=== PATIENT | male | born 1940 | race Caucasian/White ===

== ENCOUNTER 2017-06-10 21:32 | Emergency (ER) | payer BC ==
[~2017-06-10] VITALS: Ht 172.7 cm; Wt 75.0 kg
[~2017-06-10 21:32] MED LIST: ASPCH81 PO; LISI-725 PO
[2017-06-10 21:46] VITALS: TEMP 37.2; Ht 172.7 cm; Wt 75.0 kg
--- NOTE | 2017-06-10 23:06 | DIAGNOSTIC IMAGING REPORT ---
L ANKLE MIN 3 VIEWS ROUTINE CLINICAL HISTORY: 76 years-old Male presenting with FALL ONTO LEFT HEEL/ANKLE. TECHNIQUE: Frontal, mortise, and lateral views of the left ankle were obtained. COMPARISON: None. FINDINGS: Ankle mortise intact. Nondisplaced fracture of the calcaneus extending from the posterior cortex anteriorly toward the inferior aspect of the calcaneus. The fracture plane appears largely parallel to the long axis of the calcaneus. No advanced degenerative change. Diffuse soft tissue swelling at the ankle. IMPRESSION: Nondisplaced calcaneal fracture. Please see separately dictated radiographs of the calcaneus. Electronically signed by: Shiva Arroyo M.D. 06/10/2017 11:05 PM Dictated Date/Time: 06/10/2017 11:03 PM [facility]
--- NOTE | 2017-06-10 23:07 | DIAGNOSTIC IMAGING REPORT ---
L HEEL MIN 2 VIEWS CLINICAL HISTORY: 76 years-old Male presenting with FALL ONTO LEFT HEEL. TECHNIQUE: Frontal and lateral views of the calcaneus were obtained. COMPARISON: None. FINDINGS: Nondisplaced fracture of the calcaneus extending from the posterior cortex along the long axis of the calcaneus approaching the inferior cortex. Overlying soft tissue swelling noted. No advanced degenerative change. Atherosclerosis. IMPRESSION: Nondisplaced fracture of the calcaneus. Electronically signed by: Shiva Arroyo M.D. 06/10/2017 11:06 PM Dictated Date/Time: 06/10/2017 11:05 PM
--- NOTE | 2017-06-10 23:59 | EMERGENCY ROOM VISIT NOTE ---
ED Visit Note First contact with patient: 23:03 The patient was seen and examined with [facility]. I agree with the history, physical and findings. Please see the note for disposition and details.
--- NOTE | 2017-06-11 00:05 | EMERGENCY ROOM VISIT NOTE ---
ED Visit Note First contact with patient: 23:03 CHIEF COMPLAINT: Left ankle and foot pain HISTORY OF PRESENT ILLNESS: This 76-year-old male patient presents to the emergency department, ambulatory, with his , complaining of swelling and pain in the left ankle and foot at rest and worse with weight bearing. The patient was working approximately 4-5 feet up a ladder, when a branch of a tree hit the ladder, and the patient lost balance. He fell down onto his left heel, then rolled over to his left side. This occurred at approximately 1:30 PM. The patient immediately felt pain with walking on the left heel, and states he is now having difficulty putting any weight on the foot. The patient has been alternating ice and heat, but has taken no medications for the pain. He describes the pain mostly in the left heel, but radiating towards the lateral ankle. The patient rates the pain as sharp and 9/10. The patient has not relief of the pain. The patient is not able to walk. No numbness or weakness. There are no lacerations of the foot. The patient is able to move all of their toes and their ankle without pain. No previous fracture to this foot. REVIEW OF SYSTEMS: GENERAL: A 6 system review of systems was completed with positives and pertinent negatives in the HPI. ALLERGIES: None MEDICATIONS: Lisinopril, aspirin PMH: Hypertension SOCIAL HISTORY: The patient lives locally with family. He denies drug use. He admits to occasionally smoking cigars and drinking alcohol. PHYSICAL EXAM: Vital Signs: Reviewed Nurse's notes, vital signs stable. GENERAL : This is a 76-year-old white male, in no acute distress, but appears in pain, well-developed, well-nourished. MUSCULOSKELATAL: There is no visual deformity of the left ankle or foot. There is no erythema, but there is ecchymosis over the heel/calcaneus. There is no warmth. There is tenderness and swelling over the entirety of the left foot. There is no tenderness over the lateral or medial malleolus, but there is tenderness just distal to the lateral malleolus. No tenderness of the tib/fib. The range of motion of the ankle and foot is mildly limited secondary to pain. There is no tenderness over the plantar fascia. The skin is intact and there are no lacerations or puncture wounds. Dorsalis pedis pulse 2+. Capillary refill less than 2 seconds. There is no tenderness over the thoracic or lumbar vertebrae. There is no paraspinous muscle tenderness. The patient denies any back pain. RADIOLOGY: L ANKLE MIN 3 VIEWS ROUTINE CLINICAL HISTORY: 76 years-old Male presenting with FALL ONTO LEFT HEEL/ANKLE. TECHNIQUE: Frontal, mortise, and lateral views of the left ankle were obtained. COMPARISON: None. FINDINGS: Ankle mortise intact. Nondisplaced fracture of the calcaneus extending from the posterior cortex anteriorly toward the inferior aspect of the calcaneus. The fracture plane appears largely parallel to the long axis of the calcaneus. No advanced degenerative change. Diffuse soft tissue swelling at the ankle. IMPRESSION: Nondisplaced cranial fracture. Please see separately dictated radiographs of the calcaneus. Electronically signed by: Shiva Arroyo M.D. 06/10/2017 11:05 PM Dictated Date/Time: 06/10/2017 11:03 PM L HEEL MIN 2 VIEWS CLINICAL HISTORY: 76 years-old Male presenting with FALL ONTO LEFT HEEL. TECHNIQUE: Frontal and lateral views of the calcaneus were obtained. COMPARISON: None. FINDINGS: Nondisplaced fracture of the calcaneus extending from the posterior cortex along the long axis of the calcaneus approaching the inferior cortex. Overlying soft tissue swelling noted. No advanced degenerative change. Atherosclerosis. IMPRESSION: Nondisplaced fracture of the calcaneus. Electronically signed by: Shiva Arroyo M.D. 06/10/2017 11:06 PM Dictated Date/Time: 06/10/2017 11:05 PM EMERGENCY DEPARTMENT COURSE: I examined the patient. An X-ray of the left ankle and heel was reviewed by myself and radiologist and reveals a nondisplaced calcaneal fracture. No, the dictation of the left ankle by radiologist indicates a nondisplaced cranial fracture, I do believe this is a mistake and is meant to say calcaneal fracture. The radiologist was notified. The patient was offered analgesics, and declined. I discussed the case with Dr. Sue, who did independently see and evaluate the patient. The patient was placed in a bulky Castellanos dressing with Ortho-Glass splint. He was instructed on no weightbearing, and offered crutches or a walker. The patient states he has a walker at home, and declines our offer here. Discharge instructions reviewed, and the patient was given strict instructions on follow-up with orthopedics within 1 week. The patient was discharged home in good condition. I attest that I have personally reviewed the patient's current medication list. Patient was found to have an elevated blood pressure and was referred to their primary doctor for recheck and further treatment. Etiologies such as soft tissue injury, fracture, dislocation, neurovascular compromise, compartment syndrome, as well as others were entertained. DIAGNOSIS: Left calcaneal fracture The chart was completed utilizing Open English Speech voice recognition software. Grammatical errors, random word insertions, pronoun errors, and incomplete sentences are an occasional consequence of this system due to software limitations, ambient noise, and hardware issues. Any formal questions or concerns about the content, text, or information contained within the body of this dictation should be directly addressed to the provider for clarification. Current/Historical Medications Scheduled Aspirin (Aspirin Tab-Chewable *), 81 MG PO DAILY Lisinopril (Zestril), 20 MG PO DAILY Allergies Coded Allergies: No Known Allergies (Unverified , 06/26/10) Vital Signs Date Time Temp Pulse Resp B/P (MAP) Pulse Ox O2 Delivery O2 Flow Rate FiO2 06/11/17 00:31 74 16 184/96 96 06/10/17 21:46 37.2 101 18 199/93 95 Room Air Departure Information Impression Primary Impression: Left calcaneal fracture Additional Impression: Fall from ladder Dispostion Home / Self-Care Condition GOOD Referrals Akash Swift M.D. (PCP) Shiva Wallace M.D. Patient Instructions ED Fx Foot, [facility] Additional Instructions He was seen in the emergency department today for left heel pain. You were diagnosed with a calcaneus fracture. As discussed, it is imperative that you follow-up with orthopedics for proper management and care, as these fractures often have many complications. Ibuprofen(Motrin, Advil) may be used for fever or pain. Use 600mg every six hours as needed. Take with food. Avoid using more than 2400mg in a 24 hour period. Do not use 2400mg per day for more than three consecutive days without physician direction. Prolonged inappropriate use can lead to stomach upset or ulcers. (AND/OR) Acetaminophen(Tylenol) may be used for fever or pain. Use 1000mg every six hours as needed. Avoid using more than 4000mg in a 24 hour period. Ice compresses for 20 minutes at a time four times daily for 2-3 days. Use the crutches or walker as instructed to avoid all weightbearing. Rest and elevate your injury. Do not get the splint wet. If your splint feels excessively tight, you have worsening pain, develop numbness or tingling, or your digits appear blue, loosen the rosa wrap. Then reapply the rosa wrap gently without removing the splint. If your symptoms are not quickly relieved return to the ER for re- evaluation. Return to the ER immediately for any numbness, tingling, severe pain, extreme swelling in the extremity or as needed. Call [facility], [phone], on Tuesday to arrange follow up for your injury. Problem Qualifiers Primary Impression: Left calcaneal fracture Encounter type: initial encounter Calcaneus location: unspecified portion of calcaneus Fracture type: closed Fracture alignment: nondisplaced Qualified Codes: S92.002A - Unspecified fracture of left calcaneus, initial encounter for closed fracture Additional Impression: Fall from ladder Encounter type: initial encounter Qualified Codes: W11.XXXA - Fall on and from ladder, initial encounter
[2017-06-11 00:31] VITALS: BP 184/96; PULSE 74; O2SAT 96
== END 2017-06-11 00:31 | disposition home or self-care (01) ==
LOC: C.EDB 21:33 → C.EDD 06-11 00:31
DX: S92.002A Unspecified fracture of left calcaneus, initial encounter for closed fracture (principal); W11.XXXA Fall on and from ladder, initial encounter; I10 Essential (primary) hypertension; F17.200 Nicotine dependence, unspecified, uncomplicated; Z79.82 Long term (current) use of aspirin

== ENCOUNTER 2017-06-17 01:14 | Emergency (ER) | payer BC ==
[~2017-06-17] VITALS: Ht 172.7 cm; Wt 78.1 kg
[2017-06-17 01:18] VITALS: TEMP 36.8; Ht 172.7 cm; Wt 78.1 kg
[2017-06-17] MEDS ORDERED: ASPI81TA28 PO (01:46)
[2017-06-17] MEDS ORDERED: LISI40TA PO (01:46)
[2017-06-17] MEDS ORDERED: MULT-188 PO (01:48)
[2017-06-17 02:52] VITALS: BP 178/86; PULSE 78; O2SAT 98
--- NOTE | 2017-06-17 02:53 | EMERGENCY ROOM VISIT NOTE ---
ED Visit Note First contact with patient: :22 Patient seen and evaluated at bedside after discussion with physician compliance assistant. Patient reports feeling markedly improved upon removal of his cast and is comfortable with the walking boot and crutches. Patient is a follow-up appointment scheduled for Tuesday with orthopedics. Patient's blood pressure was improved following removal of the cast as well. Patient with long- standing history of high blood pressure. Patient with no other symptoms to suggest hypertensive urgency or emergency. Patient well-appearing at bedside, all questions answered, comfortable with the plan as discussed with the physician compliance assistant.
--- NOTE | 2017-06-18 05:08 | EMERGENCY ROOM VISIT NOTE ---
History First contact with patient: 01:22 Chief Complaint: OTHER COMPLAINT Stated Complaint: WANT CAST CUT OFF LEFT LEG History of Present Illness The patient is a 76 year old male who presents to the Emergency Room with complaints of worsening pain into his left leg. The patient states that his pain has worsened over the past 6 hours. He has a recent history of calcaneal fracture to the left foot 7 days ago. He followed with orthopedics this week and a full cast was placed. The patient has had some mild difficulty with pain after placement of the cast, and he states this has significantly worsened tonight. He rates the discomfort a 9/10 without radiation. He is having a little bit of numbness into his toes. No fevers or chills. He has not taken anything [id number] for his symptoms. Review of Systems More than 10 systems were reviewed and otherwise negative with the exception of history of present illness. Past Medical/Surgical History Left heel fracture Family History No pertinent family history Social History Smoking Status: Never Smoker Housing Status: lives with family Current/Historical Medications Scheduled Aspirin (Aspirin Ec), 81 MG PO DAILY Lisinopril (Zestril), 40 MG PO DAILY Multiple Vitamins W/ Minerals (Ocuvite), 1 TAB PO DAILY Physical Exam Vital Signs Date Time Temp Pulse Resp B/P (MAP) Pulse Ox O2 Delivery O2 Flow Rate FiO2 06/17/17 02:52 78 16 178/86 98 06/17/17 02:14 184/82 06/17/17 01:18 36.8 84 16 211/92 97 Room Air Physical Exam VITALS: Vitals are noted on the nurse's note and reviewed by myself. Vital signs with noted hypertension GENERAL: White male who appears in moderate discomfort secondary to his stated complaint HEART: Regular rate and rhythm without murmurs gallops or rubs. LUNGS: Clear to auscultation bilaterally without wheezes, rales or rhonchi. No retractions or accessory muscle use. MUSCULOSKELETAL: Cast is appreciated to the left lower extremity. The patient is able to wiggle the toes of the left foot. Capillary refill is less than 2 seconds. Neurologically he appears intact to the distal toes. Medical Decision & Procedures ED Course Physical exam and history were performed. Nursing notes, EMR, and Medication List were personally reviewed. Patient appears to have suffered a left calcaneal fracture last week with subsequent casting. The patient is having significant pain underneath the cast. The cast was removed, and the patient was monitored. His blood pressure was initially quite elevated, however this was felt to be related to his pain. After the cast was removed his pain essentially completely resolved, and his blood pressure improved. I discussed the case with my attending physician, who also independently evaluated the patient. The patient will be placed in a walking boot with instructions to continue using his walker. He is established with orthopedics and is to continue appropriate follow-up with them. He was otherwise invited back to the ER with any new, worsening, or concerning symptoms. The chart was completed utilizing [employer] Speech Voice Recognition Software. Grammatical errors, random word insertions, pronoun errors, and incomplete sentences are an occasional consequence of this system due to software limitations, ambient noise, and hardware issues. Any formal questions or concerns about the content, text, or information contained within the body of this dictation should be directly addressed to the provider for clarification. . Medical Decision Differential diagnosis includes, but is not limited to: Sprain, strain, fracture , dislocation, subluxation, contusion, compartment syndrome, and others Blood Pressure Screening Patient's blood pressure: Elevated blood pressure Blood pressure disposition: Elevated BP felt to be situational, Referred to PCP Impression Primary Impression: Left calcaneal fracture Departure Information Dispostion Home / Self-Care Condition GOOD Referrals Akash Swift M.D. (PCP) Forms WORK / SCHOOL INSTRUCTIONS, HOME CARE DOCUMENTATION FORM, IMPORTANT VISIT INFORMATION Patient Instructions [facility] Additional Instructions You were seen and evaluated today on an emergency basis only. This is not a substitute for, or an effort to provide, complete comprehensive medical care. It is not possible to recognize and treat all injuries or illnesses in a single emergency department visit. For this reason it is recommended that you followup with Orthopedics as scheduled on Tuesday for ongoing care. You are welcome to return to the emergency department anytime with new, worsening, or concerning symptoms.
== END 2017-06-17 02:53 | disposition home or self-care (01) ==
LOC: C.EDB 01:15
DX: S92.002A Unspecified fracture of left calcaneus, initial encounter for closed fracture (principal); X58.XXXA Exposure to other specified factors, initial encounter; Z46.89 Encounter for fitting and adjustment of other specified devices; Z79.82 Long term (current) use of aspirin; Z79.899 Other long term (current) drug therapy

== ENCOUNTER 2021-01-14 17:37 | Inpatient (IN) ==
[2021-01-14] MEDS ORDERED: cefTRIAXone SODIUM 2,000 MG/70 ML BAG IV STA (22:20)
[2021-01-14 22:29] LABS: Appearance Urine Cloudy (Clear); Bacteria Urine Automated Negative (Negative); Bilirubin Urine Negative (Negative); Blood Urine 3+ (Negative); Color Urine Yellow; Epithelial Cell Urine Auto 0-5 /lpf (0-5); Glucose Urine UA Negative (Negative); Ketones Urine Negative (Negative); Leukocyte Esterase Urine 2+ (Negative); Nitrite Urine Negative (Negative); Protein Urine 3+ (Negative); Specific Gravity Urine 1.011 (1.000-1.030); Urobilinogen Urine Negative (Negative); WBC Urine Automated >30 /hpf (0-5); pH Urine 6.5 (4.5-7.5)
[2021-01-14 23:02] LABS: Hematocrit (blood only) 34.7 % (42-52); Hemoglobin 12.2 g/dL (14.0-18.0); Mean Corpuscular Hemoglobin 31.5 pg (25-34); Mean Corpuscular Hgb Conc 35.2 g/dL (32-36); Mean Corpuscular Volume 89.7 fL (80-100); Mean Platelet Volume 8.9 fL (7.4-10.4); Platelet Count 252 K/uL (130-400); RDW Coefficient of Variation 12.3 % (11.5-14.5); Red Blood Count 3.87 M/uL (4.7-6.1); White Blood Count 18.61 K/uL (4.8-10.8)
[2021-01-14 23:44] LABS: Albumin Globulin Ratio 0.5 (0.9-2); Albumin Level 2.3 gm/dl (3.4-5.0); Bilirubin,Total 0.5 mg/dl (0.2-1); Calcium 8.9 mg/dl (8.5-10.1); Creatinine Clr Calc Pharmacy 6.1 ml/min; Est GFR (African American) 6.1 ml/min; Est GFR (Non-African American) 5.3 ml/min; Globulin 4.9 gm/dl (2.5-4.0); Total Protein 7.2 gm/dl (6.4-8.2)
[2021-01-15] LABS: Basophils # (auto) 0.01 K/uL (0-0.2); Basophils % (auto) 0.1 %; Immature Granulocytes # (auto) 0.08 K/uL (0.00-0.02); Immature Granulocytes % (auto) 0.4 %; Lymphocytes # (auto) 0.73 K/uL (1.2-3.4); Lymphocytes % (auto) 3.9 %; Monocytes # (auto) 0.81 K/uL (0.11-0.59); Monocytes % (auto) 4.4 %; Neutrophils # (auto) 16.98 K/uL (1.4-6.5); Neutrophils % (auto) 91.2 %; RBC Morphology Unremarkable
--- NOTE | 2021-01-15 00:48 | Emergency Department Note ---
Impression & Plan Obstructive uropathy, Urinary tract infection, Acute retention of urine, Acute on chronic renal failure ED Provider Note NAME: BRODERICK BREWER AGE: 80 SEX: M ARRIVES VIA: Walk-In INFORMANT: Patient, ED PROVIDER(S): Ken Marti MD CHIEF COMPLAINT: Referred, UTI, Abnormal labs PLAN: Disposition: Admit MEDICAL DECISION MAKING: The patient is a pleasant 80-year-old gentleman who presents to the emergency department referred from his PCPs office for evaluation of possible urinary retention after he was seen and treated for a urinary tract infection with prescription for Macrobid however had blood work performed that resulted showing a creatinine of 8 and was referred to the emergency department. The patient reports urinary urgency that has been ongoing for weeks but denies abdominal pain or back/flank pain. He denies any fevers, chills, cough congestion, nausea, vomiting, diarrhea. He is not particularly convinced that he has ever had any prostate symptoms but admits they have not followed up about these types of symptoms in the recent past. On arrival patient is in no acute distress, afebrile stable vital signs. On exam the patient has notable suprapubic fullness and discomfort without discrete tenderness. Bladder scan by RN which was performed post void demonstrated at least 800 cc of urine and upon straight catheterization 1400 cc were removed. Patient felt significant improvement subsequently. WBC 18.6K which likely is reflecting a component of the patient's acute renal failure. Otherwise the patient's H/H was 12.2/34.7 without recent values for comparison. Platelets within normal limits. Chemistry with bicarb of 18 and anion gap of 16 likely reflecting the patient's obstructive nephropathy with a creatinine of 8.5 and BUN of 85. LFTs are unremarkable. Lipase is not elevated. UA is consistent with infection with leukoesterase, WBCs. Patient was treated with ceftriaxone. CT of the abdomen pelvis was performed and demonstrates evidence of cystitis with the possibility of pyelonephritis not excluded as limited due to noncontrast study. Covid-19 PCR was negative. Case was discussed with Dr. Callejas, [facility] hospitalist, who will evaluate the patient for admission. Triage Nursing notes reviewed and agree them. Prior medical records reviewed Vital Signs: reviewed and remarkable for no significant abnormalities Differential diagnosis: Renal colic, UTI, appendicitis, diverticulitis, mesenteric ischemia, aortic pathology, infections, inflammatory bowel disease, PUD, biliary pathology, as well as other pathologies. ER treatment provided: See below. Diagnostics interpreted by me: Cardiac Monitoring: An order for continuous cardiac monitoring was placed and demonstrated NSR, 75 bpm, no ectopy. Laboratory studies: See below Imaging studies: See below Preliminary Findings Only See Final Report For Complete Findings CT ABDOMEN & PELVIS Without Contrast: Dixon catheter, bladder collapsed with severe wall thickening and haziness, including fluid that extends into the bilateral retroperitoneum, associated with bilateral pelvocaliectasis and haziness around the ureters, probable UTI such as cystitis. Pyelonephritis not excluded on this noncontrast exam. Severe, nonspecific prostatomegaly. Normal appendix. No stones or obstructing mass, though bladder and/or prostate neoplasm not excluded. Diverticulosis without acute diverticulitis. Small amount of small bowel containing right inguinal hernia, without SBO or free air. Radiologist: Monserrat Anna M.D. Study ready at 23:45 and initial results transmitted at 00:24 Consultation(s): Case was discussed with Dr. Callejas, [facility] hospitalist, who will evaluate the patient for admission. HPI: The patient is a pleasant 80-year-old gentleman who presents to the emergency department referred from his PCPs office for evaluation of possible urinary retention after he was seen and treated for a urinary tract infection with prescription for Macrobid however had blood work performed that resulted showing a creatinine of 8 and was referred to the emergency department. The patient reports urinary urgency that has been ongoing for weeks but denies abdominal pain or back/flank pain. He denies any fevers, chills, cough congestion, nausea, vomiting, diarrhea. He is not sure he has ever had any prostate symptoms but admits they have not followed up about these types of symptoms in the recent past. ROS: See above HPI for pertinent positives & negatives. A total of 10 systems reviewed and were otherwise negative. PAST MEDICAL HISTORY:See Below PAST SURGICAL HISTORY:See Below FAMILY HISTORY:See Below SOCIAL HISTORY:See Below HOME MEDICATIONS:See Below ALLERGIES:See Below VITALS:See Below PHYSICAL EXAMINATION: GENERAL: Awake, alert, well-appearing, in no distress HENT: Normocephalic, atraumatic. Oropharynx with dry mucous membranes and otherwise unremarkable. EYES: Normal conjunctiva. Sclera non-icteric. NECK: Supple. No nuchal rigidity. FROM. No JVD. RESPIRATORY: Clear to auscultation. CARDIAC: Regular rate, normal rhythm. Extremities warm and well perfused. Pulses equal. ABDOMEN: Soft, non-distended. Suprapubic fullness and discomfort without discrete tenderness. No rebound or guarding. No masses. RECTAL: Deferred. MUSCULOSKELETAL: Chest examination reveals no tenderness. The back is symmetrical on inspection without obvious abnormality. There is no CVA tenderness to palpation. No joint edema. LOWER EXTREMITIES: Calves are equal size bilaterally and non-tender. No edema. No discoloration. NEURO: Normal sensorium. No sensory or motor deficits noted. SKIN: No rash or jaundice noted. 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 Beliefs That Will Affect Care: None Current Living Situation: Spouse Feels Safe at Home: Yes Safety Concerns: Feels Safe At This Time Assistive Devices: Glasses Allergies Allergies Allergy/AdvReac Type Severity Reaction Status Date / Time No Known Allergies Allergy Unverified 01/14/21 22:12 Home Meds Home Medications Medication Instructions Recorded Confirmed Ocuvite Adult 50 Plus 1 tab PO DAILY 01/14/21 01/14/21 lisinopril 40 mg tablet 40 mg PO DAILY 01/14/21 01/14/21 nitrofurantoin macrocrystal 100 mg 100 mg PO DAILY 01/14/21 01/14/21 capsule Results & Data (ED) Vital Signs Vital Signs - 24 hr 01/14/21 18:10 01/14/21 23:38 Temperature 37.4 C 36.8 C Temperature Source Temporal Artery Scan Oral Pulse Rate 96 H Pulse Rate [Finger] 83 Respiratory Rate 18 17 Respiratory Effort / Characteristics Non-Labored Respiratory Depth Normal Respiratory Pattern Regular Blood Pressure 186/91 H Blood Pressure [Right Arm] 129/73 Blood Pressure Mean 122 Blood Pressure Mean [Right Arm] 91 Pulse Oximetry 97 96 Oxygen Delivery Method Room Air Room Air Sepsis Recent Fever Within 48 Hours No Sepsis New/Unexplained Change in Mental Status No Sepsis Action Taken by Nursing No Action Required Laboratory Data Attestation: I reviewed the patient's lab results. Result diagrams: 01/15/21 04:59 01/14/21 22:35 Lab Results 01/14/21 01/14/21 01/14/21 Range/Units 21:40 21:40 22:35 WBC 18.61 H (4.8-10.8) K/uL RBC 3.87 L (4.7-6.1) M/uL Hgb 12.2 L (14.0-18.0) g/dL Hct 34.7 L (42-52) % MCV 89.7 (80-100) fL MCH 31.5 (25-34) pg MCHC 35.2 (32-36) g/dL RDW Std Deviation 40.0 (36.4-46.3) fL RDW Coeff of Jovi 12.3 (11.5-14.5) % Plt Count 252 (130-400) K/uL MPV 8.9 (7.4-10.4) fL Immature Gran % (Auto) 0.4 % Neut % (Auto) 91.2 % Lymph % (Auto) 3.9 % Lake % (Auto) 4.4 % Eos % (Auto) 0.0 % Baso % (Auto) 0.1 % Neut # (Auto) 16.98 H (1.4-6.5) K/uL Lymph # (Auto) 0.73 L (1.2-3.4) K/uL [place] # (Auto) 0.81 H (0.11-0.59) K/uL Eos # (Auto) 0.00 (0-0.5) K/uL Baso # (Auto) 0.01 (0-0.2) K/uL Immature Gran # (Auto) 0.08 H (0.00-0.02) K/uL RBC Morphology Unremarkable Sodium (136-145) mmol/L Potassium (3.5-5.1) mmol/L Chloride (98-107) mmol/L Carbon Dioxide (21-32) mmol/L Anion Gap (3-11) BUN (7-18) mg/dl Creatinine (0.6-1.4) mg/dl Est Cr Clr Drug Dosing ml/min Est GFR ( Amer) ml/min Est GFR (Non-Af Amer) ml/min BUN/Creatinine Ratio (10-20) Glucose (70-99) mg/dl Calcium (8.5-10.1) mg/dl Total Bilirubin (0.2-1) mg/dl AST (15-37) U/L ALT (12-78) U/L Alkaline Phosphatase (45-117) U/L Total Protein (6.4-8.2) gm/dl Albumin (3.4-5.0) gm/dl Globulin (2.5-4.0) gm/dl Albumin/Globulin Ratio (0.9-2) Lipase (73-393) U/L Urine Color Yellow Urine Appearance Cloudy A (Clear) Urine pH 6.5 (4.5-7.5) Ur Specific [place] 1.011 (1.000-1.030) Urine Protein 3+ H (Negative) Urine Glucose (UA) Negative (Negative) Urine Ketones Negative (Negative) Urine Blood 3+ H (Negative) Urine Nitrite Negative (Negative) Urine Bilirubin Negative (Negative) Urine Urobilinogen Negative (Negative) Ur Leukocyte Esterase 2+ H (Negative) Urine WBC (Auto) >30 H (0-5) /hpf Urine RBC (Auto) 10-30 H (0-4) /hpf U Hyaline Cast (Auto) 1-5 (0-5) /lpf U Epithel Cells (Auto) 0-5 (0-5) /lpf Urine Bacteria (Auto) Negative (Negative) Urine Yeast Not Reportable Ur Random Creatinine 94.2 mg/dl Ur Random Sodium 35 mmol/L COVID-19 Eval Order SARS-CoV-2 (PCR) (Negative) 01/14/21 01/14/21 01/14/21 Range/Units 22:35 22:55 22:55 WBC (4.8-10.8) K/uL RBC (4.7-6.1) M/uL Hgb (14.0-18.0) g/dL Hct (42-52) % MCV (80-100) fL MCH (25-34) pg MCHC (32-36) g/dL RDW Std Deviation (36.4-46.3) fL RDW Coeff of Jovi (11.5-14.5) % Plt Count (130-400) K/uL MPV (7.4-10.4) fL Immature Gran % (Auto) % Neut % (Auto) % Lymph % (Auto) % Lake % (Auto) % Eos % (Auto) % Baso % (Auto) % Neut # (Auto) (1.4-6.5) K/uL Lymph # (Auto) (1.2-3.4) K/uL [place] # (Auto) (0.11-0.59) K/uL Eos # (Auto) (0-0.5) K/uL Baso # (Auto) (0-0.2) K/uL Immature Gran # (Auto) (0.00-0.02) K/uL RBC Morphology Sodium 131 L (136-145) mmol/L Potassium 5.0 (3.5-5.1) mmol/L Chloride 97 L (98-107) mmol/L Carbon Dioxide 18 L (21-32) mmol/L Anion Gap 16.0 H (3-11) BUN 85 H (7-18) mg/dl Creatinine 8.53 H* (0.6-1.4) mg/dl Est Cr Clr Drug Dosing 6.1 ml/min Est GFR ( Amer) 6.1 ml/min Est GFR (Non-Af Amer) 5.3 ml/min BUN/Creatinine Ratio 10.0 (10-20) Glucose 140 H (70-99) mg/dl Calcium 8.9 (8.5-10.1) mg/dl Total Bilirubin 0.5 (0.2-1) mg/dl AST 31 (15-37) U/L ALT 33 (12-78) U/L Alkaline Phosphatase 79 (45-117) U/L Total Protein 7.2 (6.4-8.2) gm/dl Albumin 2.3 L (3.4-5.0) gm/dl Globulin 4.9 H (2.5-4.0) gm/dl Albumin/Globulin Ratio 0.5 L (0.9-2) Lipase 99 (73-393) U/L Urine Color Urine Appearance (Clear) Urine pH (4.5-7.5) Ur Specific [place] (1.000-1.030) Urine Protein (Negative) Urine Glucose (UA) (Negative) Urine Ketones (Negative) Urine Blood (Negative) Urine Nitrite (Negative) Urine Bilirubin (Negative) Urine Urobilinogen (Negative) Ur Leukocyte Esterase (Negative) Urine WBC (Auto) (0-5) /hpf Urine RBC (Auto) (0-4) /hpf U Hyaline Cast (Auto) (0-5) /lpf U Epithel Cells (Auto) (0-5) /lpf Urine Bacteria (Auto) (Negative) Urine Yeast Ur Random Creatinine mg/dl Ur Random Sodium mmol/L COVID-19 Eval Order Covid19 at [facility] SARS-CoV-2 (PCR) NEGATIVE (Negative) Administered Medications Sodium Chloride (Nss 1000ml) 1,000 mls @ 125 mls/hr IV .Q8H KATYA Stop: 01/15/21 18:14 Last Admin: 01/15/21 03:06 Dose: 125 mls/hr Documented by: [id number] Discontinued Medications Ceftriaxone Sodium (Rocephin) 2,000 mg in 70 mls @ 140 mls/hr IV NOW STA Stop: 01/14/21 22:49 Last Infusion: 01/14/21 23:34 Dose: 0 mls/hr Documented by: [id number] Admin: 01/14/21 22:49 Dose: 140 mls/hr Documented by: [id number] Discharge Plan Visit Data Chief Complaint: Urinary Symptoms Stated Complaint: CALLED INTO ER FOR EAR DRAINAGE ED Provider: Ken Marti Discharge Problem: Obstructive uropathy, Urinary tract infection, Acute retention of urine, Acute on chronic renal failure Discharge Problem: Urinary tract infection Qualifiers: Urinary tract infection type: site unspecified Hematuria presence: with hematuria Qualified Code(s): N39.0 - Urinary tract infection, site not specified Acute on chronic renal failure Qualifiers: Acute renal failure type: unspecified Chronic kidney disease stage: unspecified stage Qualified Code(s): N17.9 - Acute kidney failure, unspecified
--- NOTE | 2021-01-15 00:57 | History & Physical Report ---
Date of Service January 15, 2021 Assessment & Plan (1) Obstructive uropathy: Plan: 80 yo M with hx HTN, HLD admitted for acute obstuctive uropathy due to prostatomegaly. Obstructive Uropathy causing Acute Kidney Injury - lowery placed for acute decompression, monitor UOP - Cr 8.53 in [place] ER, down from 8.72 in [facility] system at 2pm same day - PSA in [facility] lab 30.02, no personal or fmhx BPH or prostate cancer - urology consulted - trend BMP daily - K 5.0 - holding lisinopril. no nsaids/nephrotoxic agents UTI vs. Pyelonephritis - WBC 18, UA 3+ LE, 3+ blood, CT evidence of UTI with possible pyelo - received one dose of nitrofurantoin outpatient. discontinued, switched to ceftriaxone. One dose in ER, scheduled daily. - urine and blood cultures pending - possibility of prostatitis -- would correlate based on patient's symptom course. If prostatitis and improving kidney function, should be switched to levofloxacin - gentle hydration with NS @125 maintenance - monitor leukocytosis/anemia with CBC Hyponatremia - IVF as above - urine sodium and creatinine ordered for FeNa calculation DVT ppx: low risk, ambulation ad bobby FEN/GI: NPO for possible intervention tomorrow, Bowel regimen: prn miralax Code Status: DNR/DNI Dispo: med/surg (2) HLD (hyperlipidemia): (3) HTN (hypertension): History of Present Illness Primary Care Provider: Akash Swift MD 80 yo M with PMH HLD, tobacco use, HTN who was seen by Dr. Alanis earlier today for urinary frequency and urgency, found to have a Cr of 8.72, BUN 81, K 5.5 and was advised to go to the ER for emergent treatment. ER course significant for drainage of 1400 cc's of urine after lowery placement, CT A/P showing marked prostamegaly with concern for pyelonephritis. He states he had been experiencing urinary urgency, decreased appetite and fatigue for the past 4-5 days. He denied any fevers, chills, abdominal pain, back pain, hematuria, dysuria, nausea, vomiting, diarrhea. Allergies Allergy/AdvReac Type Severity Reaction Status Date / Time No Known Allergies Allergy Unverified 01/14/21 22:12 Home Medications Medication Instructions Recorded Confirmed Type Ocuvite Adult 50 Plus 1 tab PO DAILY 01/14/21 01/14/21 History lisinopril 40 mg tablet 40 mg PO DAILY 01/14/21 01/14/21 History nitrofurantoin macrocrystal 100 mg 100 mg PO DAILY 01/14/21 01/14/21 History capsule Past Med/Surg History Medical History Epididymitis HLD (hyperlipidemia) HTN (hypertension) Testicular pain Family History Other Family history non-contributory Social History Smoking Status: Never smoker Tobacco Type: Smokeless Tobacco (Dip or Chew) Hx Alcohol Use: No Hx Substance Use: No Preferred Language: Citizen Of [place] Communication Ability: Effective 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 Eyes: EOMI, pupils equal and reactive bilaterally, no scleral icterus Cardiac: RRR, blowing systolic murmur heard at LUSB with radiation to carotids bilaterally,no gallops or rubs. Normal S1, S2 Pulm: CTA BL, no wheezes, rhonchi, crackles or rubs, moving air well throughout both lungs Abd: soft, nontender, nondistended, normal bowel sounds, no rebound or guarding Extremities: 2+ peripheral pulses, no edema Neuro: no focal deficits, moving all 4 limbs, A&Ox3 Results & Data Results & Data ([facility]) Vital Signs (Past 12 Hours) Vital Signs Temp Pulse Pulse Resp BP BP Pulse Ox 01/14/21 23:38 36.8 C 83 17 129/73 96 01/14/21 18:10 37.4 C 96 H 18 186/91 H 97 Laboratory Results Laboratory Results WBC 18.61 K/uL (4.8-10.8) H 01/14/21 22:35 RBC 3.87 M/uL (4.7-6.1) L 01/14/21 22:35 Hgb 12.2 g/dL (14.0-18.0) L 01/14/21 22:35 Hct 34.7 % (42-52) L 01/14/21 22:35 MCV 89.7 fL (80-100) 01/14/21 22:35 MCH 31.5 pg (25-34) 01/14/21 22:35 MCHC 35.2 g/dL (32-36) 01/14/21 22:35 RDW Std Deviation 40.0 fL (36.4-46.3) 01/14/21 22:35 RDW Coeff of Jovi 12.3 % (11.5-14.5) 01/14/21 22:35 Plt Count 252 K/uL (130-400) 01/14/21 22:35 MPV 8.9 fL (7.4-10.4) 01/14/21 22:35 Immature Gran % (Auto) 0.4 % 01/14/21 22:35 Neut % (Auto) 91.2 % 01/14/21 22:35 Lymph % (Auto) 3.9 % 01/14/21 22:35 [place] % (Auto) 4.4 % 01/14/21 22:35 Eos % (Auto) 0.0 % 01/14/21 22:35 Baso % (Auto) 0.1 % 01/14/21 22:35 Neut # (Auto) 16.98 K/uL (1.4-6.5) H 01/14/21 22:35 Lymph # (Auto) 0.73 K/uL (1.2-3.4) L 01/14/21 22:35 [place] # (Auto) 0.81 K/uL (0.11-0.59) H 01/14/21 22:35 Eos # (Auto) 0.00 K/uL (0-0.5) 01/14/21 22:35 Baso # (Auto) 0.01 K/uL (0-0.2) 01/14/21 22:35 Immature Gran # (Auto) 0.08 K/uL (0.00-0.02) H 01/14/21 22:35 RBC Morphology Unremarkable 01/14/21 22:35 Sodium 131 mmol/L (136-145) L 01/14/21 22:35 Potassium 5.0 mmol/L (3.5-5.1) 01/14/21 22:35 Chloride 97 mmol/L (98-107) L 01/14/21 22:35 Carbon Dioxide 18 mmol/L (21-32) L 01/14/21 22:35 Anion Gap 16.0 (3-11) H 01/14/21 22:35 BUN 85 mg/dl (7-18) H 01/14/21 22:35 Creatinine 8.53 mg/dl (0.6-1.4) H* 01/14/21 22:35 Est Cr Clr Drug Dosing 6.1 ml/min 01/14/21 22:35 Est GFR ( Amer) 6.1 ml/min 01/14/21 22:35 Est GFR (Non-Af Amer) 5.3 ml/min 01/14/21 22:35 BUN/Creatinine Ratio 10.0 (10-20) 01/14/21 22:35 Glucose 140 mg/dl (70-99) H 01/14/21 22:35 Calcium 8.9 mg/dl (8.5-10.1) 01/14/21 22:35 Total Bilirubin 0.5 mg/dl (0.2-1) 01/14/21 22:35 AST 31 U/L (15-37) 01/14/21 22:35 ALT 33 U/L (12-78) 01/14/21 22:35 Alkaline Phosphatase 79 U/L (45-117) 01/14/21 22:35 Total Protein 7.2 gm/dl (6.4-8.2) 01/14/21 22:35 Albumin 2.3 gm/dl (3.4-5.0) L 01/14/21 22:35 Globulin 4.9 gm/dl (2.5-4.0) H 01/14/21 22:35 Albumin/Globulin Ratio 0.5 (0.9-2) L 01/14/21 22:35 Lipase 99 U/L (73-393) 01/14/21 22:35 Urine Color Yellow 01/14/21 21:40 Urine Appearance Cloudy (Clear) A 01/14/21 21:40 Urine pH 6.5 (4.5-7.5) 01/14/21 21:40 Ur Specific [place] 1.011 (1.000-1.030) 01/14/21 21:40 Urine Protein 3+ (Negative) H 01/14/21 21:40 Urine Glucose (UA) Negative (Negative) 01/14/21 21:40 Urine Ketones Negative (Negative) 01/14/21 21:40 Urine Blood 3+ (Negative) H 01/14/21 21:40 Urine Nitrite Negative (Negative) 01/14/21 21:40 Urine Bilirubin Negative (Negative) 01/14/21 21:40 Urine Urobilinogen Negative (Negative) 01/14/21 21:40 Ur Leukocyte Esterase 2+ (Negative) H 01/14/21 21:40 Urine WBC (Auto) >30 /hpf (0-5) H 01/14/21 21:40 Urine RBC (Auto) 10-30 /hpf (0-4) H 01/14/21 21:40 U Hyaline Cast (Auto) 1-5 /lpf (0-5) 01/14/21 21:40 U Epithel Cells (Auto) 0-5 /lpf (0-5) 01/14/21 21:40 Urine Bacteria (Auto) Negative (Negative) 01/14/21 21:40 Urine Yeast Not Reportable 01/14/21 21:40 COVID-19 Eval Order Covid19 at [facility] 01/14/21 22:55 SARS-CoV-2 (PCR) NEGATIVE (Negative) 01/14/21 22:55 CT A/P: lowery catheter in place, bladder collapsed with severe wall thickening and haziness, including fluid that extends into the bilateral retroperitoneum, associated with bilateral pelvocaliectasis and haziness around the ureters, probable UTI such as cystitis. Pyelonephritis not excluded on this noncontrast exam. Severe, nonspecific prostatomegaly. Normal appendix. No stones or obstructing mass, though bladder and/or prostate neoplasm not excluded. Diverticulosis without acute diverticulitis. Small amount of small bowel containing right inguinal hernia, without SBO or free air. Supervising Physician Co-Signing Physician Notes Patient seen and examined, chart reviewed, case discussed with Dr. Finley and I agree wtih the assessment and plan as above Resident Activity Tracking Resident Involvement: Resident Care Provided Care Provided: [facility] Medicine
[2021-01-15] MEDS ORDERED: ONDANSETRON INJ 2 MG/ML 2 ML VIAL IV PRN (02:00)
[2021-01-15] MEDS ORDERED: ACETAMINOPHEN 325 MG TAB PO PRN (02:00)
[2021-01-15] MEDS: SODIUM CHLORIDE 0.9% 1000ML 1,000 ML IV SCH ×3 (03:06→22:11)
[2021-01-15 04:16] LABS: Creatinine Urine Random 94.2 mg/dl
[2021-01-15 05:13] LABS: Basophils # (auto) 0.01 K/uL (0-0.2); Basophils % (auto) 0.1 %; Eosinophils # (auto) 0.01 K/uL (0-0.5); Eosinophils % (auto) 0.1 %; Hematocrit (blood only) 33.9 % (42-52); Hemoglobin 11.8 g/dL (14.0-18.0); Immature Granulocytes # (auto) 0.04 K/uL (0.00-0.02); Immature Granulocytes % (auto) 0.3 %; Lymphocytes # (auto) 0.56 K/uL (1.2-3.4); Mean Corpuscular Hemoglobin 31.5 pg (25-34); Mean Corpuscular Hgb Conc 34.8 g/dL (32-36); Mean Corpuscular Volume 90.4 fL (80-100); Mean Platelet Volume 8.7 fL (7.4-10.4); Monocytes # (auto) 0.98 K/uL (0.11-0.59); Monocytes % (auto) 6.9 %; Neutrophils # (auto) 12.54 K/uL (1.4-6.5); Neutrophils % (auto) 88.6 %; Platelet Count 241 K/uL (130-400); RDW Coefficient of Variation 12.3 % (11.5-14.5); RDW Standard Deviation 40.9 fL (36.4-46.3); Red Blood Count 3.75 M/uL (4.7-6.1); White Blood Count 14.14 K/uL (4.8-10.8)
[2021-01-15 05:51] LABS: BUN Creatinine Ratio 11.9 (10-20); Calcium 9.4 mg/dl (8.5-10.1); Creatinine Clr Calc Pharmacy 7.1 ml/min; Est GFR (African American) 7.3 ml/min; Est GFR (Non-African American) 6.3 ml/min; Potassium 5.4 mmol/L (3.5-5.1)
--- NOTE | 2021-01-15 07:01 | Billing Data ---
Date of Service January 15, 2021 Coding Level of Care Code 63771 Initial Inpt Care Lvl 2
--- NOTE | 2021-01-15 08:01 | Urology Consultation ---
Date of Consultation January 15, 2021 Assessment & Plan (1) Acute retention of urine: (2) Urinary tract infection: (3) Obstructive uropathy: (4) Acute on chronic renal failure: 80yo M admitted with acute urinary retention, JOSE ALBERTO, and presumed UTI secondary to marked prostatomegaly with bladder outlet obstruction - Plan of care and imaging reviewed with Dr. Mishra - CTAP imaging reviewed - Prostatomegaly with severe bladder wall thickening suggestive of BARILLAS, Mild to moderate L >R hydroureteronephrosis with perinephric and periureteral stranding, and Urothelial thickening of the left ureter and renal collecting system is suspicious for a superimposed ascending infection. - He is afebrile, non-toxic appearing. - Labs reviewed - Wbc downtrending and creatinine 7.32 today (8.53 on admission) - Urine and blood cultures pending, continues on IV Ceftriaxone - No acute intervention warranted at this time - Maintain lowery catheter for continued bladder rest/decompression and max drainage while treating the infection - Will arrange outpatient follow-up with urology for voiding trial and continued care following discharge - Per hospitalist note - PSA in [facility] lab - Will need to obtain PSA records prior to outpatient visit for review - Recommend starting tamsulosin if no contraindications - Continue supportive care, antibiotic therapy, and close monitoring - Follow cultures - Thank you for allowing us to participate in the acute care of Mr. De La Cruz. - Please reconsult us with additional questions, concerns or changes in patient status. History of Present Illness Reason for Consultation: acute obstructive uropathy 2/2 prostatomegaly Attending Physician: Carmen Pagan MD History of Present Illness 80yo M with a past medical history including hypertension, hyperlipidemia, and tobacco use who presented to the ED referred from his PCPs office as he was found to have a creatinine of 8. On arrival, he reported urinary urgency and frequency for weeks and had recently been treated for a urinary tract infection with Macrobid. Patient is known to [facility]. Last seen by Dr. Viera in July 2020 for f/u of epididymitis and lower urinary tract symptoms. At that time, the patient denied bothersome symptoms. He was not on any urinary medications. On presentation, he was afebrile, Wbc 18.61, Hgb 12.2, Cr. 8.53. A lowery catheter was placed in the ED with 1400ml of urine drained. Urinalysis with 3+blood, 2+Leukocytes, >30WBC, 10-30RBC, negative bacteria, negative nitrite. Urine and blood cultures pending. He was given a dose of ceftriaxone. Covid test negative. CT abdomen pelvis: 1. Marked prostatomegaly with severe urinary bladder wall thickening suggestive of chronic bladder outlet obstruction. Additionally, there is perivesicular stranding suspicious for associated cystitis. Correlate with urinalysis. 2. Mild to moderate left greater than right hydroureteronephrosis with perinephric and periureteral stranding is also likely secondary to bladder outlet obstruction. 3. Urothelial thickening of the left ureter and renal collecting system is ignacio picious for a superimposed ascending infection. Correlate with urinalysis. 4. No renal or ureteral calculi. 5. No bowel obstruction or bowel wall thickening. 6. Right greater than left inguinal hernias. The right inguinal hernia contains nonobstructed loops of small bowel. 7. Colonic diverticulosis. Patient examined at bedside this AM. Awake, resting in bed on arrival. He denies any pain or discomfort at present. No fevers or chills. Denies nausea or vomiting. Lowery catheter intact/patent, draining clear, yellow urine. Denies hematuria and dysuria. At baseline, he reports urinary frequency and hesitancy. He reports a slow stream. Some dribbling. Nocturia 4-5. No urgency. No hematuria or dysuria. He does report occasional bladder pain. Per chart review: - PSA in [facility] lab 30.02, no personal or family history of BPH or prostate cancer Offers no additional complaints at time of exam Allergies Allergy/AdvReac Type Severity Reaction Status Date / Time No Known Allergies Allergy Unverified 01/14/21 22:12 Home Medications Medication Instructions Recorded Confirmed Type Ocuvite Adult 50 Plus 1 tab PO DAILY 01/14/21 01/14/21 History lisinopril 40 mg tablet 40 mg PO DAILY 01/14/21 01/14/21 History nitrofurantoin macrocrystal 100 mg 100 mg PO DAILY 01/14/21 01/14/21 History capsule Patient History Medical History Epididymitis HLD (hyperlipidemia) HTN (hypertension) Testicular pain Family History Other Family history non-contributory Social History Smoking Status: Never smoker Tobacco Type: Smokeless Tobacco (Dip or Chew) Hx Alcohol Use: No Hx Substance Use: No Preferred Language: French Communication Ability: Effective Investor Relations Director Required: No Beliefs That Will Affect Care: None Current Living Situation: Spouse Feels Safe at Home: Yes Safety Concerns: Feels Safe At This Time Assistive Devices: Glasses Review of Systems Review of Systems: All systems reviewed & are unremarkable except as noted in HPI & below Physical Exam Constitutional: well developed and well nourished; no acute distress and not ill appearing Neck: normal visual inspection Respiratory: normal respiratory effort and able to speak in complete sentences; no labored breathing and no audible wheezes Gastrointestinal (Abdomen): Inspection/Auscultation: abdomen normal to inspection; abdomen not distended Musculoskeletal: Head/Neck/Chest: normocephalic Skin: No visible rashes or lesions to exposed skin areas Neurologic: moves all extremities and awake Psychiatric: Orientation: alert, oriented x 3 and cooperative Genitourinary: Lowery catheter intact, draining clear yellow urine Results & Data ([facility]) Vital Signs (Past 12 Hours) Vital Signs Temp Pulse Resp BP Pulse Ox 01/15/21 02:55 36.7 C 75 18 156/81 H 98 01/14/21 23:38 36.8 C 83 17 129/73 96 PG Care Time/CCT Total # of Minutes Spent Total Time Spent with Patient: Total time spent is greater than 50% in coordination of care (as documented) at patient's floor/unit and/or counseling patient: Coding Level of Care Code 78520 Initial Inpt Care Lvl 2 Diagnoses Acute retention of urine R33.8 Urinary tract infection N39.0; R31.9 Hematuria presence: with hematuria Urinary tract infection type: site unspecified Obstructive uropathy N13.9 Acute on chronic renal failure N17.9; N18.9 Acute renal failure type: unspecified Chronic kidney disease stage: unspecified stage (1) Urinary tract infection Hematuria presence: with hematuria Urinary tract infection type: site unspecified Qualified Code(s): N39.0 - Urinary tract infection, site not specified; R31.9 - Hematuria, unspecified (2) Acute on chronic renal failure Acute renal failure type: unspecified Chronic kidney disease stage: unspecified stage Qualified Code(s): N17.9 - Acute kidney failure, unspecified; N18.9 - Chronic kidney disease, unspecified
--- NOTE | 2021-01-15 11:43 | CT Scan Report ---
ABDOMEN AND PELVIS CT WITHOUT CONTRAST CT DOSE: 736.61 mGy.cm HISTORY: Acute renal failure with urinary tract infection. ARF, uti TECHNIQUE: Multiaxial CT images of the abdomen and pelvis were performed without contrast. A dose lo wering technique was utilized adhering to the principles of ALARA. COMPARISON STUDY: CT abdomen and pelvis 06/26/2010 FINDINGS: Trace pericardial effusion. Coronary artery calcifications. The lung bases are generally cl ear. No pneumatosis or pneumoperitoneum. The unenhanced spleen is mildly enlarged at 13.6 cm. Mild ge neralized pancreatic atrophy. Mildly contracted gallbladder. Unremarkable adrenal glands. 9 mm hypode nse focus of the superior left hepatic lobe is indeterminate, possibly a small cyst. The liver is oth erwise unremarkable. Nonspecific bilateral perinephric stranding, left greater than right. Mild to moderate bilateral hydr oureteronephrosis with urothelial thickening of the left renal collecting system and ureter. No renal or ureteral calculi. Marked prostamegaly with Dixon catheter in place. There is marked urinary bladd er wall thickening with partial distention and perivesicular stranding. Air in the bladder lumen is l ikely secondary to instrumentation. Atherosclerosis of the aorta with mild ectasia measuring up to 2. 5 cm. No definite adenopathy. No bowel obstruction. Colonic diverticulosis without acute diverticulitis. Normal appendix. Small to moderate fat filled left inguinal hernia. Moderate right inguinal hernia containing mesenteric fat an d nonobstructed loops of ileum. No acute fracture. Degenerative changes of the spine, pelvis and hips . IMPRESSION: 1. Marked prostamegaly with severe urinary bladder wall thickening suggestive of chronic bladder outl et obstruction. Additionally, there is perivesicular stranding suspicious for associated cystitis. Co rrelate with urinalysis. 2. Mild to moderate left greater than right hydroureteronephrosis with perinephric and periureteral s tranding is also likely secondary to bladder outlet obstruction. 3. Urothelial thickening of the left ureter and renal collecting system is suspicious for a superimpo sed ascending infection. Correlate with urinalysis. 4. No renal or ureteral calculi. 5. No bowel obstruction or bowel wall thickening. 6. Right greater than left inguinal hernias. The right inguinal hernia contains nonobstructed loops o f small bowel. 7. Colonic diverticulosis. ACT 112: Negative or not required by law. The above report was generated using voice recognition software. It may contain grammatical, syntax o r spelling errors. Dictated: 01/15/2021 9:28 AM Transcribed: 01/15/2021 9:45 AM Laura [id number] [email or web address] Electronically signed by: Sylvain Shukla M.D. 01/15/2021 11:42 AM
--- NOTE | 2021-01-15 13:05 | Ultrasound Report ---
US renal/blad retro comp HISTORY: 80 years-old Male acute renal injury COMPARISON: CT abdomen and pelvis 01/14/2021 TECHNIQUE: Multiple real-time sonographic images of the kidneys and urinary bladder were obtained ass essing grayscale appearance and color flow FINDINGS: The right kidney measures 10.8 cm in length. The left kidney measures 10.6 cm in length. 1.1 x 1.0 cm cyst of the inferior pole left kidney redemonstrated. There is mild to moderate bilateral hydrourete ronephrosis again noted. No suspicious renal mass lesions or renal calculi. Heterogeneous material no kaylie within the left renal collecting system and proximal left ureter. Marked urinary bladder wall thickening with trabeculation. Dixon catheter is in place. Prostamegaly. IMPRESSION: 1. Prostamegaly with urinary bladder wall thickening and trabeculation suggestive of chronic bladder outlet obstruction. Correlate with urinalysis to exclude cystitis. 2. Mild to moderate bilateral hydroureteronephrosis redemonstrated without renal calculi. 3. Complex material within the left renal collecting system and proximal ureter may be secondary to b lood products versus pyogenic debris. Correlate with urinalysis. ACT 112: Negative or not required by law. The above report was generated using voice recognition software. It may contain grammatical, syntax o r spelling errors. Electronically signed by: Sylvain Shukla M.D. 01/15/2021 1:04 PM
[2021-01-15 15:05] LABS: BUN Creatinine Ratio 14.9 (10-20); Calcium 8.9 mg/dl (8.5-10.1); Creatinine Clr Calc Pharmacy 9.9 ml/min; Est GFR (African American) 10.9 ml/min; Est GFR (Non-African American) 9.4 ml/min; Potassium 4.8 mmol/L (3.5-5.1)
--- NOTE | 2021-01-15 15:43 | Hospitalist Progress Note ---
Date of Service January 15, 2021 Assessment & Plan (1) Obstructive uropathy: Plan: 80 y/o with with a past medical history of hypertension and hyperlipidemia who presented to the ED referred from his PCPs office as he was found to have a creatinine of 8. # Acute renal failure -Secondary to Bladder outlet obstruction -continue bladder drainage with lowery -continue IVF -Creatinine downtrending -monitor BMP - Holding lisinopril #. Obstructive uropathy -CT abd/pelvis showed prostatomegaly with severe urinary bladder wall thickening suggestive of bladder outlet obstruction -PSA in [facility] lab 30.02, no personal or fmhx BPH or prostate cancer -Lowery placed for continued bladder rest/decompression and max drainage -Continue to monitor UOP -Urology consulted -No acute intervention warranted at this time - Recommend outpatient follow-up with urology for voiding trial and continued care following discharge #. Urinary tract infection -CT abd/pelvis showing Urothelial thickening of the left ureter and renal collecting system, suspicious for a superimposed ascending infection -UA showed evidence of UTI w/ possible pyelonephritis - (+) Leukocyte esterase, (+) WBC, 3+ blood -Urine and blood cultures pending -Cont. IV Ceftriaxone -Monitor WBC # Hypertension -Holding Lisinopril Diet: Regular diet DVT Prophylaxis: Heparin SubQ Code Status: DNR/DNI (2) Urinary tract infection: Admission and Anticipated Discharge Date Admission Date: January 15, 2021 Supervising Physician Co-Signing Physician Notes Medical Student Supervision Note: I was personally present during medical student patient encounter and independently interviewed and examined the patient and verified the downey history and physical, reviewed labs and image studies, discussed the case with Loretta Ellis and agree with the findings and care plan. Subjective No acute changes overnight. Reports feeling generally well, no abdominal, suprapubic, or flank pain reported. Review of Systems Constitutional: no fever and no chills Respiratory: no chest congestion and no dyspnea Cardiovascular: no chest pain and no palpitations Gastrointestinal: no abdominal pain, no nausea and no vomiting Genitourinary: + urinary frequency, + decreased urination and + urinary urgency (Incomplete bladder emptying) Physical Exam Constitutional: Pleasant gentleman, awake and alert lying in bet, no acute distress Respiratory: normal respiratory effort, lungs clear to auscultation Cardiovascular: Rate/Rhythm: regular rate Heart Sounds: no murmur Skipped beats noted, best heard on left sternal border Gastrointestinal (Abdomen): normal bowel sounds, soft, nontender, no hepatosplenomegaly Results & Data Results & Data ([facility]) Vital Signs (Past 12 Hours) Vital Signs Temp Pulse Resp BP Pulse Ox 01/15/21 08:00 36.9 C 81 18 159/82 H 96 Laboratory Results 01/15/21 01/15/21 01/15/21 Range/Units 14:15 04:59 04:59 WBC 14.14 H (4.8-10.8) K/uL RBC 3.75 L (4.7-6.1) M/uL Hgb 11.8 L (14.0-18.0) g/dL Hct 33.9 L (42-52) % MCV 90.4 (80-100) fL MCH 31.5 (25-34) pg MCHC 34.8 (32-36) g/dL RDW Std Deviation 40.9 (36.4-46.3) fL RDW Coeff of Jovi 12.3 (11.5-14.5) % Plt Count 241 (130-400) K/uL MPV 8.7 (7.4-10.4) fL Immature Gran % (Auto) 0.3 % Neut % (Auto) 88.6 % Lymph % (Auto) 4.0 % [place] % (Auto) 6.9 % Eos % (Auto) 0.1 % Baso % (Auto) 0.1 % Neut # (Auto) 12.54 H (1.4-6.5) K/uL Lymph # (Auto) 0.56 L (1.2-3.4) K/uL [place] # (Auto) 0.98 H (0.11-0.59) K/uL Eos # (Auto) 0.01 (0-0.5) K/uL Baso # (Auto) 0.01 (0-0.2) K/uL Immature Gran # (Auto) 0.04 H (0.00-0.02) K/uL RBC Morphology Sodium 140 134 L (136-145) mmol/L Potassium 4.8 5.4 H (3.5-5.1) mmol/L Chloride 108 H 102 (98-107) mmol/L Carbon Dioxide 19 L 24 (21-32) mmol/L Anion Gap 13.0 H 8.0 (3-11) BUN 79 H 87 H (7-18) mg/dl Creatinine 5.26 H* D 7.32 H* D (0.6-1.4) mg/dl Est Cr Clr Drug Dosing 9.9 7.1 ml/min Est GFR ( Amer) 10.9 7.3 ml/min Est GFR (Non-Af Amer) 9.4 6.3 ml/min BUN/Creatinine Ratio 14.9 11.9 (10-20) Glucose 99 122 H (70-99) mg/dl Calcium 8.9 9.4 (8.5-10.1) mg/dl Total Bilirubin (0.2-1) mg/dl AST (15-37) U/L ALT (12-78) U/L Alkaline Phosphatase (45-117) U/L Total Protein (6.4-8.2) gm/dl Albumin (3.4-5.0) gm/dl Globulin (2.5-4.0) gm/dl Albumin/Globulin Ratio (0.9-2) Lipase (73-393) U/L Urine Color Urine Appearance (Clear) Urine pH (4.5-7.5) Ur Specific [place] (1.000-1.030) Urine Protein (Negative) Urine Glucose (UA) (Negative) Urine Ketones (Negative) Urine Blood (Negative) Urine Nitrite (Negative) Urine Bilirubin (Negative) Urine Urobilinogen (Negative) Ur Leukocyte Esterase (Negative) Urine WBC (Auto) (0-5) /hpf Urine RBC (Auto) (0-4) /hpf U Hyaline Cast (Auto) (0-5) /lpf U Epithel Cells (Auto) (0-5) /lpf Urine Bacteria (Auto) (Negative) Urine Yeast Ur Random Creatinine mg/dl Ur Random Sodium mmol/L COVID-19 Eval Order SARS-CoV-2 (PCR) (Negative) 01/14/21 01/14/21 01/14/21 Range/Units 22:55 22:55 22:35 WBC (4.8-10.8) K/uL RBC (4.7-6.1) M/uL Hgb (14.0-18.0) g/dL Hct (42-52) % MCV (80-100) fL MCH (25-34) pg MCHC (32-36) g/dL RDW Std Deviation (36.4-46.3) fL RDW Coeff of Jovi (11.5-14.5) % Plt Count (130-400) K/uL MPV (7.4-10.4) fL Immature Gran % (Auto) % Neut % (Auto) % Lymph % (Auto) % [place] % (Auto) % Eos % (Auto) % Baso % (Auto) % Neut # (Auto) (1.4-6.5) K/uL Lymph # (Auto) (1.2-3.4) K/uL [place] # (Auto) (0.11-0.59) K/uL Eos # (Auto) (0-0.5) K/uL Baso # (Auto) (0-0.2) K/uL Immature Gran # (Auto) (0.00-0.02) K/uL RBC Morphology Sodium 131 L (136-145) mmol/L Potassium 5.0 (3.5-5.1) mmol/L Chloride 97 L (98-107) mmol/L Carbon Dioxide 18 L (21-32) mmol/L Anion Gap 16.0 H (3-11) BUN 85 H (7-18) mg/dl Creatinine 8.53 H* (0.6-1.4) mg/dl Est Cr Clr Drug Dosing 6.1 ml/min Est GFR ( Amer) 6.1 ml/min Est GFR (Non-Af Amer) 5.3 ml/min BUN/Creatinine Ratio 10.0 (10-20) Glucose 140 H (70-99) mg/dl Calcium 8.9 (8.5-10.1) mg/dl Total Bilirubin 0.5 (0.2-1) mg/dl AST 31 (15-37) U/L ALT 33 (12-78) U/L Alkaline Phosphatase 79 (45-117) U/L Total Protein 7.2 (6.4-8.2) gm/dl Albumin 2.3 L (3.4-5.0) gm/dl Globulin 4.9 H (2.5-4.0) gm/dl Albumin/Globulin Ratio 0.5 L (0.9-2) Lipase 99 (73-393) U/L Urine Color Urine Appearance (Clear) Urine pH (4.5-7.5) Ur Specific [place] (1.000-1.030) Urine Protein (Negative) Urine Glucose (UA) (Negative) Urine Ketones (Negative) Urine Blood (Negative) Urine Nitrite (Negative) Urine Bilirubin (Negative) Urine Urobilinogen (Negative) Ur Leukocyte Esterase (Negative) Urine WBC (Auto) (0-5) /hpf Urine RBC (Auto) (0-4) /hpf U Hyaline Cast (Auto) (0-5) /lpf U Epithel Cells (Auto) (0-5) /lpf Urine Bacteria (Auto) (Negative) Urine Yeast Ur Random Creatinine mg/dl Ur Random Sodium mmol/L COVID-19 Eval Order Covid19 at [facility] SARS-CoV-2 (PCR) NEGATIVE (Negative) 01/14/21 01/14/21 01/14/21 Range/Units 22:35 21:40 21:40 WBC 18.61 H (4.8-10.8) K/uL RBC 3.87 L (4.7-6.1) M/uL Hgb 12.2 L (14.0-18.0) g/dL Hct 34.7 L (42-52) % MCV 89.7 (80-100) fL MCH 31.5 (25-34) pg MCHC 35.2 (32-36) g/dL RDW Std Deviation 40.0 (36.4-46.3) fL RDW Coeff of Jovi 12.3 (11.5-14.5) % Plt Count 252 (130-400) K/uL MPV 8.9 (7.4-10.4) fL Immature Gran % (Auto) 0.4 % Neut % (Auto) 91.2 % Lymph % (Auto) 3.9 % [place] % (Auto) 4.4 % Eos % (Auto) 0.0 % Baso % (Auto) 0.1 % Neut # (Auto) 16.98 H (1.4-6.5) K/uL Lymph # (Auto) 0.73 L (1.2-3.4) K/uL [place] # (Auto) 0.81 H (0.11-0.59) K/uL Eos # (Auto) 0.00 (0-0.5) K/uL Baso # (Auto) 0.01 (0-0.2) K/uL Immature Gran # (Auto) 0.08 H (0.00-0.02) K/uL RBC Morphology Unremarkable Sodium (136-145) mmol/L Potassium (3.5-5.1) mmol/L Chloride (98-107) mmol/L Carbon Dioxide (21-32) mmol/L Anion Gap (3-11) BUN (7-18) mg/dl Creatinine (0.6-1.4) mg/dl Est Cr Clr Drug Dosing ml/min Est GFR ( Amer) ml/min Est GFR (Non-Af Amer) ml/min BUN/Creatinine Ratio (10-20) Glucose (70-99) mg/dl Calcium (8.5-10.1) mg/dl Total Bilirubin (0.2-1) mg/dl AST (15-37) U/L ALT (12-78) U/L Alkaline Phosphatase (45-117) U/L Total Protein (6.4-8.2) gm/dl Albumin (3.4-5.0) gm/dl Globulin (2.5-4.0) gm/dl Albumin/Globulin Ratio (0.9-2) Lipase (73-393) U/L Urine Color Yellow Urine Appearance Cloudy A (Clear) Urine pH 6.5 (4.5-7.5) Ur Specific [place] 1.011 (1.000-1.030) Urine Protein 3+ H (Negative) Urine Glucose (UA) Negative (Negative) Urine Ketones Negative (Negative) Urine Blood 3+ H (Negative) Urine Nitrite Negative (Negative) Urine Bilirubin Negative (Negative) Urine Urobilinogen Negative (Negative) Ur Leukocyte Esterase 2+ H (Negative) Urine WBC (Auto) >30 H (0-5) /hpf Urine RBC (Auto) 10-30 H (0-4) /hpf U Hyaline Cast (Auto) 1-5 (0-5) /lpf U Epithel Cells (Auto) 0-5 (0-5) /lpf Urine Bacteria (Auto) Negative (Negative) Urine Yeast Not Reportable Ur Random Creatinine 94.2 mg/dl Ur Random Sodium 35 mmol/L COVID-19 Eval Order SARS-CoV-2 (PCR) (Negative) (1) Urinary tract infection Hematuria presence: with hematuria Urinary tract infection type: site unspecified Qualified Code(s): N39.0 - Urinary tract infection, site not specified; R31.9 - Hematuria, unspecified
[2021-01-15] MEDS: HEPARIN SOD 5,000 UNIT/0.5 ML VIAL SQ SCH (21:36)
[2021-01-15] MEDS: TAMSULOSIN HCL 0.4 MG CAP PO SCH (21:37)
[2021-01-15] MEDS: cefTRIAXone SODIUM 1,000 MG in DEXTROSE 5% 50 ML IV SCH (21:38)
[2021-01-16 06:44] LABS: Basophils # (auto) 0.01 K/uL (0-0.2); Basophils % (auto) 0.1 %; Eosinophils # (auto) 0.07 K/uL (0-0.5); Eosinophils % (auto) 0.9 %; Hematocrit (blood only) 37.3 % (42-52); Hemoglobin 12.9 g/dL (14.0-18.0); Immature Granulocytes # (auto) 0.03 K/uL (0.00-0.02); Immature Granulocytes % (auto) 0.4 %; Lymphocytes % (auto) 10.2 %; Mean Corpuscular Hemoglobin 31.7 pg (25-34); Mean Corpuscular Hgb Conc 34.6 g/dL (32-36); Mean Corpuscular Volume 91.6 fL (80-100); Mean Platelet Volume 8.9 fL (7.4-10.4); Monocytes # (auto) 0.59 K/uL (0.11-0.59); Monocytes % (auto) 7.5 %; Neutrophils # (auto) 6.35 K/uL (1.4-6.5); Neutrophils % (auto) 80.9 %; Platelet Count 254 K/uL (130-400); RDW Coefficient of Variation 12.6 % (11.5-14.5); RDW Standard Deviation 43.2 fL (36.4-46.3); Red Blood Count 4.07 M/uL (4.7-6.1); White Blood Count 7.85 K/uL (4.8-10.8)
[2021-01-16 07:21] LABS: BUN Creatinine Ratio 19.7 (10-20); Calcium 8.5 mg/dl (8.5-10.1); Creatinine Clr Calc Pharmacy 15.7 ml/min; Est GFR (African American) 19.1 ml/min; Est GFR (Non-African American) 16.5 ml/min; Potassium 4.6 mmol/L (3.5-5.1)
[2021-01-16] MEDS: HEPARIN SOD 5,000 UNIT/0.5 ML VIAL SQ SCH ×2 (09:01→20:03)
[2021-01-16] MEDS: SODIUM CHLORIDE 0.9% 1000ML 1,000 ML IV SCH (10:05)
--- NOTE | 2021-01-16 16:55 | Hospitalist Progress Note ---
Date of Service January 16, 2021 Assessment & Plan (1) Obstructive uropathy: Plan: 80 y/o with with a past medical history of hypertension and hyperlipidemia who presented to the ED referred from his PCPs office as he was found to have a creatinine of 8. # Acute renal failure -Secondary to Bladder outlet obstruction -continue bladder drainage with lowery -continue IVF -Creatinine downtrending -monitor BMP - Holding lisinopril #. Obstructive uropathy -Secondary to prostatomegaly confirmed on Ultrasound and CT abd/pelvic -Lowery placed for continued bladder rest/decompression and max drainage -Continue to monitor UOP -F/u w/ Urology outpatient #. Bacteremia -Secondary to urinary source -24hr blood culture shows Gram + Cocci. -Urine Cx - Staph. species. -pending species and senstivities -Cont. IV Ceftriaxone # Hypertension -Holding Lisinopril Diet: Regular diet DVT Prophylaxis: Heparin SubQ Code Status: DNR/DNI (2) Urinary tract infection: Admission and Anticipated Discharge Date Admission Date: January 15, 2021 Supervising Physician Co-Signing Physician Notes Medical Student Supervision Note: I was personally present during medical student patient encounter and independently interviewed and examined the patient and verified the downey history and physical, reviewed labs and image studies, discussed the case with Loretta Ellis and agree with the findings and care plan. Plan discharge on abx once final culture are back continue lowery outpatient urology follow up Subjective No acute changes overnight. Reports feeling generally well, no abdominal, suprapubic, or flank pain reported. Review of Systems Constitutional: no fever and no chills Respiratory: no chest congestion and no dyspnea Cardiovascular: no chest pain, no palpitations and no lightheadedness Gastrointestinal: no abdominal pain, no nausea and no vomiting Physical Exam Constitutional: no acute distress Awake and alert in bed. Respiratory: normal respiratory effort, lungs clear to auscultation Cardiovascular: Rate/Rhythm: regular rate Heart Sounds: no murmur Gastrointestinal (Abdomen): normal bowel sounds, soft, nontender, no hepatosplenomegaly Results & Data Results & Data ([facility]) Vital Signs (Past 12 Hours) Vital Signs Temp Pulse Resp BP Pulse Ox 01/16/21 15:27 36.3 C L 76 14 126/58 L 96 01/16/21 07:25 36.9 C 65 16 143/84 H 98 Laboratory Results 01/16/21 01/16/21 01/14/21 Range/Units 06:17 06:17 22:43 WBC 7.85 (4.8-10.8) K/uL RBC 4.07 L (4.7-6.1) M/uL Hgb 12.9 L (14.0-18.0) g/dL Hct 37.3 L (42-52) % MCV 91.6 (80-100) fL MCH 31.7 (25-34) pg MCHC 34.6 (32-36) g/dL RDW Std Deviation 43.2 (36.4-46.3) fL RDW Coeff of Jovi 12.6 (11.5-14.5) % Plt Count 254 (130-400) K/uL MPV 8.9 (7.4-10.4) fL Immature Gran % (Auto) 0.4 % Neut % (Auto) 80.9 % Lymph % (Auto) 10.2 % [place] % (Auto) 7.5 % Eos % (Auto) 0.9 % Baso % (Auto) 0.1 % Neut # (Auto) 6.35 (1.4-6.5) K/uL Lymph # (Auto) 0.80 L (1.2-3.4) K/uL [place] # (Auto) 0.59 (0.11-0.59) K/uL Eos # (Auto) 0.07 (0-0.5) K/uL Baso # (Auto) 0.01 (0-0.2) K/uL Immature Gran # (Auto) 0.03 H (0.00-0.02) K/uL Sodium 139 (136-145) mmol/L Potassium 4.6 (3.5-5.1) mmol/L Chloride 109 H (98-107) mmol/L Carbon Dioxide 22 (21-32) mmol/L Anion Gap 8.0 (3-11) BUN 65 H (7-18) mg/dl Creatinine 3.32 H D (0.6-1.4) mg/dl Est Cr Clr Drug Dosing 15.7 ml/min Est GFR ( Amer) 19.1 ml/min Est GFR (Non-Af Amer) 16.5 ml/min BUN/Creatinine Ratio 19.7 (10-20) Glucose 109 H (70-99) mg/dl Calcium 8.5 (8.5-10.1) mg/dl Bld Cult Staph aureus PCR Uninterpretable (Negative) Blood Culture MRSA PCR Uninterpretable (Negative) (1) Urinary tract infection Hematuria presence: with hematuria Urinary tract infection type: site unspecified Qualified Code(s): N39.0 - Urinary tract infection, site not specified; R31.9 - Hematuria, unspecified
[2021-01-16] MEDS: TAMSULOSIN HCL 0.4 MG CAP PO SCH (20:58)
[2021-01-16] MEDS: cefTRIAXone SODIUM 1,000 MG in DEXTROSE 5% 50 ML IV SCH (21:01)
[2021-01-17 06:36] LABS: Basophils # (auto) 0.01 K/uL (0-0.2); Basophils % (auto) 0.1 %; Eosinophils # (auto) 0.27 K/uL (0-0.5); Eosinophils % (auto) 3.9 %; Hematocrit (blood only) 34.4 % (42-52); Hemoglobin 11.5 g/dL (14.0-18.0); Immature Granulocytes # (auto) 0.05 K/uL (0.00-0.02); Immature Granulocytes % (auto) 0.7 %; Lymphocytes # (auto) 0.75 K/uL (1.2-3.4); Lymphocytes % (auto) 10.9 %; Mean Corpuscular Hemoglobin 31.2 pg (25-34); Mean Corpuscular Hgb Conc 33.4 g/dL (32-36); Mean Corpuscular Volume 93.2 fL (80-100); Mean Platelet Volume 8.6 fL (7.4-10.4); Monocytes # (auto) 0.57 K/uL (0.11-0.59); Monocytes % (auto) 8.3 %; Neutrophils # (auto) 5.22 K/uL (1.4-6.5); Neutrophils % (auto) 76.1 %; Platelet Count 244 K/uL (130-400); RDW Coefficient of Variation 12.7 % (11.5-14.5); RDW Standard Deviation 43.6 fL (36.4-46.3); Red Blood Count 3.69 M/uL (4.7-6.1); White Blood Count 6.87 K/uL (4.8-10.8)
[2021-01-17 07:29] LABS: BUN Creatinine Ratio 21.4 (10-20); Calcium 8.5 mg/dl (8.5-10.1); Creatinine Clr Calc Pharmacy 24.4 ml/min; Est GFR (African American) 32.5 ml/min; Potassium 4.6 mmol/L (3.5-5.1)
[2021-01-17] MEDS: HEPARIN SOD 5,000 UNIT/0.5 ML VIAL SQ SCH ×2 (08:49→20:11)
--- NOTE | 2021-01-17 10:31 | Hospitalist Progress Note ---
Date of Service January 17, 2021 Assessment & Plan (1) Obstructive uropathy: Plan: 80 yo M with hx HTN, HLD admitted for acute obstuctive uropathy due to prostatomegaly. Acute renal failure secondary to Bladder outlet obstruction - lowery placed for acute decompression, monitor UOP - Cr 8 on admission - Creatinine currently 2.14, down from 3.32 yesterday. - PSA in [facility] lab 30.02, no personal or fmhx BPH or prostate cancer - urology consulted; plan to follow-up outpatient. - continue lowery - trend BMP daily - K 4.6 - holding lisinopril. no nsaids/nephrotoxic agents Bacteremia secondary to UTI - Improving; WBC 6.87, down from 7.5 - Blood culture shows coagulase negative staphylococci; currently on IV ceftriaxone (see below, UTI) - Anticipate discharge tomorrow pending culture sensitivities result, subsequent initiation of oral antibiotics course. DVT ppx: low risk, ambulation ad bobby FEN/GI: NPO for possible intervention tomorrow, Bowel regimen: prn miralax Code Status: DNR/DNI Dispo: med/surg (2) HLD (hyperlipidemia): (3) HTN (hypertension): Admission and Anticipated Discharge Date Admission Date: January 15, 2021 Supervising Physician Co-Signing Physician Notes Resident Physician Supervision Note: I independently interviewed and examined the patient and verified the downey history and physical, reviewed labs and image studies and agree with resident Dr. Santos findings and care plan. Subjective No acute events overnight. Denies abdominal, suprapubic pain. Review of Systems Constitutional: as per Subjective / HPI Physical Exam Respiratory: normal respiratory effort, lungs clear to auscultation Cardiovascular: Heart Sounds: + murmur (Systolic; loudest at right upper sternal border) Genitourinary: Lowery catheter; yellow urine. No hematuria appreciated on visual examination of the bag. Results & Data Results & Data ([facility]) Vital Signs (Past 12 Hours) Vital Signs Temp Pulse Resp BP Pulse Ox 01/17/21 07:58 36.6 C 61 14 147/75 H 98 01/16/21 22:58 36.7 C 75 16 146/60 H 97 Resident Activity Tracking Resident Involvement: Resident Care Provided Care Provided: Adult [facility]
[2021-01-17] MEDS: TAMSULOSIN HCL 0.4 MG CAP PO SCH (20:10)
[2021-01-17] MEDS: cefTRIAXone SODIUM 1,000 MG in DEXTROSE 5% 50 ML IV SCH (21:11)
[2021-01-18] MEDS: HEPARIN SOD 5,000 UNIT/0.5 ML VIAL SQ SCH (07:48)
[2021-01-18 08:09] LABS: Basophils # (auto) 0.02 K/uL (0-0.2); Basophils % (auto) 0.4 %; Eosinophils % (auto) 5.3 %; Hematocrit (blood only) 36.6 % (42-52); Immature Granulocytes # (auto) 0.06 K/uL (0.00-0.02); Immature Granulocytes % (auto) 1.1 %; Lymphocytes % (auto) 14.1 %; Mean Corpuscular Hemoglobin 30.8 pg (25-34); Mean Corpuscular Hgb Conc 32.8 g/dL (32-36); Mean Corpuscular Volume 94.1 fL (80-100); Mean Platelet Volume 8.6 fL (7.4-10.4); Monocytes # (auto) 0.32 K/uL (0.11-0.59); Monocytes % (auto) 5.6 %; Neutrophils # (auto) 4.17 K/uL (1.4-6.5); Neutrophils % (auto) 73.5 %; Platelet Count 232 K/uL (130-400); RDW Coefficient of Variation 12.4 % (11.5-14.5); RDW Standard Deviation 42.3 fL (36.4-46.3); Red Blood Count 3.89 M/uL (4.7-6.1); White Blood Count 5.67 K/uL (4.8-10.8)
[2021-01-18 08:47] LABS: BUN Creatinine Ratio 19.5 (10-20); Calcium 8.8 mg/dl (8.5-10.1); Creatinine Clr Calc Pharmacy 35.6 ml/min; Est GFR (African American) 51.1 ml/min; Est GFR (Non-African American) 44.1 ml/min; Potassium 4.6 mmol/L (3.5-5.1)
--- NOTE | 2021-01-18 14:45 | Discharge Summary ---
Date of Service January 18, 2021 Admission HPI Per Admitting Provider 80 yo M with PMH HLD, tobacco use, HTN who was seen by Dr. Alanis earlier today for urinary frequency and urgency, found to have a Cr of 8.72, BUN 81, K 5.5 and was advised to go to the ER for emergent treatment. ER course significant for drainage of 1400 cc's of urine after lowery placement, CT A/P showing marked prostamegaly with concern for pyelonephritis. He states he had been experiencing urinary urgency, decreased appetite and fatigue for the past 4-5 days. He denied any fevers, chills, abdominal pain, back pain, hematuria, dysuria, nausea, vomiting, diarrhea. Admission Exam Per Admitting Provider Constitutional: obese, in no apparent distress, sitting comfortably in bed. Eyes: EOMI, pupils equal and reactive bilaterally, no scleral icterus Cardiac: RRR, blowing systolic murmur heard at LUSB with radiation to carotids bilaterally,no gallops or rubs. Normal S1, S2 Pulm: CTA BL, no wheezes, rhonchi, crackles or rubs, moving air well throughout both lungs Abd: soft, nontender, nondistended, normal bowel sounds, no rebound or guarding Extremities: 2+ peripheral pulses, no edema Neuro: no focal deficits, moving all 4 limbs, A&Ox3 Principal Diagnosis Pyelonephritis with bacteremia secondary to prostatic urethral obstruction Discharge Exam Constitutional WD/WN, vitals as above Respiratory normal respiratory effort, lungs clear to auscultation Cardiovascular Rate/Rhythm: regular rate and regular rhythm Heart Sounds: + murmur (Loudest at the right upper sternal border) Gastrointestinal (Abdomen) normal bowel sounds, soft, nontender, no hepatosplenomegaly Discharge Data Allergies Allergy/AdvReac Type Severity Reaction Status Date / Time No Known Allergies Allergy Unverified 01/14/21 22:12 Consultations 01/15/21 00:29 ED Decision to Admit Stat 01/15/21 00:57 Consult Urology Routine Ordered Studies 01/14/21 22:20 CT abd pelvis wo con Urgent 01/15/21 11:32 US renal/blad retro comp Routine Hospital Course (1) Obstructive uropathy: 80 yo M with hx HTN, HLD admitted for acute obstructive uropathy due to prostatomegaly. Bladder outlet obstruction/Obstructive Uropathy causing Acute Kidney Injury - Lowery catheter placed for acute decompression. Relieved approximately 1400 cc of urine instantly. - Cr 8.53 on admission. - Creatinine currently 1.47 on day of discharge. - PSA in [facility] lab 30.02, no personal or fmhx BPH or prostate cancer - Urology consulted; plan to follow-up outpatient. - Home Lisinopril held due to kidney injury; cleared to resume at home following discharge - continue lowery on discharge Bacteremia secondary to UTI/pyelonephritis - WBC on admission 18k. - Blood culture shows coagulase negative staphylococci; - started on IV Ceftriaxone - WBC 6k on discharge. - Antibiotic treatment switched to oral Cephalexin (Keflex) following culture sensitivities report; - Discharged on 6-day course of Keflex 500 mg 4 times daily. Hyponatremia - Sodium of 131 found on admission - Resolved following administration of IV fluids - Sodium at 142 at discharge (2) HLD (hyperlipidemia): (3) HTN (hypertension): Total Time Total Time Spent Total Time Spent (In Minutes): 20 Discharge Plan Discharge Items Patient Disposition: Home - Self-Care Reason For Visit: OBSTRUCTIVE UROPATHY, ARF Discharge Diagnosis: Acute obstructive uropathy/pyelonephritis/bacteremia secondary to prostatomegaly. Activity: Per Instructions section Non-emergency contact: Primary Care Provider and Urologist Call non-emergency contact if: you have any medication questions, your symptoms worsen and you have a fever Follow-up/Referrals: Kip Vizcarra MD [Physician] - Akash Swift MD [Primary Care Provider] - Diet: Regular Addtl Attending Provider Instructions: You were admitted to the hospital for urinary tract infection with infection of the blood. You were treated with antibiotics and a Lowery catheter placement. A discharge summary will be sent to your primary care physician to ensure continuity of care. Please bring this discharge summary with you to your next office appointment so that your provider can review it at that time. Follow-up appointments: Make a follow-up appointment with your PCP within the next week. It is very important that you follow up with them shortly after discharge from the hospital. Make a follow-up appointment with Dr. Vizcarra of [facility] within a week of your discharge. His office contact information has been included in your packet. Keep all your follow-up appointments as already scheduled. If you cannot make an appointment, notify your provider. Medications: Your medication list has been reviewed and reconciled upon discharge to ensure accuracy and continuity of care. An updated list of all your medications is included with your hospital discharge paperwork. Please review this list closely, and make note of any changes. * We sent a new medication called cephalexin, or Keflex, to your pharmacy. Take Keflex 500 mg 4 times daily for 6 days. Take your medications as instructed; do not skip a dose of your medicines. Make sure all of your doctors know every medicine you are taking (including [id number] medicines, vitamins, and supplements). Call your primary care provider before taking any new medicines (including gavx-tvg-pqeuvcy medicines, vitamins, and supplements), because some of these may interact with your current medications, or may make your symptoms worse. Tell your primary care provider if you cannot afford your medications. CONTACT YOUR PRIMARY CARE PROVIDER if you experience any of the following: Fever, shaking chills, pain or burning with urination Worsening lower abdominal pain, or flank pain. Difficulty following your treatment plan, or difficulty taking medications CALL 911 OR GO TO THE EMERGENCY DEPARTMENT if you experience any of the following: Sudden, severe abdominal pain or nausea/vomiting Severe chest pain, or chest pain that radiates (moves) to your jaw or arm Sudden, severe shortness of breath or difficulty breathing Thank you for allowing us to participate in your care. Pending Studies at Discharge: No Stand-Alone Forms: My [facility], Smoking Cessation Medications and DC Order Prescriptions: New cephalexin 500 mg capsule 500 mg PO QID 6 Days Qty: 24 RF: 0 Continued lisinopril 40 mg tablet 40 mg PO DAILY RF: 0 Ocuvite Adult 50 Plus 1 tab PO DAILY RF: 0 Discontinued nitrofurantoin macrocrystal 100 mg capsule 100 mg PO DAILY RF: 0 Discharge Orders: Discharge Order (Routine); Ordered 01/18/21 Ordered By: Lissa Tan/Other Patient Handouts: Emptying and Cleaning Your ..., Discharge Instructions Caring for ... Admission Data Admit Date/Time: 01/15/21 00:33 Attending Provider: Carmen Pagan Admit Provider: Leila Finley Primary Care Provider: Akash Swift Other Providers: Kip Vizcarra ; Mary Callejas Other Interventions: Discharge Summary Assessment (RN) Last Done: 01/18/21 15:14 Supervising Physician Co-Signing Physician Notes Resident Physician Supervision Note: I independently interviewed and examined the patient and verified the downey history and physical, reviewed labs and image studies and agree with resident Dr. Santos findings and care plan. Resident Activity Tracking Resident Involvement: Resident Care Provided Care Provided: Adult Hospital Medicine
== END 2021-01-18 16:20 | disposition home or self-care (01) | DRG 699 ==
LOC: ED 17:37 → EDINP 01-15 00:33 → SUATTDRO 01-15 00:33 → 3N 01-15 19:00

== ENCOUNTER 2021-01-28 11:54 | Inpatient (IN) ==
[2021-01-28] MEDS ORDERED: THIAMINE HCL 200 MG in SODIUM CHLORIDE 0.9% 50 ML IV STA (12:52)
[2021-01-28] MEDS ORDERED: MULTI-VITAMIN INFUSION 10 ML, THIAMINE HCL 100 MG, FOLIC ACID 1 MG in SODIUM CHLORIDE 0... IV ONE (12:52)
[2021-01-28 13:36] LABS: Hematocrit (blood only) 35.6 % (42-52); Hemoglobin 12.3 g/dL (14.0-18.0); Mean Corpuscular Hemoglobin 30.8 pg (25-34); Mean Corpuscular Hgb Conc 34.6 g/dL (32-36); Platelet Count 131 K/uL (130-400); RDW Coefficient of Variation 12.3 % (11.5-14.5); RDW Standard Deviation 39.7 fL (36.4-46.3)
[2021-01-28] MEDS ORDERED: PIPERACILLIN/TAZOBACTAM 4.5 GM/120 ML BAG IV ONE (13:39)
[2021-01-28] MEDS ORDERED: DAPTOmycin 425 MG in SYRINGE 0 ML IV ONE (13:39)
[2021-01-28] MEDS ORDERED: PIPERACILL/TAZOBAC CONSULT ACTIVE PRN ×2 (13:39→21:00)
[2021-01-28 13:42] LABS: INR 1.4 (0.9-1.1); Partial Thromboplastin Ratio 1.4; Partial Thromboplastin Time 36.2 Seconds (21.0-31.0); Prothrombin Time 13.6 Seconds (9.0-12.0)
[2021-01-28 13:49] LABS: Albumin Level 2.5 gm/dl (3.4-5.0); BUN Creatinine Ratio 12.2 (10-20); Calcium 8.4 mg/dl (8.5-10.1); Creatinine Clr Calc Pharmacy 13.7 ml/min; Est GFR (African American) 14.8 ml/min; Est GFR (Non-African American) 12.8 ml/min; Magnesium 1.6 mg/dl (1.8-2.4); Potassium 4.6 mmol/L (3.5-5.1)
[2021-01-28 13:54] LABS: Basophils # (auto) 0.01 K/uL (0-0.2); Eosinophils # (auto) 0.01 K/uL (0-0.5); Immature Granulocytes # (auto) 1.57 K/uL (0.00-0.02); Immature Granulocytes % (auto) 4.3 %; Lymphocytes # (auto) 0.41 K/uL (1.2-3.4); Lymphocytes % (auto) 1.1 %; Monocytes # (auto) 0.83 K/uL (0.11-0.59); Monocytes % (auto) 2.3 %; Neutrophils # (auto) 33.27 K/uL (1.4-6.5); Neutrophils % (auto) 92.3 %; RBC Morphology Unremarkable
[2021-01-28 13:58] LABS: Albumin Globulin Ratio 0.6 (0.9-2); Bilirubin,Total 0.6 mg/dl (0.2-1); Globulin 4.3 gm/dl (2.5-4.0); Phosphorus 4.1 mg/dl (2.5-4.9); Total Protein 6.8 gm/dl (6.4-8.2); Troponin I 0.081 ng/ml (0-0.045)
--- NOTE | 2021-01-28 14:51 | XRay Report ---
XR chest 1V portable CLINICAL HISTORY: SEPSIS. Evaluate cardiopulmonary status COMPARISON STUDY: No previous studies for comparison. TECHNIQUE: 1 view of the chest FINDINGS: Single frontal view of the chest demonstrates the cardiomediastinal silhouette to be within normal li mits. The lungs are clear of alveolar opacities. There is no evidence for pleural effusion. There is no evidence for vascular congestion. There is no acute osseous pathology. IMPRESSION: No acute cardiopulmonary disease. ACT 112: Negative or not required by law. Electronically signed by: Dony Ayala M.D. 01/28/2021 2:50 PM
--- NOTE | 2021-01-28 15:20 | CT Scan Report ---
CT head/brain wo con CLINICAL HISTORY: confusion, weakness COMPARISON STUDY: No previous studies for comparison. CT DOSE: 1105.10 mGy.cm TECHNIQUE: Standard CT of the Brain was performed without IV contrast. A dose lowering technique was utilized adhering to the principles of ALARA. FINDINGS: Extraaxial space: There is no evidence for subdural hematoma. There are no extra-axial fluid collecti ons. Ventricles and cisterns: The ventricles are mildly dilated bilaterally. There is no evidence for mid line shift or mass effect. Parenchyma: There is no subarachnoid or intraparenchymal hemorrhage. There is no evidence for an acu te infarct or cerebral edema. There is mild cerebral cortical atrophy and decreased attenuation in th e periventricular white matter representing remote small vessel disease. There are no gross mass lesi ons. Osseous structures: There is no evidence for an acute fracture. The visualized paranasal sinuses are clear. The mastoid air cells are clear bilaterally. Soft tissues: There is no evidence for focal soft tissue swelling. IMPRESSION: No acute intracerebral pathology. Mild cerebral cortical atrophy and remote small vessel disease. ACT 112: Negative or not required by law. Electronically signed by: Dony Ayala M.D. 01/28/2021 3:19 PM
[2021-01-28 15:25] LABS: Appearance Urine Cloudy (Clear); Bacteria Urine Automated Negative (Negative); Bilirubin Urine Negative (Negative); Blood Urine 3+ (Negative); Color Urine Orange; Glucose Urine UA Negative (Negative); Ketones Urine Negative (Negative); Leukocyte Esterase Urine 2+ (Negative); Nitrite Urine Negative (Negative); Protein Urine 3+ (Negative); Specific Gravity Urine 1.017 (1.000-1.030); Urobilinogen Urine Negative (Negative); WBC Urine Automated >30 /hpf (0-5); pH Urine 5.5 (4.5-7.5)
--- NOTE | 2021-01-28 15:27 | CT Scan Report ---
CT SCAN OF THE ABDOMEN AND PELVIS WITHOUT IV CONTRAST CLINICAL HISTORY: Change in mental status. Sepsis. COMPARISON STUDY: Abdominal CT dated 01/14/2021 TECHNIQUE: CT scan of the abdomen and pelvis is performed from the lung bases to the proximal femora. Images are reviewed in the axial, sagittal, and coronal planes. IV contrast was not administered for this examination. Note that the examination was performed in suboptimal fashion without oral and IV contrast. A dose lowering technique was utilized adhering to the principles of ALARA. CT DOSE: 364.67 mGy.cm FINDINGS: Lung bases: The heart is mildly enlarged and without pericardial effusion. There are coronary artery calcifications. The lung bases are clear noting bibasilar scarring/atelectasis. There is a small hiat al hernia. Liver: The unenhanced liver is normal in size, contour, and attenuation. There is no intrahepatic flaquito iary ductal dilatation. Gallbladder: Unremarkable. Spleen: Normal in size and attenuation. Pancreas: The unenhanced pancreas is moderately atrophic and grossly unremarkable. Adrenal glands: Unremarkable. Kidneys: The unenhanced kidneys demonstrate mild cortical atrophy. There is fullness of the renal col lecting systems without hydronephrosis. There are no renal calculi identified. There is no evidence o f contour deforming renal mass lesion. Urothelial thickening is seen within the renal pelvis bilatera lly or involving both ureters. There is bilateral perinephric stranding. Abdominal vasculature: There is advanced atherosclerotic calcification and mild ectasia of the abdomi nal aorta. Bowel: There is mild colonic diverticulosis without CT evidence of acute diverticulitis. A small taylor l loop is contained within a large right inguinal hernia. No obstruction is identified. The appendix is well-visualized and normal. Peritoneum: There is no intraperitoneal free air or abdominal ascites. Lymphadenopathy: None. Pelvic viscera: The prostate gland is markedly enlarged and heterogeneous noting median lobe hypertro phy. There is periprostatic infiltration. The bladder is partially decompressed around a Dixon cathet er. The bladder wall appears markedly thickened and there is pericystic inflammation. There are bilat eral inguinal hernias. Bowel is contained within the right inguinal hernia. There are small indetermi prashant nodules in the pelvis. The largest measures up to 11 mm as seen on image #[id number]. Skeletal structures: The skeletal structures are osteopenic. There is mild to moderate lumbosacral sp ondylosis. No lytic or blastic lesions are seen. IMPRESSION: 1. The bladder is decompressed around a Dixon catheter and appears markedly thick walled with pericys tic inflammation. Additionally, there is mild infiltration around the prostate gland. Correlate clini nicky and with urinalysis for evidence of cystitis/prostatitis. 2. The prostate gland is markedly enlarged with evidence of chronic bladder outlet obstruction. 3. There is mild fullness of the renal collecting systems bilaterally without hydronephrosis. Urothel ial thickening is seen involving the renal pelvis bilaterally and both ureters and there is significa nt perinephric inflammation. Correlate clinically and with urinalysis for evidence of ascending urina ry tract infections. 4. There are numerous nonspecific nodules in the pelvis which measure up to 11 mm, possibly represent ing prominent/reactive lymph nodes. Correlate with serum PSA levels. 5. There are bilateral inguinal hernias, with a nonobstructed segment of small bowel contained within the right hernia. 6. Additional findings as above. ACT 112: Negative or not required by law. Electronically signed by: Justice Damico M.D. 01/28/2021 3:26 PM
[2021-01-28 15:40] LABS: Cast Urine Automated 0 /lpf (0-5); RBC Urine Automated >30 /hpf (0-4)
[2021-01-28] MEDS ORDERED: MAGNESIUM SULFATE / D5W 1 GM/100 ML BAG IV STA (15:44)
--- NOTE | 2021-01-28 15:48 | Emergency Department Note ---
Impression & Plan Sepsis, Elevated troponin, Acute on chronic renal failure, Acute UTI ED Provider Note NAME: BRODERICK BREWER AGE: 80 SEX: M ARRIVES VIA: Ambulance INFORMANT: Patient, ED PROVIDER(S): Ken Marti MD CHIEF COMPLAINT: Weakness PLAN: Disposition: Admit MEDICAL DECISION MAKING: The patient is a pleasant 80-year-old gentleman with a past medical history of obstructive uropathy who presents to the emergency department accompanied by his for evaluation of generalized weakness. The patient presents in the setting of arecent admission from 01/15-01/18 for obstructive uropathy with acute renal failure with creatinine of 8 which subsequently normalized in setting of bladder outlet obstruction with Dixon catheter placed and treatment for UTI/bacteremia with IV antibiotics for coag negative staphylococci. The patient was seen in the urology clinic for follow-up on 01/26 where he had a voiding trial where per records the patient did not pass and was unable to void the instilled volume however he insisted he wanted to give himself a chance to avoid having the catheter again and so was given return instructions if he were not to avoid. Subsequently the patient could not void and return the next day and Dixon catheter was placed. However, today the patient's is concerned that he has developed severe generalized weakness where he is unable to walk secondary to this. She further adds that his mild confusion which was present after his discharge has worsened as well. She adds that he has been known to drink alcohol and in particular martinis daily where she reports he will start around 2 PM and drink the rest of the day and this is a habit that he had even before his hospitalization. She denies him experiencing any symptoms of tremulousness or sweating that could suggest withdrawal. She reports he had no problems when he was in the hospital either. On arrival the patient is fatigued appearing but no acute distress, afebrile with stable vital signs. He appears clinically dry. He is mildly confused from his prior admission where I had admitted him from the emergency department. He is however alert to self and place. He has no focal neurologic deficits and has generalized weakness with 4/5 strength in all extremities. EKG without overt acute ischemia. Chest x-ray negative for acute cardiopulmonary process. WBC 36K creased from prior. H/H 12.3/35.6 similar prior range of values. Platelets within normal limits. Chemistry with metabolic acidosis with bicarb of 19 and INR gap of 13. Prealbumin is 4.1 increased from 1 on discharge. Sodium is also low at 128. Magnesium 1.6 and electrolytes otherwise unremarkable. LFTs with AST 51 and otherwise unremarkable. Initial troponin 0.08, nonspecific and likely related to demand in the setting of the patient's illness. Procalcitonin is 132 however in the setting of acute renal insufficiency with creatinine of 4. UA is suspicious for infection albeit with epithelial cells present and from the patient's Dixon catheter. I was notified by RN that the patient was having watery diarrhea and so C. difficile testing was ordered and this was negative. COVID-19 RNA, AMANUEL test was negative. CT of the head was performed and was negative for acute process. CT abdomen pelvis demonstrates evidence of cystitis and possible prostatitis with evidence of chronic bladder outlet obstruction. Urothelial thickening and perinephric inflammation is seen which is suggestive of pyelonephritis. There is mild fullness of the renal collecting systems bilaterally but without overt hydronephrosis. The patient and his at the bedside were in agreement with the plan for admission for further management. He was treated empirically with Zosyn and daptomycin on arrival. Case was discussed with LUPILLO Dinero PAC with JOSE MARIA Dowd hospitalist, who will evaluate the patient for admission. Triage Nursing notes reviewed and agree them. prior medical records reviewed Vital Signs: reviewed and remarkable for no significant abnormalities Differential diagnosis: Infection, dehydration, metabolic abnormality, hypo/hyperglycemia, electrolyte disturbance, anemia, hypoxia, cardiac sources, intracerebral event, toxicologic, neurologic, as well as other pathologies. ER treatment provided: See below. Diagnostics interpreted by me: ECG: Normal sinus rhythm with frequent PVCs, 100 bpm, no overt ST elevation or depression, QTC 428, QRS 76. Cardiac Monitoring: An order for continuous cardiac monitoring was placed and demonstrated Normal sinus rhythm with frequent PVCs, 100 bpm. Laboratory studies: see below Imaging studies: See below Consultation(s): LUPILLO Dinero PAC with JOSE MARIA Dowd hospitalist, who will evaluate the patient for admission. HPI: The patient is a pleasant 80-year-old gentleman with a past medical history of obstructive uropathy who presents to the emergency department accompanied by his for evaluation of generalized weakness. The patient presents in the setting of arecent admission from 01/15-01/18 for obstructive uropathy with acute renal failure with creatinine of 8 which subsequently normalized in settin g of bladder outlet obstruction with Dixon catheter placed and treatment for UTI/bacteremia with IV antibiotics for coag negative staphylococci. The patient was seen in the urology clinic for follow-up on 01/26 where he had a voiding trial where per records the patient did not pass and was unable to void the instilled volume however he insisted he wanted to give himself a chance to avoid having the catheter again and so was given return instructions if he were not to avoid. Subsequently the patient could not void and return the next day and Dixon catheter was placed. However, today the patient's is concerned that he has developed severe generalized weakness where he is unable to walk secondary to this. She further adds that his mild confusion which was present after his discharge has worsened as well. She adds that he has been known to drink alcohol and in particular martinis daily where she reports he will start around 2 PM and drink the rest of the day and this is a habit that he had even before his hospitalization. She denies him experiencing any symptoms of tremulousness or sweating that could suggest withdrawal. She reports he had no problems when he was in the hospital either. ROS: See above HPI for pertinent positives & negatives. A total of 10 systems reviewed and were otherwise negative. PAST MEDICAL HISTORY: see Below PAST SURGICAL HISTORY: see Below FAMILY HISTORY:See Below SOCIAL HISTORY: see Below HOME MEDICATIONS: see Below ALLERGIES: see Below VITALS: see Below PHYSICAL EXAMINATION: GENERAL: Awake, alert, fatigued-appearing, in no distress HENT: Normocephalic, atraumatic. Oropharynx with dry mucous membranes and otherwise unremarkable. EYES: Normal conjunctiva. Sclera non-icteric. NECK: Supple. No nuchal rigidity. FROM. No JVD. RESPIRATORY: Clear to auscultation. CARDIAC: Regular rate, normal rhythm. Extremities warm and well perfused. Pulses equal. ABDOMEN: Soft, non-distended. No tenderness to palpation. No rebound or guarding. No masses. RECTAL: Deferred. MUSCULOSKELETAL: Chest examination reveals no tenderness. The back is symmetrical on inspection without obvious abnormality. There is no CVA tenderness to palpation. No joint edema. LOWER EXTREMITIES: Calves are equal size bilaterally and non-tender. No edema. No discoloration. NEURO: Mild confusion. Alert to self and place. No focal sensory or motor deficits noted. Generalized weakness with 4/5 strength and SILT x 4 e xtremities. SKIN: No rash or jaundice noted. Critical Care: I have personally spent greater than 35 minutes of critical care time in the direct management of this patient. This includes bedside care, interpretation of diagnostic studies, and testing, discussion with consultants, patient, and family members, and other required patient management activities. This 35 minutes is in excess of all separately billable procedures. Ken Marti MD Past Med/Surg History Medical History Acute on chronic renal failure Acute retention of urine Elevated PSA Epididymitis HTN (hypertension), benign Obstructive uropathy Testicular pain Surgical History No pertinent past surgical history Family History Other Family history non-contributory Social History Smoking Status: Never smoker Tobacco Type: Smokeless Tobacco (Dip or Chew) Hx Alcohol Use: No Hx Substance Use: No Preferred Language: Pashto Communication Ability: Effective Materials Planning Analyst Required: No Beliefs That Will Affect Care: None Current Living Situation: Spouse Feels Safe at Home: Yes Assistive Devices: None Allergies Allergies Allergy/AdvReac Type Severity Reaction Status Date / Time No Known Allergies Allergy Verified 01/28/21 13:35 Home Meds Home Medications Medication Instructions Recorded Confirmed lisinopril 40 mg tablet 40 mg PO DAILY 01/14/21 01/28/21 vit C,E,zinc,copper-zcral3t 250 1 cap PO DAILY 01/28/21 01/28/21 mg-lutein 5 mg-zeaxanthin 1 mg capsule (Ocuvite Adult 50 Plus) Previous Rx's Medication Instructions Recorded finasteride 5 mg tablet 5 mg PO DAILY #90 tab 01/26/21 tamsulosin 0.4 mg capsule 0.4 mg PO DAILY #90 cap 01/26/21 Results & Data (ED) Vital Signs Vital Signs - 24 hr 01/28/21 11:55 01/28/21 13:26 01/28/21 13:28 Temperature 37.1 C Temperature Source Oral Pulse Rate 96 H Pulse Rate [Apical] 99 H Respiratory Rate 18 20 Respiratory Effort / Characteristics Non-Labored Blood Pressure 98/42 L Blood Pressure [Right Arm] 98/48 L Blood Pressure Mean 60 Blood Pressure Mean [Right Arm] 64 Blood Pressure Position Lying Pulse Oximetry 96 96 Oxygen Delivery Method Room Air Room Air Room Air Sepsis Recent Fever Within 48 Hours No Sepsis New/Unexplained Change in Mental Status N/A Sepsis Action Taken by Nursing No Action Required 01/28/21 13:30 01/28/21 13:45 01/28/21 14:00 Temperature Temperature Source Pulse Rate Pulse Rate [Apical] 102 H 95 H Respiratory Rate 24 20 24 Respiratory Effort / Characteristics Blood Pressure Blood Pressure [Right Arm] 102/52 L 101/49 L Blood Pressure Mean Blood Pressure Mean [Right Arm] 68 66 Blood Pressure Position Pulse Oximetry 94 94 Oxygen Delivery Method Room Air Room Air Room Air Sepsis Recent Fever Within 48 Hours Sepsis New/Unexplained Change in Mental Status Sepsis Action Taken by Nursing 01/28/21 14:15 01/28/21 14:30 01/28/21 15:30 Temperature Temperature Source Pulse Rate Pulse Rate [Apical] 94 H 95 H 78 Respiratory Rate 24 22 18 Respiratory Effort / Characteristics Blood Pressure Blood Pressure [Right Arm] 86/41 L 93/53 L 126/72 Blood Pressure Mean Blood Pressure Mean [Right Arm] 56 66 90 Blood Pressure Position Pulse Oximetry 93 94 94 Oxygen Delivery Method Room Air Room Air Sepsis Recent Fever Within 48 Hours Sepsis New/Unexplained Change in Mental Status Sepsis Action Taken by Nursing 01/28/21 15:32 01/28/21 16:13 01/28/21 16:27 Temperature Temperature Source Pulse Rate Pulse Rate [Apical] 100 H 109 H Respiratory Rate 26 H 24 Respiratory Effort / Characteristics Blood Pressure Blood Pressure [Right Arm] Blood Pressure Mean Blood Pressure Mean [Right Arm] Blood Pressure Position Pulse Oximetry 96 96 95 Oxygen Delivery Method Room Air Room Air Room Air Sepsis Recent Fever Within 48 Hours Sepsis New/Unexplained Change in Mental Status Sepsis Action Taken by Nursing 01/28/21 16:44 01/28/21 17:16 01/28/21 18:05 Temperature Temperature Source Pulse Rate Pulse Rate [Apical] 80 76 89 Respiratory Rate 20 18 20 Respiratory Effort / Characteristics Blood Pressure Blood Pressure [Right Arm] 113/55 L 99/56 L 101/52 L Blood Pressure Mean Blood Pressure Mean [Right Arm] 74 70 68 Blood Pressure Position Pulse Oximetry 95 94 96 Oxygen Delivery Method Room Air Room Air Room Air Sepsis Recent Fever Within 48 Hours Sepsis New/Unexplained Change in Mental Status Sepsis Action Taken by Nursing 01/28/21 18:31 01/28/21 18:53 01/28/21 19:12 Temperature Temperature Source Pulse Rate Pulse Rate [Apical] 87 105 H 104 H Respiratory Rate 18 18 16 Respiratory Effort / Characteristics Blood Pressure Blood Pressure [Right Arm] 96/57 L 104/54 L 94/52 L Blood Pressure Mean Blood Pressure Mean [Right Arm] 70 70 66 Blood Pressure Position Pulse Oximetry 95 94 95 Oxygen Delivery Method Room Air Room Air Room Air Sepsis Recent Fever Within 48 Hours Sepsis New/Unexplained Change in Mental Status Sepsis Action Taken by Nursing Laboratory Data Attestation: I reviewed the patient's lab results. Result diagrams: 01/28/21 13:06 01/28/21 13:06 Lab Results 01/28/21 01/28/21 01/28/21 Range/Units 12:57 13:06 13:06 WBC (4.8-10.8) K/uL RBC (4.7-6.1) M/uL Hgb (14.0-18.0) g/dL Hct (42-52) % MCV (80-100) fL MCH (25-34) pg MCHC (32-36) g/dL RDW Std Deviation (36.4-46.3) fL RDW Coeff of Jovi (11.5-14.5) % Plt Count (130-400) K/uL MPV (7.4-10.4) fL Immature Gran % (Auto) % Neut % (Auto) % Lymph % (Auto) % [place] % (Auto) % Eos % (Auto) % Baso % (Auto) % Neut # (Auto) (1.4-6.5) K/uL Lymph # (Auto) (1.2-3.4) K/uL [place] # (Auto) (0.11-0.59) K/uL Eos # (Auto) (0-0.5) K/uL Baso # (Auto) (0-0.2) K/uL Immature Gran # (Auto) (0.00-0.02) K/uL RBC Morphology PT (9.0-12.0) Seconds INR (0.9-1.1) APTT (21.0-31.0) Seconds PTT Ratio Sodium 128 L (136-145) mmol/L Potassium 4.6 (3.5-5.1) mmol/L Chloride 96 L (98-107) mmol/L Carbon Dioxide 19 L (21-32) mmol/L Anion Gap 13.0 H (3-11) BUN 50 H (7-18) mg/dl Creatinine 4.10 H (0.6-1.4) mg/dl Est Cr Clr Drug Dosing 13.7 ml/min Est GFR ( Amer) 14.8 ml/min Est GFR (Non-Af Amer) 12.8 ml/min BUN/Creatinine Ratio 12.2 (10-20) Glucose 109 H (70-99) mg/dl Lactate (0.4-2.0) mmol/L Calcium 8.4 L (8.5-10.1) mg/dl Phosphorus 4.1 (2.5-4.9) mg/dl Magnesium 1.6 L (1.8-2.4) mg/dl Total Bilirubin 0.6 (0.2-1) mg/dl AST 51 H (15-37) U/L ALT 36 (12-78) U/L Alkaline Phosphatase 82 (45-117) U/L Total Creatine Kinase 280 (39-308) U/L Troponin I 0.081 H* (0-0.045) ng/ml Total Protein 6.8 (6.4-8.2) gm/dl Albumin 2.5 L (3.4-5.0) gm/dl Globulin 4.3 H (2.5-4.0) gm/dl Albumin/Globulin Ratio 0.6 L (0.9-2) Procalcitonin 132.25 H (0-0.5) ng/ml Urine Color Urine Appearance (Clear) Urine pH (4.5-7.5) Ur Specific [place] (1.000-1.030) Urine Protein (Negative) Urine Glucose (UA) (Negative) Urine Ketones (Negative) Urine Blood (Negative) Urine Nitrite (Negative) Urine Bilirubin (Negative) Urine Urobilinogen (Negative) Ur Leukocyte Esterase (Negative) Urine WBC (Auto) (0-5) /hpf Urine RBC (Auto) (0-4) /hpf U Hyaline Cast (Auto) (0-5) /lpf U Epithel Cells (Auto) (0-5) /lpf Urine Bacteria (Auto) (Negative) Urine Yeast Stl C. diff Tox B Gene (Neg) Ethyl Alcohol mg/dL < 3.0 (0-3) mg/dl SARS-CoV-2, RNA, NAAT (NEGATIVE) 01/28/21 01/28/21 01/28/21 Range/Units 13:06 13:06 13:06 WBC 36.10 H* (4.8-10.8) K/uL RBC 4.00 L (4.7-6.1) M/uL Hgb 12.3 L (14.0-18.0) g/dL Hct 35.6 L (42-52) % MCV 89.0 (80-100) fL MCH 30.8 (25-34) pg MCHC 34.6 (32-36) g/dL RDW Std Deviation 39.7 (36.4-46.3) fL RDW Coeff of Jovi 12.3 (11.5-14.5) % Plt Count 131 (130-400) K/uL MPV 9.0 (7.4-10.4) fL Immature Gran % (Auto) 4.3 % Neut % (Auto) 92.3 % Lymph % (Auto) 1.1 % [place] % (Auto) 2.3 % Eos % (Auto) 0.0 % Baso % (Auto) 0.0 % Neut # (Auto) 33.27 H (1.4-6.5) K/uL Lymph # (Auto) 0.41 L (1.2-3.4) K/uL [place] # (Auto) 0.83 H (0.11-0.59) K/uL Eos # (Auto) 0.01 (0-0.5) K/uL Baso # (Auto) 0.01 (0-0.2) K/uL Immature Gran # (Auto) 1.57 H (0.00-0.02) K/uL RBC Morphology Unremarkable PT 13.6 H (9.0-12.0) Seconds INR 1.4 H (0.9-1.1) APTT 36.2 H (21.0-31.0) Seconds PTT Ratio 1.4 Sodium (136-145) mmol/L Potassium (3.5-5.1) mmol/L Chloride (98-107) mmol/L Carbon Dioxide (21-32) mmol/L Anion Gap (3-11) BUN (7-18) mg/dl Creatinine (0.6-1.4) mg/dl Est Cr Clr Drug Dosing ml/min Est GFR ( Amer) ml/min Est GFR (Non-Af Amer) ml/min BUN/Creatinine Ratio (10-20) Glucose (70-99) mg/dl Lactate 4.8 H* (0.4-2.0) mmol/L Calcium (8.5-10.1) mg/dl Phosphorus (2.5-4.9) mg/dl Magnesium (1.8-2.4) mg/dl Total Bilirubin (0.2-1) mg/dl AST (15-37) U/L ALT (12-78) U/L Alkaline Phosphatase (45-117) U/L Total Creatine Kinase (39-308) U/L Troponin I (0-0.045) ng/ml Total Protein (6.4-8.2) gm/dl Albumin (3.4-5.0) gm/dl Globulin (2.5-4.0) gm/dl Albumin/Globulin Ratio (0.9-2) Procalcitonin (0-0.5) ng/ml Urine Color Urine Appearance (Clear) Urine pH (4.5-7.5) Ur Specific [place] (1.000-1.030) Urine Protein (Negative) Urine Glucose (UA) (Negative) Urine Ketones (Negative) Urine Blood (Negative) Urine Nitrite (Negative) Urine Bilirubin (Negative) Urine Urobilinogen (Negative) Ur Leukocyte Esterase (Negative) Urine WBC (Auto) (0-5) /hpf Urine RBC (Auto) (0-4) /hpf U Hyaline Cast (Auto) (0-5) /lpf U Epithel Cells (Auto) (0-5) /lpf Urine Bacteria (Auto) (Negative) Urine Yeast Stl C. diff Tox B Gene (Neg) Ethyl Alcohol mg/dL (0-3) mg/dl SARS-CoV-2, RNA, NAAT (NEGATIVE) 01/28/21 01/28/21 01/28/21 Range/Units 13:35 14:32 15:22 WBC (4.8-10.8) K/uL RBC (4.7-6.1) M/uL Hgb (14.0-18.0) g/dL Hct (42-52) % MCV (80-100) fL MCH (25-34) pg MCHC (32-36) g/dL RDW Std Deviation (36.4-46.3) fL RDW Coeff of Jovi (11.5-14.5) % Plt Count (130-400) K/uL MPV (7.4-10.4) fL Immature Gran % (Auto) % Neut % (Auto) % Lymph % (Auto) % [place] % (Auto) % Eos % (Auto) % Baso % (Auto) % Neut # (Auto) (1.4-6.5) K/uL Lymph # (Auto) (1.2-3.4) K/uL [place] # (Auto) (0.11-0.59) K/uL Eos # (Auto) (0-0.5) K/uL Baso # (Auto) (0-0.2) K/uL Immature Gran # (Auto) (0.00-0.02) K/uL RBC Morphology PT (9.0-12.0) Seconds INR (0.9-1.1) APTT (21.0-31.0) Seconds PTT Ratio Sodium (136-145) mmol/L Potassium (3.5-5.1) mmol/L Chloride (98-107) mmol/L Carbon Dioxide (21-32) mmol/L Anion Gap (3-11) BUN (7-18) mg/dl Creatinine (0.6-1.4) mg/dl Est Cr Clr Drug Dosing ml/min Est GFR ( Amer) ml/min Est GFR (Non-Af Amer) ml/min BUN/Creatinine Ratio (10-20) Glucose (70-99) mg/dl Lactate 4.8 H* (0.4-2.0) mmol/L Calcium (8.5-10.1) mg/dl Phosphorus (2.5-4.9) mg/dl Magnesium (1.8-2.4) mg/dl Total Bilirubin (0.2-1) mg/dl AST (15-37) U/L ALT (12-78) U/L Alkaline Phosphatase (45-117) U/L Total Creatine Kinase (39-308) U/L Troponin I (0-0.045) ng/ml Total Protein (6.4-8.2) gm/dl Albumin (3.4-5.0) gm/dl Globulin (2.5-4.0) gm/dl Albumin/Globulin Ratio (0.9-2) Procalcitonin (0-0.5) ng/ml Urine Color [place] Urine Appearance Cloudy A (Clear) Urine pH 5.5 (4.5-7.5) Ur Specific [place] 1.017 (1.000-1.030) Urine Protein 3+ H (Negative) Urine Glucose (UA) Negative (Negative) Urine Ketones Negative (Negative) Urine Blood 3+ H (Negative) Urine Nitrite Negative (Negative) Urine Bilirubin Negative (Negative) Urine Urobilinogen Negative (Negative) Ur Leukocyte Esterase 2+ H (Negative) Urine WBC (Auto) >30 H (0-5) /hpf Urine RBC (Auto) >30 H (0-4) /hpf U Hyaline Cast (Auto) 0 (0-5) /lpf U Epithel Cells (Auto) 10-20 H (0-5) /lpf Urine Bacteria (Auto) Negative (Negative) Urine Yeast Not Reportable Stl C. diff Tox B Gene (Neg) Ethyl Alcohol mg/dL (0-3) mg/dl SARS-CoV-2, RNA, NAAT NEGATIVE (NEGATIVE) 01/28/21 01/28/21 Range/Units 17:44 18:48 WBC (4.8-10.8) K/uL RBC (4.7-6.1) M/uL Hgb (14.0-18.0) g/dL Hct (42-52) % MCV (80-100) fL MCH (25-34) pg MCHC (32-36) g/dL RDW Std Deviation (36.4-46.3) fL RDW Coeff of Jovi (11.5-14.5) % Plt Count (130-400) K/uL MPV (7.4-10.4) fL Immature Gran % (Auto) % Neut % (Auto) % Lymph % (Auto) % [place] % (Auto) % Eos % (Auto) % Baso % (Auto) % Neut # (Auto) (1.4-6.5) K/uL Lymph # (Auto) (1.2-3.4) K/uL [place] # (Auto) (0.11-0.59) K/uL Eos # (Auto) (0-0.5) K/uL Baso # (Auto) (0-0.2) K/uL Immature Gran # (Auto) (0.00-0.02) K/uL RBC Morphology PT (9.0-12.0) Seconds INR (0.9-1.1) APTT (21.0-31.0) Seconds PTT Ratio Sodium (136-145) mmol/L Potassium (3.5-5.1) mmol/L Chloride (98-107) mmol/L Carbon Dioxide (21-32) mmol/L Anion Gap (3-11) BUN (7-18) mg/dl Creatinine (0.6-1.4) mg/dl Est Cr Clr Drug Dosing ml/min Est GFR ( Amer) ml/min Est GFR (Non-Af Amer) ml/min BUN/Creatinine Ratio (10-20) Glucose (70-99) mg/dl Lactate (0.4-2.0) mmol/L Calcium (8.5-10.1) mg/dl Phosphorus (2.5-4.9) mg/dl Magnesium (1.8-2.4) mg/dl Total Bilirubin (0.2-1) mg/dl AST (15-37) U/L ALT (12-78) U/L Alkaline Phosphatase (45-117) U/L Total Creatine Kinase (39-308) U/L Troponin I 0.110 H* (0-0.045) ng/ml Total Protein (6.4-8.2) gm/dl Albumin (3.4-5.0) gm/dl Globulin (2.5-4.0) gm/dl Albumin/Globulin Ratio (0.9-2) Procalcitonin (0-0.5) ng/ml Urine Color Urine Appearance (Clear) Urine pH (4.5-7.5) Ur Specific [place] (1.000-1.030) Urine Protein (Negative) Urine Glucose (UA) (Negative) Urine Ketones (Negative) Urine Blood (Negative) Urine Nitrite (Negative) Urine Bilirubin (Negative) Urine Urobilinogen (Negative) Ur Leukocyte Esterase (Negative) Urine WBC (Auto) (0-5) /hpf Urine RBC (Auto) (0-4) /hpf U Hyaline Cast (Auto) (0-5) /lpf U Epithel Cells (Auto) (0-5) /lpf Urine Bacteria (Auto) (Negative) Urine Yeast Stl C. diff Tox B Gene Negative Cdiff Gene (Neg) Ethyl Alcohol mg/dL (0-3) mg/dl SARS-CoV-2, RNA, NAAT (NEGATIVE) Administered Medications Sodium Chloride (Nss 1000ml) 1,000 mls @ 999 mls/hr IV .Q1H1M ONE Stop: 01/28/21 20:37 Last Admin: 01/28/21 19:41 Dose: 999 mls/hr Documented by: [id number] Discontinued Medications Multivitamins 10 ml/ Thiamine HCl 100 mg/ Folic Acid 1 mg/Sodium Chloride 1,011.2 mls @ 1,011.2 mls/hr IV .Q1H ONE Stop: 01/28/21 13:51 Last Infusion: 01/28/21 15:18 Dose: 0 mls/hr Documented by: [id number] Admin: 01/28/21 13:59 Dose: 1,011.2 mls/hr Documented by: [id number] Thiamine HCl 200 mg/ Sodium (Chloride) 52 mls @ 208 mls/hr IV NOW STA Stop: 01/28/21 12:53 Last Infusion: 01/28/21 17:18 Dose: 0 mls/hr Documented by: [id number] Admin: 01/28/21 16:10 Dose: 208 mls/hr Documented by: [id number] Piperacillin Sod/Tazobactam Sod (Zosyn) 4.5 gm in 120 mls @ 240 mls/hr IV NOW ONE Stop: 01/28/21 14:08 Last Infusion: 01/28/21 14:29 Dose: 0 mls/hr Documented by: [id number] Admin: 01/28/21 13:59 Dose: 240 mls/hr Documented by: [id number] Daptomycin 425 mg/ Syringe 8.5 mls @ 4.25 mls/min IV NOW ONE; Protocol Stop: 01/28/21 13:40 Last Admin: 01/28/21 16:08 Dose: 4.25 mls/min Documented by: [id number] Magnesium Sulfate/Dextrose (Magnesium Sulfate / D5w) 1 gm in 100 mls @ 100 mls/hr IV NOW STA Stop: 01/28/21 16:43 Last Infusion: 01/28/21 17:18 Dose: 0 mls/hr Documented by: [id number] Admin: 01/28/21 16:07 Dose: 100 mls/hr Documented by: [id number] Imaging Data Radiologist's Impression: Head CT 01/28/21 12:52 CT head/brain wo con CLINICAL HISTORY: confusion, weakness COMPARISON STUDY: No previous studies for comparison. CT DOSE: 1105.10 mGy.cm TECHNIQUE: Standard CT of the Brain was performed without IV contrast. A dose lowering technique was utilized adhering to the principles of ALARA. FINDINGS: Extraaxial space: There is no evidence for subdural hematoma. There are no extra-axial fluid collections. Ventricles and cisterns: The ventricles are mildly dilated bilaterally. There is no evidence for midline shift or mass effect. Parenchyma: There is no subarachnoid or intraparenchymal hemorrhage. There is no evidence for an acute infarct or cerebral edema. There is mild cerebral cortical atrophy and decreased attenuation in the periventricular white matter representing remote small vessel disease. There are no gross mass lesions. Osseous structures: There is no evidence for an acute fracture. The visualized paranasal sinuses are clear. The mastoid air cells are clear bilaterally. Soft tissues: There is no evidence for focal soft tissue swelling. IMPRESSION: No acute intracerebral pathology. Mild cerebral cortical atrophy and remote small vessel disease. ACT 112: Negative or not required by law. Electronically signed by: Dony Ayala M.D. 01/28/2021 3:19 PM Chest X-Ray 01/28/21 12:53 XR chest 1V portable CLINICAL HISTORY: SEPSIS. Evaluate cardiopulmonary status COMPARISON STUDY: No previous studies for comparison. TECHNIQUE: 1 view of the chest FINDINGS: Single frontal view of the chest demonstrates the cardiomediastinal silhouette to be within normal limits. The lungs are clear of alveolar opacities. There is no evidence for pleural effusion. There is no evidence for vascular congestion. There is no acute osseous pathology. IMPRESSION: No acute cardiopulmonary disease. ACT 112: Negative or not required by law. Electronically signed by: Dony Ayala M.D. 01/28/2021 2:50 PM Abdomen/Pelvis CT 01/28/21 13:39 CT SCAN OF THE ABDOMEN AND PELVIS WITHOUT IV CONTRAST CLINICAL HISTORY: Change in mental status. Sepsis. COMPARISON STUDY: Abdominal CT dated 01/14/2021 TECHNIQUE: CT scan of the abdomen and pelvis is performed from the lung bases to the proximal femora. Images are reviewed in the axial, sagittal, and coronal planes. IV contrast was not administered for this examination. Note that the examination was performed in suboptimal fashion without oral and IV contrast. A dose lowering technique was utilized adhering to the principles of ALARA. CT DOSE: 364.67 mGy.cm FINDINGS: Lung bases: The heart is mildly enlarged and without pericardial effusion. There are coronary artery calcifications. The lung bases are clear noting bibasilar scarring/atelectasis. There is a small hiatal hernia. Liver: The unenhanced liver is normal in size, contour, and attenuation. There is no intrahepatic biliary ductal dilatation. Gallbladder: Unremarkable. Spleen: Normal in size and attenuation. Pancreas: The unenhanced pancreas is moderately atrophic and grossly unremarkable. Adrenal glands: Unremarkable. Kidneys: The unenhanced kidneys demonstrate mild cortical atrophy. There is fullness of the renal collecting systems without hydronephrosis. There are no renal calculi identified. There is no evidence of contour deforming renal mass lesion. Urothelial thickening is seen within the renal pelvis bilaterally or involving both ureters. There is bilateral perinephric stranding. Abdominal vasculature: There is advanced atherosclerotic calcification and mild ectasia of the abdominal aorta. Bowel: There is mild colonic diverticulosis without CT evidence of acute diverticulitis. A small bowel loop is contained within a large right inguinal hernia. No obstruction is identified. The appendix is well-visualized and normal. Peritoneum: There is no intraperitoneal free air or abdominal ascites. Lymphadenopathy: None. Pelvic viscera: The prostate gland is markedly enlarged and heterogeneous noting median lobe hypertrophy. There is periprostatic infiltration. The bladder is partially decompressed around a Dixon catheter. The bladder wall appears markedly thickened and there is pericystic inflammation. There are bilateral inguinal hernias. Bowel is contained within the right inguinal hernia. There are small indeterminate nodules in the pelvis. The largest measures up to 11 mm as seen on image #[id number]. Skeletal structures: The skeletal structures are osteopenic. There is mild to moderate lumbosacral spondylosis. No lytic or blastic lesions are seen. IMPRESSION: 1. The bladder is decompressed around a Dixon catheter and appears markedly thick walled with pericystic inflammation. Additionally, there is mild infiltration around the prostate gland. Correlate clinically and with urinalysis for evidence of cystitis/prostatitis. 2. The prostate gland is markedly enlarged with evidence of chronic bladder outlet obstruction. 3. There is mild fullness of the renal collecting systems bilaterally without hydronephrosis. Urothelial thickening is seen involving the renal pelvis bilaterally and both ureters and there is significant perinephric inflammation. Correlate clinically and with urinalysis for evidence of ascending urinary tract infections. 4. There are numerous nonspecific nodules in the pelvis which measure up to 11 mm, possibly representing prominent/reactive lymph nodes. Correlate with serum PSA levels. 5. There are bilateral inguinal hernias, with a nonobstructed segment of small bowel contained within the right hernia. 6. Additional findings as above. ACT 112: Negative or not required by law. Electronically signed by: Justice Damico M.D. 01/28/2021 3:26 PM Discharge Plan Visit Data Chief Complaint: Weakness Stated Complaint: weakness ED Provider: Ken Marti Discharge Problem: Sepsis, Elevated troponin, Acute on chronic renal failure, Acute UTI Forms Stand Alone Forms: [facility] [employer] Prescriptions Prescriptions: No Action tamsulosin 0.4 mg capsule 0.4 mg PO DAILY Qty: 90 RF: 3 finasteride 5 mg tablet 5 mg PO DAILY Qty: 90 RF: 3 lisinopril 40 mg tablet 40 mg PO DAILY RF: 0 Ocuvite Adult 50 Plus 250-5-1 mg Capsule 1 cap PO DAILY RF: 0 Referrals Referrals: Akash Swift MD [Primary Care Provider] - Discharge Problem: Sepsis Qualifiers: Sepsis type: sepsis due to unspecified organism Sepsis acute organ dysfunction status: with acute organ dysfunction Severe sepsis acute organ dysfunction type: acute renal failure Acute renal failure type: unspecified Severe sepsis shock status: unspecified Qualified Code(s): A41.9 - Sepsis, unspecified organism Acute on chronic renal failure Qualifiers: Acute renal failure type: unspecified Chronic kidney disease stage: unspecified stage Qualified Code(s): N17.9 - Acute kidney failure, unspecified
--- NOTE | 2021-01-28 16:43 | History & Physical Report ---
Date of Service January 28, 2021 Assessment & Plan (1) Sepsis: Plan: The plan is for the patient to be admitted to the hospital proceeding as follows: We will place the patient on a monitored floor due to his elevated troponin we will follow serial cardiac enzymes We will continue broad-spectrum antibiotics and tailor his further antibiotic regimen based on pending cultures as well as his clinical response. Should be noted the blood and urine cultures have been sent. Stool for C. difficile has been ordered and will follow for the results of this acting accordingly based on the results We will hydrate the patient with intravenous fluids We will follow serial labs (CBC, PRP, lactate) We will place patient on subcutaneous heparin for DVT prevention I discussed with the patient his CODE STATUS. He notes in the event of cardiopulmonary rest he wishes to be a level 5 DO NOT RESUSCITATE. I did contact the patient's via phone and she is confirmed this. (2) Acute kidney injury: Plan: This problem may be secondary to sepsis and hypotension with concomitant use of ANT inhibitor as well as bladder outlet obstruction (had Dixon removed for 24 hrs after failed trial of void on 01/26, was then replaced on 01/27) We will follow serial labs We will avoid nephrotoxins We will hold his ANT inhibitor for the present time with plans to reinstitute this when clinically appropriate (3) HTN (hypertension), benign: Plan: Holding lisinopril as above (4) Urinary tract infection: Plan: Previously grew out coagulase-negative Staphylococcus with sensitivities reviewed With evidence of pyelonephritis on imaging, significant leukocytosis Continue daptomycin and Zosyn for broad coverage Follow cultures (5) Diarrhea: Plan: Several loose stools daily, nonbloody C. difficile pending If C. difficile negative, could give Imodium Start probiotics (6) Elevated troponin: Plan: Likely myocardial demand ischemia in the setting of sepsis Trend serial troponin No ischemic changes on ECG Check echocardiogram (7) Bacteremia: Plan: Previous admission with coagulase-negative Staphylococcus bacteremia No repeat blood cultures done to ensure clearance prior to discharge Was discharged home on p.o. Keflex x6-day course which she completed on 01/24 Suspect he is back with recurrent bacteremia at this time Procalcitonin severely elevated 132 With sepsis as above-leukocytosis of 32 with fevers, hypotension, tachycardia Follow repeat blood cultures Check echocardiogram given gram-positive bacteremia Source is likely although it is coagulase-negative Staphylococcus (8) Hypomagnesemia: Plan: Replace with IV magnesium sulfate 2 g Follow level in the morning (9) Hyponatremia: Plan: Sodium 128, likely secondary to renal failure, dehydration and hypovolemia Hydrate with IV fluids Follow BMP in the morning (10) Metabolic acidosis: Plan: Secondary to lactic acidosis from sepsis as well as some likely from renal failure Follow BMP (11) Transaminitis: Plan: Mildly elevated AST, likely secondary to hypotension and sepsis associated liver injury Follow LFTs in the morning History of Present Illness Chief Complaint: "I do not feel well" Primary Care Provider: Akash Swift MD This is an 80-year-old male who was recently mated to [facility] on 01/15/2021 through 01/18/2021. Patient was admitted with a bladder outlet obstruction presented with a creatinine of 8.5. Patient had Dixon cathet er placed secondary to this problem and his creatinine proved to 1.4. During this admission the patient was found to have bacteremia with coag negative staph. The patient was given antibiotics in form of Rocephin while in the hospital and ultimately discharged home on oral Keflex. Should be noted that the patient was discharged home with a Dixon catheter in place. The patient did have an outpatient voiding trial but he failed this and had to have the catheter reinserted on 01/27/2021. This was performed in the [facility] physician group urology office. According to the patient's he was only without the Dixon catheter for 1 day. The patient presented to the [facility] emergency department today as he is just not feeling like himself. The patient's also confirmed that he is not quite acting like himself. I asked patient to litany of questions and he denies any fevers, shakes, chills. He denies any undue pain from his catheter. Patient denies any abdominal pain or nausea or vomiting but he notes that his appetite has not been great. He denies any cough or shortness of breath. He says that he has not fallen or hit his head. He also denies any loss of consciousness. He denies inability to move his arms or legs. He denies any visual changes. Patient does report that he has been having loose stools for several days. He does not offer any other complaints at this time. In the emergency department patient had labs and imaging which I independently reviewed. A CT scan of the head showed no acute intracranial process. A chest x-ray showed no evidence of pneumonia or CHF. Patient did undergo a CT scan of the abdomen pelvis that showed that his bladder was decompressed around the Dixon catheter but there was pericystic inflammation noted which was concerning for cystitis or prostatitis. The patient's prostate gland was noted to be markedly enlarged. There is fullness noted the renal collecting system however no hydronephrosis was noted bilaterally. Labs including CBC were white blood cell count was 36.1. His hemoglobin and hematocrit were 12.3 and 35.6. Platelet count was within normal range. Chemistry profile showed a sodium was 128. Potassium was noted to be normal. BUN and creatinine were elevated at 50 and 4.1. He did have a lactic acid level elevated at 4.8. Magnesium was noted be 1.6. He did have a slight elevation of his troponin at 0.08. Procalcitonin was noted to be elevated at 132.2. Urinalysis was concerning for underlying urinary tract infection. A Covid test was performed and was noted to be negative. An EKG was performed that showed normal sinus rhythm without acute ischemic changes. Premature ventricular contractions were noted. Patient was initially noted to be hypotensive in the emergency department with blood pressure in the 80s systolic. Patient was given antibiotics in form of Zosyn as well as daptomycin as well as given intravenous fluids and his blood pressure rebounded to 126/72. He was noted to be afebrile. He did have a slight tachycardia with a heart rate of approximately 100-109. At the time of my interview the patient was resting in bed. He was in no dis tress. Allergies Allergy/AdvReac Type Severity Reaction Status Date / Time No Known Allergies Allergy Verified 01/28/21 13:35 Home Medications Medication Instructions Recorded Confirmed Type lisinopril 40 mg tablet 40 mg PO DAILY 01/14/21 01/28/21 History finasteride 5 mg tablet 5 mg PO DAILY #90 tab 01/26/21 01/28/21 Rx tamsulosin 0.4 mg capsule 0.4 mg PO DAILY #90 cap 01/26/21 01/28/21 Rx vit C,E,zinc,copper-xeaec4z 250 1 cap PO DAILY 01/28/21 01/28/21 History mg-lutein 5 mg-zeaxanthin 1 mg capsule (Ocuvite Adult 50 Plus) Past Med/Surg History Medical History (Updated 01/28/21 @ 19:49 by Kareen Smith MD) Acute on chronic renal failure Acute retention of urine Elevated PSA Epididymitis HTN (hypertension), benign Obstructive uropathy Testicular pain Surgical History (Updated 01/28/21 @ 19:44 by Kareen Smith MD) No pertinent past surgical history Family History Other Family history non-contributory Social History Smoking Status: Never smoker Tobacco Type: Smokeless Tobacco (Dip or Chew) Hx Alcohol Use: No Hx Substance Use: No Preferred Language: Lithuanian Communication Ability: Effective Equities Trader Required: No Beliefs That Will Affect Care: None Current Living Situation: Spouse Feels Safe at Home: Yes Assistive Devices: None Review of Systems Constitutional: + fatigue and + weakness; no fever and no chills Eyes: no blind spots and no diplopia Ear, Nose, Mouth, Throat: no ear pain and no sore throat Respiratory: no cough and no dyspnea Cardiovascular: no chest pain Gastrointestinal: + diarrhea/loose stools; no abdominal pain, no nausea and no vomiting Genitourinary: + as per Subjective / HPI Musculoskeletal: no back pain Integumentary: no rash Neurologic: no localized weakness Physical Exam Constitutional: + thin; no acute distress Eyes: PERRL, conjunctivae normal, anicteric sclerae ENMT: Ears: no hearing impairment Nose: no external nose abnormality Mouth: no oropharynx abnormality Neck: trachea midline Respiratory: normal respiratory effort, lungs clear to auscultation Cardiovascular: Rate/Rhythm: regular rate and regular rhythm Gastrointestinal (Abdomen): Abdomen is soft, nontender, nondistended. No pain with palpation. Bowel sounds are present. Musculoskeletal: No calf tenderness Skin: no rashes Neurologic: Patient is awake he is alert to time, place, person. He is able to move all 4 extremities and follows simple commands without noted focal deficits. Results & Data Results & Data ([facility]) Vital Signs (Past 12 Hours) Vital Signs Temp Pulse Pulse Resp BP BP Pulse Ox 01/28/21 16:27 109 H 24 95 01/28/21 16:13 100 H 26 H 96 01/28/21 15:32 96 01/28/21 15:30 78 18 126/72 94 01/28/21 14:30 95 H 22 93/53 L 94 01/28/21 14:15 94 H 24 86/41 L 93 01/28/21 14:00 95 H 24 101/49 L 94 01/28/21 13:45 102 H 20 102/52 L 94 01/28/21 13:30 24 01/28/21 13:26 99 H 20 98/48 L 96 01/28/21 11:55 37.1 C 96 H 18 98/42 L 96 Laboratory Results 01/28/21 01/28/21 01/28/21 Range/Units 18:48 17:44 15:22 WBC (4.8-10.8) K/uL RBC (4.7-6.1) M/uL Hgb (14.0-18.0) g/dL Hct (42-52) % MCV (80-100) fL MCH (25-34) pg MCHC (32-36) g/dL RDW Std Deviation (36.4-46.3) fL RDW Coeff of Jovi (11.5-14.5) % Plt Count (130-400) K/uL MPV (7.4-10.4) fL Immature Gran % (Auto) % Neut % (Auto) % Lymph % (Auto) % Mercer % (Auto) % Eos % (Auto) % Baso % (Auto) % Neut # (Auto) (1.4-6.5) K/uL Lymph # (Auto) (1.2-3.4) K/uL Mercer # (Auto) (0.11-0.59) K/uL Eos # (Auto) (0-0.5) K/uL Baso # (Auto) (0-0.2) K/uL Immature Gran # (Auto) (0.00-0.02) K/uL RBC Morphology PT (9.0-12.0) Seconds INR (0.9-1.1) APTT (21.0-31.0) Seconds PTT Ratio Sodium (136-145) mmol/L Potassium (3.5-5.1) mmol/L Chloride (98-107) mmol/L Carbon Dioxide (21-32) mmol/L Anion Gap (3-11) BUN (7-18) mg/dl Creatinine (0.6-1.4) mg/dl Est Cr Clr Drug Dosing ml/min Est GFR ( Amer) ml/min Est GFR (Non-Af Amer) ml/min BUN/Creatinine Ratio (10-20) Glucose (70-99) mg/dl Lactate 4.8 H* (0.4-2.0) mmol/L Calcium (8.5-10.1) mg/dl Phosphorus (2.5-4.9) mg/dl Magnesium (1.8-2.4) mg/dl Total Bilirubin (0.2-1) mg/dl AST (15-37) U/L ALT (12-78) U/L Alkaline Phosphatase (45-117) U/L Total Creatine Kinase (39-308) U/L Troponin I 0.110 H* (0-0.045) ng/ml Total Protein (6.4-8.2) gm/dl Albumin (3.4-5.0) gm/dl Globulin (2.5-4.0) gm/dl Albumin/Globulin Ratio (0.9-2) Procalcitonin (0-0.5) ng/ml Urine Color Urine Appearance (Clear) Urine pH (4.5-7.5) Ur Specific [place] (1.000-1.030) Urine Protein (Negative) Urine Glucose (UA) (Negative) Urine Ketones (Negative) Urine Blood (Negative) Urine Nitrite (Negative) Urine Bilirubin (Negative) Urine Urobilinogen (Negative) Ur Leukocyte Esterase (Negative) Urine WBC (Auto) (0-5) /hpf Urine RBC (Auto) (0-4) /hpf U Hyaline Cast (Auto) (0-5) /lpf U Epithel Cells (Auto) (0-5) /lpf Urine Bacteria (Auto) (Negative) Urine Yeast Stl C. diff Tox B Gene Negative Cdiff Gene (Neg) Ethyl Alcohol mg/dL (0-3) mg/dl SARS-CoV-2, RNA, NAAT (NEGATIVE) 01/28/21 01/28/21 01/28/21 Range/Units 14:32 13:35 13:06 WBC (4.8-10.8) K/uL RBC (4.7-6.1) M/uL Hgb (14.0-18.0) g/dL Hct (42-52) % MCV (80-100) fL MCH (25-34) pg MCHC (32-36) g/dL RDW Std Deviation (36.4-46.3) fL RDW Coeff of Jovi (11.5-14.5) % Plt Count (130-400) K/uL MPV (7.4-10.4) fL Immature Gran % (Auto) % Neut % (Auto) % Lymph % (Auto) % Mercer % (Auto) % Eos % (Auto) % Baso % (Auto) % Neut # (Auto) (1.4-6.5) K/uL Lymph # (Auto) (1.2-3.4) K/uL Mercer # (Auto) (0.11-0.59) K/uL Eos # (Auto) (0-0.5) K/uL Baso # (Auto) (0-0.2) K/uL Immature Gran # (Auto) (0.00-0.02) K/uL RBC Morphology PT (9.0-12.0) Seconds INR (0.9-1.1) APTT (21.0-31.0) Seconds PTT Ratio Sodium (136-145) mmol/L Potassium (3.5-5.1) mmol/L Chloride (98-107) mmol/L Carbon Dioxide (21-32) mmol/L Anion Gap (3-11) BUN (7-18) mg/dl Creatinine (0.6-1.4) mg/dl Est Cr Clr Drug Dosing ml/min Est GFR ( Amer) ml/min Est GFR (Non-Af Amer) ml/min BUN/Creatinine Ratio (10-20) Glucose (70-99) mg/dl Lactate 4.8 H* (0.4-2.0) mmol/L Calcium (8.5-10.1) mg/dl Phosphorus (2.5-4.9) mg/dl Magnesium (1.8-2.4) mg/dl Total Bilirubin (0.2-1) mg/dl AST (15-37) U/L ALT (12-78) U/L Alkaline Phosphatase (45-117) U/L Total Creatine Kinase (39-308) U/L Troponin I (0-0.045) ng/ml Total Protein (6.4-8.2) gm/dl Albumin (3.4-5.0) gm/dl Globulin (2.5-4.0) gm/dl Albumin/Globulin Ratio (0.9-2) Procalcitonin (0-0.5) ng/ml Urine Color Coosa Urine Appearance Cloudy A (Clear) Urine pH 5.5 (4.5-7.5) Ur Specific [place] 1.017 (1.000-1.030) Urine Protein 3+ H (Negative) Urine Glucose (UA) Negative (Negative) Urine Ketones Negative (Negative) Urine Blood 3+ H (Negative) Urine Nitrite Negative (Negative) Urine Bilirubin Negative (Negative) Urine Urobilinogen Negative (Negative) Ur Leukocyte Esterase 2+ H (Negative) Urine WBC (Auto) >30 H (0-5) /hpf Urine RBC (Auto) >30 H (0-4) /hpf U Hyaline Cast (Auto) 0 (0-5) /lpf U Epithel Cells (Auto) 10-20 H (0-5) /lpf Urine Bacteria (Auto) Negative (Negative) Urine Yeast Not Reportable Stl C. diff Tox B Gene (Neg) Ethyl Alcohol mg/dL (0-3) mg/dl SARS-CoV-2, RNA, NAAT NEGATIVE (NEGATIVE) 01/28/21 01/28/21 01/28/21 Range/Units 13:06 13:06 13:06 WBC 36.10 H* (4.8-10.8) K/uL RBC 4.00 L (4.7-6.1) M/uL Hgb 12.3 L (14.0-18.0) g/dL Hct 35.6 L (42-52) % MCV 89.0 (80-100) fL MCH 30.8 (25-34) pg MCHC 34.6 (32-36) g/dL RDW Std Deviation 39.7 (36.4-46.3) fL RDW Coeff of Jovi 12.3 (11.5-14.5) % Plt Count 131 (130-400) K/uL MPV 9.0 (7.4-10.4) fL Immature Gran % (Auto) 4.3 % Neut % (Auto) 92.3 % Lymph % (Auto) 1.1 % Mercer % (Auto) 2.3 % Eos % (Auto) 0.0 % Baso % (Auto) 0.0 % Neut # (Auto) 33.27 H (1.4-6.5) K/uL Lymph # (Auto) 0.41 L (1.2-3.4) K/uL Mercer # (Auto) 0.83 H (0.11-0.59) K/uL Eos # (Auto) 0.01 (0-0.5) K/uL Baso # (Auto) 0.01 (0-0.2) K/uL Immature Gran # (Auto) 1.57 H (0.00-0.02) K/uL RBC Morphology Unremarkable PT 13.6 H (9.0-12.0) Seconds INR 1.4 H (0.9-1.1) APTT 36.2 H (21.0-31.0) Seconds PTT Ratio 1.4 Sodium (136-145) mmol/L Potassium (3.5-5.1) mmol/L Chloride (98-107) mmol/L Carbon Dioxide (21-32) mmol/L Anion Gap (3-11) BUN (7-18) mg/dl Creatinine (0.6-1.4) mg/dl Est Cr Clr Drug Dosing ml/min Est GFR ( Amer) ml/min Est GFR (Non-Af Amer) ml/min BUN/Creatinine Ratio (10-20) Glucose (70-99) mg/dl Lactate (0.4-2.0) mmol/L Calcium (8.5-10.1) mg/dl Phosphorus (2.5-4.9) mg/dl Magnesium (1.8-2.4) mg/dl Total Bilirubin (0.2-1) mg/dl AST (15-37) U/L ALT (12-78) U/L Alkaline Phosphatase (45-117) U/L Total Creatine Kinase (39-308) U/L Troponin I (0-0.045) ng/ml Total Protein (6.4-8.2) gm/dl Albumin (3.4-5.0) gm/dl Globulin (2.5-4.0) gm/dl Albumin/Globulin Ratio (0.9-2) Procalcitonin 132.25 H (0-0.5) ng/ml Urine Color Urine Appearance (Clear) Urine pH (4.5-7.5) Ur Specific [place] (1.000-1.030) Urine Protein (Negative) Urine Glucose (UA) (Negative) Urine Ketones (Negative) Urine Blood (Negative) Urine Nitrite (Negative) Urine Bilirubin (Negative) Urine Urobilinogen (Negative) Ur Leukocyte Esterase (Negative) Urine WBC (Auto) (0-5) /hpf Urine RBC (Auto) (0-4) /hpf U Hyaline Cast (Auto) (0-5) /lpf U Epithel Cells (Auto) (0-5) /lpf Urine Bacteria (Auto) (Negative) Urine Yeast Stl C. diff Tox B Gene (Neg) Ethyl Alcohol mg/dL (0-3) mg/dl SARS-CoV-2, RNA, NAAT (NEGATIVE) 01/28/21 01/28/21 Range/Units 13:06 12:57 WBC (4.8-10.8) K/uL RBC (4.7-6.1) M/uL Hgb (14.0-18.0) g/dL Hct (42-52) % MCV (80-100) fL MCH (25-34) pg MCHC (32-36) g/dL RDW Std Deviation (36.4-46.3) fL RDW Coeff of Jovi (11.5-14.5) % Plt Count (130-400) K/uL MPV (7.4-10.4) fL Immature Gran % (Auto) % Neut % (Auto) % Lymph % (Auto) % Mercer % (Auto) % Eos % (Auto) % Baso % (Auto) % Neut # (Auto) (1.4-6.5) K/uL Lymph # (Auto) (1.2-3.4) K/uL Mercer # (Auto) (0.11-0.59) K/uL Eos # (Auto) (0-0.5) K/uL Baso # (Auto) (0-0.2) K/uL Immature Gran # (Auto) (0.00-0.02) K/uL RBC Morphology PT (9.0-12.0) Seconds INR (0.9-1.1) APTT (21.0-31.0) Seconds PTT Ratio Sodium 128 L (136-145) mmol/L Potassium 4.6 (3.5-5.1) mmol/L Chloride 96 L (98-107) mmol/L Carbon Dioxide 19 L (21-32) mmol/L Anion Gap 13.0 H (3-11) BUN 50 H (7-18) mg/dl Creatinine 4.10 H (0.6-1.4) mg/dl Est Cr Clr Drug Dosing 13.7 ml/min Est GFR ( Amer) 14.8 ml/min Est GFR (Non-Af Amer) 12.8 ml/min BUN/Creatinine Ratio 12.2 (10-20) Glucose 109 H (70-99) mg/dl Lactate (0.4-2.0) mmol/L Calcium 8.4 L (8.5-10.1) mg/dl Phosphorus 4.1 (2.5-4.9) mg/dl Magnesium 1.6 L (1.8-2.4) mg/dl Total Bilirubin 0.6 (0.2-1) mg/dl AST 51 H (15-37) U/L ALT 36 (12-78) U/L Alkaline Phosphatase 82 (45-117) U/L Total Creatine Kinase 280 (39-308) U/L Troponin I 0.081 H* (0-0.045) ng/ml Total Protein 6.8 (6.4-8.2) gm/dl Albumin 2.5 L (3.4-5.0) gm/dl Globulin 4.3 H (2.5-4.0) gm/dl Albumin/Globulin Ratio 0.6 L (0.9-2) Procalcitonin (0-0.5) ng/ml Urine Color Urine Appearance (Clear) Urine pH (4.5-7.5) Ur Specific [place] (1.000-1.030) Urine Protein (Negative) Urine Glucose (UA) (Negative) Urine Ketones (Negative) Urine Blood (Negative) Urine Nitrite (Negative) Urine Bilirubin (Negative) Urine Urobilinogen (Negative) Ur Leukocyte Esterase (Negative) Urine WBC (Auto) (0-5) /hpf Urine RBC (Auto) (0-4) /hpf U Hyaline Cast (Auto) (0-5) /lpf U Epithel Cells (Auto) (0-5) /lpf Urine Bacteria (Auto) (Negative) Urine Yeast Stl C. diff Tox B Gene (Neg) Ethyl Alcohol mg/dL < 3.0 (0-3) mg/dl SARS-CoV-2, RNA, NAAT (NEGATIVE) Diagnostic Findings Head CT 01/28/21 12:52 CT head/brain wo con CLINICAL HISTORY: confusion, weakness COMPARISON STUDY: No previous studies for comparison. CT DOSE: 1105.10 mGy.cm TECHNIQUE: Standard CT of the Brain was performed without IV contrast. A dose lowering technique was utilized adhering to the principles of ALARA. FINDINGS: Extraaxial space: There is no evidence for subdural hematoma. There are no extra-axial fluid collections. Ventricles and cisterns: The ventricles are mildly dilated bilaterally. There is no evidence for midline shift or mass effect. Parenchyma: There is no subarachnoid or intraparenchymal hemorrhage. There is no evidence for an acute infarct or cerebral edema. There is mild cerebral cortical atrophy and decreased attenuation in the periventricular white matter representing remote small vessel disease. There are no gross mass lesions. Osseous structures: There is no evidence for an acute fracture. The visualized paranasal sinuses are clear. The mastoid air cells are clear bilaterally. Soft tissues: There is no evidence for focal soft tissue swelling. IMPRESSION: No acute intracerebral pathology. Mild cerebral cortical atrophy and remote small vessel disease. ACT 112: Negative or not required by law. Electronically signed by: Dony Ayala M.D. 01/28/2021 3:19 PM Chest X-Ray 01/28/21 12:53 XR chest 1V portable CLINICAL HISTORY: SEPSIS. Evaluate cardiopulmonary status COMPARISON STUDY: No previous studies for comparison. TECHNIQUE: 1 view of the chest FINDINGS: Single frontal view of the chest demonstrates the cardiomediastinal silhouette to be within normal limits. The lungs are clear of alveolar opacities. There is no evidence for pleural effusion. There is no evidence for vascular congestion. There is no acute osseous pathology. IMPRESSION: No acute cardiopulmonary disease. ACT 112: Negative or not required by law. Electronically signed by: Dony Ayala M.D. 01/28/2021 2:50 PM Abdomen/Pelvis CT 01/28/21 13:39 CT SCAN OF THE ABDOMEN AND PELVIS WITHOUT IV CONTRAST CLINICAL HISTORY: Change in mental status. Sepsis. COMPARISON STUDY: Abdominal CT dated 01/14/2021 TECHNIQUE: CT scan of the abdomen and pelvis is performed from the lung bases to the proximal femora. Images are reviewed in the axial, sagittal, and coronal planes. IV contrast was not administered for this examination. Note that the examination was performed in suboptimal fashion without oral and IV contrast. A dose lowering technique was utilized adhering to the principles of ALARA. CT DOSE: 364.67 mGy.cm FINDINGS: Lung bases: The heart is mildly enlarged and without pericardial effusion. There are coronary artery calcifications. The lung bases are clear noting bibasilar scarring/atelectasis. There is a small hiatal hernia. Liver: The unenhanced liver is normal in size, contour, and attenuation. There is no intrahepatic biliary ductal dilatation. Gallbladder: Unremarkable. Spleen: Normal in size and attenuation. Pancreas: The unenhanced pancreas is moderately atrophic and grossly unremarkable. Adrenal glands: Unremarkable. Kidneys: The unenhanced kidneys demonstrate mild cortical atrophy. There is fullness of the renal collecting systems without hydronephrosis. There are no renal calculi identified. There is no evidence of contour deforming renal mass lesion. Urothelial thickening is seen within the renal pelvis bilaterally or involving both ureters. There is bilateral perinephric stranding. Abdominal vasculature: There is advanced atherosclerotic calcification and mild ectasia of the abdominal aorta. Bowel: There is mild colonic diverticulosis without CT evidence of acute diverticulitis. A small bowel loop is contained within a large right inguinal hernia. No obstruction is identified. The appendix is well-visualized and normal. Peritoneum: There is no intraperitoneal free air or abdominal ascites. Lymphadenopathy: None. Pelvic viscera: The prostate gland is markedly enlarged and heterogeneous noting median lobe hypertrophy. There is periprostatic infiltration. The bladder is partially decompressed around a Dixon catheter. The bladder wall appears markedly thickened and there is pericystic inflammation. There are bilateral inguinal hernias. Bowel is contained within the right inguinal hernia. There are small indeterminate nodules in the pelvis. The largest measures up to 11 mm as seen on image #[id number]. Skeletal structures: The skeletal structures are osteopenic. There is mild to moderate lumbosacral spondylosis. No lytic or blastic lesions are seen. IMPRESSION: 1. The bladder is decompressed around a Dixon catheter and appears markedly thick walled with pericystic inflammation. Additionally, there is mild infiltration around the prostate gland. Correlate clinically and with urinalysis for evidence of cystitis/prostatitis. 2. The prostate gland is markedly enlarged with evidence of chronic bladder outlet obstruction. 3. There is mild fullness of the renal collecting systems bilaterally without hydronephrosis. Urothelial thickening is seen involving the renal pelvis bilaterally and both ureters and there is significant perinephric inflammation. Correlate clinically and with urinalysis for evidence of ascending urinary tract infections. 4. There are numerous nonspecific nodules in the pelvis which measure up to 11 mm, possibly representing prominent/reactive lymph nodes. Correlate with serum PSA levels. 5. There are bilateral inguinal hernias, with a nonobstructed segment of small bowel contained within the right hernia. 6. Additional findings as above. ACT 112: Negative or not required by law. Electronically signed by: Justice Damico M.D. 01/28/2021 3:26 PM Code Status & VTE Plan VTE Prophylaxis Plan VTE Prophylaxis will be ordered: Yes Supervising Physician Co-Signing Physician Notes PA Supervision Note: I personally saw and examined the patient. I verified all downey points and agree with JEAN Griffiths with the following exceptions and/or additions: This patient is an 80-year-old male with recent hospitalization for urinary retention and acute kidney injury with coagulase-negative Staphylococcus bacteremia and UTI. His renal failure had improved with placement of Dixon catheter and treatment of infection. He was discharged to home on oral Keflex for 6 more days after discharge. He returns now with weakness, not feeling well, and found to have sepsis with septic shock and UTI as well as recurrent acute kidney injury. He had his Dixon catheter removed on 01/26 and he failed a trial of void, but refused to have Dixon catheter replaced at the urology office. He was seen again the next day urgently at urology office for acute urinary retention of almost 700 mL of urine. The Dixon catheter was replaced on 01/27. He presents to the ER today with the above complaints. With creatinine of 4, multiple electrolyte abnormalities, severe leukocytosis, tachycardia, hypotension, and lactic acidosis. History and ROS reviewed as above Vitals reviewed Gen: AAOx3, NAD, appears lethargic HEENT: Anicteric sclerae, EOMI CV: Tachycardic, regular rhythm, 2/6 systolic ejection murmur, normal S1 and S2 Pulm: [CTAB no wcr, but is tachypneic Abd: +BS soft NT ND no masses, Dixon catheter in place draining light brown clear urine Ext: No edema, 2+ DP pulses Skin: No rashes, warm/dry Neuro: Full strength throughout Laboratory values reviewed, radiology studies reviewed, ECG reviewed 80-year-old male here with UTI and acute pyelonephritis with septic shock as well as acute kidney injury, hyponatremia, and lactic acidosis -Adjustments and addendum was made to the PA H&P as above with regards to plan PG Care Time/CCT Total # of Minutes Spent Total Time Spent with Patient: Total time spent is greater than 50% in coordination of care (as documented) at patient's floor/unit and/or counseling patient: Coding Level of Care Code 44899 Initial Inpt Care Lvl 3 Diagnoses Sepsis A41.9 Acute kidney injury N17.9 HTN (hypertension), benign I10 Urinary tract infection N39.0; R31.9 Hematuria presence: with hematuria Urinary tract infection type: site unspecified Diarrhea R19.7 Elevated troponin R77.8 Bacteremia R78.81 Hypomagnesemia E83.42 Hyponatremia E87.1 Metabolic acidosis E87.2 Transaminitis R74.01 (1) Urinary tract infection Hematuria presence: with hematuria Urinary tract infection type: site unspecified Qualified Code(s): N39.0 - Urinary tract infection, site not specified; R31.9 - Hematuria, unspecified
[2021-01-28] MEDS ORDERED: SODIUM CHLORIDE 0.9% 1000ML 1,000 ML IV ONE (19:37)
[2021-01-28] MEDS ORDERED: ACETAMINOPHEN 325 MG TAB PO PRN (19:40)
[2021-01-28] MEDS: SODIUM CHLORIDE 0.9% 1000ML 1,000 ML IV SCH (20:50)
[2021-01-28] MEDS: MAGNESIUM SULFATE / D5W 1 GM/100 ML BAG IV SCH ×2 (20:50→22:54)
[2021-01-28] MEDS: SACCHAROMYCES BOULARDII 250 MG CAP PO SCH (23:24)
[2021-01-28] MEDS: HEPARIN SOD 5,000 UNIT/0.5 ML VIAL SQ SCH (23:25)
[2021-01-28] MEDS: PIPERACILLIN/TAZOBACTAM 3.375 GM in DEXTROSE 5% 100 ML IV SCH (23:25)
[2021-01-29] MEDS: SODIUM CHLORIDE 0.9% 1000ML 1,000 ML IV SCH ×3 (05:42→21:30)
--- NOTE | 2021-01-29 06:56 | Hospitalist Progress Note ---
Date of Service January 29, 2021 Assessment & Plan (1) Sepsis: Plan: 80-year-old male with history of severe BPH, recently admitted from 01/15- for bladder outlet obstruction requiring Dixon placement, postrenal JOSE ALBERTO, and coag- negative Staph (treated with CFTX/Keflex), who recently failed outpatient voiding trial requiring Dixon replacement by urology, who presented to [facility] on 01/28 for severe sepsis and gram negative bacteremia, presumed to be secondary to UTI from bladder outlet obstruction. -- continue fluids @ 125cc/hr, maintain MAP > 65, UOP > 30cc/kg/hr, keep on PCU -- recheck labs, including lactate and Na (hypoNa likely 2/2 dehydration and hypovolemia) -- continue zosyn/dapto until speciation -- consider URO consultation for ?Dixon replacement, ?need for TURP - source control -- hold ACEI, monitor BMP -- f/u TTE for elevated trop, likely demand -- f/u abdominal nodules w/ PSA when stable ---- The plan is for the patient to be admitted to the hospital proceeding as follows: We will place the patient on a monitored floor due to his elevated troponin we will follow serial cardiac enzymes We will continue broad-spectrum antibiotics and tailor his further antibiotic regimen based on pending cultures as well as his clinical response. Should be noted the blood and urine cultures have been sent. Stool for C. difficile has been ordered and will follow for the results of this acting accordingly based on the results We will hydrate the patient with intravenous fluids We will follow serial labs (CBC, PRP, lactate) We will place patient on subcutaneous heparin for DVT prevention I discussed with the patient his CODE STATUS. He notes in the event of cardiopulmonary rest he wishes to be a level 5 DO NOT RESUSCITATE. I did contact the patient's via phone and she is confirmed this. (2) Acute kidney injury: Plan: This problem may be secondary to sepsis and hypotension with concomitant use of ANT inhibitor as well as bladder outlet obstruction (had Dixon removed for 24 hrs after failed trial of void on 01/26, was then replaced on 01/27) We will follow serial labs We will avoid nephrotoxins We will hold his ANT inhibitor for the present time with plans to reinstitute this when clinically appropriate (3) HTN (hypertension), benign: Plan: Holding lisinopril as above (4) Urinary tract infection: Plan: Previously grew out coagulase-negative Staphylococcus with sensitivities reviewed With evidence of pyelonephritis on imaging, significant leukocytosis Continue daptomycin and Zosyn for broad coverage Follow cultures (5) Diarrhea: Plan: Several loose stools daily, nonbloody C. difficile pending If C. difficile negative, could give Imodium Start probiotics (6) Elevated troponin: Plan: Likely myocardial demand ischemia in the setting of sepsis Trend serial troponin No ischemic changes on ECG Check echocardiogram (7) Bacteremia: Plan: Previous admission with coagulase-negative Staphylococcus bacteremia No repeat blood cultures done to ensure clearance prior to discharge Was discharged home on p.o. Keflex x6-day course which she completed on 01/24 Suspect he is back with recurrent bacteremia at this time Procalcitonin severely elevated 132 With sepsis as above-leukocytosis of 32 with fevers, hypotension, tachycardia Follow repeat blood cultures Check echocardiogram given gram-positive bacteremia Source is likely although it is coagulase-negative Staphylococcus (8) Hypomagnesemia: Plan: Replace with IV magnesium sulfate 2 g Follow level in the morning (9) Hyponatremia: Plan: Sodium 128, likely secondary to renal failure, dehydration and hypovolemia Hydrate with IV fluids Follow BMP in the morning (10) Metabolic acidosis: Plan: Secondary to lactic acidosis from sepsis as well as some likely from renal failure Follow BMP (11) Transaminitis: Plan: Mildly elevated AST, likely secondary to hypotension and sepsis associated liver injury Follow LFTs in the morning Admission and Anticipated Discharge Date Admission Date: January 28, 2021 Results & Data Results & Data ([facility]) Vital Signs (Past 12 Hours) Vital Signs Pulse Resp BP Pulse Ox 01/29/21 06:07 94 H 15 93/59 L 96 01/29/21 03:01 92 H 15 102/49 L 94 01/28/21 22:32 103 H 17 91/63 L 95 01/28/21 21:00 102 H 17 100/60 94 01/28/21 20:00 105 H 18 101/44 L 98 01/28/21 19:12 104 H 16 94/52 L 95 01/28/21 18:53 105 H 18 104/54 L 94 (1) Urinary tract infection Hematuria presence: with hematuria Urinary tract infection type: site unspecified Qualified Code(s): N39.0 - Urinary tract infection, site not specified; R31.9 - Hematuria, unspecified
[2021-01-29 08:33] LABS: Albumin Level 1.9 gm/dl (3.4-5.0); BUN Creatinine Ratio 13.3 (10-20); Calcium 7.4 mg/dl (8.5-10.1); Creatinine Clr Calc Pharmacy 12.8 ml/min; Est GFR (African American) 13.7 ml/min; Est GFR (Non-African American) 11.8 ml/min; Magnesium 2.8 mg/dl (1.8-2.4); Potassium 4.1 mmol/L (3.5-5.1)
[2021-01-29 08:35] LABS: Hemoglobin 10.6 g/dL (14.0-18.0); Mean Corpuscular Hemoglobin 30.8 pg (25-34); Mean Corpuscular Hgb Conc 35.3 g/dL (32-36); Mean Corpuscular Volume 87.2 fL (80-100); RDW Coefficient of Variation 12.5 % (11.5-14.5); RDW Standard Deviation 40.3 fL (36.4-46.3); Red Blood Count 3.44 M/uL (4.7-6.1); White Blood Count 17.31 K/uL (4.8-10.8)
[2021-01-29 08:42] LABS: Mean Platelet Volume 9.1 fL (7.4-10.4); Platelet Count 78 K/uL (130-400)
[2021-01-29 08:43] LABS: Basophils # (auto) 0.01 K/uL (0-0.2); Basophils % (auto) 0.1 %; Immature Granulocytes # (auto) 0.49 K/uL (0.00-0.02); Immature Granulocytes % (auto) 2.8 %; Lymphocytes # (auto) 0.34 K/uL (1.2-3.4); Monocytes # (auto) 0.46 K/uL (0.11-0.59); Monocytes % (auto) 2.7 %; Neutrophils # (auto) 16.01 K/uL (1.4-6.5); Neutrophils % (auto) 92.4 %; Platelet Estimate Decreased (Normal)
[2021-01-29 08:49] LABS: Bilirubin Direct 0.2 mg/dl (0-0.2); Bilirubin,Total 0.4 mg/dl (0.2-1); Total Protein 5.8 gm/dl (6.4-8.2); Troponin I 0.127 ng/ml (0-0.045)
--- NOTE | 2021-01-29 08:50 | Electrocardiogram Report ---
Test Reason : Blood Pressure : / mmHG Vent. Rate : 100 BPM Atrial Rate : 100 BPM P-R Int : 194 ms QRS Dur : 076 ms QT Int : 332 ms P-R-T Axes : 064 017 065 degrees QTc Int : 428 ms Sinus rhythm with frequent Premature ventricular complexes Abnormal ECG When compared with ECG of 16-OCT-2009 10:33, Premature ventricular complexes are now Present Vent. rate has increased BY 47 BPM QT has lengthened Confirmed by Kilo Royal ([id number]) on 01/29/2021 8:50:25 AM Referred By: REFERRED SELF Confirmed By:Tanner Royal
[2021-01-29] MEDS: FINASTERIDE 5 MG TAB PO SCH (08:51)
[2021-01-29] MEDS: CEROVITE ADV FORMULA TAB PO SCH (08:51)
[2021-01-29] MEDS: HEPARIN SOD 5,000 UNIT/0.5 ML VIAL SQ SCH ×2 (08:52→21:19)
[2021-01-29] MEDS: TAMSULOSIN HCL 0.4 MG CAP PO SCH (08:53)
[2021-01-29] MEDS ORDERED: MELATONIN 3 MG TAB PO PRN (09:01)
--- NOTE | 2021-01-29 09:29 | XCELERA ---
[id number]___[id number]
[2021-01-29] MEDS: SACCHAROMYCES BOULARDII 250 MG CAP PO SCH (10:22)
[2021-01-29] MEDS: PIPERACILLIN/TAZOBACTAM 3.375 GM in DEXTROSE 5% 100 ML IV SCH ×2 (10:23→21:20)
--- NOTE | 2021-01-29 13:15 | Medical Student Progress Note ---
Date of Service January 29, 2021 Assessment & Plan (1) Sepsis: Plan: This 80-year-old man with a history of BPH and HTN and recent hospital admission (01/15/21-01/18/21) for obstructive uropathy presented 1 day ago for altered mental status due to severe sepsis with gram negative bacteremia suspected to be secondary to UTI, postrenal JOSE ALBERTO, elevated troponin, and normocytic anemia. Severe sepsis / Gram negative bacteremia / UTI - Likely secondary to Gram negative bacteremia from obstructive uropathy with UTI; accompanied by end-organ damage (change in mental status, JOSE ALBERTO, elevated liver enzymes, elevated troponin) - Workup as follows: * qSOFA score of 3, indicating a 3- to 14-fold increase in in-hospital mortality; SOFA score not calculated because ABG has not been drawn * WBC count of 36.1 on admission, decreased to 17.31 * Lactate of 4.8 on admission, decreased to 1.3 * Procalcitonin of 132 on admission, increased to 162 * Blood cultures growing Gram-negative bacilli, sensitivities pending * Urine cultures growing probable Pseudomonas species, sensitivities pending - Plan * Continue pip/tazo (Gram negative coverage) and daptomycin (MRSA coverage; continue until further speciation and sensitivities return) * Continue IV fluids * Follow up with outpatient urology to determine need for surgical intervention Acute kidney injury - Suspect mixed prerenal (sepsis), intrarenal (ascending UTI), and postrenal ( BPH, prostatitis) etiology - Workup as follows: * CT adb/pelv shows prostatitis and ascending UTI without hydronephrosis * Creatinine trending upward from 4.10 on admission to 4.59 most recently despit e IV fluids and Dixon * Pending urine electrolytes (for calculation of fractional excretion of sodium) - Plan: * Continue fluids and Dixon with urine output goal of 0.5 cc/kg/hr * Continue holding lisinopril * In the case of worsening JOSE ALBERTO, consider further imaging and nephrology consult Elevated troponin - Likely unit support representative of increased myocardial demand due to hypotension associated with sepsis - Troponin of 0.081 on admission, maximum of 0.127, most recently 0.119 - EKG showed sinus rhythm with frequent PVCs - TTE revealed no evidence of ischemic changes - Continue telemetry for cardiac monitoring Elevated liver enzymes - Likely secondary to hepatic congestion from sepsis - AST of 51 on admission, decreased to 49 - Trend CMP Normocytic anemia - Multifactorial, not concerned for acute hemorrhage, no signs of active bleeding - Hgb 12.3 on admission, decreased to 10.6; baseline 11-12 from previous labs - Hct 35.6 on admission, decreased to 30.0 - Once stabilized, continue to work up Disposition: PCU Diet: regular DVT prophylaxis: subcutaneous heparin Code status: DNR/DNI (confirmed by Reji Griffiths on 01/28/21) Acute renal failure type: unspecified Sepsis acute organ dysfunction status: with acute organ dysfunction Sepsis type: sepsis due to unspecified organism Severe sepsis acute organ dysfunction type: acute renal failure Severe sepsis shock status: unspecified Qualified Code(s): A41.9 - Sep sis, unspecified organism; R65.20 - Severe sepsis without septic shock; N17.9 - Acute kidney failure, unspecified Admission and Anticipated Discharge Date Admission Date: January 28, 2021 Supervising Attestation I also saw the patient along with the resident physician medical student. I independently performed a clinical history and exam. I agree with the impression and plan as noted in the documentation above. Upon our exam midafternoon, the patient is looking much better overall. He is in bed with his at bedside. He is conversational. He voices no complaints. Exam 118/64, 102, 18, 36.7, 96% on room air Alert and oriented. No acute distress. Mucous membranes pink and moist. Respirations nonlabored, lungs clear Heart with 2/6 systolic ejection murmur noted right sternal border Abdomen generally soft and nontender Data WBC 17.31, hemoglobin 10.6, platelet count 78,000 Sodium 132, potassium 4.1, BUN 63, creatinine 4.59 Initial lactate 3.1, repeat 1.3 Troponin I 0.127, 0.[address] scan of the abdomen and pelvis shows a markedly enlarged prostate gland with evidence of chronic bladder outlet obstruction. Mild fullness of the renal collecting systems bilaterally without hydronephrosis. Chest x-ray showed no acute disease CT scan of the head showed no acute findings. Micro Urine from 01/28/2021 showing probable Pseudomonas species Blood cultures from 01/28/2021 showing gram-negative bacilli in both bottles From prior hospitalization Blood cultures from 01/14/2021 showed coag negative staph in both bottles A/P Severe sepsis, urosepsis likely secondary to chronic bladder outlet obstruction Recent history of gram-positive bacteremia Piperacillin/tazobactam Daptomycin Monitor BMP and CBC JOSE ALBERTO Slight worsening today although electrolytes remain acceptable IV fluids BMP in a.m. Additional as noted above Subjective The patient is feeling somewhat better. No acute overnight events. He reports mild suprapubic pain, as well as slight discomfort with the Dixon catheter. No chest pain or SOB. No other abdominal pain. No leg swelling. Per Dr. Culp, patient reports that he has been emptying his urine collection bag without telling nursing. Review of Systems Review of Systems: as per Subjective / HPI Physical Exam Constitutional: average body habitus Eyes: PERRL, conjunctivae normal, anicteric sclerae Respiratory: normal respiratory effort, lungs clear to auscultation Cardiovascular: Rate/Rhythm: regular rate and regular rhythm Heart Sounds: + murmur (systolic grade 2, highest intensity at upper right sternal border) Vessels: radial pulses present Extremities: normal capillary refill no peripheral edema Gastrointestinal (Abdomen): Inspection/Auscultation: abdomen normal to inspection and normal bowel sounds Percussion/Palpation: + abdomen tender (mild, LLQ and RUQ with negative Brown's sign) and abdomen soft suprapubic tenderness Neurologic: PERRL, EOMI, accommodation nl, no face palsy, no dysarthria moves all extremities and awake Psychiatric: A+Ox3, euthymic affect Genitourinary: Dixon catheter in place, draining properly Results & Data ([facility]) Vital Signs (Past 12 Hours) Vital Signs Temp Pulse Resp BP Pulse Ox 01/29/21 12:27 36.7 C 78 18 102/67 97 01/29/21 09:29 37.1 C 89 20 123/68 95 01/29/21 08:56 107 H 18 118/78 94 01/29/21 06:07 94 H 15 93/59 L 96 01/29/21 03:01 92 H 15 102/49 L 94
[2021-01-29 14:27] LABS: BUN Creatinine Ratio 13.7 (10-20); Calcium 7.4 mg/dl (8.5-10.1); Creatinine Clr Calc Pharmacy 11.4 ml/min; Est GFR (African American) 12.9 ml/min; Est GFR (Non-African American) 11.1 ml/min; Potassium 4.1 mmol/L (3.5-5.1)
[2021-01-29 22:01] LABS: Creatinine Urine Random 29.6 mg/dl
[2021-01-30] MEDS: SODIUM CHLORIDE 0.9% 1000ML 1,000 ML IV SCH ×2 (04:44→14:22)
[2021-01-30] MEDS: SACCHAROMYCES BOULARDII 250 MG CAP PO SCH (08:34)
[2021-01-30] MEDS: TAMSULOSIN HCL 0.4 MG CAP PO SCH (08:34)
[2021-01-30] MEDS: FINASTERIDE 5 MG TAB PO SCH (08:34)
[2021-01-30] MEDS: CEROVITE ADV FORMULA TAB PO SCH (08:35)
[2021-01-30] MEDS: HEPARIN SOD 5,000 UNIT/0.5 ML VIAL SQ SCH ×2 (08:35→22:15)
[2021-01-30 09:38] LABS: Albumin Globulin Ratio 0.4 (0.9-2); Albumin Level 1.8 gm/dl (3.4-5.0); BUN Creatinine Ratio 15.2 (10-20); Bilirubin,Total 0.5 mg/dl (0.2-1); Creatinine Clr Calc Pharmacy 11.5 ml/min; Est GFR (African American) 13.1 ml/min; Est GFR (Non-African American) 11.3 ml/min; Globulin 4.4 gm/dl (2.5-4.0); Potassium 3.5 mmol/L (3.5-5.1); Total Protein 6.2 gm/dl (6.4-8.2)
[2021-01-30] MEDS: PIPERACILLIN/TAZOBACTAM 3.375 GM in DEXTROSE 5% 100 ML IV SCH ×2 (10:30→22:16)
[2021-01-30 11:13] LABS: Appearance Urine Clear (Clear); Bacteria Urine Automated Negative (Negative); Bilirubin Urine Negative (Negative); Blood Urine 3+ (Negative); Color Urine Orange; Glucose Urine UA Negative (Negative); Ketones Urine Negative (Negative); Leukocyte Esterase Urine 1+ (Negative); Nitrite Urine Negative (Negative); Protein Urine 2+ (Negative); RBC Urine Automated >30 /hpf (0-4); Specific Gravity Urine 1.009 (1.000-1.030); Urobilinogen Urine Negative (Negative)
[2021-01-30] MEDS ORDERED: DAPTOmycin 400 MG in SYRINGE 0 ML IV SCH (14:00)
[2021-01-30 16:12] LABS: Hemoglobin 10.6 g/dL (14.0-18.0); Mean Corpuscular Hemoglobin 30.6 pg (25-34); Mean Corpuscular Hgb Conc 35.3 g/dL (32-36); Mean Corpuscular Volume 86.7 fL (80-100); RDW Coefficient of Variation 12.7 % (11.5-14.5); RDW Standard Deviation 40.9 fL (36.4-46.3); Red Blood Count 3.46 M/uL (4.7-6.1); White Blood Count 14.53 K/uL (4.8-10.8)
[2021-01-30 16:18] LABS: Eosinophils # (auto) 0.04 K/uL (0-0.5); Eosinophils % (auto) 0.3 %; Immature Granulocytes # (auto) 0.06 K/uL (0.00-0.02); Immature Granulocytes % (auto) 0.4 %; Lymphocytes # (auto) 0.61 K/uL (1.2-3.4); Lymphocytes % (auto) 4.2 %; Mean Platelet Volume 9.4 fL (7.4-10.4); Monocytes # (auto) 0.38 K/uL (0.11-0.59); Monocytes % (auto) 2.6 %; Neutrophils # (auto) 13.44 K/uL (1.4-6.5); Neutrophils % (auto) 92.5 %; Platelet Count 89 K/uL (130-400)
[2021-01-30] MEDS ORDERED: CALCIUM CARBONATE 500 MG CHEWABLE TAB ONE (16:22)
--- NOTE | 2021-01-30 16:41 | Hospitalist Progress Note ---
Date of Service January 30, 2021 Assessment & Plan (1) Sepsis: Plan: This 80-year-old man with a history of BPH and HTN and recent hospital admission (01/15/21-01/18/21) for obstructive uropathy presented 01/29 for altered mental status due to severe sepsis with gram negative bacteremia suspected to be secondary to UTI; also with JOSE ALBERTO, elevated troponin sec to demand ischemia. Severe sepsis / Gram negative bacteremia / UTI - Likely secondary to Gram negative bacteremia from obstructive uropathy with UTI; accompanied by end-organ damage (change in mental status, JOSE ALBERTO, elevated liver enzymes, elevated troponin) - Workup as follows: * qSOFA score of 3 * WBC count of 36.1 on admission, now downtrending * Lactate of 4.8 --> 1.3 * Procal detected at >160 * Urine cultures growing probable Pseudomonas species, sensitivities pending * Blood cultures growing Gram-negative bacilli, sensitivities pending -- c/f Pseudomonas - Plan * Continue Zosyn until sensitivities result for gram neg bacteremia * Discontinue Dapto -- initially started d/t recent coag-neg Staph at last admission, but given 2x days of no growth, low suspicion for MRSA * Continue IV fluids * Follow up with outpatient urology to determine need for surgical intervention Acute kidney injury - Suspect mixed prerenal (sepsis) and intrarenal (ascending UTI) -- lowery draining appropriately, lower suspicion for post-renal etiology - Workup as follows: * CT adb/pelv shows prostatitis and ascending UTI without hydronephrosis * Creatinine trending upward from 4.10 --> 4.59 --> 4.51 (01/30) * FENa > 4%, indicating intrinsic - Plan: * Continue fluids @ 150cc/hr -- consider reducing p.r.n., monitor I&Os * Continue holding lisinopril * In the case of worsening JOSE ALBERTO, consider further imaging and nephrology consult * Monitor BMP Elevated troponin - Troponin of 0.081 on admission, maximum of 0.127, most recently 0.119 - EKG showed sinus rhythm with frequent PVCs - TTE revealed no evidence of ischemic changes/WMAs - Likely sales representative uniforms of increased myocardial demand due to hypotension associated with sepsis - Continue telemetry for cardiac monitoring Elevated liver enzymes - Likely secondary to hepatic congestion from sepsis - Improving. Stable. Monitor. Normocytic anemia - Multifactorial, low suspicion for acute hemorrhage, no signs of active bleeding - Hgb 12.3 on admission, decreased to mid-10s; baseline 11-12 from previous labs - Once stabilized, continue to work up Disposition: MS/Tele Diet: regular DVT prophylaxis: subcutaneous heparin Code status: DNR/DNI Admission and Anticipated Discharge Date Admission Date: January 28, 2021 Supervising Physician Co-Signing Physician Notes Patient seen and examined with PGY 2 Dr. Culp. Agree with history, exam findings, assessment and plan of care as outlined. In brief, Mr. Marie is an 80 year old male with history of HTN and BPH with recent hospitalization for obstructive uropathy admitted now for altered mental status due to severe sepsis with gram negative bacteremia. Feels well today. Does endorse some right sided flank pain. That has been present for several days now, but is not worsening. No abdominal pain. No fevers. VS and nursing notes reviewed. Heart with regular rate and rhythm. Lungs are clear to auscultation. Abdomen is soft and nontender. There is no CVA tenderness. Labs and imaging reviewed. 1. Sepsis. Gram neg bacteremia secondary to urinary source. Urine growing pseudomonas. Blood culture still growing gram-negative bacilli. White count downtrending from 3617. Continue pip-tazo. Discontinue daptomycin. 2. JOSE ALBERTO. Mixed initially but now seems to be mostly intrinsic kidney injury based on FeNa > 4. Cr 4.14.59. Fluids and lowery. Hold Lisinopril. 3. Elevated troponin. Secondary to demand with concomitant sepsis. Downtrending. 4. Elevated liver tests. Secondary to hypotension. Downtrending. 5. Normocytic anemia. Stable. Dispo: pending clinical improvement. Subjective NAEO. Feeling well this AM. Denies pain. Appetite still lousy. Says he does have some R sided back pain that's been there for several days. No SOB. No n/v/d. No CP/palp Review of Systems Review of Systems: as per HPI Physical Exam Physical Exam: General: Tired appearing 80yoM who is relaxed in his hospital bed, NAD. HEENT: MMM, no JVD Cardiac: NRRR, S1/S2 present with grade 1/6 YVONNE best heard at RUSB Pulmonary: CTAB w/o crackles or wheezes, good respiratory effort Abdominal: NABS. Abdomen soft, NT/ND : Lowery draining dark yellow urine. Extremities: LE well perfused. Capillary refill < 3 seconds. Results & Data Results & Data ([facility] [place]) Vital Signs (Past 12 Hours) Vital Signs Temp Pulse Resp BP Pulse Ox 01/30/21 12:00 36.8 C 88 18 98/62 L 95 01/30/21 08:00 36.8 C 74 16 115/61 96 Resident Activity Tracking Resident Involvement: Resident Care Provided Care Provided: Adult Hospital Medicine (1) Sepsis Acute renal failure type: unspecified Sepsis acute organ dysfunction status: with acute organ dysfunction Sepsis type: sepsis due to unspecified organism Severe sepsis acute organ dysfunction type: acute renal failure Severe sepsis shock status: unspecified Qualified Code(s): A41.9 - Sepsis, unspecified organism; R65.20 - Severe sepsis without septic shock; N17.9 - Acute kidney failure, unspecified
[2021-01-30 16:59] LABS: Calcium 7.4 mg/dl (8.5-10.1); Creatinine Clr Calc Pharmacy 11.9 ml/min; Est GFR (African American) 13.6 ml/min; Est GFR (Non-African American) 11.8 ml/min; Potassium 3.8 mmol/L (3.5-5.1)
[2021-01-30 20:42] LABS: BUN Creatinine Ratio 16.1 (10-20); Calcium 7.4 mg/dl (8.5-10.1); Creatinine Clr Calc Pharmacy 12.3 ml/min; Est GFR (African American) 14.2 ml/min; Est GFR (Non-African American) 12.3 ml/min; Potassium 3.4 mmol/L (3.5-5.1)
[2021-01-31] MEDS: SODIUM CHLORIDE 0.9% 1000ML 1,000 ML IV SCH ×4 (01:09→22:06)
[2021-01-31 06:37] LABS: Hematocrit (blood only) 27.6 % (42-52); Hemoglobin 9.8 g/dL (14.0-18.0); Mean Corpuscular Hemoglobin 30.8 pg (25-34); Mean Corpuscular Hgb Conc 35.5 g/dL (32-36); Mean Corpuscular Volume 86.8 fL (80-100); RDW Coefficient of Variation 12.6 % (11.5-14.5); RDW Standard Deviation 40.2 fL (36.4-46.3); Red Blood Count 3.18 M/uL (4.7-6.1); White Blood Count 9.91 K/uL (4.8-10.8)
[2021-01-31 06:47] LABS: Mean Platelet Volume 9.6 fL (7.4-10.4); Platelet Count 86 K/uL (130-400)
[2021-01-31 07:09] LABS: BUN Creatinine Ratio 15.9 (10-20); Calcium 7.3 mg/dl (8.5-10.1); Creatinine Clr Calc Pharmacy 13.3 ml/min; Est GFR (African American) 15.5 ml/min; Est GFR (Non-African American) 13.4 ml/min; Potassium 3.5 mmol/L (3.5-5.1)
[2021-01-31 07:11] LABS: Basophils # (auto) 0.01 K/uL (0-0.2); Basophils % (auto) 0.1 %; Eosinophils # (auto) 0.06 K/uL (0-0.5); Eosinophils % (auto) 0.6 %; Immature Granulocytes # (auto) 0.04 K/uL (0.00-0.02); Immature Granulocytes % (auto) 0.4 %; Lymphocytes # (auto) 0.39 K/uL (1.2-3.4); Lymphocytes % (auto) 3.9 %; Monocytes # (auto) 0.65 K/uL (0.11-0.59); Monocytes % (auto) 6.6 %; Neutrophils # (auto) 8.76 K/uL (1.4-6.5); Neutrophils % (auto) 88.4 %
[2021-01-31] MEDS: FINASTERIDE 5 MG TAB PO SCH (07:59)
[2021-01-31] MEDS: CEROVITE ADV FORMULA TAB PO SCH (07:59)
[2021-01-31] MEDS: TAMSULOSIN HCL 0.4 MG CAP PO SCH (08:00)
[2021-01-31] MEDS: HEPARIN SOD 5,000 UNIT/0.5 ML VIAL SQ SCH ×2 (08:00→21:15)
[2021-01-31] MEDS: SACCHAROMYCES BOULARDII 250 MG CAP PO SCH (08:00)
[2021-01-31] MEDS ORDERED: Nursing to Pharmacy Communication SCH (09:00)
[2021-01-31] MEDS: PIPERACILLIN/TAZOBACTAM 3.375 GM in DEXTROSE 5% 100 ML IV SCH (10:23)
--- NOTE | 2021-01-31 18:33 | Hospitalist Progress Note ---
Date of Service January 31, 2021 Assessment & Plan (1) Sepsis: Plan: This 80-year-old man with a history of BPH and HTN and recent hospital admission (01/15/21-01/18/21) for obstructive uropathy presented 01/29 for altered mental status due to severe sepsis with gram negative bacteremia suspected to be secondary to UTI; also with JOSE ALBERTO, elevated troponin sec to demand ischemia. Severe sepsis / Gram negative bacteremia / UTI - Likely secondary to Gram negative bacteremia from obstructive uropathy with UTI; accompanied by end-organ damage (change in mental status, JOSE ALBERTO, elevated liver enzymes, elevated troponin) - Workup as follows: * qSOFA score of 3 * WBC count of 36.1 on admission, now resolved and is 9.91 today * Lactate of 4.8 --> 1.3 * Procal detected at >160 * Urine cultures growing Pseudomonas aeruginosa, pansensitive * Blood cultures growing Pseudomonas aeruginosa, pansensitive - Plan * Discontinued Dapto on 01/30/21 * Zosyn switched to cefepime on 01/31/21 -- plan to continue with abx therapy for at least 10-14 days * Continue IV fluids * Follow up with outpatient urology to determine need for surgical intervention Acute kidney injury - Suspect mixed prerenal (sepsis) and intrarenal (ascending UTI) -- lowery draining appropriately, lower suspicion for post-renal etiology - Workup as follows: * CT adb/pelv shows prostatitis and ascending UTI without hydronephrosis * FENa > 4%, indicating intrinsic * Creatinine slightly improved from yesterday (4.53 --> 3.94); patient's with lab report from 01/23/21 showing Cr of 1.5 - Plan: * Continue fluids @ 150cc/hr -- consider reducing p.r.n., monitor I&Os * Continue holding lisinopril * In the case of worsening JOSE ALBERTO, can consider further imaging and nephrology consult * Monitor BMP qAM Elevated troponin - Troponin of 0.081 on admission, maximum of 0.127, most recently 0.119 - EKG showed sinus rhythm with frequent PVCs - TTE revealed no evidence of ischemic changes/WMAs - Likely freight representative of increased myocardial demand due to hypotension associated with sepsis - Continue telemetry for cardiac monitoring Elevated liver enzymes - Likely secondary to hepatic congestion from sepsis - Improving. Stable. Monitor. Normocytic anemia - Multifactorial, low suspicion for acute hemorrhage, no signs of active bleeding - Hgb 12.3 on admission, decreased to mid-10s; baseline 11-12 from previous labs Disposition: MS/Tele Diet: regular DVT prophylaxis: subcutaneous heparin Code status: DNR/DNI Admission and Anticipated Discharge Date Admission Date: January 28, 2021 Supervising Physician Co-Signing Physician Notes Patient seen and examined with PGY [address] Dr. Arredondo. Agree with history, exam findings, assessment and plan of care as outlined. In brief, Mr. Marie is an 80 year old male with history of HTN and BPH with recent hospitalization for obstructive uropathy admitted now for altered mental status due to severe sepsis with gram negative bacteremia. Feels well today. No complaints. VS and nursing notes reviewed. Heart with regular rate and rhythm. Lungs are clear to auscultation. Abdomen is soft and nontender. Labs and imaging reviewed. 1. Sepsis. Gram neg bacteremia secondary to urinary source. Urine growing pansensitive pseudomonas. Blood culture still growing cueto sensitive pseudomonas as well. White count has normalized to 9.9. Switched from zosyn to cefepime. Completed 3 days of antibiotic therapy. 2. JOSE ALBERTO. Mixed initially but now seems to be mostly intrinsic kidney injury based on FeNa of 4. Cr 4.243.94. Fluids and lowery. Hold Lisinopril. 3. Elevated troponin. Secondary to demand with concomitant sepsis. Downtrending. 4. Elevated liver tests. Secondary to hypotension. Downtrending. 5. Normocytic anemia. Stable. Dispo: pending clinical improvement. Subjective Patient seen and evaluated at bedside. No acute events overnight. States that he is overall feeling well today and no specific complaints or concerns. Eating well w/o abdominal pain, nausea, or vomiting. Normal BM today. Denies CP, SOB, cough, CARVAJAL, lightheadedness, or dizziness. Review of Systems Review of Systems: as per HPI Physical Exam Physical Exam: GENERAL: No acute distress. Well developed and well nourished. Vital signs reviewed as above. EYES: EOMI. Anicteric sclerae. HENT: Moist mucous membranes. RESPIRATORY: Clear to auscultation bilaterally. No wheezing, rales, or rhonchi. CARDIOVASCULAR: Regular rate and rhythm. No murmurs. ABDOMEN: Soft, non-tender and non-distended. Normal bowel sounds. EXTREMITIES: No edema. Non-tender. SKIN: Warm, dry. NEUROLOGIC: A/O x3. No focal neurological deficits. PSYCHIATRIC: Cooperative. Appropriate mood and affect. Results & Data Results & Data ([facility]) Vital Signs (Past 12 Hours) Vital Signs Temp Pulse Resp BP BP Pulse Ox 01/31/21 15:37 36.6 C 82 18 165/95 H 98 01/31/21 12:12 79 18 135/68 98 01/31/21 07:00 37.2 C 70 17 120/66 97 Laboratory Results 01/31/21 01/31/21 01/30/21 Range/Units 06:22 06:22 19:59 WBC 9.91 (4.8-10.8) K/uL RBC 3.18 L (4.7-6.1) M/uL Hgb 9.8 L (14.0-18.0) g/dL Hct 27.6 L (42-52) % MCV 86.8 (80-100) fL MCH 30.8 (25-34) pg MCHC 35.5 (32-36) g/dL RDW Std Deviation 40.2 (36.4-46.3) fL RDW Coeff of Jovi 12.6 (11.5-14.5) % Plt Count 86 L (130-400) K/uL MPV 9.6 (7.4-10.4) fL Immature Gran % (Auto) 0.4 % Neut % (Auto) 88.4 % Lymph % (Auto) 3.9 % [place] % (Auto) 6.6 % Eos % (Auto) 0.6 % Baso % (Auto) 0.1 % Neut # (Auto) 8.76 H (1.4-6.5) K/uL Lymph # (Auto) 0.39 L (1.2-3.4) K/uL [place] # (Auto) 0.65 H (0.11-0.59) K/uL Eos # (Auto) 0.06 (0-0.5) K/uL Baso # (Auto) 0.01 (0-0.2) K/uL Immature Gran # (Auto) 0.04 H (0.00-0.02) K/uL Sodium 137 134 L (136-145) mmol/L Potassium 3.5 3.4 L (3.5-5.1) mmol/L Chloride 110 H 104 (98-107) mmol/L Carbon Dioxide 15 L 16 L (21-32) mmol/L Anion Gap 12.0 H 14.0 H (3-11) BUN 63 H 68 H (7-18) mg/dl Creatinine 3.94 H D 4.24 H (0.6-1.4) mg/dl Est Cr Clr Drug Dosing 13.3 12.3 ml/min Est GFR ( Amer) 15.5 14.2 ml/min Est GFR (Non-Af Amer) 13.4 12.3 ml/min BUN/Creatinine Ratio 15.9 16.1 (10-20) Glucose 122 H 148 H (70-99) mg/dl Calcium 7.3 L 7.4 L (8.5-10.1) mg/dl Resident Activity Tracking Resident Involvement: Resident Care Provided Care Provided: Adult Hospital Medicine (1) Sepsis Acute renal failure type: unspecified Sepsis acute organ dysfunction status: with acute organ dysfunction Sepsis type: sepsis due to unspecified organism Severe sepsis acute organ dysfunction type: acute renal failure Severe sepsis shock status: unspecified Qualified Code(s): A41.9 - Sepsis, unspecified organism; R65.20 - Severe sepsis without septic shock; N17.9 - Acute kidney failure, unspecified
[2021-01-31] MEDS: CALCIUM CARBONATE 500 MG CHEWABLE TAB PO PRN (19:57)
[2021-01-31] MEDS ORDERED: CALCIUM CARBONATE 500 MG CHEWABLE TAB PO STA (20:17)
[2021-01-31] MEDS: CEFEPIME 2,000 MG in SYRINGE 0 ML IV SCH (21:15)
[2021-02-01] MEDS: SODIUM CHLORIDE 0.9% 1000ML 1,000 ML IV SCH ×3 (04:45→18:29)
[2021-02-01 07:37] LABS: Hematocrit (blood only) 27.7 % (42-52); Hemoglobin 9.5 g/dL (14.0-18.0); Mean Corpuscular Hemoglobin 30.4 pg (25-34); Mean Corpuscular Hgb Conc 34.3 g/dL (32-36); Mean Corpuscular Volume 88.8 fL (80-100); RDW Coefficient of Variation 13.2 % (11.5-14.5); RDW Standard Deviation 42.6 fL (36.4-46.3); Red Blood Count 3.12 M/uL (4.7-6.1); White Blood Count 6.21 K/uL (4.8-10.8)
[2021-02-01 07:43] LABS: Mean Platelet Volume 9.8 fL (7.4-10.4); Platelet Count 83 K/uL (130-400)
[2021-02-01 07:59] LABS: Eosinophils # (auto) 0.08 K/uL (0-0.5); Eosinophils % (auto) 1.3 %; Immature Granulocytes # (auto) 0.04 K/uL (0.00-0.02); Immature Granulocytes % (auto) 0.6 %; Lymphocytes # (auto) 0.41 K/uL (1.2-3.4); Lymphocytes % (auto) 6.6 %; Monocytes # (auto) 0.79 K/uL (0.11-0.59); Monocytes % (auto) 12.7 %; Neutrophils # (auto) 4.89 K/uL (1.4-6.5); Neutrophils % (auto) 78.8 %
[2021-02-01 08:16] LABS: Albumin Level 1.5 gm/dl (3.4-5.0); BUN Creatinine Ratio 15.9 (10-20); Calcium 7.6 mg/dl (8.5-10.1); Creatinine Clr Calc Pharmacy 14.7 ml/min; Est GFR (African American) 17.6 ml/min; Est GFR (Non-African American) 15.2 ml/min; Potassium 4.2 mmol/L (3.5-5.1)
[2021-02-01 08:21] LABS: Albumin Globulin Ratio 0.4 (0.9-2); Bilirubin,Total 0.6 mg/dl (0.2-1); Globulin 3.8 gm/dl (2.5-4.0); Total Protein 5.3 gm/dl (6.4-8.2)
[2021-02-01] MEDS: CEROVITE ADV FORMULA TAB PO SCH (09:15)
[2021-02-01] MEDS: SACCHAROMYCES BOULARDII 250 MG CAP PO SCH (09:15)
[2021-02-01] MEDS: TAMSULOSIN HCL 0.4 MG CAP PO SCH (09:16)
[2021-02-01] MEDS: FINASTERIDE 5 MG TAB PO SCH (09:16)
[2021-02-01 10:19] LABS: Partial Thromboplastin Ratio 1.1; Partial Thromboplastin Time 30.2 Seconds (21.0-31.0); Prothrombin Time 10.4 Seconds (9.0-12.0)
[2021-02-01] MEDS ORDERED: APIXABAN 2.5 MG TAB PO ONE (11:00)
[2021-02-01 11:14] LABS: Folate (Folic Acid) 17.3 ng/ml (>5.38)
[2021-02-01] MEDS: HEPARIN SOD 5,000 UNIT/0.5 ML VIAL SQ SCH (11:56)
--- NOTE | 2021-02-01 16:10 | Hospitalist Progress Note ---
Date of Service February 01, 2021 Assessment & Plan (1) Sepsis: Plan: This 80-year-old man with a history of BPH and HTN and recent hospital admission (01/15/21-01/18/21) for obstructive uropathy presented 01/29 for altered mental status due to severe sepsis with gram negative bacteremia suspected to be secondary to UTI; also with JOSE ALBERTO, elevated troponin sec to demand ischemia. Severe sepsis / Gram negative bacteremia / UTI - Likely secondary to Gram negative bacteremia from obstructive uropathy with UTI; accompanied by end-organ damage on admission (change in mental status, JOSE ALBERTO, elevated liver enzymes, elevated troponin) - Workup as follows: * qSOFA score of 3 * WBC count of 36.1 on admission, now resolved and is 6.21 today * Lactate of 4.8 --> 1.3 * Procal detected at >160 * Urine cultures growing Pseudomonas aeruginosa, pansensitive * Blood cultures growing Pseudomonas aeruginosa, pansensitive - Plan * Discontinued Dapto on 01/30/21 * Zosyn switched to cefepime on 01/31/21 -- plan to continue with abx therapy for at least 10-14 days * Continue IV fluids * Follow up with outpatient urology to determine need for surgical intervention Thrombocytopenia, concern for HIT - 4Ts score w/ a score of 5 points -- intermediate probability - Heparin discontinued - Patient started on Eliquis for DVT ppx in the meantime - Labs ordered including iron, B12, folate, PT/PTT/INR, peripheral smear, PF4 h eparin ab w/ reflex SONYA, pending - Monitor CBC qAM - May need to consider hematology consult Acute kidney injury - Suspect mostly intrarenal (ascending UTI) at this point -- lowery draining appropriately, lower suspicion for post-renal etiology - Workup as follows: * CT adb/pelv shows prostatitis and ascending UTI without hydronephrosis * FENa > 4%, indicating intrinsic * Creatinine continues to improve; Cr today 3.55 - Plan: * Continue fluids @ 150cc/hr -- consider reducing p.r.n., monitor I&Os * Continue holding lisinopril * In the case of worsening JOSE ALBERTO, can consider further imaging and nephrology consult * Monitor BMP qAM Elevated troponin - Troponin of 0.081 on admission, maximum of 0.127, most recently 0.119 - EKG showed sinus rhythm with frequent PVCs - TTE revealed no evidence of ischemic changes/WMAs - 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 Stable. Monitor. Normocytic anemia - Multifactorial, low suspicion for acute hemorrhage, no signs of active bleeding - Hgb 12.3 on admission, decreased to mid-10s; baseline 11-12 from previous labs Disposition: MS/Tele Diet: regular DVT prophylaxis: Eliquis (heparin discontinued as of 02/01) Code status: DNR/DNI Admission and Anticipated Discharge Date Admission Date: January 28, 2021 Supervising Physician Co-Signing Physician Notes Patient seen and examined with PGY [address] Dr. Arredondo. Agree with history, exam findings, assessment and plan of care as outlined. In brief, Mr. Marie is an 80 year old male with history of HTN and BPH with recent hospitalization for obstructive uropathy admitted now for altered mental status due to severe sepsis with gram negative bacteremia. Feels well today. No complaints. VS and nursing notes reviewed. Heart with regular rate and rhythm. Lungs are clear to auscultation. Abdomen is soft and nontender. Labs and imaging reviewed. 1. Sepsis. Gram neg bacteremia secondary to urinary source. Urine growing pansensitive pseudomonas. Blood culture still growing cueto sensitive pseudomonas as well. White count has normalized. Narrowed from Zosyn to Cefepime. Day 4 of antibiotic therapy. 2. JOSE ALBERTO. Mixed initially but now seems to be mostly intrinsic kidney injury based on FeNa of 4. Cr 3.94-->3.55. Fluids and lowery. Holding Lisinopril. 3. Elevated troponin. Secondary to demand with concomitant sepsis. Downtrending. 4. Elevated liver tests. Secondary to hypotension. Downtrending. 5. Normocytic anemia. Stable. Dispo: pending clinical improvement. Subjective Patient seen and evaluated at bedside this morning. No acute events overnight. Reports that he does not feel as well as he did yesterday but he has no specific complaints. He continues to eat well w/o abdominal pain, nausea, or vomiting. Denies CP, SOB, cough, CARVAJAL, lightheadedness, or dizziness. Review of Systems Review of Systems: as per HPI Physical Exam Physical Exam: GENERAL: No acute distress. Well developed and well nourished. Vital signs reviewed as above. EYES: EOMI. Anicteric sclerae. HENT: Moist mucous membranes. RESPIRATORY: Clear to auscultation bilaterally. No wheezing, rales, or rhonchi. CARDIOVASCULAR: Regular rate and rhythm. No murmurs. ABDOMEN: Soft, non-tender and non-distended. Normal bowel sounds. EXTREMITIES: No edema. Non-tender. SKIN: Warm, dry. NEUROLOGIC: A/O x3. No focal neurological deficits. PSYCHIATRIC: Cooperative. Appropriate mood and affect. Results & Data Results & Data ([facility]) Vital Signs (Past 12 Hours) Vital Signs Temp Pulse Pulse Resp BP BP Pulse Ox 02/01/21 15:04 36.4 C L 73 18 154/76 H 95 02/01/21 15:01 69 02/01/21 11:06 36.6 C 73 18 155/75 H 96 02/01/21 08:05 70 02/01/21 07:40 36.8 C 73 18 122/61 96 02/01/21 05:24 36.9 C 84 18 143/65 H 94 Laboratory Results 02/01/21 02/01/21 02/01/21 Range/Units 09:20 09:20 09:20 WBC (4.8-10.8) K/uL RBC (4.7-6.1) M/uL Hgb (14.0-18.0) g/dL Hct (42-52) % MCV (80-100) fL MCH (25-34) pg MCHC (32-36) g/dL RDW Std Deviation (36.4-46.3) fL RDW Coeff of Jovi (11.5-14.5) % Plt Count (130-400) K/uL MPV (7.4-10.4) fL Immature Gran % (Auto) % Neut % (Auto) % Lymph % (Auto) % [place] % (Auto) % Eos % (Auto) % Baso % (Auto) % Neut # (Auto) (1.4-6.5) K/uL Lymph # (Auto) (1.2-3.4) K/uL [place] # (Auto) (0.11-0.59) K/uL Eos # (Auto) (0-0.5) K/uL Baso # (Auto) (0-0.2) K/uL Immature Gran # (Auto) (0.00-0.02) K/uL Peripher Smr Path Cons PT 10.4 (9.0-12.0) Seconds INR 1.0 (0.9-1.1) APTT 30.2 (21.0-31.0) Seconds PTT Ratio 1.1 Sodium (136-145) mmol/L Potassium (3.5-5.1) mmol/L Chloride (98-107) mmol/L Carbon Dioxide (21-32) mmol/L Anion Gap (3-11) BUN (7-18) mg/dl Creatinine (0.6-1.4) mg/dl Est Cr Clr Drug Dosing ml/min Est GFR ( Amer) ml/min Est GFR (Non-Af Amer) ml/min BUN/Creatinine Ratio (10-20) Glucose (70-99) mg/dl Calcium (8.5-10.1) mg/dl Iron (35-175) mcg/dl Total Bilirubin (0.2-1) mg/dl AST (15-37) U/L ALT (12-78) Alkaline Phosphatase (45-117) U/L Total Protein (6.4-8.2) gm/dl Albumin (3.4-5.0) gm/dl Globulin (2.5-4.0) gm/dl Albumin/Globulin Ratio (0.9-2) Serotonin Release Assay Pending Vitamin B12 475 (193-986) pg/ml Folate 17.30 (>5.38) ng/ml Heparin Depend Plt Ab Pending 02/01/21 02/01/21 02/01/21 Range/Units 09:20 09:20 06:49 WBC (4.8-10.8) K/uL RBC (4.7-6.1) M/uL Hgb (14.0-18.0) g/dL Hct (42-52) % MCV (80-100) fL MCH (25-34) pg MCHC (32-36) g/dL RDW Std Deviation (36.4-46.3) fL RDW Coeff of Jovi (11.5-14.5) % Plt Count (130-400) K/uL MPV (7.4-10.4) fL Immature Gran % (Auto) % Neut % (Auto) % Lymph % (Auto) % [place] % (Auto) % Eos % (Auto) % Baso % (Auto) % Neut # (Auto) (1.4-6.5) K/uL Lymph # (Auto) (1.2-3.4) K/uL [place] # (Auto) (0.11-0.59) K/uL Eos # (Auto) (0-0.5) K/uL Baso # (Auto) (0-0.2) K/uL Immature Gran # (Auto) (0.00-0.02) K/uL Peripher Smr Path Cons Pending PT (9.0-12.0) Seconds INR (0.9-1.1) APTT (21.0-31.0) Seconds PTT Ratio Sodium 141 (136-145) mmol/L Potassium 4.2 D (3.5-5.1) mmol/L Chloride 116 H (98-107) mmol/L Carbon Dioxide 16 L (21-32) mmol/L Anion Gap 9.0 (3-11) BUN 56 H (7-18) mg/dl Creatinine 3.55 H D (0.6-1.4) mg/dl Est Cr Clr Drug Dosing 14.7 ml/min Est GFR ( Amer) 17.6 ml/min Est GFR (Non-Af Amer) 15.2 ml/min BUN/Creatinine Ratio 15.9 (10-20) Glucose 95 (70-99) mg/dl Calcium 7.6 L (8.5-10.1) mg/dl Iron 36 (35-175) mcg/dl Total Bilirubin 0.6 (0.2-1) mg/dl AST 38 H (15-37) U/L ALT 43 (12-78) Alkaline Phosphatase 89 (45-117) U/L Total Protein 5.3 L (6.4-8.2) gm/dl Albumin 1.5 L (3.4-5.0) gm/dl Globulin 3.8 (2.5-4.0) gm/dl Albumin/Globulin Ratio 0.4 L (0.9-2) Serotonin Release Assay Vitamin B12 (193-986) pg/ml Folate (>5.38) ng/ml Heparin Depend Plt Ab 02/01/21 Range/Units 06:49 WBC 6.21 (4.8-10.8) K/uL RBC 3.12 L (4.7-6.1) M/uL Hgb 9.5 L (14.0-18.0) g/dL Hct 27.7 L (42-52) % MCV 88.8 (80-100) fL MCH 30.4 (25-34) pg MCHC 34.3 (32-36) g/dL RDW Std Deviation 42.6 (36.4-46.3) fL RDW Coeff of Jovi 13.2 (11.5-14.5) % Plt Count 83 L (130-400) K/uL MPV 9.8 (7.4-10.4) fL Immature Gran % (Auto) 0.6 % Neut % (Auto) 78.8 % Lymph % (Auto) 6.6 % [place] % (Auto) 12.7 % Eos % (Auto) 1.3 % Baso % (Auto) 0.0 % Neut # (Auto) 4.89 (1.4-6.5) K/uL Lymph # (Auto) 0.41 L (1.2-3.4) K/uL [place] # (Auto) 0.79 H (0.11-0.59) K/uL Eos # (Auto) 0.08 (0-0.5) K/uL Baso # (Auto) 0.00 (0-0.2) K/uL Immature Gran # (Auto) 0.04 H (0.00-0.02) K/uL Peripher Smr Path Cons PT (9.0-12.0) Seconds INR (0.9-1.1) APTT (21.0-31.0) Seconds PTT Ratio Sodium (136-145) mmol/L Potassium (3.5-5.1) mmol/L Chloride (98-107) mmol/L Carbon Dioxide (21-32) mmol/L Anion Gap (3-11) BUN (7-18) mg/dl Creatinine (0.6-1.4) mg/dl Est Cr Clr Drug Dosing ml/min Est GFR ( Amer) ml/min Est GFR (Non-Af Amer) ml/min BUN/Creatinine Ratio (10-20) Glucose (70-99) mg/dl Calcium (8.5-10.1) mg/dl Iron (35-175) mcg/dl Total Bilirubin (0.2-1) mg/dl AST (15-37) U/L ALT (12-78) Alkaline Phosphatase (45-117) U/L Total Protein (6.4-8.2) gm/dl Albumin (3.4-5.0) gm/dl Globulin (2.5-4.0) gm/dl Albumin/Globulin Ratio (0.9-2) Serotonin Release Assay Vitamin B12 (193-986) pg/ml Folate (>5.38) ng/ml Heparin Depend Plt Ab Resident Activity Tracking Resident Involvement: Resident Care Provided Care Provided: Adult Hospital Medicine (1) Sepsis Acute renal failure type: unspecified Sepsis acute organ dysfunction status: with acute organ dysfunction Sepsis type: sepsis due to unspecified organism Severe sepsis acute organ dysfunction type: acute renal failure Severe sepsis shock status: unspecified Qualified Code(s): A41.9 - Sepsis, unspecified organism; R65.20 - Severe sepsis without septic shock; N17.9 - Acute kidney failure, unspecified
[2021-02-01] MEDS: APIXABAN 2.5 MG TAB PO SCH (20:45)
[2021-02-01] MEDS: CEFEPIME 2,000 MG in SYRINGE 0 ML IV SCH (20:46)
[2021-02-01] MEDS: CALCIUM CARBONATE 500 MG CHEWABLE TAB PO PRN (21:11)
[2021-02-02] MEDS: SODIUM CHLORIDE 0.9% 1000ML 1,000 ML IV SCH (01:16)
--- NOTE | 2021-02-02 06:00 | Hospitalist Progress Note ---
Date of Service February 02, 2021 Assessment & Plan (1) Sepsis: Plan: This 80-year-old man with a history of BPH and HTN and recent hospital admission (01/15/21-01/18/21) for obstructive uropathy presented 01/29 for altered mental status due to severe sepsis with gram negative bacteremia suspected to be secondary to UTI; also with JOSE ALBERTO, elevated troponin sec to demand ischemia. Severe sepsis from Pseudomonas bacteremia and UTI - Secondary to Pseudomonas bacteremia from obstructive uropathy + UTI; accompanied by end-organ damage on admission (change in mental status, JOSE ALBERTO, elevated liver enzymes, elevated troponin) - Workup as follows: * qSOFA score of 3, procal >160 on arrival * WBC count of 36.1 on admission, now resolved * Lactate initially at 4.8, now normalized * BCX, UCX growing Pseudomonas aeruginosa, pansensitive - Plan * s/p Dapto, Zosyn --> cefepime * Initiate ciprofloxacin PO (renally dosed); total length of ABX will need to be 14-21 days given mixed bacteremia/prostatitis picture * Follow up with outpatient urology to determine need for surgical intervention Thrombocytopenia -- improving following heparin discontinuation - On arrival, Plt 131 --> decreased to ~80s since DOA#2 - Suspect secondary to consumption from sepsis, HIT also considered as a possibility - Now improvins --> 120s as of 02/02 - 4Ts score w/ a score of 5 points -- intermediate probability - Heparin discontinued - Patient started on Eliquis for DVT ppx show setting fluid goals for him to like - Labs ordered including iron, B12, folate, PT/PTT/INR, peripheral smear, PF4 heparin ab w/ reflex SONYA, pending - Monitor CBC qAM Acute kidney injury - Suspect mixed prerenal (sepsis) and intrarenal (ascending UTI) -- lowery draining appropriately, lower suspicion for post-renal etiology - Workup as follows: * CT adb/pelv shows prostatitis and ascending UTI without hydronephrosis * FENa > 4%, indicating intrinsic * Creatinine continues to improve. If continues to improve, likely d/c tomorrow. - Plan: * Promote PO intake, discontinue mIVF * Continue holding lisinopril * Monitor BMP qAM Elevated troponin - Troponin of 0.081 on admission, maximum of 0.127, most recently 0.119 - EKG showed sinus rhythm with frequent PVCs - TTE revealed no evidence of ischemic changes/WMAs - Likely collections representative of increased myocardial demand due to hypotension associated with sepsis - Continue telemetry for cardiac monitoring Elevated liver enzymes - Likely secondary to hepatic congestion from sepsis - Improving. Stable. Monitor. Normocytic anemia - Multifactorial, low suspicion for acute hemorrhage, no signs of active bleeding - Hgb 12.3 on admission, decreased to mid-10s; baseline 11-12 from previous labs Disposition: MS/Tele Diet: regular, promote PO intake, d/c mIVF DVT prophylaxis: Eliquis (heparin discontinued as of 02/01) Code status: DNR/DNI Admission and Anticipated Discharge Date Admission Date: January 28, 2021 Supervising Physician Co-Signing Physician Notes I personally examined the patient and verified all downey points of history and exam, discussed case, and agree with decision making with Dr Culp. Feeling fairly well overall. Eating dinner. present at the bedsidemultiple questionsDr. Culp and I answered them to the best of our ability and to her satisfaction. Vitals noted, in general he is awake and alert pleasant no distress. HEENT normocephalic atraumatic mucous membranes moist. Breathing unlabored no accessory muscle use good effort. Skin shows no rashes no pallor or icterus. Neuro without focal deficits. Pseudomonas UTI with severe sepsis/bacteremiafortunately improving nicely. Continue Ciprogiven severity of illness, and concern on UTI with possible prostate involvementwill presumptively treat for at least 14 days, but depend ing on how he is doing at follow-up, antibiotics may need to be extended if there continues to be concern for prostate infection. Acute renal failureprobably a combination of sepsis and obstructiveimproving. Stopped IV fluids this morning, continue to follow into tomorrowif he is able to show ongoing improvement with p.o. intake, it would likely be safe to send him home with close outpatient follow-up and serial labs. Thrombocytopeniastrongly suspect this was septic related, not hit otherwise as above Subjective Reports feeling well this morning. Denies any pain or discomfort. Says his breathing is easy. Denies any abdominal discomfort. Denies any nausea or vomiting. Appetite is OK. Review of Systems Review of Systems: as per HPI Physical Exam Physical Exam: General: Tired appearing 80yoM who is relaxed in his hospital bed, NAD. HEENT: MMM, no JVD Cardiac: NRRR, S1/S2 present with grade 1/6 YVONNE best heard at RUSB Pulmonary: CTAB w/o crackles or wheezes, good respiratory effort Abdominal: NABS. Abdomen soft, NT/ND Extremities: LE well perfused. Capillary refill < 3 seconds. Results & Data Results & Data ([facility]) Vital Signs (Past 12 Hours) Vital Signs Temp Pulse Pulse Resp BP BP Pulse Ox 02/02/21 03:16 37 C 83 18 119/54 L 95 02/01/21 23:25 37.3 C 77 18 128/74 93 02/01/21 22:20 73 02/01/21 19:52 37.1 C 74 18 121/55 L 96 Resident Activity Tracking Resident Involvement: Resident Care Provided Care Provided: Adult Hospital Medicine (1) Sepsis Acute renal failure type: unspecified Sepsis acute organ dysfunction status: with acute organ dysfunction Sepsis type: sepsis due to unspecified organism Severe sepsis acute organ dysfunction type: acute renal failure Severe sepsis shock status: unspecified Qualified Code(s): A41.9 - Sepsis, unspecified organism; R65.20 - Severe sepsis without septic shock; N17.9 - Acute kidney failure, unspecified
[2021-02-02] MEDS: APIXABAN 2.5 MG TAB PO SCH ×2 (08:23→20:25)
[2021-02-02] MEDS: FINASTERIDE 5 MG TAB PO SCH (08:23)
[2021-02-02] MEDS: SACCHAROMYCES BOULARDII 250 MG CAP PO SCH (08:24)
[2021-02-02] MEDS: TAMSULOSIN HCL 0.4 MG CAP PO SCH (08:24)
[2021-02-02] MEDS: CEROVITE ADV FORMULA TAB PO SCH (08:24)
[2021-02-02] MEDS: CIPROFLOXACIN 250 MG TAB PO SCH (08:27)
[2021-02-02] MEDS ORDERED: CIPROFLOXACIN 500 MG TAB PO SCH (09:00)
[2021-02-02 09:43] LABS: Basophils # (auto) 0.02 K/uL (0-0.2); Basophils % (auto) 0.3 %; Eosinophils # (auto) 0.17 K/uL (0-0.5); Eosinophils % (auto) 2.4 %; Hematocrit (blood only) 29.1 % (42-52); Hemoglobin 9.7 g/dL (14.0-18.0); Immature Granulocytes # (auto) 0.05 K/uL (0.00-0.02); Immature Granulocytes % (auto) 0.7 %; Lymphocytes # (auto) 0.36 K/uL (1.2-3.4); Lymphocytes % (auto) 5.1 %; Mean Corpuscular Hemoglobin 30.1 pg (25-34); Mean Corpuscular Hgb Conc 33.3 g/dL (32-36); Mean Corpuscular Volume 90.4 fL (80-100); Mean Platelet Volume 9.2 fL (7.4-10.4); Monocytes # (auto) 0.65 K/uL (0.11-0.59); Monocytes % (auto) 9.2 %; Neutrophils # (auto) 5.78 K/uL (1.4-6.5); Neutrophils % (auto) 82.3 %; Platelet Count 124 K/uL (130-400); RDW Coefficient of Variation 13.3 % (11.5-14.5); Red Blood Count 3.22 M/uL (4.7-6.1); White Blood Count 7.03 K/uL (4.8-10.8)
[2021-02-02 10:21] LABS: Albumin Level 1.6 gm/dl (3.4-5.0); BUN Creatinine Ratio 13.7 (10-20); Calcium 7.6 mg/dl (8.5-10.1); Creatinine Clr Calc Pharmacy 16.7 ml/min; Est GFR (African American) 18.6 ml/min; Est GFR (Non-African American) 16.1 ml/min; Potassium 3.8 mmol/L (3.5-5.1)
[2021-02-02 10:23] LABS: Albumin Globulin Ratio 0.4 (0.9-2); Bilirubin,Total 0.6 mg/dl (0.2-1); Globulin 4.1 gm/dl (2.5-4.0); Total Protein 5.7 gm/dl (6.4-8.2)
--- NOTE | 2021-02-02 19:03 | Billing Data ---
Date of Service February 02, 2021 Coding Level of Care Code 66185 Subseq Hosp Care Lvl 3
--- NOTE | 2021-02-03 06:32 | Discharge Summary ---
Date of Service February 03, 2021 Admission HPI Per Admitting Provider This is an 80-year-old male who was recently mated to [facility] on 01/15/2021 through 01/18/2021. Patient was admitted with a bladder outlet obstruction presented with a creatinine of 8.5. Patient had Lowery catheter placed secondary to this problem and his creatinine proved to 1.4. During this admission the patient was found to have bacteremia with coag negative staph. The patient was given antibiotics in form of Rocephin while in the hospital and ultimately discharged home on oral Keflex. Should be noted that the patient was discharged home with a Lowery catheter in place. The patient did have an outpatient voiding trial but he failed this and had to have the catheter reinserted on 01/27/2021. This was performed in the [facility] physician group urology office. According to the patient's he was only without the Lowery catheter for 1 day. The patient presented to the [facility] emergency department today as he is just not feeling like himself. The patient's also confirmed that he is not quite acting like himself. I asked patient to litany of questions and he denies any fevers, shakes, chills. He denies any undue pain from his catheter. Patient denies any abdominal pain or nausea or vomiting but he notes that his appetite has not been great. He denies any cough or shortness of breath. He says that he has not fallen or hit his head. He also denies any loss of consciousness. He denies inability to move his arms or legs. He denies any visual changes. Patient does report that he has been having loose stools for several days. He does not offer any other complaints at this time. In the emergency department patient had labs and imaging which I independently reviewed. A CT scan of the head showed no acute intracranial process. A chest x-ray showed no evidence of pneumonia or CHF. Patient did undergo a CT scan of the abdomen pelvis that showed that his bladder was decompressed around the Lowery catheter but there was pericystic inflammation noted which was concerning for cystitis or prostatitis. The patient's prostate gland was noted to be markedly enlarged. There is fullness noted the renal collecting system however no hydronephrosis was noted bilaterally. Labs including CBC were white blood cell count was 36.1. His hemoglobin and hematocrit were 12.3 and 35.6. Platelet count was within normal range. Chemistry profile showed a sodium was 128. Potassium was noted to be normal. BUN and creatinine were elevated at 50 and 4.1. He did have a lactic acid level elevated at 4.8. Magnesium was noted be 1.6. He did have a slight elevation of his troponin at 0.08. Procalcitonin was noted to be elevated at 132.2. Urinalysis was concerning for underlying urinary tract infection. A Covid test was performed and was noted to be negative. An EKG was performed that showed normal sinus rhythm without acute ischemic changes. Premature ventricular contractions were noted. Patient was initially noted to be hypotensive in the emergency department with blood pressure in the 80s systolic. Patient was given antibiotics in form of Zosyn as well as daptomycin as well as given intravenous fluids and his blood pressure rebounded to 126/72. He was noted to be afebrile. He did have a slight tachycardia with a heart rate of approximately 100-109. At the time of my interview the patient was resting in bed. He was in no distress. Admission Exam Per Admitting Provider Constitutional: + thin; no acute distress Eyes: PERRL, conjunctivae normal, anicteric sclerae ENMT: Ears: no hearing impairment Nose: no external nose abnormality Mouth: no oropharynx abnormality Neck: trachea midline Respiratory: normal respiratory effort, lungs clear to auscultation Cardiovascular: Rate/Rhythm: regular rate and regular rhythm Gastrointestinal (Abdomen): Abdomen is soft, nontender, nondistended. No pain with palpation. Bowel sounds are present. Musculoskeletal: No calf tenderness Skin: no rashes Neurologic: Patient is awake he is alert to time, place, person. He is able to move all 4 extremities and follows simple commands without noted focal deficits. Principal Diagnosis urosepsis mixed intrarenal/prerenal UTI Pseudomonal bacteremia Discharge Exam General: Tired appearing 80yoM who is relaxed in his hospital bed, NAD. HEENT: MMM, no JVD Cardiac: NRRR, S1/S2 present with grade 1/6 YVONNE best heard at [facility]USB Pulmonary: CTAB w/o crackles or wheezes, good respiratory effort Abdominal: NABS. Abdomen soft, NT/ND Discharge Data Allergies Allergy/AdvReac Type Severity Reaction Status Date / Time No Known Allergies Allergy Verified 01/28/21 13:35 Consultations 01/28/21 15:43 ED Decision to Admit Stat Ordered Studies 01/28/21 12:52 CT head/brain wo con Stat IMPRESSION: No acute intracerebral pathology. Mild cerebral cortical atrophy and remote small vessel disease. 01/28/21 13:39 CT abd pelvis wo con Stat IMPRESSION: 1. The bladder is decompressed around a Lowery catheter and appears markedly thick walled with pericystic inflammation. Additionally, there is mild infiltration around the prostate gland. Correlate clinically and with urinalysis for evidence of cystitis/prostatitis. 2. The prostate gland is markedly enlarged with evidence of chronic bladder outlet obstruction. 3. There is mild fullness of the renal collecting systems bilaterally without hydronephrosis. Urothelial thickening is seen involving the renal pelvis bilaterally and both ureters and there is significant perinephric inflammation. Correlate clinically and with urinalysis for evidence of ascending urinary tract infections. 4. There are numerous nonspecific nodules in the pelvis which measure up to 11 mm, possibly representing prominent/reactive lymph nodes. Correlate with serum PSA levels. 5. There are bilateral inguinal hernias, with a nonobstructed segment of small bowel contained within the right hernia. 6. Additional findings as above. Hospital Course (1) Sepsis: This 80-year-old man with a history of BPH and HTN and recent hospital admission (01/15/21-01/18/21) for obstructive uropathy presented 01/29 for altered mental status due to severe sepsis with Pseudomonal bacteremia suspected to be secondary to UTI and prostatitis; also with JOSE ALBERTO, elevated troponin sec to demand ischemia. Severe sepsis from Pseudomonas bacteremia, UTI, and prostatitis - Secondary to Pseudomonas bacteremia from obstructive uropathy + UTI; accompanied by end-organ damage on admission (change in mental status, JOSE ALBERTO, elevated liver enzymes, elevated troponin) - Workup as follows: * qSOFA score of 3, procal >160 on arrival * WBC count of 36.1 on admission, resolved prior to d/c * Lactate initially at 4.8, resolved prior to d/c * BCX, UCX growing Pseudomonas aeruginosa, pansensitive - Plan * s/p Dapto, Zosyn and later cefepime * Initiate ciprofloxacin PO (renally dosed at 250mg t.i.d.); total length of ABX will need to be 14-21 days (at minimum until 02/11) given mixed bacteremia/prostatitis picture * Follow up with outpatient urology to determine need for surgical intervention -- patient has appointment at end of the month. So long as he continues to show clinical improvement at PCP f/u, believe this is appropriate to keep Acute kidney injury - Suspect mixed prerenal (sepsis) and intrarenal (ascending UTI) -- lowery draining appropriately, lower suspicion for post-renal etiology - Workup as follows: * CT adb/pelv shows prostatitis and ascending UTI without hydronephrosis * FENa > 4%, indicating intrinsic * Creatinine continues to improve. If continues to improve, likely d/c tomorrow. - Plan: * Promote PO intake at d/c (2L/day minimum) * Continue holding lisinopril with ongoing JOSE ALBERTO -- resume when appropriate * f/u BMP q3-5d until JOSE ALBERTO resolves Thrombocytopenia -- improved following d/c - On arrival, Plt 131 --> decreased to ~80s on DOA#2 - Suspect secondary to consumption from sepsis; HIT also considered as a less- likely possibility - Improved prior to d/c 80s: at discharge, noted to be _ - 4Ts score w/ a score of 5 points -- intermediate probability of HIT - Heparin discontinued - Patient briefly on Eliquis for DVT ppx show setting fluid goals for him to like - Labs ordered including iron, B12, folate, PT/PTT/INR, peripheral smear normal - Pending remainder of HIT work-up: immunoglobulin assay, serotonin release assay -- f/u results - F/U CBC in 3-5 days following discharge (w/ BMP) HTN - Hold ACEI with ongoing JOSE ALBERTO -- resume when appropriate / kidney fxn normalized - Start amlodipine 5mg qAM in the interim -- new medication while here to cover while ACEI is on hold, d/c when appropriate Elevated troponin - Troponin of 0.081 on admission, maximum of 0.127, most recently 0.119 - EKG showed sinus rhythm with frequent PVCs - TTE revealed no evidence of ischemic changes/WMAs - 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 Stable. Monitor. Normocytic anemia - Multifactorial, low suspicion for acute hemorrhage, no signs of active bleeding - Hgb 12.3 on admission, decreased to mid-10s; baseline 11-12 from previous labs - Recommend recheck as outpatient. If persistent, would consider iron panel Code: Identifies as DNR/DNI Total Time Total Time Spent Total Time Spent (In Minutes): <30 Discharge Plan Discharge Items Patient Disposition: Home - Self-Care Reason For Visit: SEPSIS Discharge Diagnosis: urosepsis Pseudomonas bacteremia JOSE ALBERTO Activity: Per Instructions section Non-emergency contact: Primary Care Provider and Urologist Call non-emergency contact if: you have any medication questions, your symptoms worsen, you have a fever and your temperature is above 101 Follow-up/Referrals: Akash Swift MD [Primary Care Provider] - (PLEASE CALL YOUR PRIMARY CARE PROVIDER TO SCHEDULE A DISCHARGE FOLLOW-UP APPOINTMENT WITHIN 7-10 DAYS.) Diet: Regular Addtl Attending Provider Instructions: You were seen in [facility] for evaluation of illness. Upon your arrival here, you underwent several tests to determine the cause of your symptoms. You were determined to have a urinary tract infection that subsequently led to a bloodstream infection. You were treated aggressively with intravenous fluids and antibiotics. Thankfully, you demonstrated a good recovery during your stay here. We also watch her kidney function carefully; as results of your urinary tract infection, you were noted to have slight deterioration in kidney function. You will require careful and close rechecks in the outpatient setting to ensure adequate recovery. Upon your discharge here, please note the following medication changes/additions/deletions: -- START ciprofloxacin 250mg, three times daily, until 02/11 -- START amlodipine 5mg, once daily, until directed by your PCP (for Blood pressure) -- STOP lisinopril until directed by your PCP You have a prescheduled appointment with urology at the end of this month; at this time, we believe that keeping this appointment is appropriate so long as your symptoms continue to improve. Until that time, keep in your urinary catheter. If you have any concerns about your catheter, please call the urology office to inquire about a sooner appointment. Please continue drinking at least 2 L of non-caffeinated, non-sugary beverages (e.g., water) daily to aid your kidneys in recovering. Please follow-up with your primary care physician within 1 week to review this visit. Please review your antibiotic course with them and, based on your symptoms, ask if an extended course (for 21 days rather than 14 days) would be appropriate. In the interim, if you experience any worsening fevers, chills, night sweats, back pain, belly pain, nausea, vomiting, loss of appetite, decreased urinary output from the Lowery catheter, or other worrisome symptoms, please report to the emergency room immediately for prompt evaluation. It is been a pleasure for caring for you during your stay, and we wish you all the best in your recovery. Pending Studies at Discharge: Yes Studies:: HIT Labs Stand-Alone Forms: [facility], Smoking Cessation Medications and DC Order Prescriptions: New ciprofloxacin HCl 250 mg Tablet 750 mg PO DAILY 8 Days Qty: 24 RF: 0 amlodipine [Norvasc] 5 mg Tablet 5 mg PO QAM 30 Days Qty: 30 RF: 0 Continued tamsulosin 0.4 mg capsule 0.4 mg PO DAILY Qty: 90 RF: 3 finasteride 5 mg tablet 5 mg PO DAILY Qty: 90 RF: 3 lisinopril 40 mg tablet 40 mg PO DAILY RF: 0 Ocuvite Adult 50 Plus 250-5-1 mg Capsule 1 cap PO DAILY RF: 0 Discharge Orders: Discharge Order (Routine); Ordered 02/03/21 Ordered By: Adilson Tan/Other Patient Handouts: Sepsis Admission Data Admit Date/Time: 01/28/21 16:54 Attending Provider: Adilson Araujo Admit Provider: Kareen Smith Primary Care Provider: Akash Swift Other Providers: Kareen Smith ; Abner Diaz Other Interventions: Discharge Summary Assessment (RN) Last Done: 02/03/21 10:13 Supervising Physician Co-Signing Physician Notes I personally examined the patient and verified all downey points of history and exam, discussed case, and agree with decision making with Dr Culp. feels ok no new complaints, feels up to going home Vitals noted, in general he is awake and alert pleasant no distress. HEENT normocephalic atraumatic mucous membranes moist. Breathing unlabored no accessory muscle use good effort. Skin shows no rashes no pallor or icterus. Neuro without focal deficits. Pseudomonas UTI with severe sepsis/bacteremiafortunately improving nicely. Continue Ciprogiven severity of illness, and concern on UTI with possible prostate involvementwill presumptively treat for at least 14 days, but depending on how he is doing at follow-up, antibiotics may need to be extended if there continues to be concern for prostate infection. pt understanding of this Acute renal failureprobably a combination of sepsis and obstructiveimproving. Stopped IV fluids yesterday, creatinine contineus to improve - d/w pt unclear if he will return to prior baseline or level out at new baseline - but since he conitnues to improve on PO intake only - safe for home//PO fluids and BMP q2-3 days. ACEi on hold for now Thrombocytopeniastrongly suspect this was septic related, not hit otherwise as above, stable for home Resident Activity Tracking Resident Involvement: Resident Care Provided Care Provided: Adult Hospital Medicine
[2021-02-03 07:16] LABS: Calcium 8.2 mg/dl (8.5-10.1); Creatinine Clr Calc Pharmacy 18.4 ml/min; Est GFR (African American) 20.9 ml/min; Potassium 4.1 mmol/L (3.5-5.1)
[2021-02-03 07:30] LABS: Basophils # (auto) 0.02 K/uL (0-0.2); Basophils % (auto) 0.2 %; Eosinophils # (auto) 0.39 K/uL (0-0.5); Eosinophils % (auto) 4.8 %; Hematocrit (blood only) 28.1 % (42-52); Hemoglobin 9.5 g/dL (14.0-18.0); Immature Granulocytes # (auto) 0.06 K/uL (0.00-0.02); Immature Granulocytes % (auto) 0.7 %; Lymphocytes # (auto) 0.56 K/uL (1.2-3.4); Lymphocytes % (auto) 6.9 %; Mean Corpuscular Hemoglobin 30.5 pg (25-34); Mean Corpuscular Hgb Conc 33.8 g/dL (32-36); Mean Corpuscular Volume 90.4 fL (80-100); Mean Platelet Volume 8.6 fL (7.4-10.4); Monocytes % (auto) 8.6 %; Neutrophils # (auto) 6.42 K/uL (1.4-6.5); Neutrophils % (auto) 78.8 %; Platelet Count 164 K/uL (130-400); RDW Coefficient of Variation 13.4 % (11.5-14.5); RDW Standard Deviation 43.8 fL (36.4-46.3); Red Blood Count 3.11 M/uL (4.7-6.1); White Blood Count 8.15 K/uL (4.8-10.8)
[2021-02-03] MEDS: CIPROFLOXACIN 250 MG TAB PO SCH (07:48)
[2021-02-03] MEDS: SACCHAROMYCES BOULARDII 250 MG CAP PO SCH (07:48)
[2021-02-03] MEDS: TAMSULOSIN HCL 0.4 MG CAP PO SCH (07:48)
[2021-02-03] MEDS: APIXABAN 2.5 MG TAB PO SCH (07:48)
[2021-02-03] MEDS: FINASTERIDE 5 MG TAB PO SCH (07:48)
[2021-02-03] MEDS: CEROVITE ADV FORMULA TAB PO SCH (07:48)
[2021-02-03] MEDS ORDERED: amLODIPine BESYLATE 5 MG TAB PO SCH (09:00)
--- NOTE | 2021-02-03 10:32 | Billing Data ---
Date of Service February 03, 2021 Coding Level of Care Code D/C DAY MANAGEMENT <30 MINS
--- NOTE | 2021-02-12 09:59 | Coding Query ---
CODING QUERY To promote full compliance with coding requirements relating to patient care, provider participation is requested in all cases of physician office rep uncertainty. Please assist us with the question(s) below: In the record, it states that the patient has an UTI. Please clarify below the cause of the UTI if applicable. Thank you. ( ) The lowery was the cause of the UTI. ( x ) UTI, unspecified cause. ( ) Other (Specify): Physician's Comment: Thank you for your time, HENRRY Baird, [facility]
== END 2021-02-03 15:00 | disposition home or self-care (01) | DRG 872 ==
LOC: ED 11:54 → SUATTDRO 16:54 → EDINP 16:54 → 2S 21:11 → 2N 01-30 19:32
DX: I10 Essential (primary) hypertension; Z96.0 Presence of urogenital implants; Z72.0 Tobacco use; E83.42 Hypomagnesemia; R74.01 Elevation of levels of liver transaminase levels; R41.82 Altered mental status, unspecified; N17.9 Acute kidney failure, unspecified; D64.9 Anemia, unspecified; N40.1 Benign prostatic hyperplasia with lower urinary tract symptoms; N30.01 Acute cystitis with hematuria; R65.20 Severe sepsis without septic shock; Z66 Do not resuscitate; R19.7 Diarrhea, unspecified; Z79.899 Other long term (current) drug therapy; I24.8 Other forms of acute ischemic heart disease; N41.9 Inflammatory disease of prostate, unspecified; D69.59 Other secondary thrombocytopenia; E87.2 Acidosis; A41.52 Sepsis due to Pseudomonas; N13.9 Obstructive and reflux uropathy, unspecified; Z20.822 Contact with and (suspected) exposure to COVID-19; E87.1 Hypo-osmolality and hyponatremia; N12 Tubulo-interstitial nephritis, not specified as acute or chronic

== ENCOUNTER 2021-02-28 11:42 | Inpatient (IN) ==
--- NOTE | 2021-02-28 12:37 | Emergency Department Note ---
Impression & Plan Sepsis, Epididymitis, Acute UTI ED Provider Note NAME: BRODERICK BREWER AGE: 80 SEX: M : 1940 ARRIVES VIA: Walk-In INFORMANT: Patient ED PROVIDER(S): Adilson Balderas DO CHIEF COMPLAINT: Right scrotal pain HPI: Patient is an 80-year-old male who presents to the ER for right scrotal pain. This started 2 to 3 days ago and has been gradually getting worsening. Pain is currently 0 out of 10. Its only painful with movement or touching. He does follow with urology. He saw them last Tuesday had a cystoscopy and the Dixon replaced. Dixon has been present since December. He denies any headache or change in vision. No chest pain or shortness of breath. No belly pain. He admits to a right inguinal hernia which is unchanged. He denies it being tender. He is moving his bowels normally. No dysuria or urgency or frequency. ROS: See above HPI for pertinent positives & negatives. A total of 10 systems reviewed and were otherwise negative. PAST MEDICAL HISTORY:See Below PAST SURGICAL HISTORY:See Below FAMILY HISTORY:See Below SOCIAL HISTORY:See Below HOME MEDICATIONS:See Below ALLERGIES:See Below VITALS:See Below PHYSICAL EXAMINATION: GENERAL: Sitting up in bed, alert, well appearing, well nourished, no distress, non-toxic EYE EXAM: normal conjunctiva. PERRL and EOM's grossly intact. OROPHARYNX: no exudate, no erythema, lips, buccal mucosa, and tongue normal and mucous membranes are moist NECK: supple, no nuchal rigidity, no adenopathy, non-tender LUNGS: Clear to auscultation. Normal chest wall mechanics HEART: no murmurs, S1 normal and S2 normal ABDOMEN: abdomen soft, non-tender, normo-active bowel sounds, no masses, no rebound or guarding. : Large right inguinal hernia which is reducible. Right testicle is slightly enlarged and tender. Left testicle is nontender. No redness or swelling. UPPER EXTREMITIES: upper extremities are grossly normal. LOWER EXTREMITIES: No pitting edema. NEURO EXAM: Normal sensorium, cranial nerves II-XII grossly intact, normal speech, no gross weakness of arms, no gross weakness of legs. MEDICAL DECISION MAKING: Patient is an 80-year-old gentleman that presents ER for right testicular pain. IV was established blood was obtained. Is found to be slightly tachycardic. Labs show leukocytosis 24,000. No significant anemia. BMP with mild hyponatremia. Creatinine at 2.7 fairly consistent with previous and actually improved. T bili slightly up at 1.2. LFTs were unremarkable. Lipase was normal. UA shows clear UTI. Ultrasound shows an orchitis with epididymitis. CT abdomen pelvis was unremarkable. Patient was given IV fluids and IV cefepime. He was updated bedside discussed with the hospitalist admitted for further work-up of his sepsis. Triage Nursing notes reviewed. Limited review of prior medical records performed Vital Signs: reviewed and remarkable for no significant abnormalities Differential diagnosis: Differential diagnoses includes but is not limited to gastritis, peptic ulcer di sease, GERD, gallbladder disease, pancreatitis, small bowel obstruction, acute coronary syndrome, pericarditis, ischemic bowel, irritable bowel disease, irritable bowel syndrome, appendicitis, diverticulitis, malignancy, hernia, urinary tract infection, torsion, /ectopic (if female), perforation, trauma, infectious. ER treatment provided: See below Diagnostics interpreted by me: Cardiac Monitoring: An order was placed for continuous cardiac monitoring. The monitor shows a rate of 92 with sinus rhythm. Laboratory studies: As stated above and show below. Imaging studies: Ultrasound shows epididymitis/orchitis CT abdomen pelvis showed no acute pathology Consultation(s): Discussed with hospitalist Dr. Thomas Agosto for further evaluation Procedures: none Critical Care: None Past Med/Surg History Medical History (Updated 02/28/21 @ 18:32 by Adilson Balderas DO) Acute on chronic renal failure Acute retention of urine Acute UTI Elevated PSA Elevated troponin Epididymitis HTN (hypertension), benign Obstructive uropathy Testicular pain Urinary tract infection Surgical History No pertinent past surgical history Family History Other Family history non-contributory Social History Smoking Status: Former smoker Tobacco Type: Cigars Hx Alcohol Use: Yes Alcohol type: hard liquor Hx Substance Use: No Preferred Language: Libyan Communication Ability: Effective [employer] Required: No Beliefs That Will Affect Care: None Current Living Situation: Spouse Feels Safe at Home: Yes Assistive Devices: None Allergies Allergies Allergy/AdvReac Type Severity Reaction Status Date / Time No Known Allergies Allergy Verified 02/28/21 12:19 Home Meds Home Medications Medication Instructions Recorded Confirmed vit C,E,zinc,copper-[id number] 250 1 cap PO DAILY 01/28/21 02/28/21 mg-lutein 5 mg-zeaxanthin 1 mg capsule (Ocuvite Adult 50 Plus) Previous Rx's Medication Instructions Recorded finasteride 5 mg tablet 5 mg PO DAILY #90 tab 01/26/21 tamsulosin 0.4 mg capsule 0.4 mg PO DAILY #90 cap 01/26/21 amlodipine 5 mg tablet (Norvasc) 5 mg PO QAM 30 Days #30 tab 02/03/21 Results & Data (ED) Vital Signs Vital Signs - 24 hr 02/28/21 11:45 02/28/21 13:01 02/28/21 13:03 Temperature 37.0 C Temperature Source Temporal Artery Scan Pulse Rate 102 H 87 Pulse Rate [Apical] 87 Pulse Rhythm Regular Pulse Rhythm [Apical] Regular Respiratory Rate 20 18 18 Respiratory Effort / Characteristics Non-Labored Non-Labored Spontaneous Respiratory Depth Normal Normal Respiratory Pattern Blood Pressure 114/55 L Blood Pressure [Left Arm] 117/60 Blood Pressure Mean 74 Blood Pressure Mean [Left Arm] 79 Blood Pressure Position [Left Arm] Semi-fowlers Pulse Oximetry 100 96 96 Oxygen Delivery Method Room Air Room Air Room Air Sepsis Recent Fever Within 48 Hours No Sepsis New/Unexplained Change in Mental Status N/A Sepsis Action Taken by Nursing No Action Required 02/28/21 13:56 02/28/21 15:00 Temperature Temperature Source Pulse Rate Pulse Rate [Apical] 89 100 H Pulse Rhythm Pulse Rhythm [Apical] Regular Respiratory Rate 24 20 Respiratory Effort / Characteristics Non-Labored Spontaneous Respiratory Depth Normal Respiratory Pattern Regular Blood Pressure Blood Pressure [Left Arm] 138/67 127/48 L Blood Pressure Mean Blood Pressure Mean [Left Arm] 90 74 Blood Pressure Position [Left Arm] Pulse Oximetry 97 94 Oxygen Delivery Method Room Air Room Air Sepsis Recent Fever Within 48 Hours Sepsis New/Unexplained Change in Mental Status Sepsis Action Taken by Nursing Laboratory Data Result diagrams: 02/28/21 13:02 02/28/21 13:02 Lab Results 02/28/21 02/28/21 02/28/21 Range/Units 13:02 13:02 13:17 WBC 24.06 H (4.8-10.8) K/uL RBC 3.77 L (4.7-6.1) M/uL Hgb 11.3 L (14.0-18.0) g/dL Hct 33.3 L (42-52) % MCV 88.3 (80-100) fL MCH 30.0 (25-34) pg MCHC 33.9 (32-36) g/dL RDW Std Deviation 46.4 H (36.4-46.3) fL RDW Coeff of Jovi 14.2 (11.5-14.5) % Plt Count 181 (130-400) K/uL MPV 8.5 (7.4-10.4) fL Immature Gran % (Auto) 0.4 % Neut % (Auto) 90.8 % Lymph % (Auto) 3.9 % Baxter % (Auto) 4.9 % Eos % (Auto) 0.0 % Baso % (Auto) 0.0 % Neut # (Auto) 21.84 H (1.4-6.5) K/uL Lymph # (Auto) 0.94 L (1.2-3.4) K/uL Baxter # (Auto) 1.18 H (0.11-0.59) K/uL Eos # (Auto) 0.00 (0-0.5) K/uL Baso # (Auto) 0.01 (0-0.2) K/uL Immature Gran # (Auto) 0.09 H (0.00-0.02) K/uL Sodium 133 L (136-145) mmol/L Potassium 4.7 (3.5-5.1) mmol/L Chloride 104 (98-107) mmol/L Carbon Dioxide 22 (21-32) mmol/L Anion Gap 7.0 (3-11) BUN 40 H (7-18) mg/dl Creatinine 2.70 H (0.6-1.4) mg/dl Est Cr Clr Drug Dosing 19.4 ml/min Est GFR ( Amer) 24.5 ml/min Est GFR (Non-Af Amer) 21.1 ml/min BUN/Creatinine Ratio 14.8 (10-20) Glucose 135 H (70-99) mg/dl Calcium 9.5 (8.5-10.1) mg/dl Total Bilirubin 1.2 H (0.2-1) mg/dl AST 17 (15-37) U/L ALT 18 (12-78) Alkaline Phosphatase 92 (45-117) U/L Total Protein 8.0 (6.4-8.2) gm/dl Albumin 3.7 (3.4-5.0) gm/dl Globulin 4.3 H (2.5-4.0) gm/dl Albumin/Globulin Ratio 0.9 (0.9-2) Lipase 196 (73-393) U/L Urine Color Yellow Urine Appearance Cloudy A (Clear) Urine pH 6.5 (4.5-7.5) Ur Specific [place] 1.013 (1.000-1.030) Urine Protein Trace H (Negative) Urine Glucose (UA) Negative (Negative) Urine Ketones Negative (Negative) Urine Blood 1+ H (Negative) Urine Nitrite Positive A (Negative) Urine Bilirubin Negative (Negative) Urine Urobilinogen Negative (Negative) Ur Leukocyte Esterase 3+ H (Negative) Urine WBC (Auto) >30 H (0-5) /hpf Urine RBC (Auto) 5-10 H (0-4) /hpf U Hyaline Cast (Auto) 0 (0-5) /lpf U Epithel Cells (Auto) 5-10 H (0-5) /lpf Urine Bacteria (Auto) 2+ H (Negative) SARS-CoV-2, RNA, NAAT (NEGATIVE) 02/28/21 Range/Units 14:00 WBC (4.8-10.8) K/uL RBC (4.7-6.1) M/uL Hgb (14.0-18.0) g/dL Hct (42-52) % MCV (80-100) fL MCH (25-34) pg MCHC (32-36) g/dL RDW Std Deviation (36.4-46.3) fL RDW Coeff of Jovi (11.5-14.5) % Plt Count (130-400) K/uL MPV (7.4-10.4) fL Immature Gran % (Auto) % Neut % (Auto) % Lymph % (Auto) % [place] % (Auto) % Eos % (Auto) % Baso % (Auto) % Neut # (Auto) (1.4-6.5) K/uL Lymph # (Auto) (1.2-3.4) K/uL Baxter # (Auto) (0.11-0.59) K/uL Eos # (Auto) (0-0.5) K/uL Baso # (Auto) (0-0.2) K/uL Immature Gran # (Auto) (0.00-0.02) K/uL Sodium (136-145) mmol/L Potassium (3.5-5.1) mmol/L Chloride (98-107) mmol/L Carbon Dioxide (21-32) mmol/L Anion Gap (3-11) BUN (7-18) mg/dl Creatinine (0.6-1.4) mg/dl Est Cr Clr Drug Dosing ml/min Est GFR ( Amer) ml/min Est GFR (Non-Af Amer) ml/min BUN/Creatinine Ratio (10-20) Glucose (70-99) mg/dl Calcium (8.5-10.1) mg/dl Total Bilirubin (0.2-1) mg/dl AST (15-37) U/L ALT (12-78) Alkaline Phosphatase (45-117) U/L Total Protein (6.4-8.2) gm/dl Albumin (3.4-5.0) gm/dl Globulin (2.5-4.0) gm/dl Albumin/Globulin Ratio (0.9-2) Lipase (73-393) U/L Urine Color Urine Appearance (Clear) Urine pH (4.5-7.5) Ur Specific [place] (1.000-1.030) Urine Protein (Negative) Urine Glucose (UA) (Negative) Urine Ketones (Negative) Urine Blood (Negative) Urine Nitrite (Negative) Urine Bilirubin (Negative) Urine Urobilinogen (Negative) Ur Leukocyte Esterase (Negative) Urine WBC (Auto) (0-5) /hpf Urine RBC (Auto) (0-4) /hpf U Hyaline Cast (Auto) (0-5) /lpf U Epithel Cells (Auto) (0-5) /lpf Urine Bacteria (Auto) (Negative) SARS-CoV-2, RNA, NAAT NEGATIVE (NEGATIVE) Administered Medications Discontinued Medications Acetaminophen (Acetaminophen 500 Mg Tab) 1,000 mg PO NOW STA Stop: 02/28/21 15:38 Last Admin: 02/28/21 15:42 Dose: 1,000 mg Documented by: [id number] Cefepime HCl (Maxipime) 2,000 mg in 20 mls @ 5 mls/min IV NOW STA; Protocol Stop: 02/28/21 13:47 Last Admin: 02/28/21 14:29 Dose: 5 mls/min Documented by: [id number] Imaging Data Radiologist's Impression: Scrotum Ultrasound 02/28/21 12:32 US scrotum/testicle CLINICAL HISTORY: 80 years-old Male with r testicle pain. Acute right-sided scrotal pain COMPARISON STUDY: CT abdomen and pelvis of same day, testicular ultrasound 06/23/2020 TECHNIQUE: Real-time, grayscale, and color Doppler sonography of the testes and scrotum is performed. Images are reviewed in the transverse and longitudinal planes. FINDINGS: RIGHT HEMISCROTUM: The right testis measures 4.3 x 2.9 x 2.8 cm and the parenchyma appears heterogeneous and hypervascular. No intratesticular mass is seen. Normal-appearing arterial inflow is present within the right testicle. The right epididymis is also heterogeneous and hypervascular. Hypoechoic focus of the right epididymal head measuring up to 0.5 cm suggests epididymal cyst. Small mildly complex hydrocele with septations. Small varicocele. LEFT HEMISCROTUM: The left testis measures 4.2 x 1.7 x 2.2 cm and the parenchyma appears mildly heterogeneous. No intratesticular mass is seen. Normal-appearing arterial inflow is present within the left testicle. The left epididymal head appears normal. No varicocele or hydrocele is identified. IMPRESSION: 1. Heterogeneous and hypervascular right greater than left testicles and right epididymis is suggestive of acute orchitis with epididymitis. 2. Small mildly complex right-sided hydrocele. 3. Right-sided varicocele ACT 112: Negative or not required by law. The above report was generated using voice recognition software. It may contain grammatical, syntax or spelling errors. Electronically signed by: Sylvain Shukla M.D. 02/28/2021 2:05 PM Abdomen/Pelvis CT 02/28/21 13:[address] WITHOUT CONTRAST CT DOSE: 364.57 mGy.cm HISTORY: Acute right-sided testicular pain r groin pain mass going into scrotum TECHNIQUE: Multiaxial CT images of the abdomen and pelvis were performed without contrast. A dose lowering technique was utilized adhering to the principles of ALARA. COMPARISON STUDY: Scrotal ultrasound of same day, CT abdomen and pelvis 01/28/2021 FINDINGS: Coronary artery calcifications. The imaged inferior cardiac chambers are unremarkable. There is no pneumatosis or pneumoperitoneum. The spleen is mildly enlarged, 13.5 cm in length. Unremarkable pancreas and adrenal glands. The gallbladder is mildly distended. The unenhanced liver is within normal limits. Mild cortical thinning of the left kidney. Bilateral perinephric stranding has improved from prior. No renal or ureteral calculi or hydronephrosis. Dixon catheter is present within a decompressed urinary bladder. Marked urinary bladder wall thickening with perivesicular inflammatory stranding redemonstrated. Prostamegaly. A few tiny subcentimeter soft tissue nodules in the pelvis are redemonstrated suggestive of probable lymph nodes. Atherosclerosis of the aorta without aneurysm. Mild infrarenal abdominal aortic ectasia 2.6 cm fluid-filled mildly distended distal esophagus. No bowel o bstruction. Small left and moderate right facet filled inguinal hernias. The right inguinal hernia also contains nonobstructed loop of small bowel. Colonic diverticulosis. Mild fecal retention. Noninflamed appendix. Heterogeneous right testicle with right hydrocele. Unremarkable soft tissues. Degenerative changes of the spine, pelvis and hips. IMPRESSION: 1. No bowel obstruction or bowel wall thickening. 2. Prostamegaly with urinary bladder wall thickening redemonstrated suggestive of chronic bladder outlet obstruction. Correlate with urinalysis to exclude cystitis. 3. Right-sided hydrocele. Please refer to the same day scrotal ultrasound for additional findings. 4. Bilateral inguinal hernias, right greater than left with nonobstructed small bowel again noted extending into the right hernia sac. 5. Mild splenomegaly. 6. Additional findings as above. ACT 112: Negative or not required by law. The above report was generated using voice recognition software. It may contain grammatical, syntax or spelling errors. Electronically signed by: Sylvain Shukla M.D. 02/28/2021 2:28 PM Discharge Plan Visit Data Chief Complaint: Testicular Pain Stated Complaint: R TESTICLE PAIN,XFEW DAYS,NAUSEA ED Provider: Adilson Balderas Discharge Problem: Sepsis, Epididymitis, Acute UTI
[2021-02-28 13:18] LABS: Hematocrit (blood only) 33.3 % (42-52); Hemoglobin 11.3 g/dL (14.0-18.0); Mean Corpuscular Hgb Conc 33.9 g/dL (32-36); Mean Corpuscular Volume 88.3 fL (80-100); Mean Platelet Volume 8.5 fL (7.4-10.4); Platelet Count 181 K/uL (130-400); RDW Coefficient of Variation 14.2 % (11.5-14.5); RDW Standard Deviation 46.4 fL (36.4-46.3); Red Blood Count 3.77 M/uL (4.7-6.1); White Blood Count 24.06 K/uL (4.8-10.8)
[2021-02-28 13:35] LABS: Appearance Urine Cloudy (Clear); Bacteria Urine Automated 2+ (Negative); Bilirubin Urine Negative (Negative); Blood Urine 1+ (Negative); Cast Urine Automated 0 /lpf (0-5); Color Urine Yellow; Glucose Urine UA Negative (Negative); Ketones Urine Negative (Negative); Leukocyte Esterase Urine 3+ (Negative); Nitrite Urine Positive (Negative); Protein Urine Trace (Negative); Specific Gravity Urine 1.013 (1.000-1.030); Urobilinogen Urine Negative (Negative); WBC Urine Automated >30 /hpf (0-5); pH Urine 6.5 (4.5-7.5)
[2021-02-28 13:36] LABS: Albumin Level 3.7 gm/dl (3.4-5.0); BUN Creatinine Ratio 14.8 (10-20); Calcium 9.5 mg/dl (8.5-10.1); Creatinine Clr Calc Pharmacy 19.4 ml/min; Est GFR (African American) 24.5 ml/min; Est GFR (Non-African American) 21.1 ml/min; Potassium 4.7 mmol/L (3.5-5.1)
[2021-02-28 13:39] LABS: Albumin Globulin Ratio 0.9 (0.9-2); Bilirubin,Total 1.2 mg/dl (0.2-1); Globulin 4.3 gm/dl (2.5-4.0)
[2021-02-28 13:43] LABS: Basophils # (auto) 0.01 K/uL (0-0.2); Immature Granulocytes # (auto) 0.09 K/uL (0.00-0.02); Immature Granulocytes % (auto) 0.4 %; Lymphocytes # (auto) 0.94 K/uL (1.2-3.4); Lymphocytes % (auto) 3.9 %; Monocytes # (auto) 1.18 K/uL (0.11-0.59); Monocytes % (auto) 4.9 %; Neutrophils # (auto) 21.84 K/uL (1.4-6.5); Neutrophils % (auto) 90.8 %
[2021-02-28] MEDS ORDERED: CEFEPIME 2,000 MG/20 ML VIAL IV STA (13:44)
--- NOTE | 2021-02-28 14:06 | Ultrasound Report ---
US scrotum/testicle CLINICAL HISTORY: 80 years-old Male with r testicle pain. Acute right-sided scrotal pain COMPARISON STUDY: CT abdomen and pelvis of same day, testicular ultrasound 06/23/2020 TECHNIQUE: Real-time, grayscale, and color Doppler sonography of the testes and scrotum is performed. Images are reviewed in the transverse and longitudinal planes. FINDINGS: RIGHT HEMISCROTUM: The right testis measures 4.3 x 2.9 x 2.8 cm and the parenchyma appears heterogene ous and hypervascular. No intratesticular mass is seen. Normal-appearing arterial inflow is present w ithin the right testicle. The right epididymis is also heterogeneous and hypervascular. Hypoechoic fo cus of the right epididymal head measuring up to 0.5 cm suggests epididymal cyst. Small mildly comple x hydrocele with septations. Small varicocele. LEFT HEMISCROTUM: The left testis measures 4.2 x 1.7 x 2.2 cm and the parenchyma appears mildly heter ogeneous. No intratesticular mass is seen. Normal-appearing arterial inflow is present within the lef t testicle. The left epididymal head appears normal. No varicocele or hydrocele is identified. IMPRESSION: 1. Heterogeneous and hypervascular right greater than left testicles and right epididymis is suggesti ve of acute orchitis with epididymitis. 2. Small mildly complex right-sided hydrocele. 3. Right-sided varicocele ACT 112: Negative or not required by law. The above report was generated using voice recognition software. It may contain grammatical, syntax o r spelling errors. Electronically signed by: Sylvain Shukla M.D. 02/28/2021 2:05 PM
--- NOTE | 2021-02-28 14:29 | CT Scan Report ---
ABDOMEN AND PELVIS CT WITHOUT CONTRAST CT DOSE: 364.57 mGy.cm HISTORY: Acute right-sided testicular pain r groin pain mass going into scrotum TECHNIQUE: Multiaxial CT images of the abdomen and pelvis were performed without contrast. A dose lo wering technique was utilized adhering to the principles of ALARA. COMPARISON STUDY: Scrotal ultrasound of same day, CT abdomen and pelvis 01/28/2021 FINDINGS: Coronary artery calcifications. The imaged inferior cardiac chambers are unremarkable. Ther e is no pneumatosis or pneumoperitoneum. The spleen is mildly enlarged, 13.5 cm in length. Unremarkab le pancreas and adrenal glands. The gallbladder is mildly distended. The unenhanced liver is within n ormal limits. Mild cortical thinning of the left kidney. Bilateral perinephric stranding has improved from prior. No renal or ureteral calculi or hydronephrosis. Dixon catheter is present within a decom pressed urinary bladder. Marked urinary bladder wall thickening with perivesicular inflammatory stranding redemonstrated. Pros tamegaly. A few tiny subcentimeter soft tissue nodules in the pelvis are redemonstrated suggestive of probable lymph nodes. Atherosclerosis of the aorta without aneurysm. Mild infrarenal abdominal aorti c ectasia 2.6 cm fluid-filled mildly distended distal esophagus. No bowel obstruction. Small left and moderate right facet filled inguinal hernias. The right inguinal hernia also contains nonobstructed loop of small bowel. Colonic diverticulosis. Mild fecal retention. Noninflamed appendix. Heterogeneou s right testicle with right hydrocele. Unremarkable soft tissues. Degenerative changes of the spine, pelvis and hips. IMPRESSION: 1. No bowel obstruction or bowel wall thickening. 2. Prostamegaly with urinary bladder wall thickening redemonstrated suggestive of chronic bladder out let obstruction. Correlate with urinalysis to exclude cystitis. 3. Right-sided hydrocele. Please refer to the same day scrotal ultrasound for additional findings. 4. Bilateral inguinal hernias, right greater than left with nonobstructed small bowel again noted ext ending into the right hernia sac. 5. Mild splenomegaly. 6. Additional findings as above. ACT 112: Negative or not required by law. The above report was generated using voice recognition software. It may contain grammatical, syntax o r spelling errors. Electronically signed by: Sylvain Shukla M.D. 02/28/2021 2:28 PM
[2021-02-28] MEDS ORDERED: ACETAMINOPHEN 500 MG TAB PO STA (15:37)
--- NOTE | 2021-02-28 15:59 | History & Physical Report ---
Date of Service February 28, 2021 Assessment & Plan (1) Epididymitis: Plan: - By the vague definition of sepsis - patient does meet criteria based on leukocytosis, HR, and suspected source however is normotensive and suspect HR more related to discomfort and pain but will monitor; mentating find and no multi-organ failure (renal function chronic and improving);no lactic drawn - CT - prostamegaly with urinary bladder wall thickening suggestive of chronic bladder outlet obstruction; R sided hydrocele; bilateral inguinal hernia (R > L) with nonobstructed small bowel extending into the R hernia sac; mild splenomegaly - Scrotal U/S - heterogeneous and hypervascular R greater than L testicles and R epididymis suggestive of acute orchitis with epididymitis; small mildly complex R sided hydrocele; R sided varicocele - Suspect this is a slightly more advanced case as patient presenting with R scrotal erythema, edema, a hydrocele which is likely reactive on imaging - currently afebrile and no urinary symptoms but does have Lowery placed - Suspect epididymitis likely urinary pathogens (grew pseudomonas most recently) given age and chronic issues with obstructive uropathy from BPH - did discuss and no risk factors to suggest coverage for STIs needed - Given Cefepime in ED and will continue with renal adjustments and adjust pending Cx - has grown coag neg staph and pseudomonas in the past - Obtain BCx - already did receive a dose of Abx - Tylenol 1000 mg TID KATYA; ice; and scrotal elevation - Consult Urology - appreciate any additional recommendations or further interventions (2) Obstructive uropathy: Plan: - This appears to be in the setting of BPH and appears likely needing surgical correction - All recent Cr have been elevated ranging from 1.47-8.53 at highest -- appears baseline has been around 3-4 recently - Cr currently at 2.70 with electrolytes acceptable will give 1 L NSS to assist with good urinary output and see if further improvement with renal function - Maintain lowery and likely may need kept until surgical intervention is performed (3) Elevated PSA: Plan: - Unable to see PSA in system; per Urology note previously > 30 (4) HTN (hypertension), benign: Plan: - Hold amlodipine for now (was changed to this on previous admissions due to renal function, was previously on ACEI) - BPs are acceptable and will monitor in setting of infection Plan: Admit to medical. Suspect at least a few days IV Abx with possible conversion to oral Abx. Given prostatic enlargement and possibility of prostatitis will likely need longer course of coverage. Do not anticipate home needs History of Present Illness Chief Complaint: R Scrotal Pain x 2-3 days Primary Care Provider: Akash Siwft MD Mr. De La Cruz is an 80 y/o male with PMHx Obstructive Uropathy 2/2 BPH, Urinary Retention with Lowery Placement, HTN, and R inguinal hernia who presents to the ED c/o R testicular pain x 2-3 days. Patient was admitted 01/15-01/18 for pyelonephritis with bacteremia (coag neg staph) related to obstructive uropathy. He was D/Cd with a lowery and had a TOV while outpatient which he failed and needed replacement of lowery. He was again admitted 01/28-02/03 for sepsis related to pseudomonas bacteremia/UTI and was on Abx until February 17. Patient reports overall feeling well. He was at the Urologist office on 01/25 for another TOV but failed. Per , when trying to void in the office he nearly passed out due to straining and lowery was replaced. His urologist feels this is likely due to his prostatic enlargement. His urologist feels he will need surgical intervention and favors HoLEP which talking with patient and they are leaning towards this but no this cannot be performed locally. Patient also states he had a new PSA drawn as the previous was elevated but cannot see either in our system. He is to have a telehealth visit with Dr. Vizcarra on 03/03. Since that time he has gradually developed worsening R testicular pain. He reports no pain at rest but movement aggravates and the R testicle is tender to palp. He does not report any known fever. He does endorse a reduce appetite but no abdominal pain, nausea, vomiting. He is with no concerns for STIs. He is moving his bowels normally. No dysuria or urgency or frequency. In the ED, he is afebrile with appropriate BPs. Minimally tachycardic. He is noted to have a leukocytosis of 24. Creatinine is 2.7 which is improved from last labs in system. Electrolytes are acceptable. He was given Cefepime x 1 dose and UCx obtain and pending. Allergies Allergy/AdvReac Type Severity Reaction Status Date / Time No Known Allergies Allergy Verified 02/28/21 12:19 Home Medications Medication Instructions Recorded Confirmed Type finasteride 5 mg tablet 5 mg PO DAILY #90 tab 01/26/21 02/28/21 Rx tamsulosin 0.4 mg capsule 0.4 mg PO DAILY #90 cap 01/26/21 02/28/21 Rx vit C,E,zinc,copper-[id number] 250 1 cap PO DAILY 01/28/21 02/28/21 History mg-lutein 5 mg-zeaxanthin 1 mg capsule (Ocuvite Adult 50 Plus) amlodipine 5 mg tablet (Norvasc) 5 mg PO QAM 30 Days #30 tab 02/03/21 02/28/21 Rx Past Med/Surg History Medical History (Updated 02/28/21 @ 18:32 by Adilson Balderas DO) Acute on chronic renal failure Acute retention of urine Acute UTI Elevated PSA Elevated troponin Epididymitis HTN (hypertension), benign Obstructive uropathy Testicular pain Urinary tract infection Surgical History No pertinent past surgical history Family History Other Family history non-contributory Social History Smoking Status: Light tobacco smoker Tobacco Type: Cigars Hx Alcohol Use: Yes Alcohol type: hard liquor Hx Substance Use: No Preferred Language: Croatian Communication Ability: Effective Nutritional Assistant Required: No Beliefs That Will Affect Care: None Current Living Situation: Spouse Other Information That Helps Us Care for You: No Feels Safe at Home: Yes Safety Concerns: Feels Safe At This Time Assistive Devices: None Review of Systems Review of Systems: REVIEW OF SYSTEMS General/Constitutional: +fatigue; Denies fever/chills ENT: Denies visual changes, nasal drainage, sore throat, trouble swallowing Cardiovascular: Denies chest pain, palpitations, edema Respiratory: Denies cough, sputum, SOB, wheezing GI: Denies nausea, vomiting, abdominal pain, constipation, diarrhea, melena/hematochezia : + R scrotal pain with movement, + Scrotal edema Musculoskeletal: Denies joint/muscle aches Neurologic: Denies dizziness/lightheadedness Skin: Denies rash Physical Exam Physical Exam: PHYSICAL EXAM General Appearance: WDWN in NAD who is A&O x 3; ill appearing but nontoxic HEENT: Head is normocephalic/atraumatic; Hearing grossly intact; Mucous membranes moist Neck: Supple; Trachea midline; Neg JVD Heart: RRR with III/ murmur loudest at LUSB Lungs: CTA in all lung de la garza bilaterally; Respirations unlabored; Neg accessory muscle use Abdomen: Soft, non-tender, non-distended; Positive BS x 4 quadrants : Edema of the R scrotum with tenderness to palpation and appears more erythematous compared to L side; tenderness to epididymis and pain with elevation but improves some once elevated; no tendereness of L testicle; Lowery catheter with leg bag placed Extremities: Neg cyanosis or edema Neurological: Speech clear; Gross motor/sensory function intact; Neg focal neurologic deficits Psychiatric: Appropriate mood/affect Skin: Normal Color; Warm/Dry Results & Data Results & Data ([facility]) Vital Signs (Past 12 Hours) Vital Signs Temp Pulse Pulse Resp BP BP Pulse Ox 02/28/21 15:00 100 H 20 127/48 L 94 02/28/21 13:56 89 24 138/67 97 02/28/21 13:03 87 18 117/60 96 02/28/21 13:01 87 18 96 02/28/21 11:45 37.0 C 102 H 20 114/55 L 100 Laboratory Results Laboratory Results - last 24 hr 02/28/21 02/28/21 02/28/21 13:02 13:02 13:17 WBC 24.06 H RBC 3.77 L Hgb 11.3 L Hct 33.3 L MCV 88.3 MCH 30.0 MCHC 33.9 RDW Std Deviation 46.4 H RDW Coeff of Jovi 14.2 Plt Count 181 MPV 8.5 Immature Gran % (Auto) 0.4 Neut % (Auto) 90.8 Lymph % (Auto) 3.9 [place] % (Auto) 4.9 Eos % (Auto) 0.0 Baso % (Auto) 0.0 Neut # (Auto) 21.84 H Lymph # (Auto) 0.94 L [place] # (Auto) 1.18 H Eos # (Auto) 0.00 Baso # (Auto) 0.01 Immature Gran # (Auto) 0.09 H Sodium 133 L Potassium 4.7 Chloride 104 Carbon Dioxide 22 Anion Gap 7.0 BUN 40 H Creatinine 2.70 H Est Cr Clr Drug Dosing 19.4 Est GFR ( Amer) 24.5 Est GFR (Non-Af Amer) 21.1 BUN/Creatinine Ratio 14.8 Glucose 135 H Calcium 9.5 Total Bilirubin 1.2 H AST 17 ALT 18 Alkaline Phosphatase 92 Total Protein 8.0 Albumin 3.7 Globulin 4.3 H Albumin/Globulin Ratio 0.9 Lipase 196 Urine Color Yellow Urine Appearance Cloudy A Urine pH 6.5 Ur Specific [place] Switch 1.013 Urine Protein Trace H Urine Glucose (UA) Negative Urine Ketones Negative Urine Blood 1+ H Urine Nitrite Positive A Urine Bilirubin Negative Urine Urobilinogen Negative Ur Leukocyte Esterase 3+ H Urine WBC (Auto) >30 H Urine RBC (Auto) 5-10 H U Hyaline Cast (Auto) 0 U Epithel Cells (Auto) 5-10 H Urine Bacteria (Auto) 2+ H SARS-CoV-2, RNA, NAAT 02/28/21 14:00 WBC RBC Hgb Hct MCV MCH MCHC RDW Std Deviation RDW Coeff of Jovi Plt Count MPV Immature Gran % (Auto) Neut % (Auto) Lymph % (Auto) [place] % (Auto) Eos % (Auto) Baso % (Auto) Neut # (Auto) Lymph # (Auto) [place] # (Auto) Eos # (Auto) Baso # (Auto) Immature Gran # (Auto) Sodium Potassium Chloride Carbon Dioxide Anion Gap BUN Creatinine Est Cr Clr Drug Dosing Est GFR ( Amer) Est GFR (Non-Af Amer) BUN/Creatinine Ratio Glucose Calcium Total Bilirubin AST ALT Alkaline Phosphatase Total Protein Albumin Globulin Albumin/Globulin Ratio Lipase Urine Color Urine Appearance Urine pH Ur Specific [place]vel Switch Urine Protein Urine Glucose (UA) Urine Ketones Urine Blood Urine Nitrite Urine Bilirubin Urine Urobilinogen Ur Leukocyte Esterase Urine WBC (Auto) Urine RBC (Auto) U Hyaline Cast (Auto) U Epithel Cells (Auto) Urine Bacteria (Auto) SARS-CoV-2, RNA, NAAT NEGATIVE Diagnostic Findings Scrotum Ultrasound 02/28/21 12:32 US scrotum/testicle CLINICAL HISTORY: 80 years-old Male with r testicle pain. Acute right-sided scrotal pain COMPARISON STUDY: CT abdomen and pelvis of same day, testicular ultrasound 06/23/2020 TECHNIQUE: Real-time, grayscale, and color Doppler sonography of the testes and scrotum is performed. Images are reviewed in the transverse and longitudinal planes. FINDINGS: RIGHT HEMISCROTUM: The right testis measures 4.3 x 2.9 x 2.8 cm and the parenchyma appears heterogeneous and hypervascular. No intratesticular mass is seen. Normal-appearing arterial inflow is present within the right testicle. The right epididymis is also heterogeneous and hypervascular. Hypoechoic focus of the right epididymal head measuring up to 0.5 cm suggests epididymal cyst. Small mildly complex hydrocele with septations. Small varicocele. LEFT HEMISCROTUM: The left testis measures 4.2 x 1.7 x 2.2 cm and the parenchyma appears mildly heterogeneous. No intratesticular mass is seen. Normal-appearing arterial inflow is present within the left testicle. The left epididymal head appears normal. No varicocele or hydrocele is identified. IMPRESSION: 1. Heterogeneous and hypervascular right greater than left testicles and right epididymis is suggestive of acute orchitis with epididymitis. 2. Small mildly complex right-sided hydrocele. 3. Right-sided varicocele ACT 112: Negative or not required by law. The above report was generated using voice recognition software. It may contain grammatical, syntax or spelling errors. Electronically signed by: Sylvain Shukla M.D. 02/28/2021 2:05 PM Abdomen/Pelvis CT 02/28/21 13:[address] WITHOUT CONTRAST CT DOSE: 364.57 mGy.cm HISTORY: Acute right-sided testicular pain r groin pain mass going into scrotum TECHNIQUE: Multiaxial CT images of the abdomen and pelvis were performed without contrast. A dose lowering technique was utilized adhering to the principles of ALARA. COMPARISON STUDY: Scrotal ultrasound of same day, CT abdomen and pelvis 01/28/2021 FINDINGS: Coronary artery calcifications. The imaged inferior cardiac chambers are unremarkable. There is no pneumatosis or pneumoperitoneum. The spleen is mildly enlarged, 13.5 cm in length. Unremarkable pancreas and adrenal glands. The gallbladder is mildly distended. The unenhanced liver is within normal limits. Mild cortical thinning of the left kidney. Bilateral perinephric stranding has improved from prior. No renal or ureteral calculi or hydronephrosis. Lowery catheter is present within a decompressed urinary bladder. Marked urinary bladder wall thickening with perivesicular inflammatory stranding redemonstrated. Prostamegaly. A few tiny subcentimeter soft tissue nodules in the pelvis are redemonstrated suggestive of probable lymph nodes. Atherosclerosis of the aorta without aneurysm. Mild infrarenal abdominal aortic ectasia 2.6 cm fluid-filled mildly distended distal esophagus. No bowel obstruction. Small left and moderate right facet filled inguinal hernias. The right inguinal hernia also contains nonobstructed loop of small bowel. Colonic diverticulosis. Mild fecal retention. Noninflamed appendix. Heterogeneous right testicle with right hydrocele. Unremarkable soft tissues. Degenerative changes of the spine, pelvis and hips. IMPRESSION: 1. No bowel obstruction or bowel wall thickening. 2. Prostamegaly with urinary bladder wall thickening redemonstrated suggestive of chronic bladder outlet obstruction. Correlate with urinalysis to exclude cystitis. 3. Right-sided hydrocele. Please refer to the same day scrotal ultrasound for additional findings. 4. Bilateral inguinal hernias, right greater than left with nonobstructed small bowel again noted extending into the right hernia sac. 5. Mild splenomegaly. 6. Additional findings as above. ACT 112: Negative or not required by law. The above report was generated using voice recognition software. It may contain grammatical, syntax or spelling errors. Electronically signed by: Sylvain Shukla M.D. 02/28/2021 2:28 PM Code Status & VTE Plan Code Status DNR/DNI VTE Prophylaxis Plan VTE Prophylaxis will be ordered: Yes Supervising Physician Co-Signing Physician Notes Attending note: patient seen and examined with Mally PENA. I agree with her history, ROS, examination, assessment and plan. I personally reviewed lab work and imaging. - Sepsis due to UTI, concerns for orchitis and epididymitis, chronic lowery h/o Pseudomonas infections, will cover with Cefepime follow up urine and blood cultures admit to medical floor consult urology for any further recommendations PG Care Time/CCT Total # of Minutes Spent Total Time Spent with Patient: Total time spent is greater than 50% in coordination of care (as documented) at patient's floor/unit and/or counseling patient: Coding Level of Care Code 42175 Initial Inpt Care Lvl 3 Diagnoses Epididymitis N45.1 Obstructive uropathy N13.9 Elevated PSA R97.20 HTN (hypertension), benign I10
[2021-02-28] MEDS ORDERED: POLYETHYLENE (MIRALAX) 17 GM PACK PO PRN (19:44)
[2021-02-28] MEDS ORDERED: MoRPHine SULFATE 2 MG/ML CARP IV PRN (19:44)
[2021-02-28] MEDS ORDERED: MAGNESIUM HYDROXIDE SUSP 30 ML UDC PO PRN (19:44)
[2021-02-28] MEDS ORDERED: ALUMINUM/MAGNESIUM SUSP 30 ML UDC PO PRN (19:44)
[2021-02-28] MEDS ORDERED: ONDANSETRON INJ 2 MG/ML 2 ML VIAL IV PRN (19:44)
[2021-02-28] MEDS: IBUPROFEN 600 MG TAB PO PRN (20:44)
[2021-02-28] MEDS: SODIUM CHLORIDE 0.9% 1000ML 1,000 ML IV SCH (20:44)
--- NOTE | 2021-02-28 21:08 | Urology Consultation ---
Date of Consultation February 28, 2021 Assessment & Plan (1) Epididymitis: -Continue IV abx (cefepime) -After 24-36 hours, will consider transitioning to oral abx -ICE to area -Scrotal elevation (2) Obstructive uropathy: -Continue Lowery catheter to gravity drainage -Can f/u as outpatient to discuss surgical options (HOLEP) -Lowery needs to be changed every 4 weeks -I would not rec another Void Trial History of Present Illness Reason for Consultation: Right Orchitis Attending Physician: Thomas Agosto DO History of Present Illness 80 y/o male with a hx of BPH, pyelo, and acute urinary retention s/p lowery placement. Main complaint is right testicular pain and swelling x3 days. As seen in HPI of the H&P, he has been in and out of the hospital over the last month for pyelo, UTI, and retention. Upon arrival a DOMINGUEZ and CT scan were performed. This confirmed a very large prostate with the lowery catheter in adequate place. He is due to seek a consult on the outside for possible HOLEP. DOMINGUEZ showed: Heterogeneous and hypervascular right greater than left testicles and right epididymis is suggestive of acute orchitis with epididymitis. CT Scan: Prostamegaly with urinary bladder wall thickening redemonstrated suggestive of chronic bladder outlet obstruction. Correlate with urinalysis to exclude cystitis. Right-sided hydrocele. Please refer to the same day scrotal ultrasound for additional findings. Bilateral inguinal hernias, right greater than left with nonobstructed small bowel again noted extending into the right hernia sac. No fevers. No chills. WBC: 24. Cr: 2.7. Allergies Allergy/AdvReac Type Severity Reaction Status Date / Time No Known Allergies Allergy Verified 02/28/21 12:19 Home Medications Medication Instructions Recorded Confirmed Type finasteride 5 mg tablet 5 mg PO DAILY #90 tab 01/26/21 02/28/21 Rx tamsulosin 0.4 mg capsule 0.4 mg PO DAILY #90 cap 01/26/21 02/28/21 Rx vit C,E,zinc,copper-lemag6x 250 1 cap PO DAILY 01/28/21 02/28/21 History mg-lutein 5 mg-zeaxanthin 1 mg capsule (Ocuvite Adult 50 Plus) amlodipine 5 mg tablet (Norvasc) 5 mg PO QAM 30 Days #30 tab 02/03/21 02/28/21 Rx Patient History Medical History (Updated 02/28/21 @ 18:32 by Adilson Balderas DO) Acute on chronic renal failure Acute retention of urine Acute UTI Elevated PSA Elevated troponin Epididymitis HTN (hypertension), benign Obstructive uropathy Testicular pain Urinary tract infection Surgical History No pertinent past surgical history Family History Other Family history non-contributory Social History Smoking Status: Light tobacco smoker Tobacco Type: Cigars Hx Alcohol Use: Yes Alcohol type: hard liquor Hx Substance Use: No Preferred Language: Fijian Communication Ability: Effective Steam Tank Operator Required: No Beliefs That Will Affect Care: None Current Living Situation: Spouse Other Information That Helps Us Care for You: No Feels Safe at Home: Yes Safety Concerns: Feels Safe At This Time Assistive Devices: None Review of Systems Constitutional: as per Subjective / HPI Physical Exam Constitutional: WD/WN, vitals as above Neck: trachea midline, no thyromegaly Cardiovascular: RRR, no murmur, no edema Gastrointestinal (Abdomen): normal bowel sounds, soft, nontender, no hepatosplenomegaly Skin: no rashes, warm and dry Genitourinary: Right scrotal tenderness/swelling. Mild erythema. Lymphatic: no cervical or axillary lymphadenopathy Results & Data ([facility]) Vital Signs (Past 12 Hours) Vital Signs Temp Pulse Pulse Resp BP BP Pulse Ox 02/28/21 20:00 37.9 C H 91 H 18 143/55 H 100 02/28/21 19:00 85 21 116/61 93 02/28/21 18:30 88 17 105/49 L 94 02/28/21 18:00 84 21 119/57 L 98 02/28/21 17:30 90 22 113/55 L 93 02/28/21 17:00 99 H 89 22 121/58 L 121/58 L 96 02/28/21 16:30 102 H 24 115/46 L 93 02/28/21 16:00 102 H 24 131/59 L 94 02/28/21 15:30 99 H 21 145/63 H 96 02/28/21 15:00 100 H 100 H 24 127/48 L 127/48 L 94 02/28/21 13:56 89 24 138/67 97 02/28/21 13:03 87 18 117/60 96 02/28/21 13:01 87 18 96 02/28/21 11:45 37.0 C 102 H 20 114/55 L 100 PG Care Time/CCT Total # of Minutes Spent Total Time Spent with Patient: Total time spent is greater than 50% in coordination of care (as documented) at patient's floor/unit and/or counseling patient: 60 Coding Level of Care Code 08134 Inpt Consult Level 4 Diagnoses Epididymitis N45.1 Obstructive uropathy N13.9
[2021-02-28] MEDS: ACETAMINOPHEN 500 MG TAB PO SCH (22:18)
[2021-03-01] MEDS: SODIUM CHLORIDE 0.9% 1000ML 1,000 ML IV SCH (04:23)
[2021-03-01 05:56] LABS: Hematocrit (blood only) 32.8 % (42-52); Mean Corpuscular Hemoglobin 29.8 pg (25-34); Mean Corpuscular Hgb Conc 33.5 g/dL (32-36); Mean Corpuscular Volume 88.9 fL (80-100); Mean Platelet Volume 8.3 fL (7.4-10.4); Platelet Count 176 K/uL (130-400); RDW Coefficient of Variation 14.6 % (11.5-14.5); RDW Standard Deviation 47.8 fL (36.4-46.3); Red Blood Count 3.69 M/uL (4.7-6.1); White Blood Count 29.26 K/uL (4.8-10.8)
[2021-03-01] MEDS: ACETAMINOPHEN 500 MG TAB PO SCH ×3 (06:07→22:17)
[2021-03-01 06:26] LABS: BUN Creatinine Ratio 16.4 (10-20); Calcium 9.1 mg/dl (8.5-10.1); Creatinine Clr Calc Pharmacy 17.5 ml/min; Est GFR (African American) 21.7 ml/min; Est GFR (Non-African American) 18.7 ml/min; Potassium 4.1 mmol/L (3.5-5.1)
[2021-03-01] MEDS: FINASTERIDE 5 MG TAB PO SCH (08:55)
[2021-03-01] MEDS: TAMSULOSIN HCL 0.4 MG CAP PO SCH (08:55)
[2021-03-01] MEDS ORDERED: CEFEPIME 1,000 MG in SYRINGE 0 ML IV SCH (09:00)
--- NOTE | 2021-03-01 12:18 | Hospitalist Progress Note ---
Date of Service March 01, 2021 Assessment & Plan (1) Epididymitis: Plan: - By the vague definition of sepsis - patient does meet criteria based on leukocytosis, HR, and suspected source however is normotensive and suspect HR more related to discomfort and pain but will monitor; mentating fine and no multi-organ failure (renal function chronic and improving);no lactic drawn - CT - prostamegaly with urinary bladder wall thickening suggestive of chronic bladder outlet obstruction; R sided hydrocele; bilateral inguinal hernia (R > L) with nonobstructed small bowel extending into the R hernia sac; mild splenomegaly - Scrotal U/S - heterogeneous and hypervascular R greater than L testicles and R epididymis suggestive of acute orchitis with epididymitis; small mildly complex R sided hydrocele; R sided varicocele - Suspect this is a slightly more advanced case as patient presenting with R scrotal erythema, edema, a hydrocele which is likely reactive on imaging - currently afebrile and no urinary symptoms but does have Lowery placed - Suspect epididymitis likely urinary pathogens (grew pseudomonas most recently) given age and chronic issues with obstructive uropathy from BPH - did discuss and no risk factors to suggest coverage for STIs needed - Given Cefepime in ED and will continue with renal adjustments and adjust pending Cx - has grown coag neg staph and pseudomonas in the past - currently gram neg bacilli - BCx pending - already did receive a dose of Abx - Tylenol 1000 mg TID KATYA; Ibuprofen PRN; ice; and scrotal elevation - Consult Urology - appreciate any additional recommendations or further interventions; plan for IV Abx for 24-36 hrs and likely transitioned to oral abx -- Patient has a virtual appointment with Dr. Vizcarra on Tuesday - will discuss with Urology on Tuesday (2) Obstructive uropathy: Plan: - This appears to be in the setting of BPH and appears likely needing surgical correction - All recent Cr have been elevated ranging from 1.47-8.53 at highest -- appears baseline has been around 3-4 recently - Cr currently at 2.99 slightly up from admission with electrolytes acceptable will give IV hydration to assist with good urinary output and see if further improvement with renal function - Maintain lowery and likely may need kept until surgical intervention is performed - Continue Flomax and Finasteride (3) Elevated PSA: Plan: - Unable to see PSA in system; per Urology note previously > 30 (4) HTN (hypertension), benign: Plan: - Hold amlodipine for now (was changed to this on previous admissions due to renal function, was previously on ACEI) - BPs are acceptable and will monitor in setting of infection Plan: - Admit to medical. Suspect at least a few days IV Abx with possible conversion to oral Abx. Given prostatic enlargement and possibility of prostatitis will likely need longer course of coverage. Do not anticipate home needs - Anticipate outpatient surgical intervention for prostatic enlargement Admission and Anticipated Discharge Date Admission Date: February 28, 2021 Subjective Patient was febrile overnight but remains afebrile today. Reports his discomfort is a bit better today and does look more comfortable on assessment. Reports some improvement in his appetite today. No abdominal pain or nausea/vomiting. Verbalizes no new complaints Review of Systems Review of Systems: All systems reviewed & are unremarkable except as noted in Subjective Physical Exam Physical Exam: PHYSICAL EXAM General Appearance: WDWN in NAD who is A&O x 3 HEENT: Head is normocephalic/atraumatic; Hearing grossly intact; Mucous membranes moist Neck: Supple; Trachea midline; Neg JVD Heart: RRR with III/ murmur loudest at LUSB Lungs: CTA in all lung de la garza bilaterally; Respirations unlabored; Neg accessory muscle use Abdomen: Soft, non-tender, non-distended; Positive BS x 4 quadrants Extremities: Neg cyanosis or edema Neurological: Speech clear; Gross motor/sensory function intact; Neg focal neurologic deficits Psychiatric: Appropriate mood/affect Skin: Normal Color; Warm/Dry Results & Data Results & Data ([facility]) Vital Signs (Past 12 Hours) Vital Signs Temp Pulse Resp BP Pulse Ox 03/01/21 07:57 36.6 C 70 16 104/58 L 97 PG Care Time/CCT Total # of Minutes Spent Total Time Spent with Patient: Total time spent is greater than 50% in coordination of care (as documented) at patient's floor/unit and/or counseling patient: Coding Level of Care Code 23854 Subseq Hosp Care Lvl 3 Diagnoses Epididymitis N45.1 Obstructive uropathy N13.9 Elevated PSA R97.20 HTN (hypertension), benign I10
[2021-03-01] MEDS ORDERED: CEFEPIME 1,000 MG in SYRINGE 0 ML IV ONE (15:00)
[2021-03-01] MEDS: IBUPROFEN 600 MG TAB PO PRN (20:17)
[2021-03-02] MEDS: ACETAMINOPHEN 500 MG TAB PO SCH ×3 (05:57→22:32)
[2021-03-02] MEDS: TAMSULOSIN HCL 0.4 MG CAP PO SCH (08:29)
[2021-03-02] MEDS: FINASTERIDE 5 MG TAB PO SCH (08:29)
[2021-03-02] MEDS: CEFEPIME 2,000 MG in SYRINGE 0 ML IV SCH (08:35)
[2021-03-02 09:28] LABS: Hematocrit (blood only) 29.9 % (42-52); Hemoglobin 9.9 g/dL (14.0-18.0); Mean Corpuscular Hemoglobin 29.2 pg (25-34); Mean Corpuscular Hgb Conc 33.1 g/dL (32-36); Mean Corpuscular Volume 88.2 fL (80-100); Mean Platelet Volume 8.7 fL (7.4-10.4); Platelet Count 144 K/uL (130-400); RDW Coefficient of Variation 14.6 % (11.5-14.5); RDW Standard Deviation 47.3 fL (36.4-46.3); Red Blood Count 3.39 M/uL (4.7-6.1); White Blood Count 21.67 K/uL (4.8-10.8)
[2021-03-02 10:22] LABS: BUN Creatinine Ratio 17.6 (10-20); Creatinine Clr Calc Pharmacy 20.3 ml/min; Est GFR (African American) 25.9 ml/min; Est GFR (Non-African American) 22.3 ml/min; Potassium 3.7 mmol/L (3.5-5.1)
--- NOTE | 2021-03-02 17:34 | Hospitalist Progress Note ---
Date of Service March 02, 2021 Assessment & Plan (1) Epididymitis: Plan: - By the vague definition of sepsis - patient did meet criteria based on leukocytosis, HR, and suspected source however remained normotensive and suspect HR more related to discomfort and pain; mentating fine and no multi-organ failure (renal function chronic and improving);no lactic drawn - CT - prostamegaly with urinary bladder wall thickening suggestive of chronic bladder outlet obstruction; R sided hydrocele; bilateral inguinal hernia (R > L) with nonobstructed small bowel extending into the R hernia sac; mild splenomegaly - Scrotal U/S - heterogeneous and hypervascular R greater than L testicles and R epididymis suggestive of acute orchitis with epididymitis; small mildly complex R sided hydrocele; R sided varicocele - Suspect this is a slightly more advanced case as patient presenting with R scrotal erythema, edema, a hydrocele which is likely reactive on imaging - edema is improving and only minimally tender - Suspect epididymitis likely urinary pathogens (grew pseudomonas most recently) given age and chronic issues with obstructive uropathy from BPH - did discuss and no risk factors to suggest coverage for STIs needed - Given Cefepime in ED and will continue with renal adjustments - growing pansensitive pseudomonas - given recent dosing on Cipro may be warranted to use Levaquin with close F/U and monitoring for any worsening of symptoms that may result in need for IV Abx coverage - BCx - NGTD - Tylenol 1000 mg TID KATYA; Ibuprofen PRN; ice; and scrotal elevation - Consult Urology - appreciate any additional recommendations or further interventions; plan for IV Abx for 24-36 hrs and likely transitioned to oral abx -- Patient has a virtual appointment with Dr. Vizcarra but going to reschedule to discuss surgical option -- Patient may be best served with pre-op and post-op Abx coverage as question if there is some seeding on the prostate as even with the Lowery exchange it quickly became infected even with just being on Cipro that was completed about 10 days prior (2) Obstructive uropathy: Plan: - This appears to be in the setting of BPH and appears likely needing surgical correction - All recent Cr have been elevated ranging from 1.47-8.53 at highest -- appears baseline has been around 3-4 recently - Cr currently at 2.58 with electrolytes acceptable; gave some IVF on admission - Maintain lowery and likely may need kept until surgical intervention is performed - Continue Flomax and Finasteride (3) Elevated PSA: Plan: - Being followed by Urology (4) HTN (hypertension), benign: Plan: - Hold amlodipine for now (was changed to this on previous admissions due to renal function, was previously on ACEI) - BPs are acceptable and will monitor in setting of infection Plan: - Admit to medical. IV Abx tomorrow and if clinically well likely can D/C home on orals with close outpatient F/U. Given prostatic enlargement and possibility of prostatitis will likely need longer course of coverage. Do not anticipate home needs - Anticipate outpatient surgical intervention for prostatic enlargement Admission and Anticipated Discharge Date Admission Date: February 28, 2021 Subjective No acute events overnight. Remains afebrile. Reporting minimal pain at this time and only with forceful palpation of the R testicle. He reports scrotal edema is reduced some but still present. He reports his appetite is improving and tolerating a diet. Review of Systems Review of Systems: All systems reviewed & are unremarkable except as noted in Subjective Physical Exam Physical Exam: PHYSICAL EXAM General Appearance: WDWN in NAD who is A&O x 3 HEENT: Head is normocephalic/atraumatic; Hearing grossly intact Neck: Supple; Trachea midline; Neg JVD Heart: RRR with III/ murmur loudest at LUSB Lungs: CTA in all lung de la garza bilaterally; Respirations unlabored; Neg accessory muscle use Abdomen: Soft, non-tender, non-distended; Positive BS x 4 quadrants Extremities: Neg cyanosis or edema : R sided scrotal edema improved from admission; minimally tender R testicle at location of the epididymis; + lowery catheter Neurological: Speech clear; Gross motor/sensory function intact; Neg focal neurologic deficits Psychiatric: Appropriate mood/affect Skin: Normal Color; Warm/Dry Results & Data Results & Data ([facility]) Vital Signs (Past 12 Hours) Vital Signs Temp Pulse Resp BP Pulse Ox 03/02/21 15:37 36.5 C 70 16 110/62 97 03/02/21 09:39 36.7 C 68 18 109/50 L 99 PG Care Time/CCT Total # of Minutes Spent Total Time Spent with Patient: Total time spent is greater than 50% in coordination of care (as documented) at patient's floor/unit and/or counseling patient: Coding Level of Care Code 78950 Subseq Hosp Care Lvl 2 Diagnoses Epididymitis N45.1 Obstructive uropathy N13.9 Elevated PSA R97.20 HTN (hypertension), benign I10
[2021-03-03] MEDS: ACETAMINOPHEN 500 MG TAB PO SCH (06:14)
[2021-03-03 08:33] LABS: Hematocrit (blood only) 28.5 % (42-52); Hemoglobin 9.4 g/dL (14.0-18.0); Mean Corpuscular Hemoglobin 29.2 pg (25-34); Mean Corpuscular Volume 88.5 fL (80-100); Mean Platelet Volume 8.9 fL (7.4-10.4); Platelet Count 172 K/uL (130-400); RDW Coefficient of Variation 14.6 % (11.5-14.5); RDW Standard Deviation 47.8 fL (36.4-46.3); Red Blood Count 3.22 M/uL (4.7-6.1)
[2021-03-03 08:46] LABS: BUN Creatinine Ratio 17.1 (10-20); Calcium 8.7 mg/dl (8.5-10.1); Creatinine Clr Calc Pharmacy 22.5 ml/min; Est GFR (African American) 29.4 ml/min; Est GFR (Non-African American) 25.4 ml/min; Potassium 3.9 mmol/L (3.5-5.1)
[2021-03-03] MEDS: FINASTERIDE 5 MG TAB PO SCH (09:53)
[2021-03-03] MEDS: CEFEPIME 2,000 MG in SYRINGE 0 ML IV SCH (09:53)
[2021-03-03] MEDS: TAMSULOSIN HCL 0.4 MG CAP PO SCH (09:54)
--- NOTE | 2021-03-03 12:52 | Discharge Summary ---
Date of Service March 03, 2021 Reviewed case with Mally Desouza PA-C, did visit patient prior to discharge patient feels capable of going home Admission HPI Per Admitting Provider Mr. De La Cruz is an 80 y/o male with PMHx Obstructive Uropathy 2/2 BPH, Urinary Retention with Lowery Placement, HTN, and R inguinal hernia who presents to the ED c/o R testicular pain x 2-3 days. Patient was admitted 01/15-01/18 for pyelonephritis with bacteremia (coag neg staph) related to obstructive uropathy. He was D/Cd with a lowrey and had a TOV while outpatient which he failed and needed replacement of lowery. He was again admitted 01/28-02/03 for sepsis related to pseudomonas bacteremia/UTI and was on Abx until February 17. Patient reports overall feeling well. He was at the Urologist office on 01/25 for another TOV but failed. Per , when trying to void in the office he nearly passed out due to straining and lowery was replaced. His urologist feels this is likely due to his prostatic enlargement. His urologist feels he will need surgical intervention and favors HoLEP which talking with patient and they are leaning towards this but no this cannot be performed locally. Patient also states he had a new PSA drawn as the previous was elevated but cannot see either in our system. He is to have a telehealth visit with Dr. Vizcarra on 03/03. Since that time he has gradually developed worsening R testicular pain. He reports no pain at rest but movement aggravates and the R testicle is tender to palp. He does not report any known fever. He does endorse a reduce appetite but no abdominal pain, nausea, vomiting. He is with no concerns for STIs. He is moving his bowels normally. No dysuria or urgency or frequency. In the ED, he is afebrile with appropriate BPs. Minimally tachycardic. He is noted to have a leukocytosis of 24. Creatinine is 2.7 which is improved from last labs in system. Electrolytes are acceptable. He was given Cefepime x 1 dose and UCx obtain and pending. Principal Diagnosis Epididymitis; Pseudomonas UTI Discharge Exam PHYSICAL EXAM General Appearance: WDWN in NAD who is A&O x 3 HEENT: Head is normocephalic/atraumatic; Hearing grossly intact Neck: Supple; Trachea midline; Neg JVD Heart: RRR with III/ murmur loudest at LUSB Lungs: CTA in all lung de la garza bilaterally; Respirations unlabored; Neg accessory muscle use Abdomen: Soft, non-tender, non-distended; Positive BS x 4 quadrants Extremities: Neg cyanosis or edema : R sided scrotal edema improved from admission; minimally tender R testicle at location of the epididymis; + lowery catheter Neurological: Speech clear; Gross motor/sensory function intact; Neg focal neurologic deficits Psychiatric: Appropriate mood/affect Skin: Normal Color; Warm/Dry Discharge Data Allergies Allergy/AdvReac Type Severity Reaction Status Date / Time No Known Allergies Allergy Verified 02/28/21 12:19 Consultations 02/28/21 14:13 ED Decision to Admit Stat 02/28/21 19:44 Consult Urology Routine Ordered Studies Scrotum Ultrasound 02/28/21 12:32 US scrotum/testicle CLINICAL HISTORY: 80 years-old Male with r testicle pain. Acute right-sided scrotal pain COMPARISON STUDY: CT abdomen and pelvis of same day, testicular ultrasound 06/23/2020 TECHNIQUE: Real-time, grayscale, and color Doppler sonography of the testes and scrotum is performed. Images are reviewed in the transverse and longitudinal planes. FINDINGS: RIGHT HEMISCROTUM: The right testis measures 4.3 x 2.9 x 2.8 cm and the parenchyma appears heterogeneous and hypervascular. No intratesticular mass is seen. Normal-appearing arterial inflow is present within the right testicle. The right epididymis is also heterogeneous and hypervascular. Hypoechoic focus of the right epididymal head measuring up to 0.5 cm suggests epididymal cyst. Small mildly complex hydrocele with septations. Small varicocele. LEFT HEMISCROTUM: The left testis measures 4.2 x 1.7 x 2.2 cm and the parenchyma appears mildly heterogeneous. No intratesticular mass is seen. Normal-appearing arterial inflow is present within the left testicle. The left epididymal head appears normal. No varicocele or hydrocele is identified. IMPRESSION: 1. Heterogeneous and hypervascular right greater than left testicles and right epididymis is suggestive of acute orchitis with epididymitis. 2. Small mildly complex right-sided hydrocele. 3. Right-sided varicocele ACT 112: Negative or not required by law. The above report was generated using voice recognition software. It may contain grammatical, syntax or spelling errors. Electronically signed by: Sylvain Shukla M.D. 02/28/2021 2:05 PM Abdomen/Pelvis CT 02/28/21 13:[address] WITHOUT CONTRAST CT DOSE: 364.57 mGy.cm HISTORY: Acute right-sided testicular pain r groin pain mass going into scrotum TECHNIQUE: Multiaxial CT images of the abdomen and pelvis were performed without contrast. A dose lowering technique was utilized adhering to the principles of ALARA. COMPARISON STUDY: Scrotal ultrasound of same day, CT abdomen and pelvis 01/28/2021 FINDINGS: Coronary artery calcifications. The imaged inferior cardiac chambers are unremarkable. There is no pneumatosis or pneumoperitoneum. The spleen is mildly enlarged, 13.5 cm in length. Unremarkable pancreas and adrenal glands. The gallbladder is mildly distended. The unenhanced liver is within normal limits. Mild cortical thinning of the left kidney. Bilateral perinephric stranding has improved from prior. No renal or ureteral calculi or hydrone phrosis. Lowery catheter is present within a decompressed urinary bladder. Marked urinary bladder wall thickening with perivesicular inflammatory stranding redemonstrated. Prostamegaly. A few tiny subcentimeter soft tissue nodules in the pelvis are redemonstrated suggestive of probable lymph nodes. Atherosclerosis of the aorta without aneurysm. Mild infrarenal abdominal aortic ectasia 2.6 cm fluid-filled mildly distended distal esophagus. No bowel obstruction. Small left and moderate right facet filled inguinal hernias. The right inguinal hernia also contains nonobstructed loop of small bowel. Colonic diverticulosis. Mild fecal retention. Noninflamed appendix. Heterogeneous right testicle with right hydrocele. Unremarkable soft tissues. Degenerative changes of the spine, pelvis and hips. IMPRESSION: 1. No bowel obstruction or bowel wall thickening. 2. Prostamegaly with urinary bladder wall thickening redemonstrated suggestive of chronic bladder outlet obstruction. Correlate with urinalysis to exclude cystitis. 3. Right-sided hydrocele. Please refer to the same day scrotal ultrasound for additional findings. 4. Bilateral inguinal hernias, right greater than left with nonobstructed small bowel again noted extending into the right hernia sac. 5. Mild splenomegaly. 6. Additional findings as above. ACT 112: Negative or not required by law. The above report was generated using voice recognition software. It may contain grammatical, syntax or spelling errors. Electronically signed by: Sylvain Shukla M.D. 02/28/2021 2:28 PM Hospital Course (1) Epididymitis: - By the vague definition of sepsis - patient did meet criteria based on leukocytosis, HR, and suspected source however remained normotensive and suspect HR more related to discomfort and pain; mentating fine and no multi-organ failure (renal function chronic and improving);no lactic drawn - CT - prostamegaly with urinary bladder wall thickening suggestive of chronic bladder outlet obstruction; R sided hydrocele; bilateral inguinal hernia (R > L) with nonobstructed small bowel extending into the R hernia sac; mild splenomeg patricia - Scrotal U/S - heterogeneous and hypervascular R greater than L testicles and R epididymis suggestive of acute orchitis with epididymitis; small mildly complex R sided hydrocele; R sided varicocele - Suspect this is a slightly more advanced case as patient presenting with R scrotal erythema, edema, a hydrocele which is likely reactive on imaging - edema is improving and only minimally tender - Suspect epididymitis likely urinary pathogens (grew pseudomonas most recently) given age and chronic issues with obstructive uropathy from BPH - did discuss and no risk factors to suggest coverage for STIs needed - Given Cefepime with renal adjustments - growing pansensitive pseudomonas - given recent dosing on Cipro will use Levaquin with renal dosing with close F/U and monitoring for any worsening of symptoms that may result in need for IV Abx coverage -- Discussed verbally and in writing warning signs to return to ED - BCx - NGTD - Tylenol PRN; ice; and scrotal elevation - Consulted Urology - plan for IV Abx for 24-36 hrs and likely transitioned to oral abx -- Patient has a virtual appointment with Dr. Vizcarra but going to reschedule to discuss surgical option -- Patient may be best served with pre-op and post-op Abx coverage as question if there is some seeding on the prostate as even with the Lowery exchange it quickly became infected even with just being on Cipro that was compl eted about 10 days prior. Patient dose state he was feeling well after ceasing Abx and do think he was well covered up to that time (2) Obstructive uropathy: - This appears to be in the setting of BPH and appears likely needing surgical correction - All recent Cr have been elevated ranging from 1.47-8.53 at highest -- appears baseline has been around 3-4 recently - Cr currently at 2.32 with electrolytes acceptable; gave some IVF on admission - Maintain lowery and likely may need kept until surgical intervention is performed - Continue Flomax and Finasteride (3) Elevated PSA: - Being followed by Urology (4) HTN (hypertension), benign: - Hold amlodipine for now (was changed to this on previous admissions due to renal function, was previously on ACEI) - BPs are acceptable/stable - Abx as above; F/U with PCP and Urology - Outpatient surgical intervention for prostatic enlargement - patient leaning toward HoLEP procedure instead of TURP which would need to be performed at outside facility Total Time Total Time Spent Total Time Spent (In Minutes): Spent greater than 30 minutes preparing patient for discharge. This includes discussion with patient/family, assessment, intervention, medication reconciliation, and coordination of care. Discharge Plan Discharge Items Patient Disposition: Home - Self-Care Reason For Visit: OBSTRUCTIVE UROPATHY WITH SEPSIS, EPIDIYMITIS Discharge Diagnosis: Epididymitis; Urinary Tract Infection with Pseudomonas Activity: Resume your previous activity Non-emergency contact: Primary Care Provider and Urologist Call non-emergency contact if: you have any medication questions, your symptoms worsen and you have a fever Follow-up/Referrals: Kip Vizcarra MD [Physician] - 03/16/21 3:40 pm (Virtual phone visit ) Akash Swift MD [Primary Care Provider] - 03/10/21 9:10 am Diet: Regular Addtl Attending Provider Instructions: Epididymitis and Pseudomonas Urinary Tract Infection: - You were admitted due to infection from the urine and inflammation in the epididymis which is the tissue that sits above the testicle. Thankfully your pain has improved since arrival. - You can continue to take Tylenol as needed for discomfort. Would only use Ibuprofen minimally as this type of medicine is filtered more through the kidney. Recommend to continue elevation of the scrotum and ice packs for comfort. Recommend supportive brief underwear to help reduce pain - You were treated with Cefepime for antibiotics in the hospital and have responded very well. Because of your enlarged prostate we would like to treat your infection longer than we normally do for urinary tract infections to make sure all infection is taken care of. Suspect you may need to have antibiotic co verage before and after your prostate procedure depending on when this is scheduled. You can discuss this with Dr. Vizcarra. - We will change you to oral antibiotics. You do not need to take any today () as you had a once a day dose here in the hospital -- On 03/04/2021 - Start Levaquin 750 mg EVERY OTHER DAY. For instance take on the , , , , , 15, 17, , and the . Then you will be completed - Given ongoing antibiotics, you should consider starting a probiotic to help prevent a anti-biotic induced diarrhea called c. diff. You can buy probiotics over the counter. As well, if you like yogurt you can eat this as it has good probiotics in it. REASONS TO RETURN: - IF YOU START DEVELOPING WORSENING PAIN, FEVER, WEAKNESS, FEELING UNWELL. PLEASE GET CHECKED OUT RIGHT AWAY. ACCORDING TO YOUR URINE CULTURE THE LEVAQUIN WILL COVER THE BACTERIA IN YOUR URINE HOWEVER SOMETIMES INFECTION CAN WORSEN EVEN ON ANTIBIOTICS. IF THAT OCCURS YOU MAY NEED TO STAY ON IV ANTIBIOTICS TO COMPLETE TREATMENT AND WOULD NEED TO COME BACK TO THE HOSPITAL TO GET THAT ARRANGED WE ARE GOING TO USE LEVAQUIN YOUR ANTIBIOTIC. SOMETIMES WE HAVE SEEN THIS ANTIBIOTIC CAN CAUSE SOME CONFUSION IN OLDER PATIENTS. WE DO NOT KNOW WHY THIS OCCURS BUT IF YOU DO NOT FEEL YOUR NORMAL SELF OR IF FAMILY THINKS YOU ARE NOT ACTING YOUR NORMAL SELF PLEASE COME TO THE ER WE MAY NEED TO CHANGE YOUR ANTIBIOTIC. SINCE YOU WERE ON CIPRO RECENTLY WE WOULD LIKE TO AVOID THAT MEDICATION RIGHT NOW. LEVAQUIN IS IN THE SAME DRUG CLASS CIPRO SO YOU MAY TOLERATE THIS WITHOUT ISSUE Obstructive Uropathy with Elevated Kidney Numbers: - Due to the enlarged prostate it can impact adequate urine flow which is why the lowery catheter is placed. Likely will need this catheter until your prostate is corrected - Your creatinine or your kidney number is improved down to 2.58 which is wonderful. Recommend to keep hydrated and aim for pale yellow clear urine to guage if you are hydrating enough. - Continue your Flomax and Finasteride as previously prescribed - Follow-up with Dr. Vizcarra to discuss surgical options for the prostate High Blood Pressure: - Your blood pressure has been fantastic here. You can continue the Amlodipine but if you monitor your blood pressure at home you may not really need this medication. You can discuss this with your family doctor. Pending Studies at Discharge: No Stand-Alone Forms: My [facility], Smoking Cessation Medications and DC Order Prescriptions: New levofloxacin 750 mg tablet 750 mg PO Q48H Qty: 9 RF: 0 Continued tamsulosin 0.4 mg capsule 0.4 mg PO DAILY Qty: 90 RF: 3 finasteride 5 mg tablet 5 mg PO DAILY Qty: 90 RF: 3 Ocuvite Adult 50 Plus 250-5-1 mg Capsule 1 cap PO DAILY RF: 0 amlodipine [Norvasc] 5 mg Tablet 5 mg PO QAM 30 Days Qty: 30 RF: 0 Discharge Orders: Discharge Order (Routine); Ordered 03/03/21 Ordered By: Mally Tan/Other Patient Handouts: ED Epididymitis Admission Data Admit Date/Time: 02/28/21 15:48 Attending Provider: Surendra Gonzalez Admit Provider: Thomas Agosto Primary Care Provider: Akash Swift Other Providers: Thomas Agosto ; Riccardo Mishra Other Interventions: Discharge Summary Assessment (RN) Last Done: 03/03/21 12:41 Coding Level of Care Code D/C DAY MANAGEMENT >30 MINS Diagnoses Epididymitis N45.1 Obstructive uropathy N13.9 Elevated PSA R97.20 HTN (hypertension), benign I10
== END 2021-03-03 14:45 | disposition home or self-care (01) | DRG 728 ==
LOC: ED 11:42 → EDINP 15:48 → SUATTDRO 15:48 → 3W 19:37

== ENCOUNTER 2022-08-26 16:32 | Inpatient (IN) ==
[2022-08-26] MEDS ORDERED: METOPROLOL TARTRATE 1 MG/ML VIAL IV ONE (16:44)
[2022-08-26] MEDS ORDERED: METOPROLOL TARTRATE 1 MG/ML VIAL IV STA ×3 (16:46→18:21)
[2022-08-26] MEDS ORDERED: SODIUM CHLORIDE 0.9% 1000ML 1,000 ML IV ONE (16:49)
[2022-08-26 17:07] LABS: Basophils # (auto) 0.03 K/uL (0-0.2); Basophils % (auto) 0.3 %; Eosinophils % (auto) 0.9 %; Hematocrit (blood only) 35.5 % (42.0-52.0); Hemoglobin 12.3 g/dl (14.0-18.0); Immature Granulocytes # (auto) 0.04 K/uL (0.01-0.20); Immature Granulocytes % (auto) 0.4 %; Lymphocytes # (auto) 0.65 K/uL (1.2-3.4); Mean Corpuscular Hemoglobin 30.4 pg (25.0-34.0); Mean Corpuscular Hgb Conc 34.6 g/dL (32.0-36.0); Mean Corpuscular Volume 87.9 fL (80.0-100.0); Mean Platelet Volume 9.4 fL (9.4-12.4); Monocytes # (auto) 0.65 K/uL (0.11-0.59); Neutrophils % (auto) 86.4 %; Platelet Count 233 K/uL (130-400); RDW Coefficient of Variation 13.4 % (11.5-14.5); RDW Standard Deviation 42.7 fL (36.4-46.3); Red Blood Count 4.04 M/uL (4.70-6.10); White Blood Count 10.77 K/ul (4.8-10.8)
--- NOTE | 2022-08-26 17:09 | Emergency Department Note ---
Impression & Plan New onset atrial flutter, Elevated troponin, CKD (chronic kidney disease), Atrial flutter with rapid ventricular response ED Provider Note NAME: BRODERICK BREWER AGE: 81 SEX: M ARRIVES VIA: Ambulance INFORMANT: Patient ED PROVIDER(S): Ken Marti MD CHIEF COMPLAINT: Tachycardia, referred. PLAN: Disposition: Admit MEDICAL DECISION MAKING: The patient is a pleasant 81-year-old gentleman with a past medical history of hypertension, BPH, aortic stenosis who presents to the emergency department referred from [facility] PCP office where he had presented for evaluation for generalized weakness and lightheadedness that has been evolving over the past several days where today he felt as though he was going to faint when he was walking. He denies any chest pain, shortness of breath. Despite heart rate being in the 160s denies any feeling of palpitations. He denies any recent illness including fevers, cough, congestion, GI or symptoms. Per EMS report there was suspicion for possible SVT and multiple vagal maneuvers were attempted without effect. On arrival to the emergency department the patient is no acute distress, afebrile with heart rate in the 160s with narrow complex tachycardia blood pressure 140s/80s and vital signs otherwise stable. He appears dry to euvolemic. EKG on arrival demonstrates narrow complex tachycardia of 158 which is suspicious for atrial flutter, there is no overt ST elevation though ST abnormalities are present. Twelve-lead obtained with prolonged horizontal axis which better demonstrates suspected atrial flutter with variable block. The patient was given 10 mg of IV Lopressor given the degree of his tachycardia as well as IV fluid hydration x1 L normal saline and subsequently had improved rate control to the 110s and further demonstrates underlying atrial flutter with variable AV block. Chest x-ray with interstitial thickening. WBC and platelets within normal limits. H/H 12.3/35.5 on high-end of prior range values without recent for comparison. Chemistry without metabolic acidosis. Creatinine 2.3, similar to prior range values in setting of history of CKD. Magnesium 1.9, low normal with repletion provided. AST 41, nonspecific and similar to prior. LFTs otherwise unremarkable. Initial high-sensitivity troponin 2900, nonspecific and suspected to be related to prolonged RVR, possibly for several days though ACS is also considered however the patient denies chest pain. Lipase is nonelevated. TSH within normal limits. I did perform a limited bedside cardiac ultrasound which demonstrated suspected cardiomyopathy related to prolonged tachycardia. IVC was plethoric. Suspected trace-small pericardial effusion. Given these findings patient was given 20 mg of IV Lasix. Patient denies any history of GI bleeding or bleeding otherwise and so full dose aspirin administered in addition to low-dose heparin bolus and drip. Findings reviewed the patient is at the bedside and admission was recommended for further management. At this point the patient's heart rate returned to the 140s and persisted in atrial flutter with RVR. He was given additional 5 mg of IV Lopressor with subsequent improvement in rate. Case was discussed with JOSE MARIA Bill PAC, with JOSE MARIA Jules hospitalist who will evaluate the patient for admission. Case additionally discussed with Sol Azar cardiology. Appreciate consultation and recommendations. Agrees with treatment plan and continued rate control with addition of p.o. metoprolol tartrate 25 mg twice daily to start. Admitting team updated. Of note, tickborne illness testing ordered for completeness given possible trac e-small pericardial effusion. Lyme screen was subsequently positive for IgM antibody. Western blot sent and pending. Further management per admitting team. Triage Nursing notes reviewed and agree them. Prior/outside medical records reviewed Vital Signs: reviewed Differential diagnosis: Premature contractions, electrolyte abnormality, cardiac dysrhythmia, thyroid dysfunction, pulmonary embolism, infection, gastrointestinal, as well as other pathologies. ER treatment provided: See below. Diagnostics interpreted by me: ECG: Atrial flutter with variable AV block, 158 bpm, ST abnormality without overt ST elevation. Cardiac Monitoring: An order for continuous cardiac monitoring was placed and demonstrated atrial flutter with variable AV block, 158 bpm. Laboratory studies: See below Imaging studies: See below Consultation(s): JOSE MARIA Bill PAC, with JOSE MARIA Jules hospitalist. Sol Azar cardiology HPI: The patient is a pleasant 81-year-old gentleman with a past medical history of hypertension, BPH, aortic stenosis who presents to the emergency department referred from [facility] PCP office where he had presented for evaluation for generalized weakness and lightheadedness that has been evolving over the past several days where today he felt as though he was going to faint when he was w alking. He denies any chest pain, shortness of breath. Despite heart rate being in the 160s denies any feeling of palpitations. He denies any recent illness including fevers, cough, congestion, GI or symptoms. Per EMS report there was suspicion for possible SVT and multiple vagal maneuvers were attempted without effect. ROS: See above HPI for pertinent positives & negatives. A total of 10 systems reviewed and were otherwise negative. VITALS:See Below PHYSICAL EXAMINATION: GENERAL: Awake, alert, well-appearing, in no distress HENT: Normocephalic, atraumatic. Oropharynx with dry mucous membranes and otherwise unremarkable. EYES: Normal conjunctiva. Sclera non-icteric. NECK: Supple. No nuchal rigidity. FROM. No JVD. RESPIRATORY: Clear to auscultation. CARDIAC: Tachycardic rate, normal rhythm. Extremities warm and well perfused. Pulses equal. ABDOMEN: Soft, non-distended. No tenderness to palpation. No rebound or guarding. No masses. RECTAL: Deferred. MUSCULOSKELETAL: Chest examination reveals no tenderness. The back is symmetrical on inspection without obvious abnormality. There is no CVA tenderness to palpation. No joint edema. LOWER EXTREMITIES: Calves are equal size bilaterally and non-tender. No edema. No discoloration. NEURO: Normal sensorium. No sensory or motor deficits noted. SKIN: No rash or jaundice noted. ED COURSE: Critical Care: I have personally spent greater than 65 minutes of critical care time in the direct management of this patient. This includes bedside care, interpretation of diagnostic studies, and testing, discussion with consultants, patient, and family members, and other required patient management activities. This 65 minutes is in excess of all separately billable procedures. Ken Marti MD Past Med/Surg History Medical History Acute kidney injury Acute on chronic renal failure Acute retention of urine Acute UTI Bacteremia Diarrhea Elevated PSA Elevated troponin Epididymitis HLD (hyperlipidemia) HTN (hypertension) HTN (hypertension), benign Hypomagnesemia Hyponatremia Metabolic acidosis Obstructive uropathy Sepsis Testicular pain Transaminitis Urinary tract infection Surgical History No pertinent past surgical history Family History Other Family history non-contributory Social History Smoking Status: Never smoker Tobacco Type: Cigars Hx Alcohol Use: No Hx Substance Use: No Preferred Language: Macedonian Communication Ability: Effective Theatre Professor Required: No Beliefs That Will Affect Care: None marital status: Current Living Situation: Spouse Other Information That Helps Us Care for You: No Feels Safe at Home: Yes Safety Concerns: Feels Safe At This Time Assistive Devices: None Allergies Allergies Allergy/AdvReac Type Severity Reaction Status Date / Time No Known Allergies Allergy Verified 08/26/22 17:07 Home Meds Home Medications Medication Instructions Recorded Confirmed lisinopril 10 mg tablet 10 mg PO DAILY 08/26/22 08/26/22 Results & Data (ED) Vital Signs Vital Signs - 24 hr 08/26/22 16:47 08/26/22 16:39 08/26/22 16:39 Temperature 36.5 C Temperature Source Temporal Artery Scan Pulse Rate 159 H 158 H 159 H Pulse Rate from SpO2 Sensor 159 H Respiratory Rate 20 30 H Respiratory Effort / Characteristics Non-Labored Spontaneous Respiratory Depth Normal Blood Pressure 141/81 H Blood Pressure Mean 101 Pulse Oximetry 97 96 Oxygen Delivery Method Room Air Sepsis Recent Fever Within 48 Hours No Sepsis New/Unexplained Change in Mental Status No Sepsis Action Taken by Nursing No Action Required 08/26/22 16:40 08/26/22 16:45 08/26/22 16:45 Temperature Temperature Source Pulse Rate 158 H 157 H Pulse Rate from SpO2 Sensor 159 H 157 H Respiratory Rate 19 21 Respiratory Effort / Characteristics Respiratory Depth Blood Pressure 141/89 H Blood Pressure Mean 106 Pulse Oximetry 97 95 Oxygen Delivery Method Sepsis Recent Fever Within 48 Hours Sepsis New/Unexplained Change in Mental Status Sepsis Action Taken by Nursing 08/26/22 16:50 08/26/22 17:00 08/26/22 17:10 Temperature Temperature Source Pulse Rate 151 H 125 H Pulse Rate from SpO2 Sensor 150 H 143 H Respiratory Rate 26 H 31 H Respiratory Effort / Characteristics Respiratory Depth Blood Pressure 115/83 Blood Pressure Mean 93 Pulse Oximetry 95 94 Oxygen Delivery Method Sepsis Recent Fever Within 48 Hours Sepsis New/Unexplained Change in Mental Status Sepsis Action Taken by Nursing 08/26/22 17:10 08/26/22 17:16 08/26/22 17:16 Temperature Temperature Source Pulse Rate 115 H 109 H Pulse Rate from SpO2 Sensor 116 H 132 H Respiratory Rate 21 21 Respiratory Effort / Characteristics Respiratory Depth Blood Pressure 99/70 L Blood Pressure Mean 79 Pulse Oximetry 99 89 L Oxygen Delivery Method Sepsis Recent Fever Within 48 Hours Sepsis New/Unexplained Change in Mental Status Sepsis Action Taken by Nursing 08/26/22 17:20 08/26/22 17:30 08/26/22 17:30 Temperature Temperature Source Pulse Rate 113 H 97 H Pulse Rate from SpO2 Sensor 117 H 108 H Respiratory Rate 20 19 Respiratory Effort / Characteristics Respiratory Depth Blood Pressure 103/73 Blood Pressure Mean 83 Pulse Oximetry 98 95 Oxygen Delivery Method Sepsis Recent Fever Within 48 Hours Sepsis New/Unexplained Change in Mental Status Sepsis Action Taken by Nursing 08/26/22 17:40 08/26/22 17:45 08/26/22 17:45 Temperature Temperature Source Pulse Rate 98 H 99 H Pulse Rate from SpO2 Sensor 51 L 56 L Respiratory Rate 21 20 Respiratory Effort / Characteristics Respiratory Depth Blood Pressure 115/68 Blood Pressure Mean 83 Pulse Oximetry 96 93 Oxygen Delivery Method Sepsis Recent Fever Within 48 Hours Sepsis New/Unexplained Change in Mental Status Sepsis Action Taken by Nursing 08/26/22 17:50 08/26/22 18:00 08/26/22 18:00 Temperature Temperature Source Pulse Rate 99 H 110 H Pulse Rate from SpO2 Sensor 50 L 62 Respiratory Rate 24 24 Respiratory Effort / Characteristics Respiratory Depth Blood Pressure 104/70 Blood Pressure Mean 81 Pulse Oximetry 97 97 Oxygen Delivery Method Sepsis Recent Fever Within 48 Hours Sepsis New/Unexplained Change in Mental Status Sepsis Action Taken by Nursing 08/26/22 18:10 08/26/22 18:16 08/26/22 18:16 Temperature Temperature Source Pulse Rate 141 H 139 H Pulse Rate from SpO2 Sensor 140 H 142 H Respiratory Rate 16 21 Respiratory Effort / Characteristics Respiratory Depth Blood Pressure 109/88 Blood Pressure Mean 95 Pulse Oximetry 97 94 Oxygen Delivery Method Sepsis Recent Fever Within 48 Hours Sepsis New/Unexplained Change in Mental Status Sepsis Action Taken by Nursing 08/26/22 18:20 08/26/22 18:30 08/26/22 18:30 Temperature Temperature Source Pulse Rate 141 H 139 H Pulse Rate from SpO2 Sensor 137 H 141 H Respiratory Rate 27 H 25 H Respiratory Effort / Characteristics Respiratory Depth Blood Pressure 106/80 Blood Pressure Mean 88 Pulse Oximetry 96 97 Oxygen Delivery Method Sepsis Recent Fever Within 48 Hours Sepsis New/Unexplained Change in Mental Status Sepsis Action Taken by Nursing 08/26/22 18:40 Temperature Temperature Source Pulse Rate 137 H Pulse Rate from SpO2 Sensor 135 H Respiratory Rate 19 Respiratory Effort / Characteristics Respiratory Depth Blood Pressure Blood Pressure Mean Pulse Oximetry 96 Oxygen Delivery Method Sepsis Recent Fever Within 48 Hours Sepsis New/Unexplained Change in Mental Status Sepsis Action Taken by Nursing Laboratory Data Attestation: I reviewed the patient's lab results. 08/26/22 16:40 08/26/22 16:40 Lab Results 08/26/22 08/26/22 08/26/22 Range/Units 16:40 16:40 16:40 WBC 10.77 (4.8-10.8) K/ul RBC 4.04 L (4.70-6.10) M/uL Hgb 12.3 L (14.0-18.0) g/dl Hct 35.5 L (42.0-52.0) % MCV 87.9 (80.0-100.0) fL MCH 30.4 (25.0-34.0) pg MCHC 34.6 (32.0-36.0) g/dL RDW Std Deviation 42.7 (36.4-46.3) fL RDW Coeff of Jovi 13.4 (11.5-14.5) % Plt Count 233 (130-400) K/uL MPV 9.4 (9.4-12.4) fL Immature Gran % (Auto) 0.4 % Neut % (Auto) 86.4 % Lymph % (Auto) 6.0 % Lamb % (Auto) 6.0 % Eos % (Auto) 0.9 % Baso % (Auto) 0.3 % Neut # (Auto) 9.30 H (1.40-6.50) K/uL Lymph # (Auto) 0.65 L (1.2-3.4) K/uL Lamb # (Auto) 0.65 H (0.11-0.59) K/uL Eos # (Auto) 0.10 (0-0.50) K/uL Baso # (Auto) 0.03 (0-0.2) K/uL Immature Gran # (Auto) 0.04 (0.01-0.20) K/uL PT (9.0-12.0) Seconds INR (0.9-1.1) APTT (21.0-31.0) Seconds PTT Ratio Sodium 135 L (136-145) mmol/L Potassium 4.7 (3.5-5.1) mmol/L Chloride 104 (98-107) mmol/L Carbon Dioxide 21 (21-32) mmol/L Anion Gap 10 (3-11) BUN 40 H (6-23) mg/dl Creatinine 2.38 H (0.6-1.4) mg/dl Est Cr Clr Drug Dosing 23.2 ml/min Est GFR ( Amer) 28.3 ml/min Est GFR (Non-Af Amer) 24.5 ml/min BUN/Creatinine Ratio 16.8 (10-20) Glucose 109 H (70-99(Fasting)) mg/dl Calcium 9.2 (8.6-10.3) mg/dl Phosphorus 4.0 (2.5-4.9) mg/dl Magnesium 1.9 (1.7-2.4) mg/dl Total Bilirubin 0.5 (0.2-1.0) mg/dl AST 41 H (13-39) U/L ALT 28 (7-52) U/L Alkaline Phosphatase 84 (34-104) U/L Troponin I High Sens 2956.6 H* (0-20) pg/ml Total Protein 7.1 (6.0-8.3) gm/dl Albumin 4.0 (3.4-5.0) gm/dl Globulin 3.1 (2.5-4.0) gm/dl Albumin/Globulin Ratio 1.3 (0.9-2) Lipase 15 (11-82) U/L TSH 2.390 (0.300-4.500) uIu/ml Lyme Disease IgG Ab (Negative) Lyme Disease IgM Ab (Negative) SARS-CoV-2, RNA, NAAT (NEGATIVE) 08/26/22 08/26/22 08/26/22 Range/Units 16:40 16:40 16:56 WBC (4.8-10.8) K/ul RBC (4.70-6.10) M/uL Hgb (14.0-18.0) g/dl Hct (42.0-52.0) % MCV (80.0-100.0) fL MCH (25.0-34.0) pg MCHC (32.0-36.0) g/dL RDW Std Deviation (36.4-46.3) fL RDW Coeff of Jovi (11.5-14.5) % Plt Count (130-400) K/uL MPV (9.4-12.4) fL Immature Gran % (Auto) % Neut % (Auto) % Lymph % (Auto) % Lamb % (Auto) % Eos % (Auto) % Baso % (Auto) % Neut # (Auto) (1.40-6.50) K/uL Lymph # (Auto) (1.2-3.4) K/uL Lamb # (Auto) (0.11-0.59) K/uL Eos # (Auto) (0-0.50) K/uL Baso # (Auto) (0-0.2) K/uL Immature Gran # (Auto) (0.01-0.20) K/uL PT 11.5 (9.0-12.0) Seconds INR 1.1 (0.9-1.1) APTT 25.3 (21.0-31.0) Seconds PTT Ratio 0.9 Sodium (136-145) mmol/L Potassium (3.5-5.1) mmol/L Chloride (98-107) mmol/L Carbon Dioxide (21-32) mmol/L Anion Gap (3-11) BUN (6-23) mg/dl Creatinine (0.6-1.4) mg/dl Est Cr Clr Drug Dosing ml/min Est GFR ( Amer) ml/min Est GFR (Non-Af Amer) ml/min BUN/Creatinine Ratio (10-20) Glucose (70-99(Fasting)) mg/dl Calcium (8.6-10.3) mg/dl Phosphorus (2.5-4.9) mg/dl Magnesium (1.7-2.4) mg/dl Total Bilirubin (0.2-1.0) mg/dl AST (13-39) U/L ALT (7-52) U/L Alkaline Phosphatase (34-104) U/L Troponin I High Sens (0-20) pg/ml Total Protein (6.0-8.3) gm/dl Albumin (3.4-5.0) gm/dl Globulin (2.5-4.0) gm/dl Albumin/Globulin Ratio (0.9-2) Lipase (11-82) U/L TSH (0.300-4.500) uIu/ml Lyme Disease IgG Ab Positive A (Negative) Lyme Disease IgM Ab Negative (Negative) SARS-CoV-2, RNA, NAAT NEGATIVE (NEGATIVE) 08/26/22 Range/Units 18:39 WBC (4.8-10.8) K/ul RBC (4.70-6.10) M/uL Hgb (14.0-18.0) g/dl Hct (42.0-52.0) % MCV (80.0-100.0) fL MCH (25.0-34.0) pg MCHC (32.0-36.0) g/dL RDW Std Deviation (36.4-46.3) fL RDW Coeff of Jovi (11.5-14.5) % Plt Count (130-400) K/uL MPV (9.4-12.4) fL Immature Gran % (Auto) % Neut % (Auto) % Lymph % (Auto) % Lamb % (Auto) % Eos % (Auto) % Baso % (Auto) % Neut # (Auto) (1.40-6.50) K/uL Lymph # (Auto) (1.2-3.4) K/uL Lamb # (Auto) (0.11-0.59) K/uL Eos # (Auto) (0-0.50) K/uL Baso # (Auto) (0-0.2) K/uL Immature Gran # (Auto) (0.01-0.20) K/uL PT (9.0-12.0) Seconds INR (0.9-1.1) APTT (21.0-31.0) Seconds PTT Ratio Sodium (136-145) mmol/L Potassium (3.5-5.1) mmol/L Chloride (98-107) mmol/L Carbon Dioxide (21-32) mmol/L Anion Gap (3-11) BUN (6-23) mg/dl Creatinine (0.6-1.4) mg/dl Est Cr Clr Drug Dosing ml/min Est GFR ( Amer) ml/min Est GFR (Non-Af Amer) ml/min BUN/Creatinine Ratio (10-20) Glucose (70-99(Fasting)) mg/dl Calcium (8.6-10.3) mg/dl Phosphorus (2.5-4.9) mg/dl Magnesium (1.7-2.4) mg/dl Total Bilirubin (0.2-1.0) mg/dl AST (13-39) U/L ALT (7-52) U/L Alkaline Phosphatase (34-104) U/L Troponin I High Sens 3514.0 H* (0-20) pg/ml Total Protein (6.0-8.3) gm/dl Albumin (3.4-5.0) gm/dl Globulin (2.5-4.0) gm/dl Albumin/Globulin Ratio (0.9-2) Lipase (11-82) U/L TSH (0.300-4.500) uIu/ml Lyme Disease IgG Ab (Negative) Lyme Disease IgM Ab (Negative) SARS-CoV-2, RNA, NAAT (NEGATIVE) Administered Medications Heparin Sodium/Dextrose (Heparin Sodium/Dextrose) 25,000 units in 500 mls @ 17 mls/hr IV .Q24H KATYA; Protocol Stop: 09/25/22 18:44 Last Admin: 08/26/22 19:23 Dose: 850 units/hr, 17 mls/hr Documented By: MELONIE Co-signed By: AJYSON Metoprolol Tartrate (Metoprolol Tartrate 25 Mg Tab) 25 mg PO Q6H KATYA Stop: 09/26/22 01:59 Last Admin: 08/27/22 01:55 Dose: 25 mg Documented By: PAH Discontinued Medications Aspirin (Aspirin Chew 324 Mg) 324 mg PO NOW STA Stop: 08/26/22 18:24 Last Admin: 08/26/22 18:35 Dose: 324 mg Documented By: HS Furosemide (Furosemide Inj 20 Mg/2 Ml Vial) 20 mg IV ONE ONE Stop: 08/26/22 18:22 Last Admin: 08/26/22 18:34 Dose: 20 mg Documented By: HS Heparin Sodium (Porcine) (Heparin Sod (Porcine) 1000 Unit/Ml) 1 units IV NOW ONE Stop: 08/26/22 18:40 Last Admin: 08/26/22 19:24 Dose: Not Given Documented By: MELONIE Heparin Sodium (Porcine) (Heparin Sod (Porcine) 1000 Unit/Ml) 4,000 units IV NOW ONE Stop: 08/26/22 19:01 Last Admin: 08/26/22 19:22 Dose: 4,000 units Documented By: MELONIE Co-signed By: JAYSON Sodium Chloride (Nss 1000ml) 1,000 mls @ 999 mls/hr IV .Q1H1M ONE Stop: 08/26/22 17:49 Last Infusion: 08/26/22 18:05 Dose: 0 mls/hr Documented By: Admin: 08/26/22 16:57 Dose: 999 mls/hr Documented By: DILLON Magnesium Sulfate/Dextrose (Magnesium Sulfate / D5w) 1 gm in 100 mls @ 100 mls/hr IV NOW STA Stop: 08/26/22 18:59 Last Infusion: 08/26/22 19:05 Dose: 0 mls/hr Documented By: Admin: 08/26/22 18:04 Dose: 100 mls/hr Documented By: DILLON Famotidine 20 mg/ Syringe 5 mls @ 2.5 mls/min IV NOW STA Stop: 08/26/22 19:21 Last Admin: 08/26/22 19:32 Dose: 2.5 mls/min Documented By: MELONIE Metoprolol Tartrate (Metoprolol Tartrate 1 Mg/Ml Vial) Confirm Administered Dose 10 mg IV .STK-MED ONE Stop: 08/26/22 16:45 Last Admin: 08/26/22 16:57 Dose: Not Given Documented By: DILLON Metoprolol Tartrate (Metoprolol Tartrate 1 Mg/Ml Vial) 5 mg IV NOW STA Stop: 08/26/22 16:47 Last Admin: 08/26/22 18:05 Dose: Not Given Documented By: DILLON Metoprolol Tartrate (Metoprolol Tartrate 1 Mg/Ml Vial) 10 mg IV NOW STA Stop: 08/26/22 16:48 Last Admin: 08/26/22 16:46 Dose: 10 mg Documented By: DILLON Metoprolol Tartrate (Metoprolol Tartrate 1 Mg/Ml Vial) 5 mg IV NOW STA Stop: 08/26/22 18:22 Last Admin: 08/26/22 18:34 Dose: 5 mg Documented By: DILLON Metoprolol Tartrate (Metoprolol Tartrate 50 Mg Tab) 25 mg PO NOW STA Stop: 08/26/22 18:50 Last Admin: 08/26/22 19:10 Dose: 25 mg Documented By: MELONIE Imaging Data Radiologist's Impression: Chest X-Ray 08/26/22 16:46 XR chest 1V portable CLINICAL HISTORY: Chest pain, nonspecific COMPARISON STUDY: Chest radiograph January 28, 2021. FINDINGS: There is no pneumothorax or pleural effusion. Mild interstitial thickening is present. Cardiomediastinal silhouette is stable. There is no consolidation to suggest pneumonia. IMPRESSION: Interstitial thickening suggestive of mild interstitial pulmonary edema. ACT 112: Negative or not required by law. Electronically signed by: Arnoldo Mera M.D. 08/26/2022 5:30 PM Discharge Plan Visit Data Chief Complaint: Cardiac Assessment Stated Complaint: TACHYCARDIA ED Provider: Ken Marti Discharge Problem: New onset atrial flutter, Elevated troponin, CKD (chronic kidney disease), Atrial flutter with rapid ventricular response Patient Disposition: Admitted As Inpatient Discharge Instructions Interventions: ED Discharge Assessment Last Done: 08/26/22 19:45
[2022-08-26 17:26] LABS: Albumin Globulin Ratio 1.3 (0.9-2); BUN Creatinine Ratio 16.8 (10-20); Bilirubin,Total 0.5 mg/dl (0.2-1.0); Calcium 9.2 mg/dl (8.6-10.3); Creatinine Clr Calc Pharmacy 23.2 ml/min; Est GFR (African American) 28.3 ml/min; Est GFR (Non-African American) 24.5 ml/min; Globulin 3.1 gm/dl (2.5-4.0); Magnesium 1.9 mg/dl (1.7-2.4); Potassium 4.7 mmol/L (3.5-5.1); Total Protein 7.1 gm/dl (6.0-8.3)
--- NOTE | 2022-08-26 17:31 | XRay Report ---
XR chest 1V portable CLINICAL HISTORY: Chest pain, nonspecific COMPARISON STUDY: Chest radiograph January 28, 2021. FINDINGS: There is no pneumothorax or pleural effusion. Mild interstitial thickening is present. Card iomediastinal silhouette is stable. There is no consolidation to suggest pneumonia. IMPRESSION: Interstitial thickening suggestive of mild interstitial pulmonary edema. ACT 112: Negative or not required by law. Electronically signed by: Arnoldo Mera M.D. 08/26/2022 5:30 PM
[2022-08-26 17:43] LABS: Troponin I High Sensitivity 2956.6 pg/ml (0-20)
[2022-08-26] MEDS ORDERED: MAGNESIUM SULFATE / D5W 1 GM/100 ML BAG IV STA (18:00)
[2022-08-26] MEDS ORDERED: FUROSEMIDE INJ 20 MG/2 ML VIAL IV ONE (18:21)
[2022-08-26] MEDS ORDERED: ASPIRIN CHEW 324 MG PO STA (18:23)
[2022-08-26] MEDS ORDERED: Heparin IV Adult Wt-Based Low-Dose WITH Bolus Protocol STA (18:24)
[2022-08-26] MEDS ORDERED: HEPARIN SOD (PORCINE) 1000 UNIT/ML IV ONE ×2 (18:39→19:00)
--- NOTE | 2022-08-26 18:44 | History & Physical Report ---
Date of Service August 26, 2022 Assessment & Plan (1) Atrial flutter: Plan: -Admit to the PCU on tele -HR currently in the low 100's but otherwise stable and symptomatic -Unsure of the etiology at this time, no major electrolyte abnormalities, TSH WNL, patient does have signs of congestive failure on CXR, but unsure if this is due to his HR + 1L NSS in the ED or was occurring prior to the onset of a- flutter -S/P 10 mg, then 5mg, and 5mg IV Lopressor and 25 mg PO metoprolol tartrate, 324 mg Aspirin, 1gm IV mag, 1L NSS, prior to admission -Initial high sen trop of 2956, no significant ST segment or T-wave inversions on ECG -Will obtain TTE tomorrow -Heparin drip started in the ED, continue for now then convert to PO anticoagulation prior to discharge -Will continue with 25 mg PO metoprolol tartrate q6h scheduled -5 mg IV lopressor q6h prn sustained HR > 140; communication to contact chief controller tower provider if needing to use -If HR is uncontrolled after IV Lopressor would recommend Dig; would avoid diltiazem until TTE tomorrow for evaluation of CHF -Will obtain BNP -Cardiology consult placed -Heparin for DVT PPX -Will start HH diet but make NPO except meds at midnight in case of cardiac cath tomorrow (2) Elevated troponin: Plan: -Initial high sen trop elevated at 2956 -->3514 on 2 hour repeat -Patient has been without chest pain or pressure -Exact etiology is unknown at this time but more likely to be NSTEMI at this time as he has been asymptomatic -Will continue to trend trop q6h overnight and monitor on tele -Continue heparin drip for now -Cards consult (3) HTN (hypertension), benign: Plan: -Stable -Will hold lisinopril for now to prevent hypotension with diuresis and PO/IV metoprolol (4) CKD (chronic kidney disease): Plan: -Currently stable -Monitor daily renal function and electrolytes Plan The patient was discussed with Dr. Bal at the time of the admission History of Present Illness Chief Complaint: Tachycardia Primary Care Provider: Valerie Kelley is an 81 year old male with a PMH significant for PMHx Obstructive Uropathy 2/2 BPH, Urinary Retention with Dixon Placement, CKD, and HTN who presented to the [facility] ED on 08/26 via EMS from his PCP's office due to tachycardia. In the ED the patient was found to be in a narrow complex tachycardia with HR in the 160's, but otherwise stable and asymptomatic. Labs were significant for stable renal function and initial high sen trop of 2956. The patient was initially given 5mg then 10 mg IV lopressor, 1gm IV mag, 1L NSS, and 324 mg Aspirin. He was started on a heparin drip both for a [id number] Score of 3 and possible ACS with his initial high sen trop. Prior to admission the patient's HR increased back into the 140's, he was given another 5 mg IV lopressor and then 20 mg IV lasix as bedside echo by the ED staff showed p ossible cardiomyopathy. At the time of the exam the patient was sitting in bed in no acute distress. His HR was in the 130's but he is still asymptomatic. He states that over the past few months he has had daily episodes of feeling lightheaded/dizzy. He states that this episodes would occur both at rest and with exertion. He denies the sensation that the room is spinning, and his symptoms do not occur with changes in position. He has never actually lost consciousness with these episodes. He has noticed recently that he has been having heart burn more frequently with an acidic taste in his mouth in the am. He confirms this feels like his usual heart burn, denies chest pain/pressure, and states that his symptoms are resolved after taking tums. He denies a previous history of coronary artery disease, heart failure, or previous cardiac cath. He does smoke 1-2 cigars approximately 3-4 times a week. We discussed the need for starting anticoagulation with his [id number] Score of 3. He denies a history of major bleeding such as GI bleed, hemorrhagic stroke, hematuria, or ambulatory dysfunction/frequent falls. He would like to proceed with the IV heparin drip that was ordered in the ED. We discussed code status; in the event of cardiac arrest her would not want CPR. However, he would want defibrillation in the event of shockable arrhythmia and would want a trial of intubation in the event of respiratory arrest/failure. If he could not make decisions himself he would want his to make medical decisions for him. Please refer to Dr. Bal's attestation for any changes to the treatment plan Allergies Allergy/AdvReac Type Severity Reaction Status Date / Time No Known Allergies Allergy Verified 08/26/22 17:07 Home Medications Medication Instructions Recorded Confirmed Type lisinopril 10 mg tablet 10 mg PO DAILY 08/26/22 08/26/22 History Past Med/Surg History Medical History Acute kidney injury Acute on chronic renal failure Acute retention of urine Acute UTI Bacteremia Diarrhea Elevated PSA Elevated troponin Epididymitis HLD (hyperlipidemia) HTN (hypertension) HTN (hypertension), benign Hypomagnesemia Hyponatremia Metabolic acidosis Obstructive uropathy Sepsis Testicular pain Transaminitis Urinary tract infection Surgical History No pertinent past surgical history Family History Other Family history non-contributory Social History Smoking Status: Never smoker Tobacco Type: Cigars Hx Alcohol Use: No Hx Substance Use: No Preferred Language: Frisian Communication Ability: Effective Mortgage Coordinator Required: No Beliefs That Will Affect Care: None marital status: Current Living Situation: Spouse Other Information That Helps Us Care for You: No Feels Safe at Home: Yes Safety Concerns: Feels Safe At This Time Assistive Devices: None Physical Exam Physical Exam: Physical Exam: General: In no acute distress, stated age, well-nourished, good hygiene HEENT: Normocephalic, atraumatic, no scleral icterus, pupils around round, symmetrical, and reactive to light, moist mucus membranes, trachea midline, no thyromegaly Chest/Pulm: No respiratory distress, symmetrical chest expansion, crackles noted in the BL lower lung de la garza Cardiac: tachycardic rate, regular rhythm, no murmurs noted Abdomen: Negative for ascites and bruising, normoactive bowel sounds, soft, non-tender to palpation throughout Musculoskeletal: Symmetrical and without signs of acute trauma, upper and lower extremities with full ROM, no atrophy, spasticity, or flaccidity Extremities: Radial, dorsalis pedis, and posterior tibial pulses are intact and symmetrical, no edema noted in the BL LE's Skin: Warm, dry, no rashes , lesions, or scars noted Neuro: Alert and oriented to person, place, month, year, and president, no focal defects, no tremors noted Psych: No acute distress, calm and cooperative during the exam Results & Data Results & Data Vital Signs (Past 12 Hours) Vital Signs Temp Pulse Resp BP Pulse Ox O2 Del Method 08/26/22 17:30 97 H 19 95 08/26/22 17:30 103/73 08/26/22 17:20 113 H 20 98 08/26/22 17:16 109 H 21 89 L 08/26/22 17:16 99/70 L 08/26/22 17:10 115 H 21 99 08/26/22 17:10 115/83 08/26/22 17:00 125 H 31 H 94 08/26/22 16:50 151 H 26 H 95 08/26/22 16:45 157 H 21 95 08/26/22 16:45 141/89 H 08/26/22 16:40 158 H 19 97 08/26/22 16:39 159 H 30 H 96 08/26/22 16:39 36.5 C 158 H 20 141/81 H 97 Room Air 08/26/22 16:47 159 H Laboratory Results Abnormal lab results 08/26/22 08/26/22 Range/Units 16:40 16:40 RBC 4.04 L (4.70-6.10) M/uL Hgb 12.3 L (14.0-18.0) g/dl Hct 35.5 L (42.0-52.0) % Neut # (Auto) 9.30 H (1.40-6.50) K/uL Lymph # (Auto) 0.65 L (1.2-3.4) K/uL [place] # (Auto) 0.65 H (0.11-0.59) K/uL Sodium 135 L (136-145) mmol/L BUN 40 H (6-23) mg/dl Creatinine 2.38 H (0.6-1.4) mg/dl Glucose 109 H (70-99(Fasting)) mg/dl AST 41 H (13-39) U/L Troponin I High Sens 2956.6 H* (0-20) pg/ml Diagnostic Findings Chest X-Ray 08/26/22 16:46 XR chest 1V portable CLINICAL HISTORY: Chest pain, nonspecific COMPARISON STUDY: Chest radiograph January 28, 2021. FINDINGS: There is no pneumothorax or pleural effusion. Mild interstitial thickening is present. Cardiomediastinal silhouette is stable. There is no consolidation to suggest pneumonia. IMPRESSION: Interstitial thickening suggestive of mild interstitial pulmonary edema. ACT 112: Negative or not required by law. Electronically signed by: Arnoldo Mera M.D. 08/26/2022 5:30 PM ECG Additional Comments: Supraventricular tachycardia Minimal voltage criteria for LVH, may be normal variant ( [place] product ) Anteroseptal infarct (cited on or before 26-AUG-2022) Marked ST abnormality, possible lateral subendocardial injury Abnormal ECG When compared with ECG of 28-JAN-2021 13:37, Premature ventricular complexes are no longer Present Vent. rate has increased BY 59 BPM Serial changes of evolving Anteroseptal infarct Present Code Status & VTE Plan Code Status Conditional code; NO CPR in the event of cardiac arrest. Would want defibrillation in the event of shockable rhythm. Would want trial of intubation in the event of respiratory failure VTE Prophylaxis Plan VTE Prophylaxis will be ordered: Yes Supervising Physician Co-Signing Physician Notes I personally saw and examined the patient. I verified all downey points and agree with Godfrey Yuen PA-C with the following exceptions and/or additions: 81 year old male presents to the ER with fatigue and lightheadedness. Progressively getting worse over the last 2 months with intermittent palpitations. He denies any chest pain or shortness of breath. O/E A&Ox3, HS increased rate, irregular rhythm, no murmurs, Chest mild bibasal crackles, no wheezing, Abdo SNT, normal cap refill A/P Atrial flutter with rapid ventricular rate - metoprolol 25mg PO q6h, add digoxin if rates still not controlled on this, Anticoagulation with IV heparin Elevated troponin - suspect some underlying CAD with increased rate and HR Acute CHF - suspect rate related HF with unknown ejection fraction. Agree with Lasix given in the ER. Will defer further doses to oncoming providers. Elevated high sensitivity troponin - Continue to trend. Already had ASA, metoprolol and on IV heparin. TTE in AM. If significant increase overnight or wall motion abnormalities on TTE suggest cardiology consult for further ischemic investigation although no acute symptoms suggestive of acute coronary syndrome. No ST elevation or ongoing symptoms to necessitate emergent cardiac cathete rization. PG Care Time/CCT Total # of Minutes Spent Total Time Spent with Patient: Total time spent is greater than 50% in coordination of care (as documented) at patient's floor/unit and/or counseling patient: [place] [address] INT INP/OBS CARE 3/75MIN Patient Type Established Medical Decision Making High Complexity Diagnoses Atrial flutter I48.92 Elevated troponin R77.8 HTN (hypertension), benign I10 CKD (chronic kidney disease) N18.9
[2022-08-26] MEDS ORDERED: METOPROLOL TARTRATE 50 MG TAB PO STA (18:49)
[2022-08-26] MEDS ORDERED: FAMOTIDINE 20 MG in SYRINGE 3 ML IV STA (19:20)
[2022-08-26] MEDS: HEPARIN SODIUM/DEXTROSE 25,000 UNITS/500 ML BAG IV SCH (19:23)
[2022-08-26 19:32] LABS: INR 1.1 (0.9-1.1); Partial Thromboplastin Ratio 0.9; Partial Thromboplastin Time 25.3 Seconds (21.0-31.0); Prothrombin Time 11.5 Seconds (9.0-12.0)
[2022-08-26] MEDS ORDERED: ACETAMINOPHEN 325 MG TAB PO PRN (20:12)
[2022-08-26] MEDS ORDERED: METOPROLOL TARTRATE 1 MG/ML VIAL IV PRN (20:12)
[2022-08-26 20:25] LABS: Lyme Ab IgM w/WB Rflx Negative (Negative)
[2022-08-26 20:43] LABS: Lyme Ab IgG w/WB Rflx Positive (Negative)
[2022-08-27] MEDS: METOPROLOL TARTRATE 25 MG TAB PO SCH ×2 (01:55→08:09)
[2022-08-27 02:21] LABS: Partial Thromboplastin Ratio 1.9
[2022-08-27 02:28] LABS: Partial Thromboplastin Time 52.3 Seconds (21.0-31.0)
[2022-08-27 08:08] LABS: INR 1.1 (0.9-1.1); Partial Thromboplastin Ratio 1.2; Partial Thromboplastin Time 32.5 Seconds (21.0-31.0)
[2022-08-27] MEDS: FAMOTIDINE 20 MG TAB PO SCH (08:09)
[2022-08-27 08:29] LABS: Magnesium 2.3 mg/dl (1.7-2.4); Troponin I High Sensitivity 3164.9 pg/ml (0-20)
[2022-08-27 08:46] LABS: Basophils # (auto) 0.06 K/uL (0-0.2); Basophils % (auto) 0.6 %; Hematocrit (blood only) 35.6 % (42.0-52.0); Hemoglobin 12.2 g/dl (14.0-18.0); Immature Granulocytes # (auto) 0.03 K/uL (0.01-0.20); Immature Granulocytes % (auto) 0.3 %; Lymphocytes # (auto) 1.11 K/uL (1.2-3.4); Lymphocytes % (auto) 11.1 %; Mean Corpuscular Hgb Conc 34.3 g/dL (32.0-36.0); Mean Corpuscular Volume 87.5 fL (80.0-100.0); Mean Platelet Volume 9.4 fL (9.4-12.4); Monocytes # (auto) 0.85 K/uL (0.11-0.59); Monocytes % (auto) 8.5 %; Neutrophils # (auto) 7.85 K/uL (1.40-6.50); Neutrophils % (auto) 78.5 %; Platelet Count 235 K/uL (130-400); RDW Coefficient of Variation 13.5 % (11.5-14.5); RDW Standard Deviation 42.8 fL (36.4-46.3); Red Blood Count 4.07 M/uL (4.70-6.10)
[2022-08-27 09:16] LABS: Albumin Globulin Ratio 1.2 (0.9-2); Albumin Level 3.8 gm/dl (3.4-5.0); BUN Creatinine Ratio 17.6 (10-20); Bilirubin,Total 0.7 mg/dl (0.2-1.0); Calcium 8.8 mg/dl (8.6-10.3); Est GFR (African American) 25.2 ml/min; Est GFR (Non-African American) 21.8 ml/min; Globulin 3.1 gm/dl (2.5-4.0); Potassium 5.2 mmol/L (3.5-5.1); Total Protein 6.9 gm/dl (6.0-8.3)
--- NOTE | 2022-08-27 10:26 | Cardiology Consultation ---
Date of Consultation August 27, 2022 Assessment & Plan (1) Atrial flutter with rapid ventricular response: (2) Severe calcific aortic stenosis: (3) Cardiomyopathy: (4) New onset atrial flutter: (5) CKD (chronic kidney disease): Plan 81-year-old male who presents subacutely noting several weeks history of lightheadedness and presyncope. Evaluation is demonstrated evidence of atrial flutter with rapid ventricular response, variable AV block. Echocardiogram demonstrates as previously suspected as an outpatient severe aortic stenosis. LV function has declined significantly from past studies with moderate to severe impairment globally. Underlying ischemic heart disease not completely excluded. Moderate to severe mitral tricuspid insufficiency are present Issues are addressed as follows 1. Atrial flutter with rapid ventricular response: Patient relatively asymptomatic but certainly contributing to current presentation. Rates variable between 2-1 and 3-1 AV conduction. Given declining LV function we will change metoprolol to tartrate to metoprolol succinate. Give single dose of IV digoxin now and follow heart rate with likely further dose. Will require renal adjustment. Patient appropriately anticoagulated with IV heparin would co ntinue. If patient fails to respond to medical therapies could consider elevated risk SATYA cardioversion though very reluctant in the setting of severe to critical aortic stenosis, declining ejection fraction 2. Severe calcific aortic stenosis: Discussed in detail with patient. Previously was addressed at outpatient visit on 08/11/2022 as previously and currently he declines further consideration for intervention including TAVR or surgical valve replacement. Optimally patient will transfer to [facility] for consideration of acute intervention. Markedly reduced prognosis in the setting of declining ejection fraction, congestive heart failure noted, syncope noted. Patient unwavering on his commitment. CODE STATUS addressed as such 3. Diffuse cardiomyopathy: Suspect multifactorial. Underlying ischemic heart disease not excluded with elevated troponin. Wall motion abnormalities are global and likely reflect atrial flutter with uncontrolled rate and underlying s evere aortic stenosis. Initial plans will be to control heart rate as above using heart failure indicated beta-ebenezer and digoxin. Follow closely for further heart failure but current exam without such. No further diuretics. Agree with holding lisinopril given aortic stenosis and worsening renal insufficiency. 4. CKD stage IV:Declining renal function as above multifactorial, Baseline GFR approximately 30. 5. Elevated troponin: Underlying ischemic heart disease not completely excluded echocardiogram suggest global issues likely demand ischemia based on valvular disease and rapid rate. Patient at elevated risk for coronary angiography given renal insufficiency worsening. Currently asymptomatic and no acute EKG abnormalities to suggest ischemia/injury. Management as already planned. Arrhythmia and valvular issues appear to be driving concern. History of Present Illness Reason for Consultation: Atrial flutter with variable AV block, rapid ventricular response Requesting Physician: Dr. Pagan Attending Physician: Carmen Pagan MD History of Present Illness Patient is a very complex 81-year-old male with ongoing issues and ongoing cardiac concerns include 1. New onset atrial flutter uncertain duration with rapid ventricular response 2. Severe calcific aortic stenosis 3. Reduced ejection fraction, global 4. Elevated troponin 5. Stage IV renal insufficiency 6. Obstructive uropathy Patient presented to the emergency room last evening with symptoms of lightheadedness and presyncope times several weeks duration. Initially sought evaluation at PCP office where he was found to be in atrial flutter with rapid response. Patient evaluated in ER with bedside quick look echo demonstrating decreased ejection fraction. Treated with oral and IV metoprolol, single dose of Lasix Heart rates remain elevated with varying between 2-1 3-1 AV conduction. Patient relatively comfortable denies any chest pains or discomfort notes no recent fevers chills or unexplained infections. Notes no bleeding difficulties. No acute weight loss or gain. Appetite fair. No difficulty taking medications. Patient has strong wishes regarding medical management. Had seen cardiology on 08/11/2022 with concerns regarding significant aortic stenosis addressed at that time with patient declining further investigation or intervention Allergies Allergy/AdvReac Type Severity Reaction Status Date / Time No Known Allergies Allergy Verified 08/26/22 17:07 Home Medications Medication Instructions Recorded Confirmed Type lisinopril 10 mg tablet 10 mg PO DAILY 08/26/22 08/26/22 History Patient History Medical History Acute kidney injury Acute on chronic renal failure Acute retention of urine Acute UTI Bacteremia Diarrhea Elevated PSA Elevated troponin Epididymitis HLD (hyperlipidemia) HTN (hypertension) HTN (hypertension), benign Hypomagnesemia Hyponatremia Metabolic acidosis Obstructive uropathy Sepsis Testicular pain Transaminitis Urinary tract infection Surgical History No pertinent past surgical history Family History Other Family history non-contributory Social History Smoking Status: Never smoker Tobacco Type: Cigars Hx Alcohol Use: No Hx Substance Use: No Preferred Language: Danish Communication Ability: Effective Tobacco Weigher Required: No Beliefs That Will Affect Care: None marital status: Current Living Situation: Spouse Other Information That Helps Us Care for You: No Feels Safe at Home: Yes Safety Concerns: Feels Safe At This Time Assistive Devices: None Review of Systems Review of Systems: All systems reviewed & are unremarkable except as noted in HPI & below Physical Exam Constitutional: average body habitus; no acute distress Eyes: PERRL, conjunctivae normal, anicteric sclerae ENMT: external ear and nose normal, oropharynx normal Neck: trachea midline, no thyromegaly Respiratory: normal respiratory effort, lungs clear to auscultation Cardiovascular: Rate/Rhythm: + tachycardic Heart Sounds: + murmur (Grade 2 or 6 systolic) Vessels: + JVD; + abnormal carotid upstroke (Diminished carotid upstroke) Extremities: no edema Gastrointestinal (Abdomen): normal bowel sounds, soft, nontender, no hepatosplenomegaly Musculoskeletal: no cyanosis or clubbing, extremities motor strength 5/5 Results & Data Vital Signs (Past 12 Hours) Vital Signs Temp Pulse Resp BP BP Pulse Ox O2 Del Method 08/27/22 07:23 36.5 C 135 H 18 116/87 90 Room Air 08/27/22 04:16 18 08/27/22 03:15 36.5 C 99 H 24 101/57 L 92 Room Air 08/26/22 23:27 35.8 C L 97 H 22 116/72 96 Room Air Laboratory Results Laboratory Results - last 24 hr 08/26/22 08/26/22 08/26/22 16:40 16:40 16:40 WBC 10.77 RBC 4.04 L Hgb 12.3 L Hct 35.5 L MCV 87.9 MCH 30.4 MCHC 34.6 RDW Std Deviation 42.7 RDW Coeff of Jovi 13.4 Plt Count 233 MPV 9.4 Immature Gran % (Auto) 0.4 Neut % (Auto) 86.4 Lymph % (Auto) 6.0 [place] % (Auto) 6.0 Eos % (Auto) 0.9 Baso % (Auto) 0.3 Neut # (Auto) 9.30 H Lymph # (Auto) 0.65 L [place] # (Auto) 0.65 H Eos # (Auto) 0.10 Baso # (Auto) 0.03 Immature Gran # (Auto) 0.04 Absolute Nucleated RBC Nucleated RBC % (auto) Neutrophils % (Manual) Band Neutrophils % Lymphocytes % (Manual) Prolymphocyte % Reactive Lymphs % (Man) Monocytes % (Manual) Eosinophils % (Manual) Basophils % (Manual) Metamyelocytes % (Man) Myelocytes % (Man) Promyelocytes % (Man) Blast Cells % (Manual) Plasma Cell % (Manual) Other Cells % Nucleated RBC % Neutrophils # (Manual) Band Neutrophils # Total Absolute Neuts Lymphocytes # (Manual) Prolymphocyte # Reactive Lymphs # Total Abs Lymphocytes Monocytes # (Manual) Eosinophils # (Manual) Basophils # (Manual) Metamyelocytes # (Man) Myelocytes # (Manual) Promyelocytes # (Man) Blast Cells # (Man) Plasma Cell # (Manual) Other Cells # Nucleated RBCs # (Man) Hypersegmented Neuts Hyposegmented Neuts Hypogranular Neuts Large Granular Lymphs # Lrg Granular Lymphs Hairy Cells Smudge Cells Toxic Granulation Toxic Vacuolation Dohle Bodies Corinne Rods Platelet Estimate Hypogranular Platelets Giant Platelets Platelet Satelliting RBC Morphology Polychromasia Hypochromasia Poikilocytosis Basophilic Stippling Anisocytosis Microcytosis Macrocytosis Spherocytes Pappenheimer Bodies Sickle Cells Target Cells Tear Drop Cells Ovalocytes Stomatocytes [place] Bodies Echinocytes Acanthocytes (Spur) Rouleaux RBC Agglutinates Schistocytes Sezary Cell PT INR APTT PTT Ratio Sodium 135 L Potassium 4.7 Chloride 104 Carbon Dioxide 21 Anion Gap 10 BUN 40 H Creatinine 2.38 H Est Cr Clr Drug Dosing 23.2 Est GFR ( Amer) 28.3 Est GFR (Non-Af Amer) 24.5 BUN/Creatinine Ratio 16.8 Glucose 109 H Calcium 9.2 Phosphorus 4.0 Magnesium 1.9 Total Bilirubin 0.5 AST 41 H ALT 28 Alkaline Phosphatase 84 Troponin I High Sens 2956.6 H* B-Natriuretic Peptide Total Protein 7.1 Albumin 4.0 Globulin 3.1 Albumin/Globulin Ratio 1.3 Lipase 15 TSH 2.390 Lyme Disease IgG Ab Lyme IgG (Western Blot) Lyme IgG 18 kDa Band Lyme IgG 23 kDa Band Lyme IgG 28 kDa Band Lyme IgG 30 kDa Band Lyme IgG 39 kDa Band Lyme IgG 41 kDa Band Lyme IgG 45 kDa Band Lyme IgG 58 kDa Band Lyme IgG 66 kDa Band Lyme IgG 93 kDa Band Lyme IgM Ab (WB) Lyme Disease IgM Ab Lyme IgM 23 kDa Band Lyme IgM 39 kDa Band Lyme IgM 41 kDa Band SARS-CoV-2, RNA, NAAT Blood Parasites ID 08/26/22 08/26/22 08/26/22 16:40 16:40 16:40 WBC RBC Hgb Hct MCV MCH MCHC RDW Std Deviation RDW Coeff of Jovi Plt Count MPV Immature Gran % (Auto) Neut % (Auto) Lymph % (Auto) [place] % (Auto) Eos % (Auto) Baso % (Auto) Neut # (Auto) Lymph # (Auto) [place] # (Auto) Eos # (Auto) Baso # (Auto) Immature Gran # (Auto) Absolute Nucleated RBC Nucleated RBC % (auto) Neutrophils % (Manual) Band Neutrophils % Lymphocytes % (Manual) Prolymphocyte % Reactive Lymphs % (Man) Monocytes % (Manual) Eosinophils % (Manual) Basophils % (Manual) Metamyelocytes % (Man) Myelocytes % (Man) Promyelocytes % (Man) Blast Cells % (Manual) Plasma Cell % (Manual) Other Cells % Nucleated RBC % Neutrophils # (Manual) Band Neutrophils # Total Absolute Neuts Lymphocytes # (Manual) Prolymphocyte # Reactive Lymphs # Total Abs Lymphocytes Monocytes # (Manual) Eosinophils # (Manual) Basophils # (Manual) Metamyelocytes # (Man) Myelocytes # (Manual) Promyelocytes # (Man) Blast Cells # (Man) Plasma Cell # (Manual) Other Cells # Nucleated RBCs # (Man) Hypersegmented Neuts Hyposegmented Neuts Hypogranular Neuts Large Granular Lymphs # Lrg Granular Lymphs Hairy Cells Smudge Cells Toxic Granulation Toxic Vacuolation Dohle Bodies Corinne Rods Platelet Estimate Hypogranular Platelets Giant Platelets Platelet Satelliting RBC Morphology Polychromasia Hypochromasia Poikilocytosis Basophilic Stippling Anisocytosis Microcytosis Macrocytosis Spherocytes Pappenheimer Bodies Sickle Cells Target Cells Tear Drop Cells Ovalocytes Stomatocytes [place] Bodies Echinocytes Acanthocytes (Spur) Rouleaux RBC Agglutinates Schistocytes Sezary Cell PT 11.5 INR 1.1 APTT 25.3 PTT Ratio 0.9 Sodium Potassium Chloride Carbon Dioxide Anion Gap BUN Creatinine Est Cr Clr Drug Dosing Est GFR ( Amer) Est GFR (Non-Af Amer) BUN/Creatinine Ratio Glucose Calcium Phosphorus Magnesium Total Bilirubin AST ALT Alkaline Phosphatase Troponin I High Sens B-Natriuretic Peptide Total Protein Albumin Globulin Albumin/Globulin Ratio Lipase TSH Lyme Disease IgG Ab Positive A Lyme IgG (Western Blot) Pending Lyme IgG 18 kDa Band Pending Lyme IgG 23 kDa Band Pending Lyme IgG 28 kDa Band Pending Lyme IgG 30 kDa Band Pending Lyme IgG 39 kDa Band Pending Lyme IgG 41 kDa Band Pending Lyme IgG 45 kDa Band Pending Lyme IgG 58 kDa Band Pending Lyme IgG 66 kDa Band Pending Lyme IgG 93 kDa Band Pending Lyme IgM Ab (WB) Pending Lyme Disease IgM Ab Negative Lyme IgM 23 kDa Band Pending Lyme IgM 39 kDa Band Pending Lyme IgM 41 kDa Band Pending SARS-CoV-2, RNA, NAAT Blood Parasites ID 08/26/22 08/26/22 08/26/22 16:56 18:39 20:25 WBC RBC Hgb Hct MCV MCH MCHC RDW Std Deviation RDW Coeff of Jovi Plt Count MPV Immature Gran % (Auto) Neut % (Auto) Lymph % (Auto) [place] % (Auto) Eos % (Auto) Baso % (Auto) Neut # (Auto) Lymph # (Auto) [place] # (Auto) Eos # (Auto) Baso # (Auto) Immature Gran # (Auto) Absolute Nucleated RBC Nucleated RBC % (auto) Neutrophils % (Manual) Band Neutrophils % Lymphocytes % (Manual) Prolymphocyte % Reactive Lymphs % (Man) Monocytes % (Manual) Eosinophils % (Manual) Basophils % (Manual) Metamyelocytes % (Man) Myelocytes % (Man) Promyelocytes % (Man) Blast Cells % (Manual) Plasma Cell % (Manual) Other Cells % Nucleated RBC % Neutrophils # (Manual) Band Neutrophils # Total Absolute Neuts Lymphocytes # (Manual) Prolymphocyte # Reactive Lymphs # Total Abs Lymphocytes Monocytes # (Manual) Eosinophils # (Manual) Basophils # (Manual) Metamyelocytes # (Man) Myelocytes # (Manual) Promyelocytes # (Man) Blast Cells # (Man) Plasma Cell # (Manual) Other Cells # Nucleated RBCs # (Man) Hypersegmented Neuts Hyposegmented Neuts Hypogranular Neuts Large Granular Lymphs # Lrg Granular Lymphs Hairy Cells Smudge Cells Toxic Granulation Toxic Vacuolation Dohle Bodies Corinne Rods Platelet Estimate Hypogranular Platelets Giant Platelets Platelet Satelliting RBC Morphology Polychromasia Hypochromasia Poikilocytosis Basophilic Stippling Anisocytosis Microcytosis Macrocytosis Spherocytes Pappenheimer Bodies Sickle Cells Target Cells Tear Drop Cells Ovalocytes Stomatocytes [place] Bodies Echinocytes Acanthocytes (Spur) Rouleaux RBC Agglutinates Schistocytes Sezary Cell PT INR APTT PTT Ratio Sodium Potassium Chloride Carbon Dioxide Anion Gap BUN Creatinine Est Cr Clr Drug Dosing Est GFR ( Amer) Est GFR (Non-Af Amer) BUN/Creatinine Ratio Glucose Calcium Phosphorus Magnesium Total Bilirubin AST ALT Alkaline Phosphatase Troponin I High Sens 3514.0 H* B-Natriuretic Peptide 1021 H Total Protein Albumin Globulin Albumin/Globulin Ratio Lipase TSH Lyme Disease IgG Ab Lyme IgG (Western Blot) Lyme IgG 18 kDa Band Lyme IgG 23 kDa Band Lyme IgG 28 kDa Band Lyme IgG 30 kDa Band Lyme IgG 39 kDa Band Lyme IgG 41 kDa Band Lyme IgG 45 kDa Band Lyme IgG 58 kDa Band Lyme IgG 66 kDa Band Lyme IgG 93 kDa Band Lyme IgM Ab (WB) Lyme Disease IgM Ab Lyme IgM 23 kDa Band Lyme IgM 39 kDa Band Lyme IgM 41 kDa Band SARS-CoV-2, RNA, NAAT NEGATIVE Blood Parasites ID 08/27/22 08/27/22 08/27/22 01:17 01:17 07:16 WBC Cancelled RBC Cancelled Hgb Cancelled Hct Cancelled MCV Cancelled MCH Cancelled MCHC Cancelled RDW Std Deviation Cancelled RDW Coeff of Jovi Cancelled Plt Count Cancelled MPV Cancelled Immature Gran % (Auto) Cancelled Neut % (Auto) Cancelled Lymph % (Auto) Cancelled [place] % (Auto) Cancelled Eos % (Auto) Cancelled Baso % (Auto) Cancelled Neut # (Auto) Cancelled Lymph # (Auto) Cancelled [place] # (Auto) Cancelled Eos # (Auto) Cancelled Baso # (Auto) Cancelled Immature Gran # (Auto) Cancelled Absolute Nucleated RBC Cancelled Nucleated RBC % (auto) Cancelled Neutrophils % (Manual) Cancelled Band Neutrophils % Cancelled Lymphocytes % (Manual) Cancelled Prolymphocyte % Cancelled Reactive Lymphs % (Man) Cancelled Monocytes % (Manual) Cancelled Eosinophils % (Manual) Cancelled Basophils % (Manual) Cancelled Metamyelocytes % (Man) Cancelled Myelocytes % (Man) Cancelled Promyelocytes % (Man) Cancelled Blast Cells % (Manual) Cancelled Plasma Cell % (Manual) Cancelled Other Cells % Cancelled Nucleated RBC % Cancelled Neutrophils # (Manual) Cancelled Band Neutrophils # Cancelled Total Absolute Neuts Cancelled Lymphocytes # (Manual) Cancelled Prolymphocyte # Cancelled Reactive Lymphs # Cancelled Total Abs Lymphocytes Cancelled Monocytes # (Manual) Cancelled Eosinophils # (Manual) Cancelled Basophils # (Manual) Cancelled Metamyelocytes # (Man) Cancelled Myelocytes # (Manual) Cancelled Promyelocytes # (Man) Cancelled Blast Cells # (Man) Cancelled Plasma Cell # (Manual) Cancelled Other Cells # Cancelled Nucleated RBCs # (Man) Cancelled Hypersegmented Neuts Cancelled Hyposegmented Neuts Cancelled Hypogranular Neuts Cancelled Large Granular Lymphs Cancelled # Lrg Granular Lymphs Cancelled Hairy Cells Cancelled Smudge Cells Cancelled Toxic Granulation Cancelled Toxic Vacuolation Cancelled Dohle Bodies Cancelled Corinne Rods Cancelled Platelet Estimate Cancelled Hypogranular Platelets Cancelled Giant Platelets Cancelled Platelet Satelliting Cancelled RBC Morphology Cancelled Polychromasia Cancelled Hypochromasia Cancelled Poikilocytosis Cancelled Basophilic Stippling Cancelled Anisocytosis Cancelled Microcytosis Cancelled Macrocytosis Cancelled Spherocytes Cancelled Pappenheimer Bodies Cancelled Sickle Cells Cancelled Target Cells Cancelled Tear Drop Cells Cancelled Ovalocytes Cancelled Stomatocytes Cancelled [place] Bodies Cancelled Echinocytes Cancelled Acanthocytes (Spur) Cancelled Rouleaux Cancelled RBC Agglutinates Cancelled Schistocytes Cancelled Sezary Cell Cancelled PT INR APTT 52.3 H* PTT Ratio 1.9 Sodium Potassium Chloride Carbon Dioxide Anion Gap BUN Creatinine Est Cr Clr Drug Dosing Est GFR ( Amer) Est GFR (Non-Af Amer) BUN/Creatinine Ratio Glucose Calcium Phosphorus Magnesium Total Bilirubin AST ALT Alkaline Phosphatase Troponin I High Sens 4137.1 H* B-Natriuretic Peptide Total Protein Albumin Globulin Albumin/Globulin Ratio Lipase TSH Lyme Disease IgG Ab Lyme IgG (Western Blot) Lyme IgG 18 kDa Band Lyme IgG 23 kDa Band Lyme IgG 28 kDa Band Lyme IgG 30 kDa Band Lyme IgG 39 kDa Band Lyme IgG 41 kDa Band Lyme IgG 45 kDa Band Lyme IgG 58 kDa Band Lyme IgG 66 kDa Band Lyme IgG 93 kDa Band Lyme IgM Ab (WB) Lyme Disease IgM Ab Lyme IgM 23 kDa Band Lyme IgM 39 kDa Band Lyme IgM 41 kDa Band SARS-CoV-2, RNA, NAAT Blood Parasites ID Cancelled 08/27/22 08/27/22 08/27/22 07:16 07:16 08:20 WBC 10.00 RBC 4.07 L Hgb 12.2 L Hct 35.6 L MCV 87.5 MCH 30.0 MCHC 34.3 RDW Std Deviation 42.8 RDW Coeff of Jovi 13.5 Plt Count 235 MPV 9.4 Immature Gran % (Auto) 0.3 Neut % (Auto) 78.5 Lymph % (Auto) 11.1 [place] % (Auto) 8.5 Eos % (Auto) 1.0 Baso % (Auto) 0.6 Neut # (Auto) 7.85 H Lymph # (Auto) 1.11 L [place] # (Auto) 0.85 H Eos # (Auto) 0.10 Baso # (Auto) 0.06 Immature Gran # (Auto) 0.03 Absolute Nucleated RBC Nucleated RBC % (auto) Neutrophils % (Manual) Band Neutrophils % Lymphocytes % (Manual) Prolymphocyte % Reactive Lymphs % (Man) Monocytes % (Manual) Eosinophils % (Manual) Basophils % (Manual) Metamyelocytes % (Man) Myelocytes % (Man) Promyelocytes % (Man) Blast Cells % (Manual) Plasma Cell % (Manual) Other Cells % Nucleated RBC % Neutrophils # (Manual) Band Neutrophils # Total Absolute Neuts Lymphocytes # (Manual) Prolymphocyte # Reactive Lymphs # Total Abs Lymphocytes Monocytes # (Manual) Eosinophils # (Manual) Basophils # (Manual) Metamyelocytes # (Man) Myelocytes # (Manual) Promyelocytes # (Man) Blast Cells # (Man) Plasma Cell # (Manual) Other Cells # Nucleated RBCs # (Man) Hypersegmented Neuts Hyposegmented Neuts Hypogranular Neuts Large Granular Lymphs # Lrg Granular Lymphs Hairy Cells Smudge Cells Toxic Granulation Toxic Vacuolation Dohle Bodies Corinne Rods Platelet Estimate Hypogranular Platelets Giant Platelets Platelet Satelliting RBC Morphology Polychromasia Hypochromasia Poikilocytosis Basophilic Stippling Anisocytosis Microcytosis Macrocytosis Spherocytes Pappenheimer Bodies Sickle Cells Target Cells Tear Drop Cells Ovalocytes Stomatocytes [place] Bodies Echinocytes Acanthocytes (Spur) Rouleaux RBC Agglutinates Schistocytes Sezary Cell PT 12.0 INR 1.1 APTT 32.5 H PTT Ratio 1.2 Sodium Cancelled Potassium Cancelled Chloride Cancelled Carbon Dioxide Cancelled Anion Gap Cancelled BUN Cancelled Creatinine Cancelled Est Cr Clr Drug Dosing Cancelled Est GFR ( Amer) Cancelled Est GFR (Non-Af Amer) Cancelled BUN/Creatinine Ratio Cancelled Glucose Cancelled Calcium Cancelled Phosphorus Magnesium 2.3 Total Bilirubin Cancelled AST Cancelled ALT Cancelled Alkaline Phosphatase Cancelled Troponin I High Sens 3164.9 H* D B-Natriuretic Peptide Total Protein Cancelled Albumin Cancelled Globulin Cancelled Albumin/Globulin Ratio Cancelled Lipase TSH Lyme Disease IgG Ab Lyme IgG (Western Blot) Lyme IgG 18 kDa Band Lyme IgG 23 kDa Band Lyme IgG 28 kDa Band Lyme IgG 30 kDa Band Lyme IgG 39 kDa Band Lyme IgG 41 kDa Band Lyme IgG 45 kDa Band Lyme IgG 58 kDa Band Lyme IgG 66 kDa Band Lyme IgG 93 kDa Band Lyme IgM Ab (WB) Lyme Disease IgM Ab Lyme IgM 23 kDa Band Lyme IgM 39 kDa Band Lyme IgM 41 kDa Band SARS-CoV-2, RNA, NAAT Blood Parasites ID 08/27/22 08:20 WBC RBC Hgb Hct MCV MCH MCHC RDW Std Deviation RDW Coeff of Jovi Plt Count MPV Immature Gran % (Auto) Neut % (Auto) Lymph % (Auto) [place] % (Auto) Eos % (Auto) Baso % (Auto) Neut # (Auto) Lymph # (Auto) [place] # (Auto) Eos # (Auto) Baso # (Auto) Immature Gran # (Auto) Absolute Nucleated RBC Nucleated RBC % (auto) Neutrophils % (Manual) Band Neutrophils % Lymphocytes % (Manual) Prolymphocyte % Reactive Lymphs % (Man) Monocytes % (Manual) Eosinophils % (Manual) Basophils % (Manual) Metamyelocytes % (Man) Myelocytes % (Man) Promyelocytes % (Man) Blast Cells % (Manual) Plasma Cell % (Manual) Other Cells % Nucleated RBC % Neutrophils # (Manual) Band Neutrophils # Total Absolute Neuts Lymphocytes # (Manual) Prolymphocyte # Reactive Lymphs # Total Abs Lymphocytes Monocytes # (Manual) Eosinophils # (Manual) Basophils # (Manual) Metamyelocytes # (Man) Myelocytes # (Manual) Promyelocytes # (Man) Blast Cells # (Man) Plasma Cell # (Manual) Other Cells # Nucleated RBCs # (Man) Hypersegmented Neuts Hyposegmented Neuts Hypogranular Neuts Large Granular Lymphs # Lrg Granular Lymphs Hairy Cells Smudge Cells Toxic Granulation Toxic Vacuolation Dohle Bodies Corinne Rods Platelet Estimate Hypogranular Platelets Giant Platelets Platelet Satelliting RBC Morphology Polychromasia Hypochromasia Poikilocytosis Basophilic Stippling Anisocytosis Microcytosis Macrocytosis Spherocytes Pappenheimer Bodies Sickle Cells Target Cells Tear Drop Cells Ovalocytes Stomatocytes [place] Bodies Echinocytes Acanthocytes (Spur) Rouleaux RBC Agglutinates Schistocytes Sezary Cell PT INR APTT PTT Ratio Sodium 132 L Potassium 5.2 H Chloride 102 Carbon Dioxide 20 L Anion Gap 10 BUN 46 H Creatinine 2.62 H Est Cr Clr Drug Dosing 21.0 Est GFR ( Amer) 25.2 Est GFR (Non-Af Amer) 21.8 BUN/Creatinine Ratio 17.6 Glucose 120 H Calcium 8.8 Phosphorus Magnesium Total Bilirubin 0.7 AST 70 H ALT 61 H Alkaline Phosphatase 107 H Troponin I High Sens B-Natriuretic Peptide Total Protein 6.9 Albumin 3.8 Globulin 3.1 Albumin/Globulin Ratio 1.2 Lipase TSH Lyme Disease IgG Ab Lyme IgG (Western Blot) Lyme IgG 18 kDa Band Lyme IgG 23 kDa Band Lyme IgG 28 kDa Band Lyme IgG 30 kDa Band Lyme IgG 39 kDa Band Lyme IgG 41 kDa Band Lyme IgG 45 kDa Band Lyme IgG 58 kDa Band Lyme IgG 66 kDa Band Lyme IgG 93 kDa Band Lyme IgM Ab (WB) Lyme Disease IgM Ab Lyme IgM 23 kDa Band Lyme IgM 39 kDa Band Lyme IgM 41 kDa Band SARS-CoV-2, RNA, NAAT Blood Parasites ID Diagnostic Findings EKG 08/26/2022 after treatment Atrial flutter with variable AV block rate 96 bpm septal Q waves V1 through V3 Nonspecific ST segment changes Echocardiogram 08/27/2022 Atrial flutter with rapid ventricular response Left ventricle is normal in size There is moderate concentric left hypertrophy There is global hypokinesis of the left ventricle EF 30 to 35%. Segmental and septal abnormalities not excluded Calcified aortic valve with severe restriction of leaflet mobility suggestive of severe aortic stenosis Moderate to severe mitral intercostal insufficiency Elevated pulmonary pressures moderate
[2022-08-27] MEDS ORDERED: DIGOXIN 250 MCG in SYRINGE 9 ML IV ONE ×2 (10:30→20:00)
[2022-08-27 11:40] LABS: Appearance Urine Cloudy (Clear); Bacteria Urine Automated 4+ (Negative); Bilirubin Urine Negative (Negative); Blood Urine Negative (Negative); Color Urine Yellow; Epithelial Cell Urine Auto 0-5 /lpf (0-5); Glucose Urine UA Negative (Negative); Ketones Urine Negative (Negative); Leukocyte Esterase Urine 2+ (Negative); Nitrite Urine Positive (Negative); Protein Urine Negative (Negative); RBC Urine Automated 0-4 /hpf (0-4); Specific Gravity Urine 1.017 (1.000-1.030); Urobilinogen Urine Negative (Negative); WBC Urine Automated >30 /hpf (0-5)
[2022-08-27] MEDS ORDERED: HEPARIN SOD (PORCINE) 1000 UNIT/ML IV ONE (11:45)
[2022-08-27] MEDS ORDERED: DIGOXIN 125 MCG in SYRINGE 9.5 ML IV ONE (13:15)
--- NOTE | 2022-08-27 14:19 | Hospitalist Progress Note ---
Date of Service August 27, 2022 Assessment & Plan (1) Atrial flutter: (2) Severe calcific aortic stenosis: (3) Elevated troponin: (4) HTN (hypertension), benign: (5) CKD (chronic kidney disease): Admission and Anticipated Discharge Date Admission Date: August 26, 2022 Supervising Physician Co-Signing Physician Notes Medical Student Supervision Note: I was personally present during medical student patient encounter and independently interviewed and examined the patient and verified the downey history and physical, reviewed labs and image studies, discussed the case with Sarah Wilkins. 81 year old male presents to the ER with fatigue and lightheadedness. Progressively getting worse over the last 2 months with intermittent palpitations. He denies any chest pain or shortness of breath. O/E A&Ox3, HS increased rate, irregular rhythm, Chest mild bibasal crackles, no wheezing, Abdo SNT, normal cap refill A/P Atrial flutter with rapid ventricular rate - metoprolol 25mg PO q6h. has received multiple doses of digoxin. Anticoagulation with IV heparin -Evaluated by cardiology. Rapid A flutter likely contributed by severe . Cardioversion is high risk in setting of severe . Patient agreeable to transfer to Tertiary care facility. Cardiology arranged transfer to [facility] [place]. Elevated troponin - suspect some underlying CAD with increased rate and HR. On aspirin and b ebenezer. Not on statin - will initiate. CMP//Severe /Moderate to severe MR/TR- EF - 30-35%. CMP likely multifactorial. rate related, valvular ds and possible underlying CAD. Definitive treatment as above. Acute on chronic HFrEF Lasix given in the ER. Will monitor for further needs. CKD 4- stable renal function. monitor closely. DVT: Heparin Drip Conditional Code FEN: HH diet Dispo: Med Tele Subjective no acute events overnight. Today, the patient feels fatigued. He does not report chest pain or shortness of breath. He says that he can "feel his heart beating" but does not feel that there is an iregular heartbeat. He does deny any changes in weight loss or recent infections. Review of Systems Constitutional: Denied fever, night sweats, or dizziness. Does endorse fatigue and weakness. Eyes: Denied blurry vision Respiratory: Denied cough or shortness of breath. Cardiovascular: Additional Comments: Denied chest pain. Endorses palpitations Gastrointestinal: Denied nausea, vomiting, diarrhea, abdominal pain. Genitourinary: no dysuria, no difficulty urinating or no urinary frequency Neurologic: Denied numbness, or tingling. Physical Exam Constitutional: Alert and oriented x3 in hopsital bed Neck: Respiratory: CTA, no increased work of breathing Cardiovascular: Tachycardic and regular rhythm. S1 S2 no r/m/g. Radial pulses equal b/l. Capillary refill less than 2 sec. Gastrointestinal (Abdomen): Nondistended, nontender, normoactive bowel sounds. Musculoskeletal: Upper extremity 5/5 strength Lower extremity 5/5 strength Skin: Warm dry, no apparent rashed. Psychiatric: Appropriate mood and affect. Lymphatic: No lymphadenopathy in the neck and cervical region. Results & Data Results & Data Vital Signs (Past 12 Hours) Vital Signs Temp Pulse Pulse Resp BP BP Pulse Ox 08/27/22 07:23 36.5 C 135 H 18 116/87 90 08/26/22 22:02 94 H 08/27/22 04:16 18 08/27/22 03:15 36.5 C 99 H 24 101/57 L 92 08/26/22 23:27 35.8 C L 97 H 22 116/72 96 08/26/22 20:12 35.4 C L 132 H 16 105/62 92 08/26/22 20:15 08/26/22 20:12 08/26/22 20:09 35.5 C L 115 H 18 105/62 92 Pulse Ox O2 Del Method O2 Del Method 08/27/22 07:23 Room Air 08/26/22 22:02 08/27/22 04:16 08/27/22 03:15 Room Air 08/26/22 23:27 Room Air 08/26/22 20:12 Room Air 08/26/22 20:15 Room Air 08/26/22 20:12 95 Room Air 08/26/22 20:09 Room Air Diagnostic Findings Chest X-Ray 08/26/22 16:46 XR chest 1V portable CLINICAL HISTORY: Chest pain, nonspecific COMPARISON STUDY: Chest radiograph January 28, 2021. FINDINGS: There is no pneumothorax or pleural effusion. Mild interstitial thickening is present. Cardiomediastinal silhouette is stable. There is no consolidation to suggest pneumonia. IMPRESSION: Interstitial thickening suggestive of mild interstitial pulmonary edema. ACT 112: Negative or not required by law. Electronically signed by: Arnoldo Mera M.D. 08/26/2022 5:30 PM
--- NOTE | 2022-08-27 15:22 | Electrocardiogram Report ---
Test Reason : Blood Pressure : / mmHG Vent. Rate : 158 BPM Atrial Rate : 158 BPM P-R Int : 122 ms QRS Dur : 076 ms QT Int : 234 ms P-R-T Axes : 062 -06 163 degrees QTc Int : 379 ms Atrial flutter with 2 to 1 block Anteroseptal infarct (cited on or before 26-AUG-2022) Marked ST abnormality, possible lateral subendocardial injury Abnormal ECG When compared with ECG of 28-JAN-2021 13:37, Premature ventricular complexes are no longer Present Vent. rate has increased BY 58 BPM Atrial flutter is now Present ST now depressed in Lateral leads Reconfirmed by Cal Segura ([id number]) on 08/27/2022 3:24:39 PM Referred By: Valerie Miranda Confirmed By:Cal Segura
--- NOTE | 2022-08-27 15:24 | Electrocardiogram Report ---
Test Reason : Blood Pressure : / mmHG Vent. Rate : 116 BPM Atrial Rate : 300 BPM P-R Int : 000 ms QRS Dur : 072 ms QT Int : 306 ms P-R-T Axes : 000 009 143 degrees QTc Int : 425 ms Atrial flutter with variable A-V block Anteroseptal infarct (cited on or before 26-AUG-2022) Abnormal ECG When compared with ECG of 26-AUG-2022 16:41, (unconfirmed) HR has decreased Confirmed by Cal Segura ([id number]) on 08/27/2022 3:23:29 PM Referred By: Valerie Miranda Confirmed By:Cal Segura
[2022-08-27] MEDS ORDERED: DIGOXIN 250 MCG in SYRINGE 9 ML IV STA (16:10)
--- NOTE | 2022-08-27 16:36 | Communication Note ---
Date of Service: August 27, 2022 Patient seen and reexamined. Still running higher heart rates but no symptoms other than mild breathlessness with exertion. Remains in atrial flutter with 2-1 alternating 3-1 AV block IV digoxin ordered with plan additional dose this evening Patient after discussion with would potentially entertain tertiary care facility evaluation for evaluation of aortic stenosis, declining LV function atrial flutter We will make tentative arrangements to [facility] in [place] with likely transfer as bed available in the next 24 hours Overall prognosis remains a concern at this time degree of renal insufficiency and LV dysfunction. No signs of heart failure at this point
[2022-08-27 18:06] LABS: Partial Thromboplastin Ratio 2.8
[2022-08-27] MEDS: HEPARIN SODIUM/DEXTROSE 25,000 UNITS/500 ML BAG IV SCH (18:13)
[2022-08-27 18:18] LABS: Partial Thromboplastin Time 79.8 Seconds (21.0-31.0)
[2022-08-27] MEDS: METOPROLOL SUCC 50MG EXT REL TAB PO SCH (20:16)
[2022-08-28] MEDS ORDERED: MELATONIN 3 MG TAB PO PRN (01:01)
[2022-08-28 01:18] LABS: Basophils # (auto) 0.07 K/uL (0-0.2); Basophils % (auto) 0.5 %; Eosinophils # (auto) 0.08 K/uL (0-0.50); Eosinophils % (auto) 0.6 %; Hematocrit (blood only) 36.4 % (42.0-52.0); Hemoglobin 12.2 g/dl (14.0-18.0); Immature Granulocytes # (auto) 0.06 K/uL (0.01-0.20); Immature Granulocytes % (auto) 0.4 %; Lymphocytes # (auto) 1.75 K/uL (1.2-3.4); Lymphocytes % (auto) 12.9 %; Mean Corpuscular Hgb Conc 33.5 g/dL (32.0-36.0); Mean Corpuscular Volume 89.4 fL (80.0-100.0); Mean Platelet Volume 9.3 fL (9.4-12.4); Monocytes # (auto) 0.97 K/uL (0.11-0.59); Monocytes % (auto) 7.1 %; Neutrophils # (auto) 10.65 K/uL (1.40-6.50); Neutrophils % (auto) 78.5 %; Platelet Count 256 K/uL (130-400); RDW Coefficient of Variation 13.3 % (11.5-14.5); RDW Standard Deviation 43.6 fL (36.4-46.3); Red Blood Count 4.07 M/uL (4.70-6.10); White Blood Count 13.58 K/ul (4.8-10.8)
[2022-08-28 01:29] LABS: Albumin Globulin Ratio 1.4 (0.9-2); BUN Creatinine Ratio 17.8 (10-20); Bilirubin,Total 0.7 mg/dl (0.2-1.0); Calcium 8.8 mg/dl (8.6-10.3); Creatinine Clr Calc Pharmacy 16.6 ml/min; Est GFR (Non-African American) 16.4 ml/min; Globulin 2.9 gm/dl (2.5-4.0); Magnesium 2.1 mg/dl (1.7-2.4); Potassium 4.8 mmol/L (3.5-5.1); Total Protein 6.9 gm/dl (6.0-8.3)
[2022-08-28 01:54] LABS: INR 1.2 (0.9-1.1); Partial Thromboplastin Ratio 1.7; Prothrombin Time 12.7 Seconds (9.0-12.0)
[2022-08-28 01:56] LABS: Partial Thromboplastin Time 46.9 Seconds (21.0-31.0)
--- NOTE | 2022-08-28 07:03 | Hospitalist Progress Note ---
Date of Service August 28, 2022 Assessment & Plan (1) Cardiomyopathy: (2) Severe calcific aortic stenosis: (3) New onset atrial flutter: (4) Elevated troponin: (5) Atrial flutter with rapid ventricular response: (6) CKD (chronic kidney disease): (7) Elevated troponin: (8) Atrial flutter: Plan Warren De La Cruz is a 81 year-old male who presented to the ER with fatigue and lightheadedness. These symptoms were progressively worsening over the last 2 months with intermittent palpitations. He denies any chest pain or shortness of breath. Atrial Flutter with rapid ventricular rate metoprolol 25mg PO q6h. has received multiple doses of digoxin. Anticoagulation with IV heparin -Evaluated by cardiology. Rapid A flutter likely contributed by severe . Cardioversion is high risk in setting of severe . Patient agreeable to transfer to Tertiary care facility. Cardiology arranged transfer to [facility] [place]. Elevated Troponin suspect some underlying CAD with increased rate and HR. On aspirin and b ebenezer. Not on statin - will initiate. CMP//Severe /Moderate to severe MR/TR- EF - 30-35%. CMP likely multifactorial. rate related, valvular ds and possible underlying CAD. Definitive treatment as above. Acute on chronic HFrEF Lasix given in the ER. Will monitor for further needs. Chronic Kidney Disease, Stage 4 Stable renal function. monitor closely. DVT: Heparin Drip Conditional Code FEN: HH diet Dispo: Med Tele Admission and Anticipated Discharge Date Admission Date: August 26, 2022 Review of Systems Review of Systems: As per above Results & Data Results & Data Vital Signs (Past 12 Hours) Vital Signs Temp Pulse Pulse Resp BP BP Pulse Ox 08/28/22 03:57 123 H 08/28/22 03:27 36.5 C 121 H 20 107/78 91 08/27/22 23:00 36.8 C 108 H 22 122/86 92 08/27/22 19:14 36.5 C 127 H 20 131/96 93 08/27/22 20:08 132 H O2 Del Method 08/28/22 03:57 08/28/22 03:27 Room Air 08/27/22 23:00 Room Air 08/27/22 19:14 Room Air 08/27/22 20:08 Resident Activity Tracking Resident Involvement: Resident Care Provided Care Provided: Adult Hospital Medicine
[2022-08-28 08:47] LABS: Partial Thromboplastin Ratio 1.5
[2022-08-28 08:49] LABS: Partial Thromboplastin Time 40.9 Seconds (21.0-31.0)
[2022-08-28] MEDS ORDERED: cefTRIAXone SODIUM 2,000 MG in DEXTROSE 5% 50 ML IV ONE (09:00)
[2022-08-28] MEDS: METOPROLOL SUCC 50MG EXT REL TAB PO SCH (09:30)
[2022-08-28] MEDS: FAMOTIDINE 20 MG TAB PO SCH (09:30)
--- NOTE | 2022-08-28 10:04 | Cardiology Progress Note ---
Date of Service August 28, 2022 Assessment & Plan (1) Atrial flutter with rapid ventricular response: (2) Severe calcific aortic stenosis: (3) Cardiomyopathy: (4) New onset atrial flutter: (5) Acute kidney injury superimposed on chronic kidney disease: Plan 81-year-old male who presents subacutely noting several weeks history of lightheadedness and presyncope. Evaluation is demonstrated evidence of atrial flutter with rapid ventricular response, variable AV block. Echocardiogram demonstrates, as previously suspected as an outpatient, severe aortic stenosis. LV function has declined significantly from past studies with moderate to severe impairment globally. Underlying ischemic heart disease not completely excluded. Moderate to severe mitral tricuspid insufficiency are present. Lab studies demonstrate further decline of renal function. Heart rate elevated this a.m. although patient received medication within the last 20 minutes. Received IV digoxin loading yesterday with transition of metoprolol to tartrate to succinate formulation. I will monitor and consider addition of IV Lopressor to improve heart rate control. Appears comfortable at rest with stable hemodynamics. He is scheduled for transfer to tertiary care today for further management of severe aortic stenosis and rapid atrial flutter. Consideration for high risk transesophageal echocardiogram guided cardioversion at tertiary care facility. Admission and Anticipated Discharge Date Admission Date: August 26, 2022 Subjective Patient seen examined. Seated in bedside chair. Notes dyspnea, and lightheadedness with minimal exertion. Comfortable at rest. Telemetry currently revealing atrial flutter with 2-1 conduction at 130 bpm. Received dose of metoprolol at 9:30 AM. Notes intermittent heartburn like symptoms. Denies overt syncope prior to hospital admission. Review of Systems Review of Systems: All systems reviewed & are unremarkable except as noted in Subjective Physical Exam Constitutional: well nourished; no acute distress Respiratory: no respiratory distress, no labored breathing and no retractions Auscultation: no crackles, no rales, no rhonchi and no wheezes Cardiovascular: Rate/Rhythm: regular rate, regular rhythm and + tachycardic Heart Sounds: normal S1, normal S2 and + murmur (3/6 late peaking systolic murmur heard at the base.) Vessels: radial pulses present; no JVD and no carotid bruit Extremities: no edema Gastrointestinal (Abdomen): Inspection/Auscultation: abdomen normal to inspection; abdomen not distended Percussion/Palpation: abdomen nontender, no guarding and abdomen not rigid Neurologic: CN's II-XI intact bilaterally and moves all extremities; no focal motor deficits Motor/Sensory: no tremor Psychiatric: A+Ox3, euthymic affect Results & Data Vital Signs (Past 12 Hours) Vital Signs Temp Pulse Pulse Resp BP BP Pulse Ox 08/28/22 08:08 36.7 C 61 17 144/98 H 93 08/28/22 03:57 123 H 08/28/22 03:27 36.5 C 121 H 20 107/78 91 08/27/22 23:00 36.8 C 108 H 22 122/86 92 O2 Del Method 08/28/22 08:08 Room Air 08/28/22 03:57 08/28/22 03:27 Room Air 08/27/22 23:00 Room Air Laboratory Results Cardiac Enzymes 08/28/22 Range/Units 00:51 AST 61 H (13-39) U/L Coagulation 08/27/22 08/28/22 08/28/22 Range/Units 17:03 00:51 07:55 PT 12.7 H (9.0-12.0) Seconds APTT 79.8 H* 46.9 H* 40.9 H* (21.0-31.0) Seconds CBC 08/28/22 Range/Units 00:51 WBC 13.58 H (4.8-10.8) K/ul RBC 4.07 L (4.70-6.10) M/uL Hgb 12.2 L (14.0-18.0) g/dl Hct 36.4 L (42.0-52.0) % Plt Count 256 (130-400) K/uL Neut # (Auto) 10.65 H (1.40-6.50) K/uL Lymph # (Auto) 1.75 (1.2-3.4) K/uL [place] # (Auto) 0.97 H (0.11-0.59) K/uL Eos # (Auto) 0.08 (0-0.50) K/uL Baso # (Auto) 0.07 (0-0.2) K/uL Comprehensive Metabolic Panel 08/28/22 Range/Units 00:51 Sodium 129 L (136-145) mmol/L Potassium 4.8 (3.5-5.1) mmol/L Chloride 98 (98-107) mmol/L Carbon Dioxide 16 L (21-32) mmol/L BUN 59 H (6-23) mg/dl Creatinine 3.32 H D (0.6-1.4) mg/dl Glucose 176 H (70-99(Fasting)) mg/dl Calcium 8.8 (8.6-10.3) mg/dl AST 61 H (13-39) U/L ALT 63 H (7-52) U/L Alkaline Phosphatase 118 H (34-104) U/L Total Protein 6.9 (6.0-8.3) gm/dl Albumin 4.0 (3.4-5.0) gm/dl Intake and Output 08/27/22 08/28/22 08/28/22 22:59 06:59 14:59 Intake Total 443.333 / 867.066 154.85 / 867.066 Output Total 250 / 500 100 / 100 Balance 193.333 / 367.066 154.85 / 367.066 -100 / -100 Intake: IV 143.333 / 567.066 154.85 / 567.066 Heparin Sodium/Dextrose 25,000 143.333 / 567.066 154.85 / 567.066 units In 500 ml @ 950 UNITS/HR 19 mls/hr IV .Q24H [facility] Rx#: [id number] Oral 300 / 300 Output: Urine 250 / 500 100 / 100 Other: Other Intake Source NPO SIPS Weight 68.9 kg Weight Measurement Method Built in [facility]
[2022-08-28] MEDS ORDERED: METOPROLOL TARTRATE 1 MG/ML VIAL IV STA (12:16)
--- NOTE | 2022-08-28 12:19 | Electrocardiogram Report ---
Test Reason : Blood Pressure : / mmHG Vent. Rate : 096 BPM Atrial Rate : 292 BPM P-R Int : 000 ms QRS Dur : 068 ms QT Int : 346 ms P-R-T Axes : 000 007 134 degrees QTc Int : 437 ms Atrial flutter with variable A-V block Anteroseptal infarct (cited on or before 26-AUG-2022) Abnormal ECG When compared with ECG of 26-AUG-2022 17:01, No significant change was found Confirmed by Ede Montalvo ([id number]) on 08/28/2022 12:19:05 PM Referred By: Valerie Miranda Confirmed By:Ede Montalvo
--- NOTE | 2022-08-28 16:44 | Discharge Summary ---
Date of Service August 28, 2022 Admission HPI Per Admitting Provider Warren is an 81 year old male with a PMH significant for PMHx Obstructive Uropathy 2/2 BPH, Urinary Retention with Dixon Placement, CKD, and HTN who presented to the [facility] ED on 08/26 via EMS from his PCP's office due to tac hycardia. In the ED the patient was found to be in a narrow complex tachycardia with HR in the 160's, but otherwise stable and asymptomatic. Labs were significant for stable renal function and initial high sen trop of 2956. The patient was initially given 5mg then 10 mg IV lopressor, 1gm IV mag, 1L NSS, and 324 mg Aspirin. He was started on a heparin drip both for a [id number] Score of 3 and possible ACS with his initial high sen trop. Prior to admission the patient's HR increased back into the 140's, he was given another 5 mg IV lopressor and then 20 mg IV lasix as bedside echo by the ED staff showed possible cardiomyopathy. At the time of the exam the patient was sitting in bed in no acute distress. His HR was in the 130's but he is still asymptomatic. He states that over the past few months he has had daily episodes of feeling lightheaded/dizzy. He states that this episodes would occur both at rest and with exertion. He denies the sensation that the room is spinning, and his symptoms do not occur with changes in position. He has never actually lost consciousness with these episodes. He has noticed recently that he has been having heart burn more frequently with an acidic taste in his mouth in the am. He confirms this feels like his usual heart burn, denies chest pain/pressure, and states that his symptoms are resolved after taking tums. He denies a previous history of co ronary artery disease, heart failure, or previous cardiac cath. He does smoke 1- 2 cigars approximately 3-4 times a week. We discussed the need for starting anticoagulation with his [id number] Score of 3. He denies a history of major bleeding such as GI bleed, hemorrhagic stroke, hematuria, or ambulatory dysfunction/frequent falls. He would like to proceed with the IV heparin drip that was ordered in the ED. We discussed code status; in the event of cardiac arrest her would not want CPR. However, he would want defibrillation in the event of shockable arrhythmia and would want a trial of intubation in the event of respiratory arrest/failure. If he could not make decisions himself he would want his to make medical decisions for him. Please refer to Dr. Bal's attestation for any changes to the treatment plan Admission Exam Per Admitting Provider Physical Exam: General:In no acute distress, stated age, well-nourished, good hygiene HEENT:Normocephalic, atraumatic, no scleral icterus, pupils around round, symmetrical, and reactive to light, moist mucus membranes, trachea midline, no thyromegaly Chest/Pulm:No respiratory distress, symmetrical chest expansion, crackles noted in the BL lower lung de la garza Cardiac:tachycardic rate, regular rhythm, no murmurs noted Abdomen:Negative for ascites and bruising, normoactive bowel sounds, soft, non-tender to palpation throughout Musculoskeletal:Symmetrical and without signs of acute trauma, upper and lower extremities with full ROM, no atrophy, spasticity, or flaccidity Extremities:Radial, dorsalis pedis, and posterior tibial pulses are intact and symmetrical, no edema noted in the BL LE's Skin:Warm, dry, no rashes , lesions, or scars noted Neuro:Alert and oriented to person, place, month, year, and president, no focal defects, no tremors noted Psych:No acute distress, calm and cooperative during the exam Principal Diagnosis Atrial flutter with RVR Discharge Exam Constitutional WD/WN, vitals as above Eyes no conjunctival abnormality ENMT External ears and nose normal. Moist mucous membranes. Respiratory normal respiratory effort, lungs clear to auscultation Cardiovascular Tachycardic, irregular rhythm. No lowe extremity edema bilaterally. Limbs appear well perfused. Musculoskeletal Moves all limbs independently. Skin no rashes, warm and dry Psychiatric A+Ox3, euthymic affect Discharge Data Allergies Allergy/AdvReac Type Severity Reaction Status Date / Time No Known Allergies Allergy Verified 08/26/22 17:07 Consultations 08/26/22 18:53 ED Decision to Admit Stat 08/26/22 20:12 Consult Cardiology Routine 08/27/22 18:38 Burn CD for patient Routine Hospital Course (1) Cardiomyopathy: (2) Severe calcific aortic stenosis: (3) New onset atrial flutter: (4) Elevated troponin: (5) Atrial flutter with rapid ventricular response: (6) CKD (chronic kidney disease): (7) Atrial flutter: Plan Warren De La Cruz is a 81 year-old male who presented to the ER with fatigue and lightheadedness. These symptoms were progressively worsening over the last 2 months with intermittent palpitations. He denies any chest pain or shortness of breath. Atrial Flutter with rapid ventricular rate Patient found to be in atrial flutter with RVR after feeling genally fatigued and experiencing lightheadedness. When he presented to the ED he was found to be in a. flutter. He received several rounds of Lopressor in the ED and remained in flutter with rates to 120s-130s. He had been receiving Metoprolol 25mg PO q6h, and has received multiple doses of digoxin. Anticoagulation with IV heparin. Evaluated by cardiology ([facility] cardiology patient). Rapid A flutter likely contributed by severe . Cardioversion is high risk in setting of severe . Patient agreeable to transfer to Tertiary care facility. Consideration for SATYA guided cardioversion. Cardiology arranged transfer [place] [facility] [place]At time of transfer, HR has remained in 120s-130s. Elevated Troponin Suspect some underlying CAD with increased rate and HR, likely demand ischemia. Troponin peaked and downtrended. On aspirin and beta ebenezer at home. Not on statin - would consider initiating Cardiomyopathy/Severe /Moderate to severe MR/TR Echo completed during admission, EF - 30-35%. Per cardio - LV function declined significantly from past studies with moderate to severe impairment globally. CMP likely multifactorial. rate related, valvular ds and possible underlying CAD. Definitive treatment as above. Acute on chronic HFrEF -Lasix given in the ER. No further diuretics given. Chronic Kidney Disease, Stage 4 Cr bumped from 2.28 at admission to 3.32 on day of discharge. Suspect relation to sustained elevated HR. Bacteriuria Elevated WBC of 13.58 today, urine positive for leukocyte esterase, nitrites. Culture pending. Patient has no current urinary symptoms but given new elevation in WBC and history of frequent UTIs, added Ceftriaxone. VTE Prophylaxis: Heparin Drip Diet: Heart Healthy Code Status: Conditional, no CPR but intubation and medications ok Total Time Total Time Spent Total Time Spent (In Minutes): . Discharge Plan Discharge Items Patient Disposition: Transfer Acute Care Hospital Reason For Visit: NEW O[place]ET ATRIAL FLUTTER, ELEVATED TROPONIN Discharge Diagnosis: Atrial flutter, severe aortic stenosis Activity: Per Instructions section Non-emergency contact: Primary Care Provider and Senior Data Warehouse Architect Call non-emergency contact if: your symptoms worsen Follow-up/Referrals: Valerie Miranda PA-C [Primary Care Provider] - Diet: Heart Healthy Addtl Attending Provider Instructions: Warren De La Cruz is a 81 year-old male who presented to the ER with fatigue and lightheadedness. These symptoms were progressively worsening over the last 2 months with intermittent palpitations. He denies any chest pain or shortness of breath. Atrial Flutter with rapid ventricular rate -Receiving Metoprolol 25mg PO q6h. has received multiple doses of digoxin. Anticoagulation with IV heparin -Evaluated by cardiology. Rapid A flutter likely contributed by severe . Cardioversion is high risk in setting of severe . Patient agreeable to transfer to Tertiary care facility. -Cardiology arranged transfer to [facility] [place]. -HR has remained in 120s since admission despite Lopressor, Digoxin as above Elevated Troponin -Suspect some underlying CAD with increased rate and HR, likely demand ischemia. Troponin peaked and downtrended. -On aspirin and beta ebenezer at home. Not on statin - would consider initiating Cardiomyopathy/Severe /Moderate to severe MR/TR -Echo completed during admission, EF - 30-35%. -CMP likely multifactorial. rate related, valvular ds and possible underlying CAD. Definitive treatment as above. -Acute on chronic HFrEF Lasix given in the ER Chronic Kidney Disease, Stage 4 -Stable renal function. monitor closely. -Cr bumped from 2.28 at admission to 3.32 on day of discharge Bacteriuria -Elevated WBC of 13.58 today, urine positive for leukocyte esterase, nitrites. Culture pending -No current urinary symptoms but given new elevation in WBC today and history of frequent UTIs, added Ceftriaxone. VTE Prophylaxis: Heparin Drip Diet: Heart Healthy Code Status: Conditional, no CPR but intubation and medications ok -Patient to be transferred with peripheral IV and heparin drip. Pending Studies at Discharge: No Stand-Alone Forms: My [facility] Skilled Items Patient informed of condition?: Yes DNR: Yes (CONDITIONAL CODE, No CPR, ok with medications and intubation) Discharge Level of Care: Other Communicable Disease: No Discharge Prognosis: Other Lines: Peripheral IV Urinary Catheter: No Medications and DC Order Prescriptions: Continued lisinopril 10 mg tablet 10 mg PO DAILY Discharge Orders: Discharge Order (Routine); Ordered 08/28/22 Ordered By: Brisa Grossman Admission Data Admit Date/Time: 08/26/22 18:45 Attending Provider: Carmen Pagan Admit Provider: Paul Bal Primary Care Provider: Valerie Miranda Other Providers: Paul Bal ; Ivan Ellis Supervising Physician Co-Signing Physician Notes Resident Physician Supervision Note: I independently interviewed and examined the patient and verified the downey history and physical, reviewed labs and image studies and agree with resident findings and care plan.
[2022-08-28] MEDS: HEPARIN SODIUM/DEXTROSE 25,000 UNITS/500 ML BAG IV SCH (18:36)
--- NOTE | 2022-08-28 20:41 | Electrocardiogram Report ---
Test Reason : Blood Pressure : / mmHG Vent. Rate : 129 BPM Atrial Rate : 129 BPM P-R Int : 224 ms QRS Dur : 088 ms QT Int : 336 ms P-R-T Axes : 040 016 142 degrees QTc Int : 493 ms Possible Atrial flutter with 2:1 A-V conduction Low voltage QRS Septal infarct (cited on or before 26-AUG-2022) Prolonged QT Abnormal ECG When compared with ECG of 26-AUG-2022 17:35, QT has lengthened Confirmed by Ede Montalvo ([id number]) on 08/28/2022 8:41:20 PM Referred By: Valerie Miranda Confirmed By:Ede Montalvo
[2022-08-31 00:03] LABS: 18KDIGG Band REACTIVE; 23KDIGG Band NON-REACTIVE; 23KDIGM Band NON-REACTIVE; 28KDIGG Band REACTIVE; 30KDIGG Band REACTIVE; 39KDIGG Band REACTIVE; 39KDIGM Band NON-REACTIVE; 41KDIGG Band REACTIVE; 41KDIGM Band NON-REACTIVE; 45KDIGG Band REACTIVE; 58KDIGG Band REACTIVE; 66KDIGG Band REACTIVE; 93KDIGG Band NON-REACTIVE; Lyme Antibodies, WB IgG POSITIVE (NEGATIVE); Lyme Antibodies, WB IgM NEGATIVE (NEGATIVE)
== END 2022-08-28 19:58 | disposition short-term general hospital (02) | DRG 308 ==
LOC: ED 16:32 → 2S 18:45 → SUATTDRO 18:45 → 2S 19:45

== ENCOUNTER 2023-02-10 13:54 | Inpatient (IN) ==
[2023-02-10] MEDS ORDERED: METOPROLOL TARTRATE 1 MG/ML VIAL IV STA (14:09)
[2023-02-10] MEDS ORDERED: SODIUM CHLORIDE 0.9% 1,000 ML IV SCH (14:15)
--- NOTE | 2023-02-10 14:20 | Emergency Department Note ---
Impression & Plan Hypotension, Elevated troponin, Atrial fibrillation with rapid ventricular response, Anemia, Elevated lactic acid level ED Provider Note NAME: BRODERICK BREWER AGE: 82 SEX: M : 1940 ARRIVES VIA: Ambulance INFORMANT: [Patient][EMS, nursing] ED PROVIDER(S): [Justice Arizmendi MD] CHIEF COMPLAINT: Hypotension HISTORY OF PRESENT ILLNESS: The patient is an 82-year-old male who presents to the ER with dizziness and lightheaded this morning that has persisted throughout the day. He was found to be hypotensive by his family and also by EMS. He did receive a 500 cc saline bolus in route. The patient denies any chest pain or shortness of breath. No fever or cough, no nausea or vomiting. The patient states that he did have 3 stents placed in the coronary arteries 2 days ago at [facility] in [place]. He was discharged yesterday. He did take his normal medications this morning, he does believe he takes medication for blood pressure. Of note, as per the patient's , his blood pressure was running low at [facility] but the patient was felt stable for discharge home. His blood pressure has been lower since discharge. PMHx/PSHx/Social Hx: See Below PHYSICAL EXAM: GENERAL: Patient is in no acute distress. HEENT: No acute trauma, normocephalic atraumatic, mucous membranes moist, no nasal congestion. NECK: No stridor, no adenopathy, no meningismus, trachea is midline. LUNGS: Clear to auscultation bilaterally, no wheeze, no rhonchi, breath sounds equal. HEART: 3/6 to 4/6 systolic murmur heard best at the right sternal border, tachycardic with an irregular rhythm. ABDOMEN: Soft, nontender, no peritonitis. EXTREMITIES: No cyanosis, full range of motion of all the joints without pain or difficulty. NEUROLOGIC: Oriented x 3, no acute motor or sensory deficits, no focal weakness. SKIN: No jaundice, no diaphoresis. Groin: The patient has older appearing contusion about the entire groin and scrotum, no tenderness, no cellulitis. Rectal: Brown stool, heme-negative. DIFFERENTIAL DIAGNOSIS: Dysrhythmia, AR, dehydration, electrolyte imbalance, medication reaction, UTI, anemia, bacteremia or sepsis, among others. EMERGENCY DEPARTMENT PROCEDURES: MEDICAL DECISION MAKING: There is a mild leukocytosis at 11,000, this could be consistent with infection or the stress of his current situation. Hemoglobin was low at around 8. This is a drop for him. I did perform a rectal exam, the stool was brown and heme- negative. There is a normal platelet count. No coagulopathy. There was evidence for renal insufficiency however, this is baseline looking back at previous testing. Lactic acid level was elevated consistent with potential sepsis versus just the hypotension alone. No concerning liver enzyme elevation. The patient appeared to be in a euthyroid state. ECG showed what appears to be a rapid atrial fibrillation. No obvious ST elevation. Cardiac enzyme testing x 1 was quite elevated consistent with potential cardiac injury versus changes from his recent cardiac stenting. Chest x-ray shows some mild parenchymal congestion, no pneumonia. On exam, the patient was hypotensive and tachycardic. He did not appear toxic. He was not hypoxic. A CT of the abdomen pelvis was performed. There was evidence for some previous bleeding in the area of the right groin but nothing felt too extensive. The patient received IV saline, 2 L in total. He was ordered for 1 unit of packed red blood cells to be transfused. The patient did sign the proper consent. During the patient's ER stay, he was given a slow dose of IV Lopressor, 5 mg. This was given to help control his heart rate. The patient is clearly in need of a hospital stay. I suspect his hemoglobin drop is secondary to his cardiac catheterization and cardiac stenting. He does have significant contusion across the groin and pelvis that was present after the procedure. I did speak with the ICU attending, Dr. Reyes. I did speak with the family at length. I did speak with case management, the on-call hospitalist was consulted. Patient does seem to be making some improvement while here in the ED. ICU care seems warranted. Prior/Outside records/notes reviewed: discharge note from 08/28/2022 discussing his admission for a flutter with a rapid rate. ECG per my interpretation: Indication was hypotension and dizziness. The ECG shows atrial fibrillation with a rapid rate. The rate is 112. There is potential old septal infarct. There is some diffuse nonspecific ST change. No ST elevation. The QTc is 466. Continuous Cardiac Monitoring per my interpretation: An order was placed for continuous cardiac monitoring. The monitor shows a rate of 122 with atrial fibrillation. Imaging/x-ray results per my interpretation: There is some increased parenchymal congestion consistent with potential fluid overload. This film looks similar to previous films. There was no pneumonia. Chronic Medical/Social conditions affecting care: Chronic anticoagulation, coronary artery disease. Care/Management discussed with: Case management, the on-call hospitalist. ICU attending-Dr. Reyes. Level of care consideration(s): After review of the information above and other included data: --I believe the patient requires escalation of care to admission Critical Care Note: I have personally spent 55 minutes of critical care time in the direct management of this patient. This includes bedside care, interpretation of diagnostic studies, and testing, discussion with consultants, patient, and family members, and other required patient management activities. This 55 minutes is in excess of all separately billable procedures. DISPOSITION: Admission with cardiology and ICU consult Past Med/Surg History Medical History Acute UTI Elevated troponin Sepsis Transaminitis Metabolic acidosis Hyponatremia Hypomagnesemia Bacteremia Diarrhea HTN (hypertension), benign Acute kidney injury Elevated PSA Acute on chronic renal failure Acute retention of urine Urinary tract infection Obstructive uropathy HLD (hyperlipidemia) HTN (hypertension) Epididymitis Testicular pain Surgical History No pertinent past surgical history Family History Other Family history non-contributory Social History Smoking Status: Current some day smoker Tobacco Type: Cigars Cigarettes Per Day: 1 cigar per week; Do You Dip or Chew Tobacco: No; Hx Alcohol Use: No Hx Substance Use: No Preferred Language: Yi Communication Ability: Effective Conceptor Required: No Beliefs That Will Affect Care: None marital status: Current Living Situation: Spouse Feels Safe at Home: Yes Safety Concerns: Feels Safe At This Time Assistive Devices: None Allergies Allergies Allergy/AdvReac Type Severity Reaction Status Date / Time No Known Allergies Allergy Verified 02/10/23 16:03 Home Meds Home Medications Medication Instructions Recorded Confirmed apixaban 2.5 mg tablet (Eliquis) 0 mg PO BID 02/10/23 02/10/23 aspirin 81 mg chewable tablet 81 mg PO QAM 02/10/23 02/10/23 atorvastatin 80 mg tablet 80 mg PO QAM 02/10/23 02/10/23 clopidogrel 75 mg tablet 75 mg PO QAM 02/10/23 02/10/23 furosemide 40 mg tablet 40 mg PO QAM 02/10/23 02/10/23 lisinopril 2.5 mg tablet 2.5 mg PO QAM 02/10/23 02/10/23 metoprolol succinate 50 mg 50 mg PO BID 02/10/23 02/10/23 tablet,extended release 24 hr Results & Data (ED) Vital Signs Vital Signs - 24 hr 02/10/23 13:57 02/10/23 14:07 02/10/23 14:09 Temperature 37.0 C Temperature Source Oral Pulse Rate 122 H 107 H Pulse Rate [Apical] Pulse Rate from SpO2 Sensor 128 H Pulse Rhythm Irregular Pulse Strength Normal Respiratory Rate 21 20 Respiratory Effort / Characteristics Non-Labored Spontaneous Respiratory Depth Normal Respiratory Pattern Regular Blood Pressure 98/72 L 88/64 L Blood Pressure [Right Arm] Blood Pressure Mean 80 72 Blood Pressure Mean [Right Arm] Blood Pressure Position Lying Blood Pressure Position [Right Arm] Pulse Oximetry 95 94 Oxygen Delivery Method Room Air Room Air Oxygen Flow Rate 0 Sepsis Recent Fever Within 48 Hours No Sepsis New/Unexplained Change in Mental Status N/A Sepsis Action Taken by Nursing Physician Notified 02/10/23 14:15 02/10/23 14:22 02/10/23 14:26 Temperature Temperature Source Pulse Rate 104 H 122 H Pulse Rate [Apical] 114 H Pulse Rate from SpO2 Sensor 141 H Pulse Rhythm Pulse Strength Respiratory Rate 26 H 16 Respiratory Effort / Characteristics Non-Labored Spontaneous Respiratory Depth Normal Respiratory Pattern Regular Blood Pressure 91/65 L 91/65 L Blood Pressure [Right Arm] 91/65 L Blood Pressure Mean 73 Blood Pressure Mean [Right Arm] 73 Blood Pressure Position Blood Pressure Position [Right Arm] Sitting Pulse Oximetry 91 91 Oxygen Delivery Method Room Air Room Air Oxygen Flow Rate Sepsis Recent Fever Within 48 Hours Sepsis New/Unexplained Change in Mental Status Sepsis Action Taken by Nursing 02/10/23 14:26 02/10/23 14:29 02/10/23 14:32 Temperature Temperature Source Pulse Rate 108 H 103 H 95 H Pulse Rate [Apical] Pulse Rate from SpO2 Sensor 120 H Pulse Rhythm Pulse Strength Respiratory Rate 16 21 Respiratory Effort / Characteristics Respiratory Depth Respiratory Pattern Blood Pressure 68/53 L Blood Pressure [Right Arm] Blood Pressure Mean 58 Blood Pressure Mean [Right Arm] Blood Pressure Position Blood Pressure Position [Right Arm] Pulse Oximetry 92 96 Oxygen Delivery Method Room Air Room Air Oxygen Flow Rate Sepsis Recent Fever Within 48 Hours Sepsis New/Unexplained Change in Mental Status Sepsis Action Taken by Nursing 02/10/23 14:37 02/10/23 14:45 02/10/23 14:45 Temperature Temperature Source Pulse Rate 106 H 111 H 106 H Pulse Rate [Apical] Pulse Rate from SpO2 Sensor 120 H Pulse Rhythm Pulse Strength Respiratory Rate 18 24 Respiratory Effort / Characteristics Respiratory Depth Respiratory Pattern Blood Pressure 85/63 L 82/62 L Blood Pressure [Right Arm] Blood Pressure Mean 70 Blood Pressure Mean [Right Arm] Blood Pressure Position Blood Pressure Position [Right Arm] Pulse Oximetry 96 Oxygen Delivery Method Room Air Oxygen Flow Rate Sepsis Recent Fever Within 48 Hours Sepsis New/Unexplained Change in Mental Status Sepsis Action Taken by Nursing 02/10/23 14:45 02/10/23 15:00 02/10/23 15:15 Temperature Temperature Source Pulse Rate 120 H 102 H Pulse Rate [Apical] Pulse Rate from SpO2 Sensor Pulse Rhythm Pulse Strength Respiratory Rate 18 15 Respiratory Effort / Characteristics Respiratory Depth Respiratory Pattern Blood Pressure 82/62 L Blood Pressure [Right Arm] Blood Pressure Mean 67 Blood Pressure Mean [Right Arm] Blood Pressure Position Blood Pressure Position [Right Arm] Pulse Oximetry Oxygen Delivery Method Oxygen Flow Rate Sepsis Recent Fever Within 48 Hours Sepsis New/Unexplained Change in Mental Status Sepsis Action Taken by Nursing 02/10/23 15:16 02/10/23 15:16 02/10/23 15:28 Temperature Temperature Source Pulse Rate 115 H Pulse Rate [Apical] Pulse Rate from SpO2 Sensor Pulse Rhythm Pulse Strength Respiratory Rate 20 Respiratory Effort / Characteristics Respiratory Depth Respiratory Pattern Blood Pressure 83/69 L 85/56 L Blood Pressure [Right Arm] Blood Pressure Mean 76 67 Blood Pressure Mean [Right Arm] Blood Pressure Position Blood Pressure Position [Right Arm] Pulse Oximetry Oxygen Delivery Method Oxygen Flow Rate Sepsis Recent Fever Within 48 Hours Sepsis New/Unexplained Change in Mental Status Sepsis Action Taken by Nursing 02/10/23 15:28 02/10/23 15:30 02/10/23 15:31 Temperature Temperature Source Pulse Rate 114 H 111 H 115 H Pulse Rate [Apical] Pulse Rate from SpO2 Sensor Pulse Rhythm Pulse Strength Respiratory Rate 24 24 15 Respiratory Effort / Characteristics Respiratory Depth Respiratory Pattern Blood Pressure Blood Pressure [Right Arm] Blood Pressure Mean Blood Pressure Mean [Right Arm] Blood Pressure Position Blood Pressure Position [Right Arm] Pulse Oximetry Oxygen Delivery Method Oxygen Flow Rate Sepsis Recent Fever Within 48 Hours Sepsis New/Unexplained Change in Mental Status Sepsis Action Taken by Nursing 02/10/23 15:32 02/10/23 15:32 02/10/23 15:45 Temperature Temperature Source Pulse Rate 118 H 113 H Pulse Rate [Apical] Pulse Rate from SpO2 Sensor Pulse Rhythm Pulse Strength Respiratory Rate 23 23 Respiratory Effort / Characteristics Respiratory Depth Respiratory Pattern Blood Pressure 75/56 L Blood Pressure [Right Arm] Blood Pressure Mean 61 Blood Pressure Mean [Right Arm] Blood Pressure Position Blood Pressure Position [Right Arm] Pulse Oximetry Oxygen Delivery Method Oxygen Flow Rate Sepsis Recent Fever Within 48 Hours Sepsis New/Unexplained Change in Mental Status Sepsis Action Taken by Nursing 02/10/23 15:45 02/10/23 15:49 02/10/23 16:00 Temperature Temperature Source Pulse Rate Pulse Rate [Apical] Pulse Rate from SpO2 Sensor Pulse Rhythm Pulse Strength Respiratory Rate Respiratory Effort / Characteristics Non-Labored Respiratory Depth Respiratory Pattern Blood Pressure 80/63 L 96/70 L Blood Pressure [Right Arm] Blood Pressure Mean 66 73 Blood Pressure Mean [Right Arm] Blood Pressure Position Blood Pressure Position [Right Arm] Pulse Oximetry Oxygen Delivery Method Oxygen Flow Rate Sepsis Recent Fever Within 48 Hours Sepsis New/Unexplained Change in Mental Status Sepsis Action Taken by Nursing 02/10/23 16:00 02/10/23 16:15 02/10/23 16:18 Temperature Temperature Source Pulse Rate 101 H 112 H 114 H Pulse Rate [Apical] Pulse Rate from SpO2 Sensor Pulse Rhythm Pulse Strength Respiratory Rate 22 15 15 Respiratory Effort / Characteristics Respiratory Depth Respiratory Pattern Blood Pressure Blood Pressure [Right Arm] Blood Pressure Mean Blood Pressure Mean [Right Arm] Blood Pressure Position Blood Pressure Position [Right Arm] Pulse Oximetry Oxygen Delivery Method Oxygen Flow Rate Sepsis Recent Fever Within 48 Hours Sepsis New/Unexplained Change in Mental Status Sepsis Action Taken by Nursing 02/10/23 16:18 Temperature Temperature Source Pulse Rate Pulse Rate [Apical] Pulse Rate from SpO2 Sensor Pulse Rhythm Pulse Strength Respiratory Rate Respiratory Effort / Characteristics Respiratory Depth Respiratory Pattern Blood Pressure 82/46 L Blood Pressure [Right Arm] Blood Pressure Mean 69 Blood Pressure Mean [Right Arm] Blood Pressure Position Blood Pressure Position [Right Arm] Pulse Oximetry Oxygen Delivery Method Oxygen Flow Rate Sepsis Recent Fever Within 48 Hours Sepsis New/Unexplained Change in Mental Status Sepsis Action Taken by Longterm Medications Current Medication List: was personally reviewed by me Laboratory Data Attestation: I reviewed the patient's lab results. 02/10/23 21:10 02/10/23 14:00 Lab Results 02/10/23 02/10/23 02/10/23 Range/Units 14:00 15:09 16:19 WBC 11.08 H (4.8-10.8) K/ul RBC 2.67 L (4.70-6.10) M/uL Hgb 8.1 L (14.0-18.0) g/dl Hct 23.7 L (42.0-52.0) % MCV 88.8 (80.0-100.0) fL MCH 30.3 (25.0-34.0) pg MCHC 34.2 (32.0-36.0) g/dL RDW Std Deviation 44.0 (36.4-46.3) fL RDW Coeff of Jovi 13.5 (11.5-14.5) % Plt Count 138 (130-400) K/uL MPV 9.4 (9.4-12.4) fL Immature Gran % (Auto) 0.4 % Neut % (Auto) 85.4 % Lymph % (Auto) 6.2 % [place] % (Auto) 7.3 % Eos % (Auto) 0.5 % Baso % (Auto) 0.2 % Neut # (Auto) 9.46 H (1.40-6.50) K/uL Lymph # (Auto) 0.69 L (1.20-3.40) K/uL [place] # (Auto) 0.81 H (0.11-0.59) K/uL Eos # (Auto) 0.06 (0.00-0.50) K/uL Baso # (Auto) 0.02 (0.00-0.20) K/uL Immature Gran # (Auto) 0.04 (0.01-0.20) K/uL PT 11.4 (9.0-12.0) Seconds INR 1.0 (0.9-1.1) APTT 26 (21-31) Seconds PTT Ratio 0.9 Sodium 134 L (136-145) mmol/L Potassium 4.4 (3.5-5.1) mmol/L Chloride 105 (98-107) mmol/L Carbon Dioxide 19 L (21-32) mmol/L Anion Gap 10 (3-11) BUN 66 H (6-23) mg/dl Creatinine 2.79 H (0.6-1.4) mg/dl Est Cr Clr Drug Dosing 18.1 ml/min Est GFR ( Amer) 23.2 ml/min Est GFR (Non-Af Amer) 20.0 ml/min BUN/Creatinine Ratio 23.7 H (10-20) Glucose 179 H (70-99(Fasting)) mg/dl Lactate 3.2 H* 3.4 H* (0.4-2.0) mmol/L Calcium 8.3 L (8.6-10.3) mg/dl Magnesium 2.2 (1.7-2.4) mg/dl Total Bilirubin 0.7 (0.2-1.0) mg/dl AST 81 H (13-39) U/L ALT 20 (7-52) U/L Alkaline Phosphatase 68 (34-104) U/L Troponin I High Sens 18176.5 H* (0-20) pg/ml Total Protein 6.0 (6.0-8.3) gm/dl Albumin 3.7 (3.4-5.0) gm/dl Globulin 2.3 L (2.5-4.0) gm/dl Albumin/Globulin Ratio 1.6 (0.9-2) TSH 1.718 (0.300-4.500) uIu/ml Blood Type AB Positive Blood Type Recheck AB Positive Antibody Screen NEGATIVE Crossmatch See Detail 02/10/23 Range/Units 16:20 WBC (4.8-10.8) K/ul RBC (4.70-6.10) M/uL Hgb (14.0-18.0) g/dl Hct (42.0-52.0) % MCV (80.0-100.0) fL MCH (25.0-34.0) pg MCHC (32.0-36.0) g/dL RDW Std Deviation (36.4-46.3) fL RDW Coeff of Jovi (11.5-14.5) % Plt Count (130-400) K/uL MPV (9.4-12.4) fL Immature Gran % (Auto) % Neut % (Auto) % Lymph % (Auto) % [place] % (Auto) % Eos % (Auto) % Baso % (Auto) % Neut # (Auto) (1.40-6.50) K/uL Lymph # (Auto) (1.20-3.40) K/uL [place] # (Auto) (0.11-0.59) K/uL Eos # (Auto) (0.00-0.50) K/uL Baso # (Auto) (0.00-0.20) K/uL Immature Gran # (Auto) (0.01-0.20) K/uL PT (9.0-12.0) Seconds INR (0.9-1.1) APTT (21-31) Seconds PTT Ratio Sodium (136-145) mmol/L Potassium (3.5-5.1) mmol/L Chloride (98-107) mmol/L Carbon Dioxide (21-32) mmol/L Anion Gap (3-11) BUN (6-23) mg/dl Creatinine (0.6-1.4) mg/dl Est Cr Clr Drug Dosing ml/min Est GFR ( Amer) ml/min Est GFR (Non-Af Amer) ml/min BUN/Creatinine Ratio (10-20) Glucose (70-99(Fasting)) mg/dl Lactate (0.4-2.0) mmol/L Calcium (8.6-10.3) mg/dl Magnesium (1.7-2.4) mg/dl Total Bilirubin (0.2-1.0) mg/dl AST (13-39) U/L ALT (7-52) U/L Alkaline Phosphatase (34-104) U/L Troponin I High Sens 47552.0 H* (0-20) pg/ml Total Protein (6.0-8.3) gm/dl Albumin (3.4-5.0) gm/dl Globulin (2.5-4.0) gm/dl Albumin/Globulin Ratio (0.9-2) TSH (0.300-4.500) uIu/ml Blood Type Blood Type Recheck Antibody Screen Crossmatch Administered Medications Miscellaneous (Icu Protocol For Hyperglycemia) 1 each N/A ACHS KATYA Stop: 02/12/23 17:46 Last Admin: 02/10/23 18:49 Dose: Not Given Documented By: CAM Discontinued Medications Sodium Chloride (Nss) 1,000 mls @ 999 mls/hr IV .Q1H1M KATYA Stop: 02/10/23 15:15 Last Infusion: 02/10/23 15:26 Dose: Infused Documented By: Admin: 02/10/23 14:22 Dose: 999 mls/hr Documented By: MISSY Sodium Chloride (Nss) 1,000 mls @ 999 mls/hr IV .Q1H1M ONE Stop: 02/10/23 15:33 Last Infusion: 02/10/23 15:42 Dose: Infused Documented By: Admin: 02/10/23 14:35 Dose: 999 mls/hr Documented By: MISSY Metoprolol Tartrate (Metoprolol Tartrate 1 Mg/Ml Vial) 5 mg IV NOW STA Stop: 02/10/23 14:10 Last Admin: 02/10/23 14:22 Dose: 2.5 mg Documented By: MISSY Imaging Data Radiologist's Impression: Chest X-Ray 02/10/23 14:09 XR chest 1V portable HISTORY: 82 years-old Male weakness acute weakness COMPARISON: 08/26/2022 TECHNIQUE: AP view of the chest FINDINGS: Cardiomediastinal and hilar silhouettes are unchanged. Pulmonary vascular congestion with interstitial coarsening. No pneumothorax, pleural effusion or lobar airspace consolidation. The bones appear grossly intact. IMPRESSION: Cardiomegaly with pulmonary vascular congestion. ACT 112: Negative or not required by law. The above report was generated using voice recognition software. It may contain grammatical, syntax or spelling errors. Electronically signed by: Sylvain Shukla M.D. 02/10/2023 3:22 PM Abdomen/Pelvis CT 02/10/23 14:[address] WITHOUT CONTRAST CT DOSE: 712.43 mGy.cm HISTORY: Possible retroperitoneal bleed, adalgisa, sp cardiac stenting TECHNIQUE: Multiaxial CT images of the abdomen and pelvis were performed without contrast. A dose lowering technique was utilized adhering to the principles of ALARA. COMPARISON STUDY: Abdomen and pelvis CT 02/28/2021. FINDINGS: Interlobular septal thickening within the lung bases consistent with pulmonary edema. There are small bilateral pleural effusions. No pneumoperitoneum. No pneumatosis. No acute fractures identified. Small fat- containing bilateral inguinal hernias. Right lower quadrant/pelvic subcutaneous edema is noted. There is a small amount of right pelvic sidewall/extraperitoneal hemorrhage which extends into the right groin. This measures up to 9 mm in thickness. There is a 5 mm hypodense lesion within the left hepatic lobe. This is stable compared to the prior study and therefore favors a cyst. No new hepatic lesions identified. The unenhanced spleen, adrenal glands, and pancreas unremarkable. Normal gallbladder. Bilateral cortical renal scarring/atrophy is again noted. No renal or ureteral stones. No hydronephrosis. Mild bilateral perinephric edema. This is likely chronic. Moderate calcified plaque within the mildly ectatic abdominal aorta. No evidence for an abdominal aortic aneurysm. No pelvic free fluid. Moderate bladder wall thickening. The prostate gland is mildly enlarged. No retroperitoneal lymphadenopathy. Suboptimal evaluation for bowel pathology due to the lack of intravenous and oral contrast. However, there is no definite bowel wall thickening or obstruction. Colonic diverticulosis. No evidence for acute diverticulitis. Normal appendix. IMPRESSION: 1. Small amount of right pelvic sidewall/extraperitoneal hemorrhage which extends into the right groin. 2. Pulmonary edema and small bilateral pleural effusions. There are 3. Additional findings as described above. ACT 112: Negative or not required by law. Electronically signed by: Selvin Angel M.D. 02/10/2023 3:48 PM Discharge Plan Visit Data Chief Complaint: Hypotension Stated Complaint: DIZZINESS, HYPOTENSION ED Provider: Justice Arizmendi Discharge Problem: Hypotension, Elevated troponin, Atrial fibrillation with rapid ventricular response, Anemia, Elevated lactic acid level Patient Disposition: Admitted As Inpatient Condition: Serious Discharge Instructions Interventions: ED Discharge Assessment Last Done: 02/10/23 17:14 Discharge Problem: Hypotension Qualifiers: Hypotension type: unspecified hypotension type Qualified Code(s): I95.9 - Hypotension, unspecified Anemia Qualifiers: Anemia type: unspecified type Qualified Code(s): D64.9 - Anemia, unspecified
[2023-02-10 14:27] LABS: Basophils # (auto) 0.02 K/uL (0.00-0.20); Basophils % (auto) 0.2 %; Eosinophils # (auto) 0.06 K/uL (0.00-0.50); Eosinophils % (auto) 0.5 %; Hematocrit (blood only) 23.7 % (42.0-52.0); Hemoglobin 8.1 g/dl (14.0-18.0); Immature Granulocytes # (auto) 0.04 K/uL (0.01-0.20); Immature Granulocytes % (auto) 0.4 %; Lymphocytes # (auto) 0.69 K/uL (1.20-3.40); Lymphocytes % (auto) 6.2 %; Mean Corpuscular Hemoglobin 30.3 pg (25.0-34.0); Mean Corpuscular Hgb Conc 34.2 g/dL (32.0-36.0); Mean Corpuscular Volume 88.8 fL (80.0-100.0); Mean Platelet Volume 9.4 fL (9.4-12.4); Monocytes # (auto) 0.81 K/uL (0.11-0.59); Monocytes % (auto) 7.3 %; Neutrophils # (auto) 9.46 K/uL (1.40-6.50); Neutrophils % (auto) 85.4 %; Platelet Count 138 K/uL (130-400); RDW Coefficient of Variation 13.5 % (11.5-14.5); Red Blood Count 2.67 M/uL (4.70-6.10); White Blood Count 11.08 K/ul (4.8-10.8)
[2023-02-10] MEDS ORDERED: SODIUM CHLORIDE 0.9% 1,000 ML IV ONE (14:33)
[2023-02-10] MEDS ORDERED: SODIUM CHLORIDE 0.9% 250 ML IV PRN ×4 (14:44→18:11)
[2023-02-10 14:45] LABS: Albumin Globulin Ratio 1.6 (0.9-2); Albumin Level 3.7 gm/dl (3.4-5.0); BUN Creatinine Ratio 23.7 (10-20); Bilirubin,Total 0.7 mg/dl (0.2-1.0); Calcium 8.3 mg/dl (8.6-10.3); Creatinine Clr Calc Pharmacy 18.1 ml/min; Est GFR (African American) 23.2 ml/min; Globulin 2.3 gm/dl (2.5-4.0); Magnesium 2.2 mg/dl (1.7-2.4); Potassium 4.4 mmol/L (3.5-5.1)
[2023-02-10 14:59] LABS: Partial Thromboplastin Ratio 0.9; Partial Thromboplastin Time 26 Seconds (21-31); Prothrombin Time 11.4 Seconds (9.0-12.0); Thyroid Stimulating Hormone 1.718 uIu/ml (0.300-4.500)
--- NOTE | 2023-02-10 15:17 | History & Physical Report ---
Date of Service February 10, 2023 Assessment & Plan (1) Symptomatic anemia: Plan: Likely hemorrhagic hypovolemia in the setting of recent right femoral groin access for cardiac cath at [facility] on 02/08. Discharge hemoglobin 9.1. CT A&P with signs of a small hemorrhage - extravasation limited by lack of IV contrast as patient with CKD3-4. Unclear as to the rate of the bleed. Patient fluid resuscitated initially with 2L NS. Future resuscitation should be done in the form of blood as he is actively bleeding and to avoid flash pulmonary edema. Ordered 1u PRBCs, 3 units on hold. Patient may end up needing vasopressors for BP support. Would recommend admission to the ICU. Contacted Dr. Reyes nutrition internship construction carpenters helper - appreciate recommendation and assistance in the care of this critically ill patient. s/p 1u PRBCs, 3 units on hold fluid resuscitation with blood products vasopressors as needed Q6H H&H (2) Atrial flutter with rapid ventricular response: Plan: Tachycardia likely reactive in setting of hypovolemic shock. Rate control may lead to decompensation. Hold metoprolol for now. Monitor with continuous cardiac monitoring. (3) Elevated troponin: Plan: Likely in the setting of recent cardiac intervention. Trend with Q6H trops. (4) Acute on chronic renal failure: Plan: Baseline around 2.2. Elevated creatinine at 2.79. Likely pre-renal as patient hypovolemic with signs of hypoperfusion. Continue to monitor. (5) HTN (hypertension), benign: Plan: On metoprolol, lisinopril, and furosemide at home. Holding antihypertensives in the setting of acute hypotension. (6) Severe calcific aortic stenosis: Plan: Plan for TAVR in the future. Avoid hypervolemia as patient with severe . (7) S/P drug eluting coronary stent placement: Plan: Patient to be on triple therapy for a week with apixaban, ASA, and plavix with plans to continue with apixaban and plavix indefinitely. Would hold off on this in the setting of acute bleeding. Likely can resume ASA tomorrow. Cardiology consulted - appreciate recs. cardiology consult - appreciate recs (8) Lactate blood increase: Plan: Likely in the setting of hypovolemic hemorrhagic shock and hypoperfusion. Continue to monitor. (9) Hypovolemia: Plan: See above (10) CKD (chronic kidney disease): Plan: See above Plan Code status: full DVT ppx: contraindicated in the setting of acute bleed FENGI: heart healthy Dispo: ICU See attending attestation for further documentation History of Present Illness Chief Complaint: hypotension Primary Care Provider: Valerie Miranda 82 y/o male with a PMHx of a flutter/fib, CKD3-4, aortic stenosis, HLD, HTN, and tobacco use presented with symptomatic hypotension. Patient underwent recent cardiac catheterization via a right common femoral artery at [facility] on 02/08 2 MAGGIE placed LM, LAD, RCA. Patient was discharged 02/09. Patient was hypovolemic at that time per report. Patient with significant bruising around the access site. Patient was discharge on ASA and plavix. He was to restart apixaban daily starting Sunday 02/11. Plan was to continue with triple therapy x 7 days. Continue with Plavix and apixaban indefinitely. Planning for TAVR in the future for severe aortic stenosis. Reviewed d/c summary from recent admission to [facility] - labs from 02/08 significant for hemoglobin 13.6 and creatinine 2.4. Patient with known chronic kidney disease. No repeat labs seen. Did ask Dr. Antonio Woodward, [facility], to review case as we will be formally consulting him - hemoglobin stable at 9.1 on discharge Hypovolemic and tachycardic on admission. Patient s/p 2 L NS. Patient is atrial flutter/fib with rapid ventricular response. Was given 5 mg Lopressor x1 as concern that flutter was contributing to hypotension. Patient stable in the 80s/50s at this time. CT A&P for assessment of probable hemorrhage. Ordered 1u PRBCs. Upon my interview with the patient he was asymptomatic - no lightheadedness or dizziness, no feeling cold, no SOB, no chest pain, no abdominal pain, no bleeding from wound site. Feeling about the same as during discharge. Patient did not take his morning lisinopril or apixaban. Allergies Allergy/AdvReac Type Severity Reaction Status Date / Time No Known Allergies Allergy Verified 02/10/23 16:03 Home Medications Medication Instructions Recorded Confirmed Type apixaban 2.5 mg tablet (Eliquis) 0 mg PO BID 02/10/23 02/10/23 History aspirin 81 mg chewable tablet 81 mg PO QAM 02/10/23 02/10/23 History atorvastatin 80 mg tablet 80 mg PO QAM 02/10/23 02/10/23 History clopidogrel 75 mg tablet 75 mg PO QAM 02/10/23 02/10/23 History furosemide 40 mg tablet 40 mg PO QAM 02/10/23 02/10/23 History lisinopril 2.5 mg tablet 2.5 mg PO QAM 02/10/23 02/10/23 History metoprolol succinate 50 mg 50 mg PO BID 02/10/23 02/10/23 History tablet,extended release 24 hr Past Med/Surg History Medical History (Updated 02/12/23 @ 09:22 by Stiven Reyes, ) CKD (chronic kidney disease) stage 4, GFR 15-29 ml/min Multi-vessel coronary artery stenosis Ischemic cardiomyopathy Atrial fibrillation with rapid ventricular response Severe calcific aortic stenosis Elevated troponin Elevated PSA HLD (hyperlipidemia) HTN (hypertension) Epididymitis Surgical History (Updated 02/11/23 @ 16:35 by Lidia Guzmán MD, PhD) S/P TURP (transurethral resection of prostate) 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 [facility] [place] Stented coronary artery Family History Other Family history non-contributory Social History Smoking Status: Current some day smoker Tobacco Type: Cigars Cigarettes Per Day: 1 cigar per week; Do You Dip or Chew Tobacco: No; Hx Alcohol Use: No Hx Substance Use: No Preferred Language: Tuvaluan Communication Ability: Effective Ham Sawyer Required: No Beliefs That Will Affect Care: None marital status: Current Living Situation: Spouse Feels Safe at Home: Yes Safety Concerns: Feels Safe At This Time Assistive Devices: None Review of Systems 2 Review of Systems: See HPI Physical Exam 2 Physical Exam: Gen: pale appearing male in NAD HEENT: AT NC conjunctiva noninjected no scleral icterus noted, MMM CV: tachycardic with irregular rhythm, loud holosystolic murmur best heard LUSB present, DP and radial pulses 2+ symmetric, cap refill <2s Resp: CTAB no wheezing Abd: soft, non-distended, non-tender MSK: significant bruising right thigh and groin extending into the scrotum Skin: no rashes noted Neuro: alert and oriented Psych: appropriate mood and affect Results & Data Results & Data Vital Signs (Past 12 Hours) Vital Signs Temp Pulse Pulse Resp BP BP Pulse Ox 02/10/23 14:45 111 H 82/62 L 02/10/23 14:37 106 H 18 85/63 L 96 02/10/23 14:32 95 H 21 68/53 L 96 02/10/23 14:29 103 H 02/10/23 14:26 108 H 16 92 02/10/23 14:26 114 H 16 91/65 L 91 02/10/23 14:22 122 H 91/65 L 02/10/23 14:15 104 H 26 H 91/65 L 91 02/10/23 14:09 94 02/10/23 14:07 107 H 20 88/64 L 95 02/10/23 13:57 37.0 C 122 H 21 98/72 L O2 Del Method O2 Flow Rate 02/10/23 14:45 02/10/23 14:37 Room Air 02/10/23 14:32 Room Air 02/10/23 14:29 02/10/23 14:26 Room Air 02/10/23 14:26 Room Air 02/10/23 14:22 02/10/23 14:15 Room Air 02/10/23 14:09 Room Air 0 02/10/23 14:07 Room Air 02/10/23 13:57 Laboratory Results 02/10/23 14:00 02/10/23 14:00 Diagnostic Findings Chest X-Ray 02/10/23 14:09 FINDINGS: Cardiomediastinal and hilar silhouettes are unchanged. Pulmonary vascular congestion with interstitial coarsening. No pneumothorax, pleural effusion or lobar airspace consolidation. The bones appear grossly intact. IMPRESSION: Cardiomegaly with pulmonary vascular congestion. Abdomen/Pelvis CT 02/10/23 14:43 FINDINGS: Interlobular septal thickening within the lung bases consistent with pulmonary edema. There are small bilateral pleural effusions. No pneumoperitoneum. No pneumatosis. No acute fractures identified. Small fat- containing bilateral inguinal hernias. Right lower quadrant/pelvic subcutaneous edema is noted. There is a small amount of right pelvic sidewall/extraperitoneal hemorrhage which extends into the right groin. This measures up to 9 mm in thickness. There is a 5 mm hypodense lesion within the left hepatic lobe. This is stable compared to the prior study and therefore favors a cyst. No new hepatic lesions identified. The unenhanced spleen, adrenal glands, and pancreas unremarkable. Normal gallbladder. Bilateral cortical renal scarring/atrophy is again noted. No renal or ureteral stones. No hydronephrosis. Mild bilateral perinephric edema. This is likely chronic. Moderate calcified plaque within the mildly ectatic abdominal aorta. No evidence for an abdominal aortic aneurysm. No pelvic free fluid. Moderate bladder wall thickening. The prostate gland is mildly enlarged. No retroperitoneal lymphadenopathy. Suboptimal evaluation for bowel pathology due to the lack of intravenous and oral contrast. However, there is no definite bowel wall thickening or obstruction. Colonic diverticulosis. No evidence for acute diverticulitis. Normal appendix. IMPRESSION: 1. Small amount of right pelvic sidewall/extraperitoneal hemorrhage which extends into the right groin. 2. Pulmonary edema and small bilateral pleural effusions. There are 3. Additional findings as described above. Code Status & VTE Plan Code Status In the acute post-operative setting patient to be a full code. Supervising Physician Co-Signing Physician Notes I personally saw and examined the patient. I verified all downey points and agree with resident physician Dr Shobha Handley, with the following exceptions and/or additions: 82 year old male presents to the ER with anemia and hypotension following recent cardiac catheterization performed at [facility] Hypovolemic Post cardiac cath Atrial fibrillation - suspect this if permanent, noted irregular rhythm on [facility] discharge summary, suspect current tachycardia is appropriate for hypotension from blood loss and would not slow down further, Holding Eliquis given. Resident Activity Tracking Resident Involvement: Resident Care Provided Care Provided: Adult Hospital Medicine (4) Acute on chronic renal failure Acute renal failure type: unspecified Chronic kidney disease stage: u nspecified stage Qualified Code(s): N17.9 - Acute kidney failure, unspecified; N18.9 - Chronic kidney disease, unspecified
--- NOTE | 2023-02-10 15:23 | XRay Report ---
XR chest 1V portable HISTORY: 82 years-old Male weakness acute weakness COMPARISON: 08/26/2022 TECHNIQUE: AP view of the chest FINDINGS: Cardiomediastinal and hilar silhouettes are unchanged. Pulmonary vascular congestion with interstitia l coarsening. No pneumothorax, pleural effusion or lobar airspace consolidation. The bones appear angel ssly intact. IMPRESSION: Cardiomegaly with pulmonary vascular congestion. ACT 112: Negative or not required by law. The above report was generated using voice recognition software. It may contain grammatical, syntax o r spelling errors. Electronically signed by: Sylvain Shukla M.D. 02/10/2023 3:22 PM
--- NOTE | 2023-02-10 15:49 | CT Scan Report ---
ABDOMEN AND PELVIS CT WITHOUT CONTRAST CT DOSE: 712.43 mGy.cm HISTORY: Possible retroperitoneal bleed, adalgisa, sp cardiac stenting TECHNIQUE: Multiaxial CT images of the abdomen and pelvis were performed without contrast. A dose lo wering technique was utilized adhering to the principles of ALARA. COMPARISON STUDY: Abdomen and pelvis CT 02/28/2021. FINDINGS: Interlobular septal thickening within the lung bases consistent with pulmonary edema. There are small bilateral pleural effusions. No pneumoperitoneum. No pneumatosis. No acute fractures ident ified. Small fat-containing bilateral inguinal hernias. Right lower quadrant/pelvic subcutaneous lisbet a is noted. There is a small amount of right pelvic sidewall/extraperitoneal hemorrhage which extends into the right groin. This measures up to 9 mm in thickness. There is a 5 mm hypodense lesion within the left hepatic lobe. This is stable compared to the prior study and therefore favors a cyst. No ne w hepatic lesions identified. The unenhanced spleen, adrenal glands, and pancreas unremarkable. Kristine l gallbladder. Bilateral cortical renal scarring/atrophy is again noted. No renal or ureteral stones. No hydronephrosis. Mild bilateral perinephric edema. This is likely chronic. Moderate calcified plaq ue within the mildly ectatic abdominal aorta. No evidence for an abdominal aortic aneurysm. No pelvic free fluid. Moderate bladder wall thickening. The prostate gland is mildly enlarged. No retroperiton eal lymphadenopathy. Suboptimal evaluation for bowel pathology due to the lack of intravenous and ora l contrast. However, there is no definite bowel wall thickening or obstruction. Colonic diverticulosi s. No evidence for acute diverticulitis. Normal appendix. IMPRESSION: 1. Small amount of right pelvic sidewall/extraperitoneal hemorrhage which extends into the right groi n. 2. Pulmonary edema and small bilateral pleural effusions. There are 3. Additional findings as describ ed above. ACT 112: Negative or not required by law. Electronically signed by: Selvin Angel M.D. 02/10/2023 3:48 PM
--- NOTE | 2023-02-10 18:04 | Critical Care Consultation ---
Date of Consultation February 10, 2023 Assessment & Plan (1) Lactate blood increase: Reason Critically Ill: 82-year-old male with acute blood loss anemia leading to symptomatic anemia PLAN: Neuro: Orthostasis -Likely related to acute blood loss anemia CV: Coronary artery disease status post PCI Elevated troponins -Denies chest pain, reported nonspecific changes on EKG I do not have it available for my review History of aortic stenosis -Avoid afterload reduction Paroxysmal atrial fibrillation -Holding anticoagulants at this time Fluids/Renal: Acute kidney injury on chronic kidney disease -Presumptively related to contrast from PCI Heme: Acute blood loss anemia -Trend H&H DVT prophylaxis: Chemoprophylaxis contraindicated: SCDs Endocrine: ICU hyperglycemia protocol Vascular access: Peripheral IVs Code Status: Full code given acute correctable nature of this event -Discussed with patient and family he would not want long-term life support however agreeable with heroic measures given the current circumstances Disposition: ICU (2) S/P drug eluting coronary stent placement: (3) Symptomatic anemia: (4) Acute kidney injury superimposed on chronic kidney disease: (5) Cardiomyopathy: (6) Severe calcific aortic stenosis: (7) Acute on chronic renal failure: (8) Elevated troponin: Supervising Physician Co-Signing Physician Notes I have personally spent 45 minutes of critical care time in the direct management of this patient. This is a life/limb threatening event. This includes time spent evaluating patient, direct bedside care, chart review, placing orders, interpretation of diagnostic studies, discussion with consultants, patient, and/or family members regarding treatment decisions, as well as other required patient management activities. This time is exclusive of all separately billable procedures, and teaching time and separate from and in addition to any other critical care service time. History of Present Illness Reason for Consultation: Symptomatic anemia/possible ongoing blood loss status post PCI for coronary artery disease Attending Physician: Paul Bal MD History of Present Illness Patient is an 82-year-old male with stage III kidney disease, long-term anticoagulant loose secondary to atrial fibrillation, known ischemic cardiomyopathy who recently underwent PCI at [facility]. He was discharged and was set to follow-up tomorrow with repeat labs. Today upon sitting up in bed he felt extremely lightheaded and dizzy. He would denies any chest pain or shortness of breath. While in the hospital he did have significant ecchymoses to the right groin where vascular access was obtained for the PCI. He is tender in that area, denies any change in bowel habits no black tarry stools no bright red blood per rectum. In the emergency department he was found to be anemic and he has been ordered 1 unit packed red blood cells for acute blood loss anemia. Allergies Allergy/AdvReac Type Severity Reaction Status Date / Time No Known Allergies Allergy Verified 02/10/23 16:03 Home Medications Medication Instructions Recorded Confirmed Type apixaban 2.5 mg tablet (Eliquis) 0 mg PO BID 02/10/23 02/10/23 History aspirin 81 mg chewable tablet 81 mg PO QAM 02/10/23 02/10/23 History atorvastatin 80 mg tablet 80 mg PO QAM 02/10/23 02/10/23 History clopidogrel 75 mg tablet 75 mg PO QAM 02/10/23 02/10/23 History furosemide 40 mg tablet 40 mg PO QAM 02/10/23 02/10/23 History lisinopril 2.5 mg tablet 2.5 mg PO QAM 02/10/23 02/10/23 History metoprolol succinate 50 mg 50 mg PO BID 02/10/23 02/10/23 History tablet,extended release 24 hr Patient History Medical History Acute kidney injury Acute on chronic renal failure Acute retention of urine Acute UTI Bacteremia Diarrhea Elevated PSA Elevated troponin Epididymitis HLD (hyperlipidemia) HTN (hypertension) HTN (hypertension), benign Hypomagnesemia Hyponatremia Metabolic acidosis Obstructive uropathy Sepsis Testicular pain Transaminitis Urinary tract infection Surgical History No pertinent past surgical history Family History Other Family history non-contributory Social History Smoking Status: Current some day smoker Tobacco Type: Cigars Hx Alcohol Use: No Hx Substance Use: No Preferred Language: German Communication Ability: Effective Postdoctoral Scholar Required: No Beliefs That Will Affect Care: None marital status: Current Living Situation: Spouse Feels Safe at Home: Yes Assistive Devices: None Physical Exam Physical Exam: General: Alert. nontoxic. Skin: Warm, dry, Head: Atraumatic Ears, nose, mouth and throat: airway patent Cardiovascular: Normal peripheral perfusion Respiratory: no respiratory distress Gastrointestinal: Non distended Musculoskeletal: No deformity, no pulsatility in the right groin, significant ecchymoses, scrotal ecchymoses. Results & Data Results & Data Vital Signs (Past 12 Hours) Vital Signs Temp Pulse Pulse Resp BP BP Pulse Ox 02/10/23 17:48 36.4 C L 83 22 90/74 L 99 02/10/23 16:30 117 H 15 90 02/10/23 16:18 82/46 L 02/10/23 16:18 114 H 15 02/10/23 16:15 112 H 15 02/10/23 16:00 101 H 22 02/10/23 16:00 96/70 L 02/10/23 15:45 80/63 L 02/10/23 15:45 113 H 23 02/10/23 15:32 118 H 23 02/10/23 15:32 75/56 L 02/10/23 15:31 115 H 15 02/10/23 15:30 111 H 24 02/10/23 15:28 114 H 24 02/10/23 15:28 85/56 L 02/10/23 15:16 83/69 L 02/10/23 15:16 115 H 20 02/10/23 15:15 102 H 15 02/10/23 15:00 120 H 18 02/10/23 14:45 82/62 L 02/10/23 14:45 106 H 24 02/10/23 14:45 111 H 82/62 L 02/10/23 14:37 106 H 18 85/63 L 96 02/10/23 14:32 95 H 21 68/53 L 96 02/10/23 14:29 103 H 02/10/23 14:26 108 H 16 92 02/10/23 14:26 114 H 16 91/65 L 91 02/10/23 14:22 122 H 91/65 L 02/10/23 14:15 104 H 26 H 91/65 L 91 02/10/23 14:09 94 02/10/23 14:07 107 H 20 88/64 L 95 02/10/23 13:57 37.0 C 122 H 21 98/72 L O2 Del Method O2 Flow Rate 02/10/23 17:48 6 02/10/23 16:30 02/10/23 16:18 02/10/23 16:18 02/10/23 16:15 02/10/23 16:00 02/10/23 16:00 02/10/23 15:45 02/10/23 15:45 02/10/23 15:32 02/10/23 15:32 02/10/23 15:31 02/10/23 15:30 02/10/23 15:28 02/10/23 15:28 02/10/23 15:16 02/10/23 15:16 02/10/23 15:15 02/10/23 15:00 02/10/23 14:45 02/10/23 14:45 02/10/23 14:45 02/10/23 14:37 Room Air 02/10/23 14:32 Room Air 02/10/23 14:29 02/10/23 14:26 Room Air 02/10/23 14:26 Room Air 02/10/23 14:22 02/10/23 14:15 Room Air 02/10/23 14:09 Room Air 0 02/10/23 14:07 Room Air 02/10/23 13:57 Critical Care Results & Data Vital Signs (Past 12 Hours) Vital Signs Temp Pulse Pulse Resp BP BP Pulse Ox 02/10/23 17:48 36.4 C L 83 22 90/74 L 99 02/10/23 16:30 117 H 15 90 02/10/23 16:18 82/46 L 02/10/23 16:18 114 H 15 02/10/23 16:15 112 H 15 02/10/23 16:00 101 H 22 02/10/23 16:00 96/70 L 02/10/23 15:45 80/63 L 02/10/23 15:45 113 H 23 02/10/23 15:32 118 H 23 02/10/23 15:32 75/56 L 02/10/23 15:31 115 H 15 02/10/23 15:30 111 H 24 02/10/23 15:28 114 H 24 02/10/23 15:28 85/56 L 02/10/23 15:16 83/69 L 02/10/23 15:16 115 H 20 02/10/23 15:15 102 H 15 02/10/23 15:00 120 H 18 02/10/23 14:45 82/62 L 02/10/23 14:45 106 H 24 02/10/23 14:45 111 H 82/62 L 02/10/23 14:37 106 H 18 85/63 L 96 02/10/23 14:32 95 H 21 68/53 L 96 02/10/23 14:29 103 H 02/10/23 14:26 108 H 16 92 02/10/23 14:26 114 H 16 91/65 L 91 02/10/23 14:22 122 H 91/65 L 02/10/23 14:15 104 H 26 H 91/65 L 91 02/10/23 14:09 94 02/10/23 14:07 107 H 20 88/64 L 95 02/10/23 13:57 37.0 C 122 H 21 98/72 L O2 Del Method O2 Flow Rate 02/10/23 17:48 6 02/10/23 16:30 02/10/23 16:18 02/10/23 16:18 02/10/23 16:15 02/10/23 16:00 02/10/23 16:00 02/10/23 15:45 02/10/23 15:45 02/10/23 15:32 02/10/23 15:32 02/10/23 15:31 02/10/23 15:30 02/10/23 15:28 02/10/23 15:28 02/10/23 15:16 02/10/23 15:16 02/10/23 15:15 02/10/23 15:00 02/10/23 14:45 02/10/23 14:45 02/10/23 14:45 02/10/23 14:37 Room Air 02/10/23 14:32 Room Air 02/10/23 14:29 02/10/23 14:26 Room Air 02/10/23 14:26 Room Air 02/10/23 14:22 02/10/23 14:15 Room Air 02/10/23 14:09 Room Air 0 02/10/23 14:07 Room Air 02/10/23 13:57 Lab & Micro Results (Past 24 Hours) RBC 2.67 M/uL (4.70-6.10) L 02/10/23 WBC 11.08 K/ul (4.8-10.8) H 02/10/23 Hgb 8.1 g/dl (14.0-18.0) L 02/10/23 Hct 23.7 % (42.0-52.0) L 02/10/23 MCV 88.8 fL (80.0-100.0) 02/10/23 MCH 30.3 pg (25.0-34.0) 02/10/23 MCHC 34.2 g/dL (32.0-36.0) 02/10/23 RDW Standard Deviation 44.0 fL (36.4-46.3) 02/10/23 RDW Coefficient of Variation 13.5 % (11.5-14.5) 02/10/23 Plt Count 138 K/uL (130-400) 02/10/23 MPV 9.4 fL (9.4-12.4) 02/10/23 Neutrophils (%) (Auto) 85.4 % 02/10/23 Lymphocytes (%) (Auto) 6.2 % 02/10/23 Monocytes # (Auto) 0.81 K/uL (0.11-0.59) H 02/10/23 Eosinophils # (Auto) 0.06 K/uL (0.00-0.50) 02/10/23 Immature Granulocyte % (Auto) 0.4 % 02/10/23 Neutrophils # (Auto) 9.46 K/uL (1.40-6.50) H 02/10/23 Lymphocytes # (Auto) 0.69 K/uL (1.20-3.40) L 02/10/23 Monocytes # (Auto) 0.81 K/uL (0.11-0.59) H 02/10/23 Eosinophils # (Auto) 0.06 K/uL (0.00-0.50) 02/10/23 Basophils # (Auto) 0.02 K/uL (0.00-0.20) 02/10/23 Immature Granulocyte # (Auto) 0.04 K/uL (0.01-0.20) 3 Na 134 mmol/L (136-145) L 02/10/23 K 4.4 mmol/L (3.5-5.1) 02/10/23 Cl 105 mmol/L (98-107) 02/10/23 CO2 19 mmol/L (21-32) L 02/10/23 Anion Gap 10 (3-11) 02/10/23 BUN 66 mg/dl (6-23) H 02/10/23 Creatinine 2.79 mg/dl (0.6-1.4) H 02/10/23 Estimated GFR ( Amer) 23.2 ml/min 02/10/23 Estimated GFR (Non-Af Amer) 20.0 ml/min 02/10/23 BUN/Creatinine Ratio 23.7 (10-20) H 02/10/23 Glu 179 mg/dl (70-99(Fasting)) H 02/10/23 Ca 8.3 mg/dl (8.6-10.3) L 02/10/23 Total Bilirubin 0.7 mg/dl (0.2-1.0) 02/10/23 AST 81 U/L (13-39) H 02/10/23 ALT 20 U/L (7-52) 02/10/23 Alkaline Phosphatase 68 U/L (34-104) 02/10/23 TP 6.0 gm/dl (6.0-8.3) 02/10/23 Albumin 3.7 gm/dl (3.4-5.0) 02/10/23 Globulin 2.3 gm/dl (2.5-4.0) L 02/10/23 Albumin/Globulin Ratio 1.6 (0.9-2) 02/10/23 Mg 2.2 mg/dl (1.7-2.4) 02/10/23 14:00 Calcium Level 8.3 mg/dl (8.6-10.3) L 02/10/23 14:00 Prothromb Time International Ratio 1.0 (0.9-1.1) 02/10/23 14:0 0 Diagnostic Findings (Past 24 Hours) Chest X-Ray 02/10/23 14:09 XR chest 1V portable HISTORY: 82 years-old Male weakness acute weakness COMPARISON: 08/26/2022 TECHNIQUE: AP view of the chest FINDINGS: Cardiomediastinal and hilar silhouettes are unchanged. Pulmonary vascular congestion with interstitial coarsening. No pneumothorax, pleural effusion or lobar airspace consolidation. The bones appear grossly intact. IMPRESSION: Cardiomegaly with pulmonary vascular congestion. ACT 112: Negative or not required by law. The above report was generated using voice recognition software. It may contain grammatical, syntax or spelling errors. Electronically signed by: Sylvain Shukla M.D. 02/10/2023 3:22 PM Abdomen/Pelvis CT 02/10/23 14:[address] WITHOUT CONTRAST CT DOSE: 712.43 mGy.cm HISTORY: Possible retroperitoneal bleed, adalgisa, sp cardiac stenting TECHNIQUE: Multiaxial CT images of the abdomen and pelvis were performed without contrast. A dose lowering technique was utilized adhering to the principles of ALARA. COMPARISON STUDY: Abdomen and pelvis CT 02/28/2021. FINDINGS: Interlobular septal thickening within the lung bases consistent with pulmonary edema. There are small bilateral pleural effusions. No pneumoperitoneum. No pneumatosis. No acute fractures identified. Small fat- containing bilateral inguinal hernias. Right lower quadrant/pelvic subcutaneous edema is noted. There is a small amount of right pelvic sidewall/extraperitoneal hemorrhage which extends into the right groin. This measures up to 9 mm in thickness. There is a 5 mm hypodense lesion within the left hepatic lobe. This is stable compared to the prior study and therefore favors a cyst. No new hepatic lesions identified. The unenhanced spleen, adrenal glands, and pancreas unremarkable. Normal gallbladder. Bilateral cortical renal scarring/atrophy is again noted. No renal or ureteral stones. No hydronephrosis. Mild bilateral perinephric edema. This is likely chronic. Moderate calcified plaque within the mildly ectatic abdominal aorta. No evidence for an abdominal aortic aneurysm. No pelvic free fluid. Moderate bladder wall thickening. The prostate gland is mildly enlarged. No retroperitoneal lymphadenopathy. Suboptimal evaluation for bowel pathology due to the lack of intravenous and oral contrast. However, there is no definite bowel wall thickening or obstruction. Colonic diverticulosis. No evidence for acute diverticulitis. Normal appendix. IMPRESSION: 1. Small amount of right pelvic sidewall/extraperitoneal hemorrhage which extends into the right groin. 2. Pulmonary edema and small bilateral pleural effusions. There are 3. Additional findings as described above. ACT 112: Negative or not required by law. Electronically signed by: Selvin Angel M.D. 02/10/2023 3:48 PM I & O Totals 24 Hours 02/09/23 02/10/23 02/11/23 06:59 06:59 06:59 Intake Total 2500 / 2500 Balance 2500 / 2500 Cumulative 02/10/23 13:42 thru 02/10/23 17:50 Intake Total 2500 Balance 2500 RT Ventilator Mngmt (Last Documented) Ventilator Ordered Settings Respiratory Rate 22 02/10/23 17:48 Ventilator - PT Measurements Respiratory Rate 22 Coding Level of Care Code 43628 CRITICAL CARE 1ST 30-74M Diagnoses Lactate blood increase R79.89 S/P drug eluting coronary stent placement Z95.5 Symptomatic anemia D64.9 Acute kidney injury superimposed on chronic kidney disease N17.9; N18.9 Cardiomyopathy I42.9 Severe calcific aortic stenosis I35.0 Acute on chronic renal failure N17.9; N18.9 Acute renal failure type: unspecified Chronic kidney disease stage: unspecified stage Elevated troponin R77.8 (7) Acute on chronic renal failure Acute renal failure type: unspecified Chronic kidney disease stage: unspecified stage Qualified Code(s): N17.9 - Acute kidney failure, unspecified; N18.9 - Chronic kidney disease, unspecified
[2023-02-10] MEDS: ICU Protocol for HYPERglycemia SCH ×2 (18:49→22:57)
[2023-02-10 21:20] LABS: Hemoglobin 10.7 g/dl (14.0-18.0)
[2023-02-11 02:19] LABS: Hematocrit (blood only) 28.7 % (42.0-52.0); Hemoglobin 9.9 g/dl (14.0-18.0)
[2023-02-11 05:09] LABS: Albumin Level 3.9 gm/dl (3.4-5.0); Bilirubin Direct 0.1 mg/dl (0-0.2); Bilirubin,Total 1.1 mg/dl (0.2-1.0); Magnesium 2.4 mg/dl (1.7-2.4); Phosphorus 4.3 mg/dl (2.5-4.9); Total Protein 6.6 gm/dl (6.0-8.3)
[2023-02-11 05:23] LABS: Partial Thromboplastin Time 27 Seconds (21-31); Prothrombin Time 11.2 Seconds (9.0-12.0)
[2023-02-11 06:17] LABS: Basophils # (auto) 0.07 K/uL (0.00-0.20); Basophils % (auto) 0.3 %; Eosinophils # (auto) 0.02 K/uL (0.00-0.50); Eosinophils % (auto) 0.1 %; Hematocrit (blood only) 31.7 % (42.0-52.0); Hemoglobin 10.7 g/dl (14.0-18.0); Immature Granulocytes # (auto) 0.11 K/uL (0.01-0.20); Immature Granulocytes % (auto) 0.5 %; Lymphocytes # (auto) 1.28 K/uL (1.20-3.40); Lymphocytes % (auto) 6.2 %; Mean Corpuscular Hemoglobin 30.5 pg (25.0-34.0); Mean Corpuscular Hgb Conc 33.8 g/dL (32.0-36.0); Mean Corpuscular Volume 90.3 fL (80.0-100.0); Mean Platelet Volume 9.6 fL (9.4-12.4); Monocytes % (auto) 6.7 %; Neutrophils # (auto) 17.91 K/uL (1.40-6.50); Neutrophils % (auto) 86.2 %; Platelet Count 185 K/uL (130-400); RDW Coefficient of Variation 13.6 % (11.5-14.5); RDW Standard Deviation 44.9 fL (36.4-46.3); Red Blood Count 3.51 M/uL (4.70-6.10); White Blood Count 20.79 K/ul (4.8-10.8)
--- OUTSIDE RECORDS SUMMARY | 2023-02-11 06:54 | External Medical Summary | Continuity of Care Document ---
Author Name Unknown Organization [facility] [address] [facility] [address] [place] [id number] Care Team Providers Care Wallpaper Remover Steam Name Role Phone Emma Nix Primary Care Physician [phone] Encounter [facility] MARLENINBR [id number] Date(s): 08/26/22 - 08/26/22 [facility] [address] [facility] [address] [facility] Practice Site [address] [facility], [facility] [address] [place] [id number] [phone] Encounter Diagnosis Body mass index [BMI] 24.0-24.9, adult(Discharge Diagnosis) - 08/26/22 Palpitations(Discharge Diagnosis) - 08/26/22 Sustained SVT(Discharge Diagnosis) - 08/26/22 Discharge Disposition: Home or Self Care Attending Physician: GINO Miranda Kimberly A Referring Physician: GINO Miranda Kimberly A Allergies, Adverse Reactions, Alerts No Known Allergies Assessment and Plan Extracted from: Title:SVT Author:GINO Miranda Kimberly A Date:08/26/22 1.Sustained SVT Acute w/ systemic symptoms or complicated injury 81 yearoldVeronique presents for acute visit Has been complaining of fatigue for the past few weeks.Was not experiencing any other symptoms until this morning when he waswalking U*tique andhad a near syncopalepisode (x 2).He did sit down for a few minutes and symptoms resolved.Denies any chest pain, SOB, lightheadedness, CARVAJAL, weakness difficultyambulating or speaking, or additional s/sx of CVA. Onlyknown cardiac historyis aorticstenosis but follows with Cardiology at [facility]. Goal:Resolution Data:EKG confirmation Plan: Modified Anh Surjit x 2 failed to break rhythm Despite SVT rate of 157, patient is asymptomatic. EMS called to transport patient to ED. Immunizations Given and Recorded Vaccine Date Status Refusal Reason SARS-CoV-2 (COVID-19) mRNA BNT-162b2 vax 12/25/20 Recorded SARS-CoV-2 (COVID-19) mRNA BNT-162b2 vax 07/27/20 Recorded SARS-CoV-2 (COVID-19) mRNA BNT-162b2 vax 07/06/20 Recorded Medications lisinopril 10 mg oral tablet Start: 08/26/22 15:38:00 EDT, 1 tab, PO, Daily Start Date: 08/26/22 Status: Ordered Mental Status 08/26/22 Barriers to Learning one year None evide nt Mandatory Health Literacy Documentation Yes Health Literacy Communication Barriers N ever Primary Language Swedish Problem List Condition Confirmation Course Effective Dates Status H ealth Status Informant Aortic stenosis Confirmed Active Essential (primary) hypertension Confirmed Active Mitral regurgitation Confirmed Active Mixed hyperlipidemia Confirmed Active Tobacco user Confirmed Active Diagnosis Diagnosis Type Effective Dates Health Status Clinical Service Informant Palpitations Discharge Diagnosis 08/26/22 Non-Specified Body mass index [BMI] 24.0-24.9, adult Discharge Diagnosis 08/26/22 Non-Specified Sustained SVT Discharge Diagnosis 08/26/22 Procedures Procedure Date Related Diagnosis Body Site Status CT of abdomen 1 02/28/[address] of abdomen and pelvis wit hout contrast 2 02/28/21 Completed US scan of scrotum 3 02/28/21 Comp leted Excision of lesion of eyelid 4 07/30/15 Completed 1no acute pathology 21. no bowel obsturction or bowel wall thickening 2. Prostamegaly with urinary bladder wall thickening redomstrated suggestive of chronic bladder outlet obsturction. Correlate with urinalysis to exclude cystitis 3. Right sided hydrocele. Please refere to the same day scrotal ultrasound for additional findings. 4. Bilateral inguinal hernias, right greater than left with nonobstructed small bowel again noted extending into the right hernia sac. 5. Mild splenomegaly 6. Additional findings as above 31. Heterogeneous and hypervascular right greater than left testicles and right epididymis is suggestive of acute orchitis with epididymitis. 2. Small mildly complex right sided hydrocele 3. Right sided varicocele 4Right lower eyelid papilloma excision Vital Signs Most recent to oldest [Reference Range]: 1 Height 168.8 cm (08/26/22 3:41 PM) Patient Weight 70.1 kg (08/26/22 3:41 PM) Body Mass Index 24.6 kg/m2 (08/26/22 3:41 PM) Temperature [36.5-37.9 DegC] 36.4 DegC *LOW* (08/26/22 3:41 PM) Blood Pressure 138/80mmHg (08/26/22 3:41 PM) BP Location # 1 Left Arm (08/26/22 3:41 PM) Social History Social History Type Response Tobacco Cigars 1 Smoking Status Never smoked cigaret sue Sex Male 1Smokes 1 cigar a day for 3 or 4 years. [facility] Outpt Note * GINO Miranda, Valerie Metzger: PERFORM Event Display: FCM Outpt Note Authored Date: [id number] Chief Complaint pt has been having an increased in fatigue with dizziness History of Present Illness Morales Wilkins presents for acute visit Has been complaining of fatigue for the past few weeks.Was not experiencing any other symptoms until this morning when he waswalking hisdogs andhad a near syncopalepisode (x 2).He did sit down for a few minutes and symptoms resolved.Denies any chest pain, SOB, lightheadedness, CARVAJAL, weakness difficultyambulating or speaking, or additional s/sx of CVA. Onlyknown cardiac historyis aorticstenosis but follows with Cardiology at [facility]. Review of Systems ROS per HPI Physical Exam Vitals & Measurements T:36.4C BP:138/80 SpO2:98% HT:168.8cm WT:70.1kg WT:70.100kg(Dosing) BMI:24.6 PHQ2 Data(Data Documented on:08/26/2022 15:35) Emotional health assessment NEGATIVE General: Alert and oriented,No acute distress,Very pleasant Well groomed Eye: Pupils are equal, round and reactive to light,Extraocular movements are intact,Normal conjunctiva. HENT: Normocephalic, Neck: Supple,No lymphadenopathy. Respiratory: Lungs are clear to auscultation,Respirations are non- labored,Breath sounds are equal,Symmetrical chest wall expansion. Cardiovascular: SVT @157 BPM confirmed on EKG. 2+ SYSTOLIC MURMUR,No gallop,No edema. Lymphatics: No submandibular, anterior or posterior cervical adenopathy palpable. Musculoskeletal:No functional arthritic changes FROM Normal gait. Integumentary: Warm,[place]. No rashes or changing lesions. Neurologic: Alert,Oriented,Cranial Nerves II-XII are grossly intact. Cognition and Speech: Oriented,Speech clear and coherent,Functional cognition intact. Psychiatric: Cooperative,Appropriate mood & affect,Normal judgment. Assessment/Plan 1.Sustained SVT Acute w/ systemic symptoms or complicated injury 81 yearoldMalewnayeli presents for acute visit Has been complaining of fatigue for the past few weeks.Was not experiencing any other symptoms until this morning when he waswalking hisdogs andhad a near syncopalepisode (x 2).He did sit down for a few minutes and symptoms resolved.Denies any chest pain, SOB, lightheadedness, CARVAJAL, weakness difficultyambulating or speaking, or additional s/sx of CVA. Onlyknown cardiac historyis aorticstenosis but follows with Cardiology at [facility]. Goal:Resolution Data:EKG confirmation Plan: Modified Anh Surjit x 2 failed to break rhythm Despite SVT rate of 157, patient is asymptomatic. EMS called to transport patient to ED. Problem List/Past Medical History Ongoing Aortic stenosis Essential (primary) hypertension Mitral regurgitation Mixed hyperlipidemia Tobacco user Historical Elevated serum creatinine Procedure/Surgical History CT of abdomen (02/28/2021)CT of abdomen and pelvis without contrast (02/28/2021)US scan ofscrotum (02/28/2021)Excision of lesion of eyelid (07/30/2015) Medications lisinopril(lisinopril 10 mg oral tablet), 10 mg= 1 tab, PO, Daily Allergies NKA No Known Medication Allergies Social History Smoking Status Never smoked cigarettes Alcohol Frequency:Daily Exercise - Regular exercise Exercise type:Walking Tobacco - Medium Risk Type:Cigars - Comments: Smokes 1 cigar a day for 3 or 4 years. Family History Hypertension: Mother. Health Status Family Member(s) Immunizations Vaccine Date Status SARS-CoV-2 (COVID-19) mRNA BNT-162b2 vax 12/25/2020 Recorded SARS-CoV-2 (COVID-19) mRNA BNT-162b2 vax 07/27/2020 Recorded SARS-CoV-2 (COVID-19) mRNA BNT-162b2 vax 07/06/2020 Recorded Recommendations Health Maintenance Pending(in the next year) OverDue Adult Influenza Vaccine due08/28/21and every 1year Due Adult COVID-19 Vaccination due08/26/22Unknown Frequency Adult Tdap/Td Vaccine due08/26/22Unknown Frequency Medicare Annual Wellness Visit due08/26/22and every 1year Pneumococcal Vaccine Older Adults due08/26/22One-time only Shingles Vaccine due08/26/22One-time only Due In Future Body Mass Index not due until08/26/23and every 1year Satisfied(in the past 1 year) Satisfied Body Mass Index on08/26/22.Satisfied by MICHELLE Barboza Kiara Electronic Signature on File Electronically Reviewed/Signed by: Valerie Miranda PA-C Author Signature Dt/Tm:08/26/2022 04:52 PM Department of Family Medicine Electronically Reviewed/Signed by: Guillermo Marmolejo MD Cosigner Signature Dt/Tm: 08/26/2022 07:23 PM Department of Family Medicine [facility] Patient Care team information Care Team Personnel Name: DO Nix Mehwish Position: Physician Member Role: Primary Care Provider Address: Address: [address] [place] [address] Care Team Related Persons Name: AMALIA BREWER Address: [address] [phone]
--- OUTSIDE RECORDS SUMMARY | 2023-02-11 06:54 | External Medical Summary | Continuity of Care Document ---
Author Name Unknown Organization [address] Address [address] [place] [id number] Care Team Providers Care Test Baker Name Role Phone Emma Nix Primary Care Physician [phone] Encounter [facility] [id number] Date(s): 12/23/22 - 12/23/[address] [facility] [address] [facility] [address] [place] [address] [phone] Encounter Diagnosis Body mass index [BMI] 22.0-22.9, adult(Discharge Diagnosis) - 12/23/22 Vaccination declined by patient(Discharge Diagnosis) - 12/23/22 Aortic stenosis(Discharge Diagnosis) - 12/23/22 Mixed hyperlipidemia(Discharge Diagnosis) - 12/23/22 Ischemic cardiomyopathy(Discharge Diagnosis) - 12/23/22 CKD (chronic kidney disease), stage IV(Discharge Diagnosis) - 12/23/22 Discharge Disposition: Home or Self Care Attending Physician: DO Nix Mehwish Referring Physician: DO Nix Mehwish Allergies, Adverse Reactions, Alerts No Known Allergies Assessment and Plan Extracted from: Title:Office Visit Note Author:DO Nix Me hwish Date:12/23/22 1.Ischemic cardiomyopathy 2.Aortic stenosis 3.Mixed hyperlipidemia Recommend continuing current medications,aspirin, atorvastatin, furosemide, lisinopril, metoprolol. Agree with further cardiac evaluation and interventions as planned. 4.CKD (chronic kidney disease), stage IV Did labs not available for review today, though he notes he had been down approximately2 weeks ago. We will try to obtain his recordsenriqueta Horton. 5.Vaccination declined by patient Immunizations were offered includinginfluenza, shingles and pneumococcal-he declines Given upcoming procedures, we will plan for follow-up in approximately 5-6 months as he will have frequent follow-up with both nephrology and cardiology. Time: 37 mins _ 2- pre-visit chart review _32 - visit, inclusive of history, exam, and discussion of assessment/plan _3 - post-visit documentation/orders/coordination of care Immunizations Given and Recorded Vaccine Date Status Refusal Reason SARS-CoV-2 (COVID-19) mRNA BNT-162b2 vax 12/25/20 Recorded SARS-CoV-2 (COVID-19) mRNA BNT-162b2 vax 07/27/20 Recorded SARS-CoV-2 (COVID-19) mRNA BNT-162b2 vax 07/06/20 Recorded Medications apixaban 2.5 mg oral tablet Start: 09/09/22 13:53:00 EDT, 1 tab, bid Start Date: 09/09/22 Status: Ordered Aspir 81 oral delayed release tablet Start: 09/09/22 13:54:00 EDT, 1 tab, PO, Daily Start Date: 09/09/22 Status: Ordered atorvastatin 80 mg oral tablet Start: 12/05/22 20:03:00 EDT, 1 tab, PO, Daily, Disp# 90 tab, Refills: 3, Pharmacy: [id number] Start Date: 12/05/22 Status: Ordered furosemide 40 mg oral tablet Start: 12/05/22 20:05:00 EDT, 1 tab, PO, Daily, Disp# 90 tab, Refills: 3, Pharmacy: [id number] Start Date: 12/05/22 Status: Ordered lisinopril 2.5 mg oral tablet Start: 12/05/22 20:05:00 EDT, 1 tab, PO, Daily, Disp# 90 tab, Refills: 3, Pharmacy: [id number] Start Date: 12/05/22 Status: Ordered metoprolol succinate 50 mg oral tablet, extended release Start: 12/05/22 20:07:00 EDT, 1 tab, PO, bid, Disp# 180 tab, Refills: 3, Pharmacy: [id number] Start Date: 12/05/22 Status: Ordered Neuriva Brain performance Plus Start: 09/09/22 13:56:00 EDT Start Date: 09/09/22 Status: Ordered [place]-3 Fish Oil 1000 mg oral capsule Start: 09/09/22 13:56:00 EDT Start Date: 09/09/22 Status: Ordered Mental Status 12/23/22 Barriers to Learning one year None evide nt Mandatory Health Literacy Documentation Yes Health Literacy Communication Barriers N ever Primary Language Paraguayan Problem List Condition Confirmation Course Effective Dates Status H ealth Status Informant Aortic stenosis Confirmed Active Essential (primary) hypertension Confirmed Active Mitral regurgitation Confirmed Active Mixed hyperlipidemia Confirmed Active Tobacco user Confirmed Active Diagnosis Diagnosis Type Effective Dates Health Status Clinical Service Informant Body mass index [BMI] 22.0-22.9, adult Discharge Diagnosis 12/23/22 Non-Specified Aortic stenosis Discharge Diagnosis 12/23/22 Mixed hyperlipidemia Discharge Diagnosis 12/23/22 Ischemic cardiomyopathy Discharge Diagnosis 12/23/22 CKD (chronic kidney disease), stage IV Discharge Diagnosis 12/23/22 Vaccination declined by patient Discharge Diagnosis 12/23/22 Procedures Procedure Date Related Diagnosis Body Site [...] recent to oldest [Reference Range]: 1 Height 170.2 cm (12/23/22 12:58 PM) Patient Weight 66.1 kg (12/23/22 12:58 PM) Body Mass Index 22.82 kg/m2 (12/23/22 12:58 PM) Temperature [36.5-37.9 DegC] 35.6 DegC *LOW* (12/23/22 12:58 PM) Heart Rate 79 bpm (12/23/22 12:58 PM) Blood Pressure 112/70mmHg (12/23/22 12:58 PM) Cuff Pulse Pressure 42 mmHg (12/23/22 12:58 PM) Social History Social History Type Response Tobacco Cigars 1 Smoking Status Never smoked cigaret sue Sex Male 1Smokes 1 cigar a day for 3 or 4 years. [facility] Outpt Note * DO Nix Mehwish: PERFORM Event Display: [facility] Outpt Note Authored Date: [id number] Chief Complaint 3 month f/u. History of Present Illness Broderick is an 82-year-old malewho presentsfor follow-up. [facility] With regards to his cardiac issues, he had a dobutamine stress echo completed. He plans to have aCT scan and subsequent catheterizationin approximately 2.5 weeks. After those tests,there is plan for possible TAVR. He notes that he does occasionally get dizzy. He had 1 episode where he was walking and felt dizzy and needed to sit down. He did not trip and he did not hit his head on anything. With regard to activity he goes for short walks approximately 2 times per week. He did have recent appointment with admissions officer a couple of weeks agoand had labs completed prior. These labs are not available for review. Not interested in vaccines. Physical Exam Vitals & Measurements T:35.6C HR:79(Monitored) BP:112/70 SpO2:98% HT:170.2cm WT:66.1kg WT:66.100kg(Dosing) BMI:22.82 PHQ2 Data(Data Documented on:12/23/2022 12:57) Emotional health assessment NEGATIVE GENERAL APPEARANCE: The patient is alert, oriented and in no acute distress. VITALS: As above. HEENT: Head is normocephalic/atraumatic. EOM-I. CARDIOVASCULAR:regular rate, 3/6 murmur loudest at RUSB LUNGS: Clear to auscultation bilaterally. No wheezes/rales/rhonchi. EXTREMITIES: No cyanosis, clubbing or edema. NEUROLOGICAL: Grossly non-focal exam. SKIN: Warm and dry without any rash. Assessment/Plan 1.Ischemic cardiomyopathy 2.Aortic stenosis 3.Mixed hyperlipidemia Recommend continuing current medications,aspirin, atorvastatin, furosemide, lisinopril, metoprolol. Agree with further cardiac evaluation and interventions as planned. 4.CKD (chronic kidney disease), stage IV Did labs not available for review today, though he notes he had been down approximately2 weeks ago. We will try to obtain his colleen Horton. 5.Vaccination declined by patient Immunizations were offered includinginfluenza, shingles and pneumococcal-he declines Given upcoming procedures, we will plan for follow-up in approximately 5-6 months as he will have frequent follow-up with both nephrology and cardiology. Time: 37 mins _ 2- pre-visit chart review _32 - visit, inclusive of history, exam, and discussion of assessment/plan _3 - post-visit documentation/orders/coordination of care Problem List/Past Medical History Ongoing Aortic stenosis Essential (primary) hypertension Mitral regurgitation Mixed hyperlipidemia Tobacco user Historical Elevated serum creatinine Procedure/Surgical History CT of abdomen (02/28/2021)CT of abdomen and pelvis without contrast (02/28/2021)US scan ofscrotum (02/28/2021)Excision of lesion of eyelid (07/30/2015) Medications apixaban(apixaban 2.5 mg oral tablet), 2.5 mg= 1 tab, bid aspirin(Aspir 81 oral delayed release tablet), 81 mg= 1 tab, PO, Daily atorvastatin(atorvastatin 80 mg oral tablet), 80 mg= 1 tab, PO, Daily, 3 refills furosemide(furosemide 40 mg oral tablet), 40 mg= 1 tab, PO, Daily, 3 refills lisinopril(lisinopril 2.5 mg oral tablet), 2.5 mg= 1 tab, PO, Daily, 3 refills metoprolol(metoprolol succinate 50 mg oral tablet, extended release), 50 mg= 1 tab, PO, bid, 3 refills multivitamin(Neuriva Brain performance Plus) omega-3 polyunsaturated fatty acids([place]-3 Fish Oil 1000 mg oral capsule) Allergies NKA No Known Medication Allergies Social [...] the next year) OverDue Adult Influenza Vaccine due08/28/22and every 1year Due Adult COVID-19 Vaccination due12/23/22Unknown Frequency Adult Tdap/Td Vaccine due12/23/22Unknown Frequency Medicare Annual Wellness Visit due12/23/22and every 1year Pneumococcal Vaccine Older Adults due12/23/22One-time only Shingles Vaccine due12/23/22One-time only Due In Future Body Mass Index not due until12/23/23and every 1year Satisfied(in the past 1 year) Satisfied Body Mass Index on12/23/22.Satisfied by MICHELLE Lopez Angela Lipid Screening on09/23/22.Satisfied by Contributor_system, [facility] Electronic Signature on File Electronically Reviewed/Signed by: Emma Nix DO Author Signature Dt/Tm:12/23/2022 01:52 PM Division of Sports Medicine MM Patient Care team information Care Team Personnel Name: DO Nix Mehwish Position: Physician Member Role: Primary Care Provider Address: Address: [address] [place] [address] [place] Care Team Related Persons Name: AMALIA BREWER Address: home [address] [facility], [place] [id number]
--- OUTSIDE RECORDS SUMMARY | 2023-02-11 06:54 | External Medical Summary | Continuity of Care Document ---
Author Name Unknown Organization [address] Address [address] [facility] [id number] Care Team Providers Care Rigging Slinger Name Role Phone Emma Nix Primary Care Physician [phone] [id number] Date(s): 09/09/22 - 09/09/22 [address] [address] [phone] Encounter Diagnosis Aortic stenosis(Discharge Diagnosis) - 09/09/22 Chronic kidney disease(Discharge Diagnosis) - 09/09/22 UTI (urinary tract infection)(Discharge Diagnosis) - 09/09/22 Discharge Disposition: Home or Self Care Attending Physician: HARMONY Chris Jill Nicole Referring Physician: HARMONY Chris Jill Nicole Allergies, Adverse Reactions, Alerts No Known Allergies Assessment and Plan Extracted from: Title:Office Visit Note Author:HARMONY Chris Ji ll Nicole Date:09/09/22 1.Aortic stenosis has follow up with cardiology at the end of the month reviewed medication and hospital discharge paperwork advised to continue medication as prescribed Patient advised to call for any questions, concerns, persistent, or worsening symptoms or to call 911 or go to the ED for any significantly worsening symptoms or emergencies.Denies any questions or concerns at this time. 2.Chronic kidney disease keep follow up with nephrology and PCP reviewed recent BMP on patient's phone with his permission continue to monitor 3.UTI (urinary tract infection) completed antibiotic improved per patient will continue to monitor advised to reach out for any new/changing symptoms Immunizations Given and Recorded Vaccine Date Status [...] Ordered atorvastatin 80 mg oral tablet Start: 09/09/22 13:54:00 EDT, 1 tab, PO, Daily Start Date: 09/09/22 Status: Ordered furosemide 40 mg oral tablet Start: 09/09/22 13:54:00 EDT, 1 tab, PO, Daily Start Date: 09/09/22 Status: Ordered lisinopril 10 mg oral tablet Start: 08/26/22 15:38:00 EDT, 1 tab, PO, Daily Start Date: 08/26/22 Status: Ordered metoprolol succinate 50 mg oral tablet, extended release Start: 09/09/22 13:55:00 EDT, 2 tab, PO, Daily Start Date: 09/09/22 Status: Ordered Neuriva Brain performance Plus Start: 09/09/22 13:56:00 EDT Start Date: 09/09/22 Status: Ordered [place]-3 Fish Oil 1000 mg oral capsule Start: 09/09/22 13:56:00 EDT Start Date: 09/09/22 Status: Ordered Mental Status 09/09/22 Barriers to Learning one year None evide nt Mandatory Health Literacy Documentation Yes Health Literacy Communication Barriers N ever Primary Language Moldovan Problem List Condition Confirmation Course Effective Dates Status H ealth Status Informant Aortic stenosis Confirmed Active Essential (primary) hypertension Confirmed Active Mitral regurgitation Confirmed Active Mixed hyperlipidemia Confirmed Active Tobacco user Confirmed Active Diagnosis Diagnosis Type Effective Dates Health Status Cl inical Service Informant Aortic stenosis Discharge Diagnosis 09/09/22 Chronic kidney disease Discharge Diagnosis 09/09/22 UTI (urinary tract infection) Discharge Diagnosis 09/09/22 Procedures Procedure Date Related Diagnosis Body Site [...] Most recent to oldest [Reference Range]: 1 Patient Weight 66.5 kg (09/09/22 1:59 PM) Heart Rate 52 bpm (09/09/22 1:59 PM) Respiratory Rate 16 br/min (09/09/22 1:59 PM) Blood Pressure 108/50mmHg (09/09/22 1:59 PM) Cuff Pulse Pressure 58 mmHg (09/09/22 1:59 PM) Social History Social History Type Response Tobacco Cigars 1 Smoking Status Never smoked cigaret sue Sex Male 1Smokes 1 cigar a day for 3 or 4 years. [facility] Outpt Note * HARMONY Chris Jill Nicole: PERFORM Event Display: [facility] Outpt Note Authored Date: [id number] Chief Complaint TCM, in [facility] for heart issues. will be seeing cardio and the kidney dr regarding thisto determine the next step. History of Present Illness Broderick is an 81 year old male who presents today for hospital follow up. He was discharged on August 31 from [facility]. 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 Presented to [facility] in atrial flutter with RVR and variable conduction. He was given medication andtransferred to [facility]. TTE showed EF 30- 35%. He was also diagnosed with bacteriuria with leukocytosis. He was treated for UTI and states he finished his entire course of antibiotic. He denies any residual symptoms at this time. Patient was recommended tender labor but declined out of concern for worsening kidney function per ER notes. He has follow up with nephrology on Tuesday and cardiology on September 27. He has an appointment to establish with a new PCP on September 23. He states he had blood work done on the to recheck his kidney function. Per his patient portal, GFR increased to 30 from 25. smokes 1-2 cigars daily and drinks 1 ETOH daily. Overall he notes that he feels well today. His appetite has returned. Will go on short walks. Family says he does OK with walks, occasional shortness of breath with activity. Review of Systems Constitutional: Denies fever, chills, sweats, weakness, fatigue, decreased activity, feeling hot orcold, malaise, appetite loss, weight loss or gain. Eye: Denies recent visual problems, blurring, double vision, dry eyes ENMT: Denies dysphagia, sinus pain, sore throat, taste disturbances. Denies decreased hearing, ear pain, ear discharge, nasal discharge. Respiratory: Denies SOB, cough, sputum production, wheezing CV: denies chest pain, palpitations, bradycardia, tachycardia GI: denies n/v/d, constipation, heartburn, abdominal tenderness, change in bowel habits : denies dysuria, hematuria, excessive urination, incontinence, retention, or urgency. Heme/lymph: denies swollen lymph glands or swollen extremities. Endocrine: denies excessive thirst, polyuria, cold or heat intolerance, or hypoglycemia Immunologic: denies recurrent fevers, recurrent infections, or malaise MS: denies muscle or joint pain, decreased range of motion Integumentary: Denies rash, dryness, or skin lesions Neurologic: denies altered mental status, gait disturbance, numbness or tingling Psych: denies anxiety or depression Physical Exam Vitals & Measurements HR:52(Monitored) RR:16 BP:108/50 SpO2:97% WT:66.500kg(Dosing) WT:66.5kg PHQ2 Data(Data Documented on:09/09/2022 13:59) Emotional health assessment NEGATIVE General: alert and oriented, no acute distress Resp: Lungs CTA, non-labored respirations, BS equal, symmetrical expansion CV: normal rate and rhythm, no murmur, no gallop, good pulses equal in all extremities, normal peripheral perfusion, no edema Lymphatics: no lymphadenopathy neck MS: normal ROM, normal strength, no tenderness, normal gait Integumentary: warm, dry, pink, no cyanosis, intact, moist, no pallor, no rash Neurologic: alert and oriented Psychiatric: calm and cooperative, appropriate mood and affect Assessment/Plan 1.Aortic stenosis has follow up with cardiology at the end of the month reviewed medication and hospital discharge paperwork advised to continue medication as prescribed Patient advised to call for any questions, concerns, persistent, or worsening symptoms or to call 911 or go to the ED for any significantly worsening symptoms or emergencies.Denies any questions or concerns at this time. 2.Chronic kidney disease keep follow up with nephrology and PCP reviewed recent BMP on patient's phone with his permission continue to monitor 3.UTI (urinary tract infection) completed antibiotic improved per patient will continue to monitor advised to reach out for any new/changing symptoms Attestation A total of44 minutes were spenton direct patient care, documentation,orders, and chart review. Problem List/Past Medical History Ongoing Aortic stenosis [...] oral tablet), 80 mg= 1 tab, PO, Daily furosemide(furosemide 40 mg oral tablet), 40 mg= 1 tab, PO, Daily lisinopril(lisinopril 10 mg oral tablet), 10 mg= 1 tab, PO, Daily metoprolol(metoprolol succinate 50 mg oral tablet, extended release), 100 mg= 2 tab, PO, Daily multivitamin(Neuriva Brain performance Plus) omega-3 polyunsaturated fatty acids([place]-3 Fish Oil 1000 mg oral capsule) Allergies [...] Recommendations Health Maintenance Pending(in the next year) Due Adult Influenza Vaccine due08/28/22and every 1year Adult COVID-19 Vaccination due09/09/22Unknown Frequency Adult Tdap/Td Vaccine due09/09/22Unknown Frequency Medicare Annual Wellness Visit due09/09/22and every 1year Pneumococcal Vaccine Older Adults due09/09/22One-time only Shingles Vaccine due09/09/22One-time only Due In Future Body Mass Index not due until09/09/23and every 1year Satisfied(in the past 1 year) Satisfied Body Mass Index on08/26/22.Satisfied by MICHELLE Barboza Kiara Electronic Signature on File Electronically Reviewed/Signed by: HARMONY Hogue Author Signature Dt/Tm:09/09/2022 05:06 PM Department of Family Medicine [facility] Patient Care team information Care Team Personnel Name: DO Nix Mehwish Position: Physician Member Role: Primary Care Provider Address: Address: [facility] [place] [address] Care Team Related Persons Name: AMALIA BREWER Address: home [address] [facility] [id number]
--- OUTSIDE RECORDS SUMMARY | 2023-02-11 06:54 | External Medical Summary | Continuity of Care Document ---
Author Name Unknown Organization [address] Address [address] [place] [id number] Care Team Providers Care Policy Cancellation Clerk Name Role Phone Emma Nix Primary Care Physician [phone] [id number] Date(s): 09/23/22 - 09/23/[address] [place] [id number] [facility], [address] [place], [place] [address] [phone] Encounter Diagnosis Body mass index [BMI] 22.0-22.9, adult(Discharge Diagnosis) - 09/23/22 Aortic stenosis(Discharge Diagnosis) - 09/23/22 Hyperlipidemia(Discharge Diagnosis) - 09/23/22 Cardiomyopathy(Discharge Diagnosis) - 09/23/22 Atrial flutter(Discharge Diagnosis) - 09/23/22 CKD (chronic kidney disease), stage IV(Discharge Diagnosis) - 09/23/22 Mixed hyperlipidemia(Discharge Diagnosis) - 09/23/22 Nonrheumatic aortic (valve) stenosis(Final) - Hyperlipidemia, unspecified(Final) - Cardiomyopathy, unspecified(Final) - Unspecified atrial flutter(Final) - Chronic kidney disease, stage 4 (severe)(Final) - Mixed hyperlipidemia(Final) - Discharge Disposition: Home or Self Care Attending Physician: DO Nix Mehwish Referring Physician: DO Nix Mehwish Allergies, Adverse Reactions, Alerts No Known Allergies Immunizations Given and Recorded Vaccine Date Status [...] 13:56:00 EDT Start Date: 09/09/22 Status: Ordered [place]-3 Fish Oil 1000 mg oral capsule Start: 09/09/22 13:56:00 EDT Start Date: 09/09/22 Status: Ordered Mental Status 09/23/22 Barriers to Learning one year None evide nt Mandatory Health Literacy Documentation Yes Health Literacy Communication Barriers N ever Primary Language Indonesian Problem List Condition Confirmation Course Effective Dates Status H ealth Status Informant Aortic stenosis Confirmed Active Essential (primary) hypertension Confirmed Active Mitral regurgitation Confirmed Active Mixed hyperlipidemia Confirmed Active Tobacco user Confirmed Active Diagnosis Diagnosis Type Effective Dates Health Status Clinical Service Informant Body mass index [BMI] 22.0-22.9, adult Discharge Diagnosis 09/23/22 Non-Specified Aortic stenosis Discharge Diagnosis 09/23/22 Hyperlipidemia Discharge Diagnosis 09/23/22 Cardiomyopathy Discharge Diagnosis 09/23/22 Mixed hyperlipidemia Discharge Diagnosis 09/23/22 Atrial flutter Discharge Diagnosis 09/23/22 CKD (chronic kidney disease), stage IV Discharge Diagnosis 09/23/22 Procedures Procedure Date Related Diagnosis Body Site [...] sided varicocele 4Right lower eyelid papilloma excision Results Laboratory List Name Date Hemoglobin A1C (HEMOGLOBIN, A1C) 09/23/22 Lipid Profile (LIPOPROTEINS) 09/23/22 Most recent to oldest [Reference Range]: 1 Estimated Average Glucose 114 mg/dL (09/23/22 2:30 PM) Non-HDL 107 mg/dL (09/23/22 2:30 PM) Chol/HDL 4 (09/23/22 2:30 PM) Chol [<200 mg/dL] 140 mg/dL (09/23/22 2:30 PM) HbA1c 5.6 % 1 (09/23/22 2:30 PM) HDL [>40 mg/dL] 33 mg/dL *LOW* (09/23/22 2:30 PM) LDL Chol, Calculated [50-130 mg/dL] 83 m g/dL (09/23/22 2:30 PM) TG [<150 mg/dL] 122 mg/dL (09/23/22 2:30 PM) 1Result Comment: ADA Recommended [place] Reference Range: Normal: <5.7% Prediabetes: 5.7-6.4% Diabetes: >6.4% Vital Signs Most recent to oldest [Reference Range]: 1 Height 168.9 cm (09/23/22 1:44 PM) Patient Weight 64.6 kg (09/23/22 1:44 PM) Body Mass Index 22.65 kg/m2 (09/23/22 1:44 PM) Temperature [36.5-37.9 DegC] 36.5 DegC (09/23/22 1:44 PM) Respiratory Rate 14 br/min (09/23/22 1:44 PM) Blood Pressure 114/60mmHg (09/23/22 1:44 PM) Cuff Pulse Pressure 54 mmHg (09/23/22 1:44 PM) Social History Social History Type Response Tobacco Cigars 1 Smoking Status Never smoked cigaret sue Sex Male 1Smokes 1 cigar a day for 3 or 4 years. Patient Care team information Care Team Personnel Name: DO Nix Mehwish Position: Physician Member Role: Primary Care Provider Address: Address: [address] [place] [address] [place] [address] [place] Care Team Related Persons Name: AMALIA BREWER Address: home [address] [place] [phone]
--- NOTE | 2023-02-11 07:36 | Cardiology Consultation ---
Date of Consultation February 11, 2023 Assessment & Plan (1) Ischemic cardiomyopathy: (2) Multi-vessel coronary artery stenosis: (3) S/P drug eluting coronary stent placement: (4) Elevated troponin: (5) Severe aortic stenosis: (6) Atrial fibrillation with rapid ventricular response: (7) CKD (chronic kidney disease): (8) Acute blood loss anemia: Plan IMPRESSION: Medically complex 82-year-old male with multivessel coronary disease/ischemic cardiomyopathy status post PCI [place] [facility] Known severe aortic stenosis currently in the process of TAVR workup. Presented yesterday due to symptomatic hypotension found to have a small right femoral artery hemorrhage--found to be anemic and 1 unit of PRBCs were transfused. PLAN: Multivessel CAD/Ischemic cardiomyopathy: -Multivessel coronary disease/ischemic cardiomyopathy status post PCI [place]08/20[place] [facility] Post PCI complicated by acute blood loss anemia secondary to right groin hematoma. -LVEF 37% (per echo 08/2022) -Patient appear hypervolemic on exam with evidence of rales bilaterally and visible dyspnea with conversation, diuretics on hold due to hypotension-- did received a large amount of volume since admission. Obtain CXR-- Consider caution diuresis. Recommend duplex of the groin to rule out pseudoaneurysm-- consider restarting DAPT with ASA and Plavix pending results. Severe Aortic stenosis -Confirmed on cardiac cath, currently in the process of TAVR workup with Dr. Segura Paroxysmal atrial fibrillation/flutter -Persistent AFIB on tele, rates 90-110s. Asymptomatic. -AC on hold due to groin hematoma. -Elevated rates likely due to acute blood loss anemia/illness/and concerns for hypervolemia s/p transfusion. Consider restarting low dose beta ebenezer therapy I spent a total of 30 minutes on the date of service in preparation, delivery, and documentation of the care provided to the patient excluding any time spent in the performance of separately billed services. Case discussed with Dr. Rojas-- Further recommendations pending physician assessment. Supervising Physician Co-Signing Physician Notes Supervising Physician Attestation: I have personally performed a history and physical examination on the patient. I agree with the PSYCHOLOGICAL STRESS EVALUATOR's findings and plan as documented with the following additions. Subjective: Patient presented to the emergency department with complaint of dizziness. After receiving IV fluid and 1 unit packed red blood cells transfusion, dizziness improved, blood pressure marginally improved, significant oxygen requirement noted with patient currently receiving 10 L via oxime mask to maintain oxygen saturation of 89 to 90%. Ongoing atrial fibrillation/flutter noted on telemetry at present however the rates have improved significantly, rate at present 92 bpm as compared to 120s on presentation. Exam: Pulmonary: Mildly decreased breath sounds at the bases Cardiovascular: Irregular rhythm, 2/6 systolic murmur Extremities: Significant right groin ecchymosis with palpation findings consistent with right groin hematoma. Data: Hemoglobin is obtained today at 4 AM 10.7 improved compared to 8.1 on 02/10/2023 at 1400 Potassium 5.4, creatinine 2.75 Assessment and Plan: Hypotension with acute blood loss anemia in the setting of post procedure right groin hematoma Atrial fibrillation/flutter with rapid ventricular response LV systolic dysfunction, LVEF 35% in setting of obstructive CAD and severe aortic stenosis PCI Kvng to the LM/LAD and pRCA via right femoral access 02/08/23 * Continue to hold beta ebenezer given relative hypotension * Furosemide 20 mg IV x 1 Due to pulmonary edema, bilateral pleural effusions, high oxygen requirement. * repeat bmp at 1500 to reassess potassium level. * Hold Eliquis, however, given new coronary stents to the LM / LAD, and RCA , resume ASA and clopidogrel. * Check arterial duplex of R Groin to r/o pseudoaneurysm post cath Case discussed with Dr Reyes for the purpose of coordination of care. Attempted to reach spouse by phone to provide updates , however, no answer. I left brief voicemail message and will attempt to reach her again later. I spent a total of 36 minutes on the date of service in preparation, delivery, and documentation of the care provided to this patient, excluding any time spent in the performance of separately billed services. See Rojas DO History of Present Illness Reason for Consultation: Hypotension Requesting Physician: Sol rivero Attending Physician: Carmen Pagan MD History of Present Illness Medically complex 82-year-old male with multivessel coronary disease/ischemic cardiomyopathy as well as severe aortic stenosis. Following with the valve clinic. In preparation for potential TAVR patient underwent cardiac cath in December 2022 [place] [facility] revealing multivessel disease (no PCI performed at that time), severe aortic stenosis confirmed on cath. 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 Segura and underwent PCI to the LM/LAD and pRCA via right femoral access. Discharged home 02/09/2023 on ASA and Plavix. He was to restart apixaban daily starting Tuesday02/11/2023. Plan was to continue with triple therapy x 7 days. Continue with Plavix and apixaban indefinitely. Planning for TAVR in the future for severe aortic stenosis. Yesterday patient's called in and noted hypotensive blood pressures at home, patient symptomatic with lightheadedness/dizziness. Right groin had significant bruising. Patient was referred to [facility] emergency department. On presentation patient was hypotensive and tachycardic. EKG revealed atrial flutter/fibrillation with RVR . Treated with 5 mg of IV Lopressor initially. CT of the abdomen and pelvis showed possible hemorrhage--hemoglobin 8.1 (Prior to dc from [facility] hemoglobin was 13.6), 1 unit of PRBCs was transfused. Hemoglobin 10.7 this am (02/11). Tele:AFIB 90-110s Upon entrance into the room patient asleep in bed. HOB flat. Woke easily. Denies acute concerns. No chest pain. Denies SOB but appears dyspneic with conversation. Requiring Oxy mask at 5L, sats 94-96% Denies abdominal pain or right leg/groin pain. No swelling of the lower extremity. Denies palptations, no lightheadedness-- but has not been out of bed. BP running on the softer side. CAREER SERVICES ASSISTANT home cardiac meds include: Lisinopril 2.5 mg daily Aspirin 81 mg daily Eliquis 2.5 mg two times per day Clopidogrel 75 mg daily (normally on Plavix and Eliquis-- ASA added following PCI 01/2023) Atorvastatin 80 mg daily Furosemide 40 mg daily Metoprolol succinate 50 mg daily Primary outpatient customer program manager: Dr. Varner Cardiac Problems: 1. CAD 2. Ischemic Cardiomyopathy (EF 37%, 08/2022) - S/p cardiac cath [place] [facility] [place]: Distal left main 60% stenosis, mid LAD 90% stenosis, OM 2 is a [employer] with collaterals coming from the right system to the lateral wall, proximal RCA 70% stenosis. -s/p PCI to dLMCA-proximal LAD and mid LAD s/p IVUS guided PCI with two overlapping MAGGIE (2.0hav75vs and 3.0mm x 24mm Synergy from mid LAD to ostial LMCA respectively). No plaque shift in ostial Cx. pRCA with 70% stenosis s/p successful PCI (2.5mm x 20 mm Synergy MAGGIE covering the ostium) 3. Severe Aortic Stenosis, gradients confirmed on cardiac cath 12/2022 4. 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 Hypertension 7. Hyperlipidemia Allergies Allergy/AdvReac Type Severity Reaction Status Date / Time No Known Allergies Allergy Verified 02/10/23 16:03 Home Medications Medication Instructions Recorded Confirmed Type apixaban 2.5 mg tablet (Eliquis) 0 mg PO BID 02/10/23 02/10/23 History aspirin 81 mg chewable tablet 81 mg PO QAM 02/10/23 02/10/23 History atorvastatin 80 mg tablet 80 mg PO QAM 02/10/23 02/10/23 History clopidogrel 75 mg tablet 75 mg PO QAM 02/10/23 02/10/23 History furosemide 40 mg tablet 40 mg PO QAM 02/10/23 02/10/23 History lisinopril 2.5 mg tablet 2.5 mg PO QAM 02/10/23 02/10/23 History metoprolol succinate 50 mg 50 mg PO BID 02/10/23 02/10/23 History tablet,extended release 24 hr Patient History Medical History Acute UTI Elevated troponin Sepsis Transaminitis Metabolic acidosis Hyponatremia Hypomagnesemia Bacteremia Diarrhea HTN (hypertension), benign Acute kidney injury Elevated PSA Acute on chronic renal failure Acute retention of urine Urinary tract infection Obstructive uropathy HLD (hyperlipidemia) HTN (hypertension) Epididymitis Testicular pain Surgical History No pertinent past surgical history Family History Other Family history non-contributory Social History Smoking Status: Current some day smoker Tobacco Type: Cigars Cigarettes Per Day: 1 cigar per week; Do You Dip or Chew Tobacco: No; Hx Alcohol Use: No Hx Substance Use: No Preferred Language: Slovak Communication Ability: Effective Etl Tester Required: No Beliefs That Will Affect Care: None marital status: Current Living Situation: Spouse Feels Safe at Home: Yes Safety Concerns: Feels Safe At This Time Assistive Devices: None Review of Systems Review of Systems: All systems reviewed & are unremarkable except as noted in HPI & below (limited, patient poor historian) Physical Exam Constitutional: + ill appearing and + thin; no acute dis tress Neck: normal visual inspection and trachea midline Respiratory: + cough, + tachypneic and + audible whee zes Auscultation: + rales and + wheezes; no rhonchi Cardiovascular: Rate/Rhythm: + tachycardic and + irregularly irregular Heart Sounds: normal S1, normal S2 (diminished s2 ) and + murmur (+3/6 systolic murmur ) Vessels: dorsalis pedis pulses present; no JVD Extremities: no edema Skin: no rashes, warm and dry + ecchymosis (extenisive bruising of right groin extending to scrotum ) Psychiatric: A+Ox3, euthymic affect Results & Data Vital Signs (Past 12 Hours) Vital Signs Temp Pulse Resp BP Pulse Ox Pulse Ox O2 Del Method 02/11/23 03:00 122 H 26 H 89 L 02/11/23 02:30 102/68 02/11/23 02:30 105 H 26 H 92 02/11/23 02:01 71/58 L 02/11/23 02:01 109 H 27 H 94 02/11/23 02:00 100 H 27 H 94 02/11/23 01:30 93/74 L 02/11/23 01:30 99 H 30 H 90 02/11/23 01:00 96 H 26 H 76 L 02/11/23 01:00 103/66 02/11/23 00:31 93/71 L 02/11/23 00:31 102 H 28 H 96 02/11/23 00:30 101 H 20 97 02/11/23 00:15 104/56 L 02/11/23 00:15 96 H 18 97 02/11/23 00:10 95/41 L 02/11/23 00:10 103 H 20 97 02/11/23 00:04 98 02/11/23 00:04 Nasal Cannula 02/11/23 00:00 36.4 C L 97 H 20 95/41 L Nasal Cannula 02/11/23 00:00 111 H 27 H 94 02/10/23 23:45 99 H 26 H 93 02/10/23 23:45 110/65 02/10/23 23:33 109/78 02/10/23 23:33 101 H 30 H 91 02/10/23 23:30 104 H 33 H 74 L 02/10/23 23:15 103 H 28 H 93 02/10/23 23:00 95/72 L 02/10/23 23:00 90 28 H 94 02/10/23 22:45 90/64 L 02/10/23 22:45 82 33 H 92 02/10/23 22:30 87 26 H 84 L 02/10/23 22:30 95/57 L 02/10/23 22:15 94 H 26 H 98 02/10/23 22:15 90/64 L 02/10/23 22:00 99/50 L 02/10/23 22:00 94 H 27 H 91 02/10/23 21:45 106/52 L 02/10/23 21:45 100 H 30 H 94 02/10/23 21:31 90/65 L 02/10/23 21:31 106 H 34 H 98 02/10/23 21:30 98 H 28 H 89 L 02/10/23 21:16 107/76 02/10/23 21:16 103 H 22 96 02/10/23 21:15 93 H 32 H 95 02/10/23 21:00 94 H 28 H 89 L 02/10/23 21:00 109/68 02/10/23 20:56 36.4 C L 02/10/23 20:46 100 H 28 H 99 02/10/23 20:46 91/70 L 02/10/23 20:45 93 H 29 H 100 02/10/23 20:42 93/68 L 02/10/23 20:42 104 H 25 H 97 02/10/23 20:30 71/48 L 02/10/23 20:30 105 H 25 H 92 02/10/23 20:17 Nasal Cannula 02/10/23 20:17 95 02/10/23 20:16 88/45 L 02/10/23 20:16 90 26 H 77 L 02/10/23 20:15 109 H 34 H 82 L 02/10/23 20:00 93/72 L 02/10/23 20:00 105 H 25 H 100 02/10/23 19:45 93/68 L 02/10/23 19:45 117 H 26 H 99 02/10/23 19:30 95/61 L 02/10/23 19:30 104 H 33 H 95 O2 Del Method O2 Flow Rate O2 Flow Rate FiO2 02/11/23 03:00 02/11/23 02:30 02/11/23 02:30 02/11/23 02:01 02/11/23 02:01 02/11/23 02:00 02/11/23 01:30 02/11/23 01:30 02/11/23 01:00 02/11/23 01:00 02/11/23 00:31 02/11/23 00:31 02/11/23 00:30 02/11/23 00:15 02/11/23 00:15 02/11/23 00:10 02/11/23 00:10 02/11/23 00:04 Nasal Cannula 6 02/11/23 00:04 6 02/11/23 00:00 6 02/11/23 00:00 02/10/23 23:45 02/10/23 23:45 02/10/23 23:33 02/10/23 23:33 02/10/23 23:30 02/10/23 23:15 02/10/23 23:00 02/10/23 23:00 02/10/23 22:45 02/10/23 22:45 02/10/23 22:30 02/10/23 22:30 02/10/23 22:15 02/10/23 22:15 02/10/23 22:00 02/10/23 22:00 02/10/23 21:45 02/10/23 21:45 02/10/23 21:31 02/10/23 21:31 02/10/23 21:30 02/10/23 21:16 02/10/23 21:16 02/10/23 21:15 02/10/23 21:00 02/10/23 21:00 02/10/23 20:56 02/10/23 20:46 02/10/23 20:46 02/10/23 20:45 02/10/23 20:42 02/10/23 20:42 02/10/23 20:30 02/10/23 20:30 02/10/23 20:17 6 02/10/23 20:17 Nasal Cannula 6 02/10/23 20:16 02/10/23 20:16 02/10/23 20:15 02/10/23 20:00 02/10/23 20:00 02/10/23 19:45 02/10/23 19:45 02/10/23 19:30 02/10/23 19:30 Laboratory Results Cardiac Enzymes 02/10/23 02/10/23 02/11/23 Range/Units 14:00 16:20 00:14 AST 81 H (13-39) U/L Troponin I High Sens 53535.5 H* 17880.0 H* 95543.8 H* D (0-20) pg/ml 02/11/23 Range/Units 04:07 AST 85 H (13-39) U/L Troponin I High Sens 39156.9 H* (0-20) pg/ml Coagulation 02/10/23 02/11/23 Range/Units 14:00 04:07 PT 11.4 11.2 (9.0-12.0) Seconds APTT 26 27 (21-31) Seconds CBC 02/10/23 02/10/23 02/11/23 Range/Units 14:00 21:10 00:14 WBC 11.08 H (4.8-10.8) K/ul RBC 2.67 L (4.70-6.10) M/uL Hgb 8.1 L 10.7 L 9.9 L (14.0-18.0) g/dl Hct 23.7 L 32.0 L 28.7 L (42.0-52.0) % Plt Count 138 (130-400) K/uL Neut # (Auto) 9.46 H (1.40-6.50) K/uL Lymph # (Auto) 0.69 L (1.20-3.40) K/uL Cabell # (Auto) 0.81 H (0.11-0.59) K/uL Eos # (Auto) 0.06 (0.00-0.50) K/uL Baso # (Auto) 0.02 (0.00-0.20) K/uL 02/11/23 Range/Units 04:07 WBC 20.79 H D (4.8-10.8) K/ul RBC 3.51 L (4.70-6.10) M/uL Hgb 10.7 L (14.0-18.0) g/dl Hct 31.7 L (42.0-52.0) % Plt Count 185 (130-400) K/uL Neut # (Auto) 17.91 H (1.40-6.50) K/uL Lymph # (Auto) 1.28 (1.20-3.40) K/uL Cabell # (Auto) 1.40 H (0.11-0.59) K/uL Eos # (Auto) 0.02 (0.00-0.50) K/uL Baso # (Auto) 0.07 (0.00-0.20) K/uL Comprehensive Metabolic Panel 02/10/23 02/11/23 02/11/23 Range/Units 14:00 04:07 07:13 Sodium 134 L 136 (136-145) mmol/L Potassium 4.4 5.4 H D (3.5-5.1) mmol/L Chloride 105 109 H (98-107) mmol/L Carbon Dioxide 19 L 17 L (21-32) mmol/L BUN 66 H 68 H (6-23) mg/dl Creatinine 2.79 H 2.75 H (0.6-1.4) mg/dl Glucose 179 H 143 H (70-99(Fasting)) mg/dl Calcium 8.3 L 8.5 L (8.6-10.3) mg/dl Direct Bilirubin 0.1 (0-0.2) mg/dl AST 81 H 85 H (13-39) U/L ALT 20 26 (7-52) U/L Alkaline Phosphatase 68 80 (34-104) U/L Total Protein 6.0 6.6 (6.0-8.3) gm/dl Albumin 3.7 3.9 (3.4-5.0) gm/dl Intake and Output 02/10/23 02/11/23 02/11/23 22:59 06:59 14:59 Intake Total 2360 / 2860 Output Total 150 / 300 150 / 300 Balance 2210 / 2560 -150 / 2560 Intake: IV 2000 / 2499 Sodium Chloride 0.9% 1,000 ml @ 1999 / 1999 999 mls/hr IV .Q1H1M ONE Rx#: [id number] Oral 50 / 50 Intake (Blood Product) Amt 310 / 310 Packed Cells, Leukoreduced 310 / 310 Unit [id number] Output: Urine 150 / 300 150 / 300 Other: Weight 71.7 kg 71.9 kg Weight Measurement Method [facility] (7) CKD (chronic kidney disease) Chronic kidney disease stage: stage 3 (moderate) Chronic kidney disease stage 3 subtype: unspecified whether 3a or 3b Qualified Code(s): N18.30 - Chronic kidney disease, stage 3 unspecified
[2023-02-11 08:02] LABS: BUN Creatinine Ratio 24.7 (10-20); Calcium 8.5 mg/dl (8.6-10.3); Creatinine Clr Calc Pharmacy 18.4 ml/min; Est GFR (African American) 23.6 ml/min; Est GFR (Non-African American) 20.4 ml/min; Potassium 5.4 mmol/L (3.5-5.1)
[2023-02-11] MEDS: ICU Protocol for HYPERglycemia SCH ×4 (08:04→21:05)
[2023-02-11] MEDS ORDERED: FUROSEMIDE 40 MG/4 ML VIAL IV ONE (10:03)
--- NOTE | 2023-02-11 10:05 | Critical Care Progress Note ---
Date of Service February 11, 2023 Assessment & Plan (1) Lactate blood increase: Plan: Reason Critically Ill: 82-year-old male with acute blood loss anemia leading to symptomatic anemia PLAN: Neuro: Orthostasis -Likely related to acute blood loss anemia CV: Coronary artery disease status post PCI Elevated troponins: Cardiology to evaluate -Will require aspirin and Plavix History of aortic stenosis -Avoid afterload reduction Paroxysmal atrial fibrillation -Holding anticoagulants at this time Fluids/Renal: Acute kidney injury on chronic kidney disease -Presumptively related to contrast from PCI -Received 2.5 L volume expansion yesterday will gently diurese Heme: Acute blood loss anemia: Pelvic hematoma -Received 1 unit packed red blood cells -Venous Doppler rule out pseudoaneurysm DVT prophylaxis: Chemoprophylaxis contraindicated: SCDs Endocrine: ICU hyperglycemia protocol Vascular access: Peripheral IVs Code Status: Full code given acute correctable nature of this event -Discussed with patient and family he would not want long-term life support however agreeable with heroic measures given the current circumstances Disposition: Telemetry (2) S/P drug eluting coronary stent placement: (3) Symptomatic anemia: (4) Acute kidney injury superimposed on chronic kidney disease: (5) Cardiomyopathy: (6) Severe calcific aortic stenosis: (7) Acute on chronic renal failure: (8) Elevated troponin: Admission and Anticipated Discharge Date Admission Date: February 10, 2023 Subjective No overnight events Physical Exam Physical Exam: General: Alert. nontoxic. Skin: Warm, dry, Head: Atraumatic Ears, nose, mouth and throat: airway patent Cardiovascular: Normal peripheral perfusion Respiratory: no respiratory distress Gastrointestinal: Non distended Musculoskeletal: No deformity, no pulsatility in the right groin, significant ecchymoses, scrotal ecchymoses. Results & Data Results & Data Vital Signs (Past 12 Hours) Vital Signs Temp Pulse Resp BP Pulse Ox Pulse Ox O2 Del Method 02/11/23 08:00 Nasal Cannula 02/11/23 03:00 122 H 26 H 89 L 02/11/23 02:30 102/68 02/11/23 02:30 105 H 26 H 92 02/11/23 02:01 71/58 L 02/11/23 02:01 109 H 27 H 94 02/11/23 02:00 100 H 27 H 94 02/11/23 01:30 93/74 L 02/11/23 01:30 99 H 30 H 90 02/11/23 01:00 96 H 26 H 76 L 02/11/23 01:00 103/66 02/11/23 00:31 93/71 L 02/11/23 00:31 102 H 28 H 96 02/11/23 00:30 101 H 20 97 02/11/23 00:15 104/56 L 02/11/23 00:15 96 H 18 97 02/11/23 00:10 95/41 L 02/11/23 00:10 103 H 20 97 02/11/23 00:04 98 02/11/23 00:04 Nasal Cannula 02/11/23 00:00 36.4 C L 97 H 20 95/41 L Nasal Cannula 02/11/23 00:00 111 H 27 H 94 02/10/23 23:45 99 H 26 H 93 02/10/23 23:45 110/65 02/10/23 23:33 109/78 02/10/23 23:33 101 H 30 H 91 02/10/23 23:30 104 H 33 H 74 L 02/10/23 23:15 103 H 28 H 93 02/10/23 23:00 95/72 L 02/10/23 23:00 90 28 H 94 02/10/23 22:45 90/64 L 02/10/23 22:45 82 33 H 92 02/10/23 22:30 87 26 H 84 L 02/10/23 22:30 95/57 L 02/10/23 22:15 94 H 26 H 98 02/10/23 22:15 90/64 L O2 Del Method O2 Flow Rate O2 Flow Rate FiO2 02/11/23 08:00 6 02/11/23 03:00 02/11/23 02:30 02/11/23 02:30 02/11/23 02:01 02/11/23 02:01 02/11/23 02:00 02/11/23 01:30 02/11/23 01:30 02/11/23 01:00 02/11/23 01:00 02/11/23 00:31 02/11/23 00:31 02/11/23 00:30 02/11/23 00:15 02/11/23 00:15 02/11/23 00:10 02/11/23 00:10 02/11/23 00:04 Nasal Cannula 6 02/11/23 00:04 6 02/11/23 00:00 6 02/11/23 00:00 02/10/23 23:45 02/10/23 23:45 02/10/23 23:33 02/10/23 23:33 02/10/23 23:30 02/10/23 23:15 02/10/23 23:00 02/10/23 23:00 02/10/23 22:45 02/10/23 22:45 02/10/23 22:30 02/10/23 22:30 02/10/23 22:15 02/10/23 22:15 Coding Level of Care Code 02129 SUB INP/OBS CARE 3/50MIN Diagnoses Lactate blood increase R79.89 S/P drug eluting coronary stent placement Z95.5 Symptomatic anemia D64.9 Acute kidney injury superimposed on chronic kidney disease N17.9; N18.9 Cardiomyopathy I42.9 Severe calcific aortic stenosis I35.0 Acute on chronic renal failure N17.9; N18.9 Acute renal failure type: unspecified Chronic kidney disease stage: unspecified stage Elevated troponin R77.8 (7) Acute on chronic renal failure Acute renal failure type: unspecified Chronic kidney disease stage: unspecified stage Qualified Code(s): N17.9 - Acute kidney failure, unspecified; N18.9 - Chronic kidney disease, unspecified
--- NOTE | 2023-02-11 10:49 | XRay Report ---
XR chest 1V portable HISTORY: Shortness of breath. Pulmonary vascular congestion. COMPARISON: Chest 02/10/2023. FINDINGS: No pneumothorax. No pleural effusions. The heart remains enlarged. Progressive perihilar in terstitial/vascular thickening with patchy airspace opacities. Calcifications within the aortic knob. Degenerative changes within the shoulders. IMPRESSION: Cardiomegaly with interval progression of the perihilar interstitial thickening and patchy perihilar airspace opacities. This favors pulmonary edema. A pneumonia could also have a similar appearance. ACT 112: Negative or not required by law. Electronically signed by: Selvin Angel M.D. 02/11/2023 10:48 AM
[2023-02-11] MEDS: ASPIRIN 81 MG CHEW PO SCH (10:52)
[2023-02-11] MEDS: ATORVASTATIN 40 MG TAB PO SCH (10:52)
[2023-02-11] MEDS: CLOPIDOGREL BISULFATE 75 MG TAB PO SCH (11:17)
--- NOTE | 2023-02-11 11:26 | Hospitalist Progress Note ---
Date of Service February 11, 2023 Assessment & Plan (1) Symptomatic anemia: Plan: Pt is a 82 yo male with PMH of severe , urinary retention, HLD, HTN, and recent cardiac stent placement 02/08 at [facility] presenting to the hospital 02/10 due to dizziness and hypotension. Acute blood loss anemia - Likely hemorrhagic hypovolemia in the setting of recent right femoral groin access for cardiac cath at [place] on 02/08; discharge hemoglobin was 9.1 - CTAP with signs of a small hemorrhage - extravasation limited by lack of IV contrast as patient with CKD3-4; patient fluid resuscitated initially with 2L NS and 1u pRBCs - per cardio; obtain duplex of groin to r/o pseudoaneurysm - rest of management per ICU/cardiology Severe - plan for TAVR in the future - with fluid resuscitation as above, pt now fluid overloaded; will diurese with 40 mg IV lasix x1 per cardio HFrEF - echo in 07/2022 showed EF 30-35% with suspected severe Recent cardiac stent placement 02/08 - patient to be on triple therapy for a week with apixaban, ASA, and plavix with plans to continue with apixaban and plavix indefinitely - per cardiology; restart ASA and clopidogrel- continue to hold apixaban Atrial flutter with RVR - tachycardia likely reactive in setting of hypovolemia - continue to hold metoprolol Elevated troponin - in the setting of recent cardiac intervention - continue to trend q6hr until downtrending Acute on chronic kidney disease - baseline around 2.2; creatinine at 2.79 upon admission - likely pre-renal in the setting of hypovolemia - continue to monitor HTN - pt on metoprolol, lisinopril, and furosemide at home - continue holding antihypertensives in the setting of acute hypotension/hypovolemia Code status: full DVT ppx: contraindicated in the setting of acute bleed FENGI: heart healthy Dispo: ICU (2) Atrial flutter with rapid ventricular response: (3) Elevated troponin: (4) Acute on chronic renal failure: (5) HTN (hypertension), benign: (6) Severe calcific aortic stenosis: (7) S/P drug eluting coronary stent placement: (8) Lactate blood increase: (9) Hypovolemia: (10) CKD (chronic kidney disease): Admission and Anticipated Discharge Date Admission Date: February 10, 2023 Supervising Physician Co-Signing Physician Notes Attending Physician Supervision Note: I independently interviewed and examined the patient and verified the downey history and physical, reviewed labs and image studies and agree with findings and care plan noted above. Postprocedural complication with hemorrhagic shock Hypotension with acute blood loss anemia pressure improved. tachycardia likely from a flutter. h/h stable Acute on chronic systolic heart failure furosemide per cardio Severe avoid BP lowering agent. CAD with recent stent ASA/Plavix, statin. Lisinopril and metoprolol on hold A flutter with RVR HR in 110s. Apixaban on hold. Metoprolol on hold. follow CKD 4 Creat baseline. Renal following SCD Subjective Pt resting in bed this AM. Labored breathing and pt appears SOB- although he denies trouble breathing, chest pain, and feeling SOB. No other concerns. Review of Systems Review of Systems: As per HPI Physical Exam Physical Exam: Constitutional: well appearing, no acute distress HEENT: normocephalic, no conjunctival injection CV: regular rhythm, tachycardic with 4/6 systolic murmur noted, no LE edema Respiratory: Tachypneic, accessory muscle use noted, rhonchi heard throughout with occasional wheezing. GI: soft, nondistended, nontender, positive bowel sounds Skin: warm, dry, large ecchymosis noted around femoral cath site of right groin Neuro: alert, oriented, no FND noted Results & Data Results & Data Vital Signs (Past 12 Hours) Vital Signs Temp Pulse Resp BP Pulse Ox Pulse Ox O2 Del Method 02/11/23 08:00 Nasal Cannula 02/11/23 03:00 122 H 26 H 89 L 02/11/23 02:30 102/68 02/11/23 02:30 105 H 26 H 92 02/11/23 02:01 71/58 L 02/11/23 02:01 109 H 27 H 94 02/11/23 02:00 100 H 27 H 94 02/11/23 01:30 93/74 L 02/11/23 01:30 99 H 30 H 90 02/11/23 01:00 96 H 26 H 76 L 02/11/23 01:00 103/66 02/11/23 00:31 93/71 L 02/11/23 00:31 102 H 28 H 96 02/11/23 00:30 101 H 20 97 02/11/23 00:15 104/56 L 02/11/23 00:15 96 H 18 97 02/11/23 00:10 95/41 L 02/11/23 00:10 103 H 20 97 02/11/23 00:04 98 02/11/23 00:04 Nasal Cannula 02/11/23 00:00 36.4 C L 97 H 20 95/41 L Nasal Cannula 02/11/23 00:00 111 H 27 H 94 02/10/23 23:45 99 H 26 H 93 02/10/23 23:45 110/65 02/10/23 23:33 109/78 02/10/23 23:33 101 H 30 H 91 02/10/23 23:30 104 H 33 H 74 L O2 Del Method O2 Flow Rate O2 Flow Rate FiO2 02/11/23 08:00 6 02/11/23 03:00 02/11/23 02:30 02/11/23 02:30 02/11/23 02:01 02/11/23 02:01 02/11/23 02:00 02/11/23 01:30 02/11/23 01:30 02/11/23 01:00 02/11/23 01:00 02/11/23 00:31 02/11/23 00:31 02/11/23 00:30 02/11/23 00:15 02/11/23 00:15 02/11/23 00:10 02/11/23 00:10 02/11/23 00:04 Nasal Cannula 6 02/11/23 00:04 6 02/11/23 00:00 6 02/11/23 00:00 02/10/23 23:45 02/10/23 23:45 02/10/23 23:33 02/10/23 23:33 02/10/23 23:30 Resident Activity Tracking Resident Involvement: Resident Care Provided Care Provided: Adult Hospital Medicine (4) Acute on chronic renal failure Acute renal failure type: unspecified Chronic kidney disease stage: unspecified stage Qualified Code(s): N17.9 - Acute kidney failure, unspecified; N18.9 - Chronic kidney disease, unspecified (10) CKD (chronic kidney disease) Chronic kidney disease stage: stage 3 (moderate) Chronic kidney disease stage 3 subtype: unspecified whether 3a or 3b Qualified Code(s): N18.30 - Chronic kidney disease, stage 3 unspecified
--- NOTE | 2023-02-11 11:58 | Electrocardiogram Report ---
Test Reason : Blood Pressure : / mmHG Vent. Rate : 112 BPM Atrial Rate : 000 BPM P-R Int : 000 ms QRS Dur : 078 ms QT Int : 342 ms P-R-T Axes : 000 045 204 degrees QTc Int : 466 ms Atrial fibrillation with rapid ventricular response Low voltage QRS Septal infarct (cited on or before 26-AUG-2022) Abnormal ECG When compared with ECG of 27-AUG-2022 11:43, Atrial fibrillation has replaced Atrial flutter ST now depressed in Inferior leads Confirmed by Cal Segura ([id number]) on 02/11/2023 11:58:37 AM Referred By: REFERRED SELF Confirmed By:Cal Segura
[2023-02-11 13:36] LABS: Hematocrit (blood only) 27.9 % (42.0-52.0); Hemoglobin 9.5 g/dl (14.0-18.0)
--- NOTE | 2023-02-11 13:56 | Ultrasound Report ---
ULTRASOUND RIGHT LOWER EXTREMITY ARTERIAL CLINICAL HISTORY: Recent cardiac catheterization. Clinical concern for pseudoaneurysm. COMPARISON STUDY: Pelvic CT dated 02/10/2023. FINDINGS: Real-time grayscale and color Doppler sonography of the right groin is performed to assess for pseudoaneurysm. No pseudoaneurysm is identified in the right groin at the site of interest. The c ommon femoral artery is patent with normal triphasic arterial waveforms and velocities measuring up t o 86 cm/s. The proximal superficial femoral artery is patent with velocities measuring up to 56 cm/s. Imaged portions of the right external iliac artery are patent with velocities measuring up to 40 cm/ s. There is a large fat and bowel containing right inguinal hernia. This was also seen by CT on 02/10. IMPRESSION: 1. There is no sonographic evidence of pseudoaneurysm in the right groin as clinically queried. 2. Large fat and bowel containing right inguinal hernia. Dictated: 02/11/2023 12:07 PM Transcribed: 02/11/2023 12:16 PM Nicki [id number] [id number] Electronically signed by: Justice Damico M.D. 02/11/2023 1:54 PM
[2023-02-11 13:58] LABS: BUN Creatinine Ratio 24.8 (10-20); Calcium 8.5 mg/dl (8.6-10.3); Creatinine Clr Calc Pharmacy 17.7 ml/min; Est GFR (African American) 22.5 ml/min; Est GFR (Non-African American) 19.5 ml/min; Potassium 5.6 mmol/L (3.5-5.1)
--- NOTE | 2023-02-11 14:46 | Communication Note ---
Date of Service: February 11, 2023 Patient reassessed , BP 103/65, AF at 106 bpm present, Pulse ox 96% on L liters NS. Spouse at bedside and updates provided. 350 ml of urine outpt noted in urinal after furosemide 20 mg IV x 1. Duplex of R groin without pseudoaneurysm. -will place Dixon catheter. -repeat bmp due to recheck potassium. Discussed case with Dr Segura of intervention cardiology at [facility] by phone , who had performed his procedure and provided update. Discussed case with Dr Pagan earlier today. Yon Rojas DO
--- NOTE | 2023-02-11 16:13 | Nephrology Consultation ---
Date of Consultation February 11, 2023 Assessment & Plan (1) Hyperkalemia: moderate and worsening hyperkalemia on labs this am. had lasix 40 mg IV x 1. may relate to pRBC or other -recheck bmp 1800 ordered >low threshold for repeat/standing K -will start lasix 30 mg IV q 4h x 3 doses then stop >> reeval diuretic needs in AM -f/u labs in AM >> may need to hold veltassa -low threshold for bladder scan and/or lowery (2) CKD (chronic kidney disease) stage 4, GFR 15-29 ml/min: baseline creatinine 2.6-2.7 since August 2022. complicated urologic/urinary retention hx but this has been relative improved since prostate procedure 2021. renal function at/near baseline -daily bmp -avoid IV contrast unless life/limb/heart muscle saving -no indication for dialysis discussion currently (3) Ischemic cardiomyopathy: per cardiology; complex heart patient w/ multiple comoribidities -strict I/O (4) Acute blood loss anemia: -continue q6h H&H and transfuse prn -blood thinners per cardiology and primary service History of Present Illness Reason for Consultation: hyperkalemia, CKD, HF Requesting Physician: Dr Rojas Attending Physician: Carmen Pagan MD History of Present Illness 82 y/o M whom I'm asked to see for hyperkalemia, chronic kidney disease, congestive heart failure was admitted yesterday w/ acute on chronic and symptomatic anemia, hypotension after 02/08 coronary stenting procedure at [facility] (admitted there 02/08-02/09); found to have small R femoral artery hemorrhage in [facility] s/p 1 unit pRBC. PMH includes multivessel coronary disease/ischemic cardiomyopathy (EF 35%) status post stent as above, severe aortic stenosis currently under eval for TAVR, CKD 4, HTN, BL hydronephrosis in the past and enlarged prostate w/ chronic lowery catheter x months in the past. Follows locally w/ Dr Vizcarra/PHUONG; s/p laser enucleation of prostate 09/2021 DR Youssef [facility]. Baseline creatinine 2.6-2.7 since August 2022; follows w/ me in CKD clinic. [facility] stays 2020-: February 2021 for epididymitis and pseudomonas UTI; 4 hospital encounters [facility] December 2020 - February 2021 and ER eval in Mar for blocked catheter -Admintted [facility] 01/15- for pyelonephritis w/ CoNS bacteremia from obstructive uropathy; -[facility] 01/28-02/03/21 admission pseudomonal pyelonephritis -[facility] admission 02/28/21-03/03/21 for pseudomonal UTI, epididymitis w/ creatinine in 3-4 range -Had prostate surgery 09/2021 and since then no lowery -Admitted [facility] 08/28-08/31/22 for new onset atrial flutter in the setting of severe aortic stenosis and new cardiomyopathy. Admission was complicated by acute kidney injury and UTI. JOSE ALBERTO deemed from ischemia. His presenting hgb was 8.1 here; was 13.6 on 02/08/23 [facility] admission, 9.1 on 02/09. Presenting creatinine yesterday 2.8, K 5.4; today these are 2.9 and 5.6 respectively. He is 1.8L + so far on the admission; does not normally take lasix as OP. He did have lasix 40 mg IV x 1 today and made about 800 mL urine in response. Also slated to start veltassa tomorrow. he tells me he's tired this evening but denies dyspnea or orthopnea. endorses the urge to void and denies issues passing his urine. no n/v, rectal bleeding. no chest pain, no edema. large painless R groin hematoma. Allergies Allergy/AdvReac Type Severity Reaction Status Date / Time No Known Allergies Allergy Verified 02/10/23 16:03 Home Medications Medication Instructions Recorded Confirmed Type apixaban 2.5 mg tablet (Eliquis) 0 mg PO BID 02/10/23 02/10/23 History aspirin 81 mg chewable tablet 81 mg PO QAM 02/10/23 02/10/23 History atorvastatin 80 mg tablet 80 mg PO QAM 02/10/23 02/10/23 History clopidogrel 75 mg tablet 75 mg PO QAM 02/10/23 02/10/23 History furosemide 40 mg tablet 40 mg PO QAM 02/10/23 02/10/23 History lisinopril 2.5 mg tablet 2.5 mg PO QAM 02/10/23 02/10/23 History metoprolol succinate 50 mg 50 mg PO BID 02/10/23 02/10/23 History tablet,extended release 24 hr Patient History Medical History (Updated 02/11/23 @ 16:39 by Lidia Guzmán MD, PhD) CKD (chronic kidney disease) stage 4, GFR 15-29 ml/min Multi-vessel coronary artery stenosis Ischemic cardiomyopathy Atrial fibrillation with rapid ventricular response Severe calcific aortic stenosis Elevated troponin Elevated PSA HLD (hyperlipidemia) HTN (hypertension) Epididymitis Surgical History (Updated 02/11/23 @ 16:35 by Lidia Guzmán MD, PhD) S/P TURP (transurethral resection of prostate) 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 [facility] Stented coronary artery Family History Other Family history non-contributory Social History Smoking Status: Current some day smoker Tobacco Type: Cigars Cigarettes Per Day: 1 cigar per week; Do You Dip or Chew Tobacco: No; Hx Alcohol Use: No Hx Substance Use: No Preferred Language: Bulgarian Communication Ability: Effective Cigar Binder Required: No Beliefs That Will Affect Care: None marital status: Current Living Situation: Spouse Feels Safe at Home: Yes Safety Concerns: Feels Safe At This Time Assistive Devices: None Review of Systems 2 Review of Systems: All systems reviewed & are unremarkable except as noted in HPI & below Physical Exam 2 Constitutional: well developed, well nourished, average body habitus, + frail appearing and cooperative; no acute distress and + uncomfortable (slight discomfort > tells me he has to void) Eyes: EOM intact bilaterally ENMT: Ears: no external ear abnormality Nose: no external nose abnormality Mouth: + dry oral mucous membranes Neck: no nuchal rigidity Respiratory: normal respiratory effort, + respiratory distress (very slight; restless), able to speak in complete sentences and + tachypneic; expiratory phase not prolonged Auscultation: + diminished lung sounds, + crackles and + rhonchi; no wheezes Cardiovascular: Rate/Rhythm: + tachycardic and + irregularly irregular E xtremities: normal capillary refill; no edema Gastrointestinal (Abdomen): Inspection/Auscultation: normal bowel sounds P ercussion/Palpation: abdomen soft; abdomen nontender Musculoskeletal: Extremities: strength 5/5 throughout Skin: no rashes, warm and dry extensive R groin/scrotal hematoma Neurologic: christianson, fluent speech, no tremor Psychiatric: A+Ox3, euthymic affect Results & Data Vital Signs (Past 12 Hours) Vital Signs Pulse Resp BP Pulse Ox O2 Del Method O2 Flow Rate 02/11/23 15:00 111/71 02/11/23 15:00 98 H 28 H 96 02/11/23 14:30 103/65 02/11/23 14:30 93 H 36 H 96 02/11/23 14:00 101/80 02/11/23 14:00 97 H 28 H 97 02/11/23 13:30 102 H 31 H 95 02/11/23 13:30 94/70 L 02/11/23 13:00 97/75 L 02/11/23 13:00 101 H 34 H 98 Oxymask 8 02/11/23 12:30 98/74 L 02/11/23 12:30 98 H 29 H 98 02/11/23 12:00 102/75 02/11/23 12:00 100 H 29 H 90 02/11/23 11:30 119/75 02/11/23 11:30 115 H 36 H 93 02/11/23 11:00 121/80 02/11/23 11:00 110 H 34 H 93 02/11/23 10:30 109/74 02/11/23 10:30 102 H 25 H 97 02/11/23 10:00 96 H 31 H 94 02/11/23 10:00 106/79 02/11/23 09:30 102 H 30 H 96 02/11/23 09:30 111/66 02/11/23 09:00 107/72 02/11/23 09:00 96 H 35 H 94 02/11/23 08:31 104/72 02/11/23 08:31 91 H 40 H 96 02/11/23 08:00 131/74 02/11/23 08:00 107 H 35 H 86 L 02/11/23 08:00 Nasal Cannula 6 02/11/23 07:30 119 H 31 H 88 L 02/11/23 07:30 118/83 02/11/23 07:00 117/83 02/11/23 07:00 106 H 31 H 95 Laboratory Results 02/11/23 12:57 02/11/23 12:[address] chest non con FINDINGS: Interlobular septal thickening within the lung bases consistent with pulmonary edema. There are small bilateral pleural effusions. No pneumoperitoneum. No pneumatosis. No acute fractures identified. Small fat- containing bilateral inguinal hernias. Right lower quadrant/pelvic subcutaneous edema is noted. There is a small amount of right pelvic sidewall/extraperitoneal hemorrhage which extends into the right groin. This measures up to 9 mm in thickness. There is a 5 mm hypodense lesion within the left hepatic lobe. This is stable compared to the prior study and therefore favors a cyst. No new hepatic lesions identified. The unenhanced spleen, adrenal glands, and pancreas unremarkable. Normal gallbladder. Bilateral cortical renal scarring/atrophy is again noted. No renal or ureteral stones. No hydronephrosis. Mild bilateral perinephric edema. This is likely chronic. Moderate calcified plaque within the mildly ectatic abdominal aorta. No evidence for an abdominal aortic aneurysm. No pelvic free fluid. Moderate bladder wall thickening. The prostate gland is mildly enlarged. No retroperitoneal lymphadenopathy. Suboptimal evaluation for bowel pathology due to the lack of intravenous and oral contrast. However, there is no definite bowel wall thickening or obstruction. Colonic diverticulosis. No evidence for acute diverticulitis. Normal appendix. IMPRESSION: 1. Small amount of right pelvic sidewall/extraperitoneal hemorrhage which extends into the right groin. 2. Pulmonary edema and small bilateral pleural effusions. There are 3. Additional findings as described above. CXR today Cardiomegaly with interval progression of the perihilar interstitial thickening and patchy perihilar airspace opacities. This favors pulmonary edema. A pneumonia could also have a similar appearance. LE arterial duplex 1. There is no sonographic evidence of pseudoaneurysm in the right groin as clinically queried. 2. Large fat and bowel containing right inguinal hernia.
[2023-02-11 18:45] LABS: Appearance Urine Clear (Clear); Bacteria Urine Automated Negative (Negative); Bilirubin Urine Negative (Negative); Blood Urine Negative (Negative); Color Urine Yellow; Glucose Urine UA Negative (Negative); Ketones Urine Negative (Negative); Leukocyte Esterase Urine 2+ (Negative); Nitrite Urine Negative (Negative); Protein Urine Negative (Negative); RBC Urine Automated 0-4 /hpf (0-4); Urobilinogen Urine Negative (Negative)
[2023-02-11 18:52] LABS: Hematocrit (blood only) 29.8 % (42.0-52.0); Hemoglobin 10.2 g/dl (14.0-18.0)
[2023-02-11 19:12] LABS: BUN Creatinine Ratio 24.7 (10-20); Calcium 8.7 mg/dl (8.6-10.3); Creatinine Clr Calc Pharmacy 17.1 ml/min; Est GFR (African American) 21.6 ml/min; Est GFR (Non-African American) 18.7 ml/min; Potassium 4.6 mmol/L (3.5-5.1)
[2023-02-11] MEDS: FUROSEMIDE INJ 20 MG/2 ML VIAL IV SCH ×2 (19:32→22:51)
[2023-02-12 01:07] LABS: Hemoglobin 8.9 g/dl (14.0-18.0)
[2023-02-12] MEDS ORDERED: STAT IV Infusion **Titration per Protocol STA (01:55)
[2023-02-12] MEDS ORDERED: 0.2 MICRON FILTER SET 1 EACH IV ONE (01:55)
[2023-02-12] MEDS ORDERED: AMIODARONE / D5W 360 MG/200 ML BAG IV ONE (01:55)
[2023-02-12] MEDS: PHENYLEPHRINE/NSS 25 MG/250 ML BAG IV SCH ×2 (02:19→22:33)
[2023-02-12] MEDS: FUROSEMIDE INJ 20 MG/2 ML VIAL IV SCH (02:22)
[2023-02-12 04:51] LABS: Albumin Level 3.8 gm/dl (3.4-5.0); Bilirubin Direct 0.2 mg/dl (0-0.2); Bilirubin,Total 1.1 mg/dl (0.2-1.0); Magnesium 2.3 mg/dl (1.7-2.4); Phosphorus 3.6 mg/dl (2.5-4.9); Total Protein 6.7 gm/dl (6.0-8.3)
[2023-02-12 05:00] LABS: INR 1.1 (0.9-1.1); Partial Thromboplastin Time 28 Seconds (21-31); Prothrombin Time 11.5 Seconds (9.0-12.0)
[2023-02-12 05:52] LABS: Basophils # (auto) 0.05 K/uL (0.00-0.20); Basophils % (auto) 0.3 %; Eosinophils # (auto) 0.05 K/uL (0.00-0.50); Eosinophils % (auto) 0.3 %; Hematocrit (blood only) 29.5 % (42.0-52.0); Hemoglobin 9.8 g/dl (14.0-18.0); Immature Granulocytes # (auto) 0.08 K/uL (0.01-0.20); Immature Granulocytes % (auto) 0.5 %; Lymphocytes # (auto) 1.12 K/uL (1.20-3.40); Lymphocytes % (auto) 7.2 %; Mean Corpuscular Hemoglobin 29.7 pg (25.0-34.0); Mean Corpuscular Hgb Conc 33.2 g/dL (32.0-36.0); Mean Corpuscular Volume 89.4 fL (80.0-100.0); Mean Platelet Volume 9.9 fL (9.4-12.4); Monocytes # (auto) 1.03 K/uL (0.11-0.59); Monocytes % (auto) 6.6 %; Neutrophils # (auto) 13.21 K/uL (1.40-6.50); Neutrophils % (auto) 85.1 %; Platelet Count 177 K/uL (130-400); RDW Coefficient of Variation 13.6 % (11.5-14.5); RDW Standard Deviation 44.1 fL (36.4-46.3); White Blood Count 15.54 K/ul (4.8-10.8)
[2023-02-12 06:09] LABS: BUN Creatinine Ratio 26.4 (10-20); Calcium 8.7 mg/dl (8.6-10.3); Creatinine Clr Calc Pharmacy 18.3 ml/min; Est GFR (African American) 23.5 ml/min; Est GFR (Non-African American) 20.3 ml/min; Potassium 4.4 mmol/L (3.5-5.1)
--- NOTE | 2023-02-12 06:43 | Hospitalist Progress Note ---
"Date of Service February 12, 2023 Assessment & Plan (1) Symptomatic anemia: Plan: Pt is a 82 y/o male with PMH of severe , urinary retention, HLD, HTN, and recent cardiac stent placement 02/08 at [facility] presenting to the hospital 02/10 due to dizziness and hypotension. Hypotension | Acute blood loss anemia Likely hemorrhagic hypovolemia in the setting of recent right femoral groin access for cardiac cath at [facility] on 02/08; discharge hemoglobin was 9.1. CTAP with signs of a small hemorrhage - extravasation limited by lack of IV contrast as patient with CKD3-4; patient fluid resuscitated initially with 2L NS and 1u pRBCs. 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 Likely metabolic acidosis with respiratory compensatory mechanisms. Blood gas for further quantification of acid-base status. Atrial flutter with RVR Tachycardia likely reactive in setting of hypovolemia. Continue to hold metoprolol patient on amio gtt cardiology on board - appreciate recs Severe | HFrEF Echo 07/2022 with EF 30-35%. Plan for TAVR in the future. Patient fluid overloaded after 2L NS and 1u pRBCs aggressively diuresed now likely close to euvolemic. closely monitor fluid status, diuresis as indicated Recent cardiac stent placement 02/08 - patient to be on triple therapy for a week with apixaban, ASA, and plavix with plans to continue with apixaban and plavix indefinitely - per cardiology; restart ASA and clopidogrel - continue to hold apixaban Acute on chronic kidney disease - baseline around 2.2; creatinine at 2.79 upon admission - likely pre-renal in the setting of hypovolemia - continue to monitor - nephro on board - appreciate recs Hyperkalemia Started on patiromer per nephro, continue to monitor Elevated troponin - in the setting of recent cardiac intervention, downtrending HTN - pt on metoprolol, lisinopril, and furosemide at home - continue holding antihypertensives in the setting of acute hypotension/hypovolemia Code status: full DVT ppx: on ASA and plavix, holding apixaban FENGI: heart healthy Dispo: ICU (2) Atrial flutter with rapid ventricular response: (3) Elevated troponin: (4) Acute on chronic renal failure: (5) HTN (hypertension), benign: (6) Severe calcific aortic stenosis: (7) S/P drug eluting coronary stent placement: (8) Lactate blood increase: (9) Hypovolemia: (10) CKD (chronic kidney disease): Admission and Anticipated Discharge Date Admission Date: February 10, 2023 Supervising Physician Co-Signing Physician Notes Attending Physician Supervision Note: I independently interviewed and examined the patient and verified the downey history and physical, reviewed labs and image studies and agree with findings and care plan noted above. comfortable in bed. at bedside. on oxygen mask. vitals - noted. breathing comfortably. CTA, abdomen - soft, NT/ND Postprocedural complication with hemorrhagic shock Hypotension with acute blood loss anemia Now on phenylephrine drip. h/h stable after one pRBC 02/10. Holding antihypertensives Acute on chronic systolic heart failure furosemide per cardio - 20mgs IV BID Severe Holding BP lowering agent. CAD with recent stent ASA/Plavix, statin. Lisinopril and metoprolol on hold P A fib/flutter with RVR Now on amiodarone drip. HR 90s - 110. Apixaban on hold. Metoprolol on hold. CKD 4 Hyperkalemia Creat baseline 2.6-2.7. Renal following K improved with lasix and patiromer. SCD Subjective Patient seen at bedside this AM. No complaints. No CP or SOB. No pain. Review of Systems 2 Review of Systems: As per HPI Physical Exam 2 Physical Exam: Gen: pale appearing male in NAD HEENT: AT NC conjunctiva noninjected no scleral icterus noted, MMM CV: tachycardic with irregular rhythm, loud holosystolic murmur best heard LUSB present, cap refill <2s Resp: tachypneic, no increased work of breathing or accessory muscle use, lungs clear Abd: soft, non-distended, non-tender MSK: significant bruising right thigh and groin extending into the scrotum Skin: no rashes noted Neuro: alert and oriented Psych: appropriate mood and affect Results & Data Results & Data Laboratory Results 02/12/23 03:49 02/12/23 03:49 Diagnostic Findings Chest X-Ray 02/11/23 09:13 FINDINGS: No pneumothorax. No pleural effusions. The heart remains enlarged. Progressive perihilar interstitial/vascular thickening with patchy airspace opacities. Calcifications within the aortic knob. Degenerative changes within the shoulders. IMPRESSION: Cardiomegaly with interval progression of the perihilar interstitial thickening and patchy perihilar airspace opacities. This favors pulmonary edema. A pneumonia could also have a similar appearance. Duplex Scan Lower Extremity Artery 02/11/23 10:00 FINDINGS: Real-time grayscale and color Doppler sonography of the right groin is performed to assess for pseudoaneurysm. No pseudoaneurysm is identified in the right groin at the site of interest. The common femoral artery is patent with normal triphasic arterial waveforms and velocities measuring up to 86 cm/s. The proximal superficial femoral artery is patent with velocities measuring up to 56 cm/s. Imaged portions of the right external iliac artery are patent with velocities measuring up to 40 cm/s. There is a large fat and bowel containing right inguinal hernia. This was also seen by CT on 02/10/2023. IMPRESSION: 1. There is no sonographic evidence of pseudoaneurysm in the right groin as clinically queried. 2. Large fat and bowel containing right inguinal hernia. Resident Activity Tracking Resident Involvement: Resident Care Provided Care Provided: Adult Hospital Medicine (4) Acute on chronic renal failure Acute renal failure type: unspecified Chronic kidney disease stage: u nspecified stage Qualified Code(s): N17.9 - Acute kidney failure, unspecified; N18.9 - Chronic kidney disease, unspecified (10) CKD (chronic kidney disease) Chronic kidney disease stage: stage 3 (moderate) Chronic kidney disease stage 3 subtype: unspecified whether 3a or 3b Qualified Code(s): N18.30 - Chronic kidney disease, stage 3 unspecified"
[2023-02-12] MEDS: AMIODARONE / D5W 360 MG/200 ML BAG IV SCH ×2 (07:33→17:14)
[2023-02-12] MEDS: ICU Protocol for HYPERglycemia SCH ×3 (08:19→17:19)
[2023-02-12] MEDS: ATORVASTATIN 40 MG TAB PO SCH (08:53)
[2023-02-12] MEDS: ASPIRIN 81 MG CHEW PO SCH (08:54)
[2023-02-12] MEDS: CLOPIDOGREL BISULFATE 75 MG TAB PO SCH (08:54)
--- NOTE | 2023-02-12 09:16 | Critical Care Progress Note ---
Date of Service February 12, 2023 Assessment & Plan (1) Lactate blood increase: Plan: Reason Critically Ill: 82-year-old male with acute blood loss anemia leading to symptomatic anemia PLAN: Neuro: Orthostasis -Acute blood loss anemia improved however patient does experience lightheadedness with exertion while in atrial flutter/fib CV: Coronary artery disease status post PCI Elevated troponins: Recent cardiac stents -On aspirin and Plavix History of aortic stenosis -Avoid afterload reduction Paroxysmal atrial fibrillation -Patient does not appear to clinically tolerate fib flutter, H&H holding steady I think it is reasonable to hold anticoagulation for additional 12 to 24 hours and then consider reintroduction to minimize risk for thrombus formation Arterial hypotension -Phenylephrine infusion, -Patient may benefit from rhythm control Pulmonary: -Acute hypoxic respiratory failure -Would ideally like to diurese however blood pressures are borderline, aortic stenosis contributing to difficulty to increase cardiac output Fluids/Renal: Acute kidney injury on chronic kidney disease -Presumptively related to contrast from PCI -Net negative yesterday Heme: Acute blood loss anemia: Pelvic hematoma -Received 1 unit packed red blood cells -Venous Doppler reviewed no evidence of pseudoaneurysm DVT prophylaxis: Chemoprophylaxis contraindicated: SCDs Endocrine: ICU hyperglycemia protocol Vascular access: Peripheral IVs Code Status: Full code given acute correctable nature of this event -Discussed with patient and family he would not want long-term life support however agreeable with heroic measures given the current circumstances Disposition: ICU requiring vasoactive medication (2) S/P drug eluting coronary stent placement: (3) Symptomatic anemia: (4) Acute kidney injury superimposed on chronic kidney disease: (5) Cardiomyopathy: (6) Severe calcific aortic stenosis: (7) Acute on chronic renal failure: (8) Elevated troponin: Admission and Anticipated Discharge Date Admission Date: February 10, 2023 Supervising Physician Co-Signing Physician Notes I have personally spent 45 minutes of critical care time in the direct management of this patient. This is a life/limb threatening event. This includes time spent evaluating patient, direct bedside care, chart review, placing orders, interpretation of diagnostic studies, discussion with consultants, patient, and/or family members regarding treatment decisions, as well as other required patient management activities. This time is exclusive of all separately billable procedures, and teaching time and separate from and in addition to any other critical care service time. Subjective Overnight patient went into atrial fibrillation with associated hypotension. Started on phenylephrine and amiodarone. Mild increasing oxygen requirement Patient feels okay, denies chest pain or shortness of breath. Physical Exam Physical Exam: General: Alert. nontoxic. Skin: Warm, dry, Head: Atraumatic Ears, nose, mouth and throat: airway patent Cardiovascular: Normal peripheral perfusion Respiratory: no respiratory distress Gastrointestinal: Non distended Musculoskeletal: No deformity Results & Data Results & Data Vital Signs (Past 12 Hours) Vital Signs Temp Pulse Resp BP Pulse Ox Pulse Ox O2 Del Method 02/12/23 08:15 115 H 32 H 90 02/12/23 08:00 100 H 27 H 82 L 02/12/23 08:00 Oxymask 02/12/23 08:00 Oxymask 02/12/23 08:00 36.5 C 02/12/23 07:46 90/58 L 02/12/23 07:46 92 H 27 H 90 02/12/23 07:45 98 H 25 H 89 L 02/12/23 07:30 93 H 25 H 77 L 02/12/23 07:15 93/61 L 02/12/23 07:15 89 19 82 L 02/12/23 07:00 92/59 L 02/12/23 07:00 97 H 23 85 L 02/12/23 06:45 94 H 27 H 100 02/12/23 06:45 102/66 02/12/23 06:31 102 H 25 H 99 02/12/23 06:31 106/69 Oxymask 02/12/23 06:30 90 24 99 02/12/23 06:16 106 H 25 H 97 02/12/23 06:16 111/73 02/12/23 06:15 93 H 25 H 97 02/12/23 06:00 86/52 L 02/12/23 06:00 94 H 26 H 92 02/12/23 05:45 95 H 24 84 L 02/12/23 05:45 81/55 L 02/12/23 05:30 98/44 L 02/12/23 05:30 105 H 26 H 84 L 02/12/23 05:16 80/57 L 02/12/23 05:16 105 H 23 81 L 02/12/23 05:15 101 H 23 83 L 02/12/23 05:10 100 H 26 H 82 L 02/12/23 05:10 81/56 L 02/12/23 05:00 111 H 19 95 02/12/23 04:49 82/59 L 02/12/23 04:49 99 H 25 H 87 L 02/12/23 04:45 88 27 H 89 L 02/12/23 04:30 101 H 23 94 Oxymask 02/12/23 04:15 100/65 02/12/23 04:15 87 23 99 Oxymask 02/12/23 04:00 98/68 L 02/12/23 04:00 112 H 20 95 Oxymask 02/12/23 03:46 119/71 02/12/23 03:46 100 H 22 90 02/12/23 03:45 93 H 26 H 92 02/12/23 03:31 99 H 23 92 02/12/23 03:31 107/72 02/12/23 03:30 97 H 20 95 Oxymask 02/12/23 03:15 99 H 20 98 Oxymask 02/12/23 03:00 128 H 23 96 Oxymask 02/12/23 03:00 103/70 02/12/23 02:46 109 H 24 99 02/12/23 02:46 90/69 L 02/12/23 02:45 128 H 25 H 99 02/12/23 02:31 104/78 02/12/23 02:31 174 H 30 H 99 02/12/23 02:30 145 H 25 H 99 02/12/23 02:15 139 H 26 H 100 02/12/23 02:13 165 H 02/12/23 02:08 91/59 L 02/12/23 02:08 118 H 24 99 02/12/23 02:00 131 H 20 98 02/12/23 01:45 130 H 22 93 Oxymask 02/12/23 01:31 87/47 L 02/12/23 01:31 129 H 25 H 91 Oxymask 02/12/23 01:30 130 H 25 H 93 Oxymask 02/12/23 01:15 138 H 26 H 95 Oxymask 02/12/23 01:01 110 H 28 H 93 02/12/23 01:01 84/69 L 02/12/23 01:00 109 H 30 H 85 L 02/12/23 00:30 123 H 28 H 98 02/12/23 00:30 79/57 L 02/12/23 00:06 95 02/12/23 00:01 101/54 L 02/12/23 00:01 137 H 23 82 L 02/12/23 00:00 130 H 24 99 Oxymask 02/11/23 23:59 140 H 02/11/23 23:30 92/56 L 02/11/23 23:30 116 H 22 99 Oxymask 02/11/23 23:00 111/60 02/11/23 23:00 129 H 20 92 Oxymask 02/11/23 22:48 109 H 30 H 99 02/11/23 22:48 93/69 L 02/11/23 22:31 101 H 20 100 02/11/23 22:31 93/69 L 02/11/23 22:30 111 H 23 95 02/11/23 22:00 99/61 L 02/11/23 22:00 99 H 20 98 02/11/23 21:45 100/64 02/11/23 21:45 109 H 30 H 96 02/11/23 21:31 86/61 L 02/11/23 21:31 99 H 26 H 100 02/11/23 21:30 104 H 23 100 O2 Del Method O2 Flow Rate O2 Flow Rate 02/12/23 08:15 02/12/23 08:00 02/12/23 08:00 02/12/23 08:00 10 02/12/23 08:00 02/12/23 07:46 02/12/23 07:46 02/12/23 07:45 02/12/23 07:30 02/12/23 07:15 02/12/23 07:15 02/12/23 07:00 02/12/23 07:00 02/12/23 06:45 02/12/23 06:45 02/12/23 06:31 02/12/23 06:31 10 02/12/23 06:30 02/12/23 06:16 02/12/23 06:16 02/12/23 06:15 02/12/23 06:00 02/12/23 06:00 02/12/23 05:45 02/12/23 05:45 02/12/23 05:30 02/12/23 05:30 02/12/23 05:16 02/12/23 05:16 02/12/23 05:15 02/12/23 05:10 02/12/23 05:10 02/12/23 05:00 02/12/23 04:49 02/12/23 04:49 02/12/23 04:45 02/12/23 04:30 10 02/12/23 04:15 02/12/23 04:15 10 02/12/23 04:00 02/12/23 04:00 10 02/12/23 03:46 02/12/23 03:46 02/12/23 03:45 02/12/23 03:31 02/12/23 03:31 02/12/23 03:30 10 02/12/23 03:15 10 02/12/23 03:00 10 02/12/23 03:00 02/12/23 02:46 02/12/23 02:46 02/12/23 02:45 02/12/23 02:31 02/12/23 02:31 02/12/23 02:30 02/12/23 02:15 02/12/23 02:13 02/12/23 02:08 02/12/23 02:08 02/12/23 02:00 02/12/23 01:45 10 02/12/23 01:31 02/12/23 01:31 10 02/12/23 01:30 10 02/12/23 01:15 10 02/12/23 01:01 02/12/23 01:01 02/12/23 01:00 02/12/23 00:30 02/12/23 00:30 02/12/23 00:06 Oxymask 10 02/12/23 00:01 02/12/23 00:01 02/12/23 00:00 10 02/11/23 23:59 02/11/23 23:30 02/11/23 23:30 10 02/11/23 23:00 02/11/23 23:00 8 02/11/23 22:48 02/11/23 22:48 02/11/23 22:31 02/11/23 22:31 02/11/23 22:30 02/11/23 22:00 02/11/23 22:00 02/11/23 21:45 02/11/23 21:45 02/11/23 21:31 02/11/23 21:31 02/11/23 21:30 Critical Care Results & Data Vital Signs (Past 12 Hours) Vital Signs Temp Pulse Resp BP Pulse Ox Pulse Ox O2 Del Method 02/12/23 08:15 115 H 32 H 90 02/12/23 08:00 100 H 27 H 82 L 02/12/23 08:00 Oxymask 02/12/23 08:00 Oxymask 02/12/23 08:00 36.5 C 02/12/23 07:46 90/58 L 02/12/23 07:46 92 H 27 H 90 02/12/23 07:45 98 H 25 H 89 L 02/12/23 07:30 93 H 25 H 77 L 02/12/23 07:15 93/61 L 02/12/23 07:15 89 19 82 L 02/12/23 07:00 92/59 L 02/12/23 07:00 97 H 23 85 L 02/12/23 06:45 94 H 27 H 100 02/12/23 06:45 102/66 02/12/23 06:31 102 H 25 H 99 02/12/23 06:31 106/69 Oxymask 02/12/23 06:30 90 24 99 02/12/23 06:16 106 H 25 H 97 02/12/23 06:16 111/73 02/12/23 06:15 93 H 25 H 97 02/12/23 06:00 86/52 L 02/12/23 06:00 94 H 26 H 92 02/12/23 05:45 95 H 24 84 L 02/12/23 05:45 81/55 L 02/12/23 05:30 98/44 L 02/12/23 05:30 105 H 26 H 84 L 02/12/23 05:16 80/57 L 02/12/23 05:16 105 H 23 81 L 02/12/23 05:15 101 H 23 83 L 02/12/23 05:10 100 H 26 H 82 L 02/12/23 05:10 81/56 L 02/12/23 05:00 111 H 19 95 02/12/23 04:49 82/59 L 02/12/23 04:49 99 H 25 H 87 L 02/12/23 04:45 88 27 H 89 L 02/12/23 04:30 101 H 23 94 Oxymask 02/12/23 04:15 100/65 02/12/23 04:15 87 23 99 Oxymask 02/12/23 04:00 98/68 L 02/12/23 04:00 112 H 20 95 Oxymask 02/12/23 03:46 119/71 02/12/23 03:46 100 H 22 90 02/12/23 03:45 93 H 26 H 92 02/12/23 03:31 99 H 23 92 02/12/23 03:31 107/72 02/12/23 03:30 97 H 20 95 Oxymask 02/12/23 03:15 99 H 20 98 Oxymask 02/12/23 03:00 128 H 23 96 Oxymask 02/12/23 03:00 103/70 02/12/23 02:46 109 H 24 99 02/12/23 02:46 90/69 L 02/12/23 02:45 128 H 25 H 99 02/12/23 02:31 104/78 02/12/23 02:31 174 H 30 H 99 02/12/23 02:30 145 H 25 H 99 02/12/23 02:15 139 H 26 H 100 02/12/23 02:13 165 H 02/12/23 02:08 91/59 L 02/12/23 02:08 118 H 24 99 02/12/23 02:00 131 H 20 98 02/12/23 01:45 130 H 22 93 Oxymask 02/12/23 01:31 87/47 L 02/12/23 01:31 129 H 25 H 91 Oxymask 02/12/23 01:30 130 H 25 H 93 Oxymask 02/12/23 01:15 138 H 26 H 95 Oxymask 02/12/23 01:01 110 H 28 H 93 02/12/23 01:01 84/69 L 02/12/23 01:00 109 H 30 H 85 L 02/12/23 00:30 123 H 28 H 98 02/12/23 00:30 79/57 L 02/12/23 00:06 95 02/12/23 00:01 101/54 L 02/12/23 00:01 137 H 23 82 L 02/12/23 00:00 130 H 24 99 Oxymask 02/11/23 23:59 140 H 02/11/23 23:30 92/56 L 02/11/23 23:30 116 H 22 99 Oxymask 02/11/23 23:00 111/60 02/11/23 23:00 129 H 20 92 Oxymask 02/11/23 22:48 109 H 30 H 99 02/11/23 22:48 93/69 L 02/11/23 22:31 101 H 20 100 02/11/23 22:31 93/69 L 02/11/23 22:30 111 H 23 95 02/11/23 22:00 99/61 L 02/11/23 22:00 99 H 20 98 02/11/23 21:45 100/64 02/11/23 21:45 109 H 30 H 96 02/11/23 21:31 86/61 L 02/11/23 21:31 99 H 26 H 100 02/11/23 21:30 104 H 23 100 O2 Del Method O2 Flow Rate O2 Flow Rate 02/12/23 08:15 02/12/23 08:00 02/12/23 08:00 02/12/23 08:00 10 02/12/23 08:00 02/12/23 07:46 02/12/23 07:46 02/12/23 07:45 02/12/23 07:30 02/12/23 07:15 02/12/23 07:15 02/12/23 07:00 02/12/23 07:00 02/12/23 06:45 02/12/23 06:45 02/12/23 06:31 02/12/23 06:31 10 02/12/23 06:30 02/12/23 06:16 02/12/23 06:16 02/12/23 06:15 02/12/23 06:00 02/12/23 06:00 02/12/23 05:45 02/12/23 05:45 02/12/23 05:30 02/12/23 05:30 02/12/23 05:16 02/12/23 05:16 02/12/23 05:15 02/12/23 05:10 02/12/23 05:10 02/12/23 05:00 02/12/23 04:49 02/12/23 04:49 02/12/23 04:45 02/12/23 04:30 10 02/12/23 04:15 02/12/23 04:15 10 02/12/23 04:00 02/12/23 04:00 10 02/12/23 03:46 02/12/23 03:46 02/12/23 03:45 02/12/23 03:31 02/12/23 03:31 02/12/23 03:30 10 02/12/23 03:15 10 02/12/23 03:00 10 02/12/23 03:00 02/12/23 02:46 02/12/23 02:46 02/12/23 02:45 02/12/23 02:31 02/12/23 02:31 02/12/23 02:30 02/12/23 02:15 02/12/23 02:13 02/12/23 02:08 02/12/23 02:08 02/12/23 02:00 02/12/23 01:45 10 02/12/23 01:31 02/12/23 01:31 10 02/12/23 01:30 10 02/12/23 01:15 10 02/12/23 01:01 02/12/23 01:01 02/12/23 01:00 02/12/23 00:30 02/12/23 00:30 02/12/23 00:06 Oxymask 10 02/12/23 00:01 02/12/23 00:01 02/12/23 00:00 10 02/11/23 23:59 02/11/23 23:30 02/11/23 23:30 10 02/11/23 23:00 02/11/23 23:00 8 02/11/23 22:48 02/11/23 22:48 02/11/23 22:31 02/11/23 22:31 02/11/23 22:30 02/11/23 22:00 02/11/23 22:00 02/11/23 21:45 02/11/23 21:45 02/11/23 21:31 02/11/23 21:31 02/11/23 21:30 Lab & Micro Results (Past 24 Hours) RBC 3.30 M/uL (4.70-6.10) L 02/12/23 WBC 15.54 K/ul (4.8-10.8) H 02/12/23 Hgb 9.8 g/dl (14.0-18.0) L 02/12/23 Hct 29.5 % (42.0-52.0) L 02/12/23 MCV 89.4 fL (80.0-100.0) 02/12/23 MCH 29.7 pg (25.0-34.0) 02/12/23 MCHC 33.2 g/dL (32.0-36.0) 02/12/23 RDW Standard Deviation 44.1 fL (36.4-46.3) 02/12/23 RDW Coefficient of Variation 13.6 % (11.5-14.5) 02/12/23 Plt Count 177 K/uL (130-400) 02/12/23 MPV 9.9 fL (9.4-12.4) 02/12/23 Neutrophils (%) (Auto) 85.1 % 02/12/23 Lymphocytes (%) (Auto) 7.2 % 02/12/23 Monocytes # (Auto) 1.03 K/uL (0.11-0.59) H 02/12/23 Eosinophils # (Auto) 0.05 K/uL (0.00-0.50) 02/12/23 Immature Granulocyte % (Auto) 0.5 % 02/12/23 Neutrophils # (Auto) 13.21 K/uL (1.40-6.50) H 02/12/23 Lymphocytes # (Auto) 1.12 K/uL (1.20-3.40) L 02/12/23 Monocytes # (Auto) 1.03 K/uL (0.11-0.59) H 02/12/23 Eosinophils # (Auto) 0.05 K/uL (0.00-0.50) 02/12/23 Basophils # (Auto) 0.05 K/uL (0.00-0.20) 02/12/23 Immature Granulocyte # (Auto) 0.08 K/uL (0.01-0.20) 3 Na 136 mmol/L (136-145) 02/12/23 K 4.4 mmol/L (3.5-5.1) 02/12/23 Cl 105 mmol/L (98-107) 02/12/23 CO2 17 mmol/L (21-32) L 02/12/23 Anion Gap 14 (3-11) H 02/12/23 BUN 73 mg/dl (6-23) H 02/12/23 Creatinine 2.76 mg/dl (0.6-1.4) H 02/12/23 Estimated GFR ( Amer) 23.5 ml/min 02/12/23 Estimated GFR (Non-Af Amer) 20.3 ml/min 02/12/23 BUN/Creatinine Ratio 26.4 (10-20) H 02/12/23 Glu 139 mg/dl (70-99(Fasting)) H 02/12/23 Ca 8.7 mg/dl (8.6-10.3) 02/12/23 Phosphorus Level 3.6 mg/dl (2.5-4.9) 02/12/23 Total Bilirubin 1.1 mg/dl (0.2-1.0) H 02/12/23 Direct Bilirubin 0.2 mg/dl (0-0.2) 02/12/23 AST 53 U/L (13-39) H 02/12/23 ALT 21 U/L (7-52) 02/12/23 Alkaline Phosphatase 68 U/L (34-104) 02/12/23 TP 6.7 gm/dl (6.0-8.3) 02/12/23 Albumin 3.8 gm/dl (3.4-5.0) 02/12/23 Mg 2.3 mg/dl (1.7-2.4) 02/12/23 03:49 Calcium Level 8.7 mg/dl (8.6-10.3) 02/12/23 03:49 Prothromb Time International Ratio 1.1 (0.9-1.1) 02/12/23 03:4 9 Microbiology 02/11/23 18:27 Urine Culture - Preliminary Urine,Straight Cath Gram negative bacilli 02/10/23 15:09 Aerobic Blood Culture - Preliminary Blood No growth in Aerobic bottle after 24 hours. Anaerobic Blood Culture - Final 02/10/23 15:09 Aerobic Blood Culture - Preliminary Blood No growth in Aerobic bottle after 24 hours. Anaerobic Blood Culture - Final Diagnostic Findings (Past 24 Hours) Chest X-Ray 02/11/23 09:13 XR chest 1V portable HISTORY: Shortness of breath. Pulmonary vascular congestion. COMPARISON: Chest 02/10/2023. FINDINGS: No pneumothorax. No pleural effusions. The heart remains enlarged. Progressive perihilar interstitial/vascular thickening with patchy airspace opacities. Calcifications within the aortic knob. Degenerative changes within the shoulders. IMPRESSION: Cardiomegaly with interval progression of the perihilar interstitial thickening and patchy perihilar airspace opacities. This favors pulmonary edema. A pneumonia could also have a similar appearance. ACT 112: Negative or not required by law. Electronically signed by: Selvin Angel M.D. 02/11/2023 10:48 AM Duplex Scan Lower Extremity Artery 02/11/23 10:00 ULTRASOUND RIGHT LOWER EXTREMITY ARTERIAL CLINICAL HISTORY: Recent cardiac catheterization. Clinical concern for pseudoaneurysm. COMPARISON STUDY: Pelvic CT dated 02/10/2023. FINDINGS: Real-time grayscale and color Doppler sonography of the right groin is performed to assess for pseudoaneurysm. No pseudoaneurysm is identified in the right groin at the site of interest. The common femoral artery is patent with normal triphasic arterial waveforms and velocities measuring up to 86 cm/s. The proximal superficial femoral artery is patent with velocities measuring up to 56 cm/s. Imaged portions of the right external iliac artery are patent with velocities measuring up to 40 cm/s. There is a large fat and bowel containing right inguinal hernia. This was also seen by CT on 02/10/2023. IMPRESSION: 1. There is no sonographic evidence of pseudoaneurysm in the right groin as clinically queried. 2. Large fat and bowel containing right inguinal hernia. Dictated: 02/11/2023 12:07 PM Transcribed: 02/11/2023 12:16 PM Nicki [id number] [email or web address] [id number] Electronically signed by: Justice Damico M.D. 02/11/2023 1:54 PM I & O Totals 24 Hours 02/11/23 02/12/23 02/13/23 06:59 06:59 06:59 Intake Total 2860 / 2860 605.96 / 605.96 235.737 / 235.737 Output Total 300 / 300 2345 / 2345 Balance 2560 / 2560 -1739.04 / -1739.04 235.737 / 235.737 Cumulative 02/10/23 13:42 thru 02/12/23 08:06 Intake Total 3701.697 Output Total 2645 Balance 1056.697 RT Ventilator Mngmt (Last Documented) Ventilator Ordered Settings Respiratory Rate 32 02/12/23 08:15 Fraction of Inspired Oxygen 6 02/11/23 00:04 Ventilator - PT Measurements Respiratory Rate 32 Coding Level of Care Code 11597 CRITICAL CARE 1ST 30-74M Diagnoses Lactate blood increase R79.89 S/P drug eluting coronary stent placement Z95.5 Symptomatic anemia D64.9 Acute kidney injury superimposed on chronic kidney disease N17.9; N18.9 Ischemic cardiomyopathy I25.5 Cardiomyopathy type: ischemic Severe calcific aortic stenosis I35.0 Acute on chronic renal failure N17.9; N18.9 Acute renal failure type: unspecified Chronic kidney disease stage: unspecified stage Elevated troponin R77.8 (5) Cardiomyopathy Cardiomyopathy type: ischemic Qualified Code(s): I25.5 - Ischemic cardiomyopathy (7) Acute on chronic renal failure Acute renal failure type: unspecified Chronic kidney disease stage: unspecified stage Qualified Code(s): N17.9 - Acute kidney failure, unspecified; N18.9 - Chronic kidney disease, unspecified
[2023-02-12 09:36] LABS: Base Excess VBG -4.4 mEq/L; HCO3 VBG 20 mmol/L; Oxygen Saturation VBG < 60.0 %; PCO2 VBG 35 mmHg (38-50); PO2 VBG 30 mmHg; pH VBG 7.37 (7.36-7.41)
--- NOTE | 2023-02-12 11:18 | Cardiology Progress Note ---
"Date of Service February 12, 2023 Assessment & Plan (1) Ischemic cardiomyopathy: (2) Multi-vessel coronary artery stenosis: (3) S/P drug eluting coronary stent placement: (4) Elevated troponin: (5) Severe aortic stenosis: (6) Atrial fibrillation with rapid ventricular response: (7) CKD (chronic kidney disease): (8) Acute blood loss anemia: Plan IMPRESSION: Medically complex 82-year-old male with multivessel coronary disease/ischemic cardiomyopathy status post PCI 02/08/2023 at [facility] Known severe aortic stenosis currently in the process of TAVR workup. Presented yesterday due to symptomatic hypotension found to have a small right femoral artery hemorrhage--found to be anemic and 1 unit of PRBCs were transfused. PLAN: Multivessel CAD/Ischemic cardiomyopathy: -Multivessel coronary disease/ischemic cardiomyopathy status post PCI 02/08/2023 at [facility] [place]. Post PCI complicated by acute blood loss anemia secondary to right groin hematoma. -LVEF 46% (per echo 12/09/2022) -Breathing appears improved. Recommend restarting home dose lasix at 40mg qday -wean off phenylephrine, then consider adding toprol 25mg qday once BP is stable (he was on 50mg of toprol bid previously at home) Severe Aortic stenosis -Confirmed on cardiac cath, currently in the process of TAVR workup with Dr. Segura Paroxysmal atrial fibrillation/flutter -Persistent AFIB on tele, rates 90-110s. Asymptomatic. -AC on hold due to groin hematoma. -Elevated rates likely due to acute blood loss anemia/illness/and concerns for hypervolemia s/p transfusion. I spent a total of 55 minutes of critical care on the date of service in preparation, delivery, and documentation of the care provided to the patient excluding any time spent in the performance of separately billed services. Admission and Anticipated Discharge Date Admission Date: February 10, 2023 Subjective Patient seen at bedside this AM. No complaints. No CP or SOB. No pain. Review of Systems Review of Systems: A comprehensive review of systems is otherwise negative unless noted above. Physical Exam Physical Exam: AAOx3; NAD Eyes: PERRL, conjunctivae normal, anicteric sclerae Neck: No JVD. Respiratory: Decreased breath sounds b/l bases. Cardiovascular: Irregularly Irregular; S1+S2; (+) murmur Musculoskeletal: No lower extremity edema Skin: R-groin with large hematoma; stable Results & Data Vital Signs (Past 12 Hours) Vital Signs Temp Pulse Resp BP Pulse Ox Pulse Ox O2 Del Method 02/12/23 11:00 99 H 25 H 100 02/12/23 11:00 106/61 02/12/23 10:45 104 H 24 89 L 02/12/23 10:31 105 H 26 H 91 02/12/23 10:31 97/75 L 02/12/23 10:30 104 H 16 84 L 02/12/23 10:15 103 H 23 83 L 02/12/23 10:00 113/64 02/12/23 10:00 108 H 23 89 L 02/12/23 09:45 94 H 16 89 L 02/12/23 09:30 102 H 25 H 91 02/12/23 09:30 105/74 02/12/23 09:15 97 H 13 95 02/12/23 09:00 92 H 23 91 02/12/23 08:45 100/72 02/12/23 08:45 99 H 21 95 02/12/23 08:30 99/64 L 02/12/23 08:30 103 H 20 90 02/12/23 08:15 115 H 32 H 90 02/12/23 08:00 100 H 27 H 82 L 02/12/23 08:00 Oxymask 02/12/23 08:00 Oxymask 02/12/23 08:00 36.5 C 02/12/23 07:46 90/58 L 02/12/23 07:46 92 H 27 H 90 02/12/23 07:45 98 H 25 H 89 L 02/12/23 07:30 93 H 25 H 77 L 02/12/23 07:15 93/61 L 02/12/23 07:15 89 19 82 L 02/12/23 07:00 92/59 L 02/12/23 07:00 97 H 23 85 L 02/12/23 06:45 94 H 27 H 100 02/12/23 06:45 102/66 02/12/23 06:31 102 H 25 H 99 02/12/23 06:31 106/69 Oxymask 02/12/23 06:30 90 24 99 02/12/23 06:16 106 H 25 H 97 02/12/23 06:16 111/73 02/12/23 06:15 93 H 25 H 97 02/12/23 06:00 86/52 L 02/12/23 06:00 94 H 26 H 92 02/12/23 05:45 95 H 24 84 L 02/12/23 05:45 81/55 L 02/12/23 05:30 98/44 L 02/12/23 05:30 105 H 26 H 84 L 02/12/23 05:16 80/57 L 02/12/23 05:16 105 H 23 81 L 02/12/23 05:15 101 H 23 83 L 02/12/23 05:10 100 H 26 H 82 L 02/12/23 05:10 81/56 L 02/12/23 05:00 111 H 19 95 02/12/23 04:49 82/59 L 02/12/23 04:49 99 H 25 H 87 L 02/12/23 04:45 88 27 H 89 L 02/12/23 04:30 101 H 23 94 Oxymask 02/12/23 04:15 100/65 02/12/23 04:15 87 23 99 Oxymask 02/12/23 04:00 98/68 L 02/12/23 04:00 112 H 20 95 Oxymask 02/12/23 03:46 119/71 02/12/23 03:46 100 H 22 90 02/12/23 03:45 93 H 26 H 92 02/12/23 03:31 99 H 23 92 02/12/23 03:31 107/72 02/12/23 03:30 97 H 20 95 Oxymask 02/12/23 03:15 99 H 20 98 Oxymask 02/12/23 03:00 128 H 23 96 Oxymask 02/12/23 03:00 103/70 02/12/23 02:46 109 H 24 99 02/12/23 02:46 90/69 L 02/12/23 02:45 128 H 25 H 99 02/12/23 02:31 104/78 02/12/23 02:31 174 H 30 H 99 02/12/23 02:30 145 H 25 H 99 02/12/23 02:15 139 H 26 H 100 02/12/23 02:13 165 H 02/12/23 02:08 91/59 L 02/12/23 02:08 118 H 24 99 02/12/23 02:00 131 H 20 98 02/12/23 01:45 130 H 22 93 Oxymask 02/12/23 01:31 87/47 L 02/12/23 01:31 129 H 25 H 91 Oxymask 02/12/23 01:30 130 H 25 H 93 Oxymask 02/12/23 01:15 138 H 26 H 95 Oxymask 02/12/23 01:01 110 H 28 H 93 02/12/23 01:01 84/69 L 02/12/23 01:00 109 H 30 H 85 L 02/12/23 00:30 123 H 28 H 98 02/12/23 00:30 79/57 L 02/12/23 00:06 95 02/12/23 00:01 101/54 L 02/12/23 00:01 137 H 23 82 L 02/12/23 00:00 130 H 24 99 Oxymask 02/11/23 23:59 140 H 02/11/23 23:30 92/56 L 02/11/23 23:30 116 H 22 99 Oxymask O2 Del Method O2 Flow Rate O2 Flow Rate 02/12/23 11:00 02/12/23 11:00 02/12/23 10:45 02/12/23 10:31 02/12/23 10:31 02/12/23 10:30 02/12/23 10:15 02/12/23 10:00 02/12/23 10:00 02/12/23 09:45 02/12/23 09:30 02/12/23 09:30 02/12/23 09:15 02/12/23 09:00 02/12/23 08:45 02/12/23 08:45 02/12/23 08:30 02/12/23 08:30 02/12/23 08:15 02/12/23 08:00 02/12/23 08:00 02/12/23 08:00 10 02/12/23 08:00 02/12/23 07:46 02/12/23 07:46 02/12/23 07:45 02/12/23 07:30 02/12/23 07:15 02/12/23 07:15 02/12/23 07:00 02/12/23 07:00 02/12/23 06:45 02/12/23 06:45 02/12/23 06:31 02/12/23 06:31 10 02/12/23 06:30 02/12/23 06:16 02/12/23 06:16 02/12/23 06:15 02/12/23 06:00 02/12/23 06:00 02/12/23 05:45 02/12/23 05:45 02/12/23 05:30 02/12/23 05:30 02/12/23 05:16 02/12/23 05:16 02/12/23 05:15 02/12/23 05:10 02/12/23 05:10 02/12/23 05:00 02/12/23 04:49 02/12/23 04:49 02/12/23 04:45 02/12/23 04:30 10 02/12/23 04:15 02/12/23 04:15 10 02/12/23 04:00 02/12/23 04:00 10 02/12/23 03:46 02/12/23 03:46 02/12/23 03:45 02/12/23 03:31 02/12/23 03:31 02/12/23 03:30 10 02/12/23 03:15 10 02/12/23 03:00 10 02/12/23 03:00 02/12/23 02:46 02/12/23 02:46 02/12/23 02:45 02/12/23 02:31 02/12/23 02:31 02/12/23 02:30 02/12/23 02:15 02/12/23 02:13 02/12/23 02:08 02/12/23 02:08 02/12/23 02:00 02/12/23 01:45 10 02/12/23 01:31 02/12/23 01:31 10 02/12/23 01:30 10 02/12/23 01:15 10 02/12/23 01:01 02/12/23 01:01 02/12/23 01:00 02/12/23 00:30 02/12/23 00:30 02/12/23 00:06 Oxymask 10 02/12/23 00:01 02/12/23 00:01 02/12/23 00:00 10 02/11/23 23:59 02/11/23 23:30 02/11/23 23:30 10 Laboratory Results Na | 136 | | 136-145 mmol/L | K | 4.4 | | 3.5-5.1 mmol/L | Cl | 105 | | 98-107 mmol/L | CO2 | 17 | L | 21-32 mmol/L | Gap | 14 | H | 3-11 | BUN | 73 | H | 6-23 mg/dl | Creat | 2.76 | H | 0.6-1.4 mg/dl | Creat Calc PHA | 18.3 | | ml/min | | Est. Creatinine Clearance (Mod Cockcroft-Gault) for pharmacy | dosing purposes. EGFR AA | 23.5 | | ml/min | | Units: ml/min per 1.73 meters squared | | The estimated GFR (CKD-EPI equation) has not been validated | for inpatient settings and may not be an accurate reflection | of renal function in critically ill patients or those with | rapidly changing renal function (e.g. JOSE ALBERTO). EGFR PREM | 20.3 | | ml/min | | Units: ml/min per 1.73 meters squared | | The estimated GFR (CKD-EPI equation) has not been validated | for inpatient settings and may not be an accurate reflection | of renal function in critically ill patients or those with | rapidly changing renal function (e.g. JOSE ALBERTO). BUN Creat Ratio | 26.4 | H | 10-20 | Glu | 139 | H | 70-99(Fasting) mg/dl | Ca | 8.7 | | 8.6- 10.3 mg/dl | Phos | 3.6 | | 2.5-4.9 mg/dl | MG | 2.3 | | 1.7-2.4 mg/dl | Total Bilirubin | 1.1 | H | 0.2-1.0 mg/dl | Direct Bili | 0.2 | | 0-0.2 mg/dl | AST | 53 | H | 13-39 U/L | Alt | 21 | | 7-52 U/L | TP | 6.7 | | 6.0-8.3 gm/dl | Alb | 3.8 | | 3.4-5.0 gm/dl | Alk Phos | 68 | | 34-104 U/L | (7) CKD (chronic kidney disease) Chronic kidney disease stage: stage 3 (moderate) Chronic kidney disease stage 3 subtype: unspecified whether 3a or 3b Qualified Code(s): N18.30 - Chronic kidney disease, stage 3 unspecified"
[2023-02-12] MEDS ORDERED: PATIROMER CALCIUM SORBITEX 8.4 GM PACK PO SCH (12:00)
[2023-02-12 12:37] LABS: Hematocrit (blood only) 26.4 % (42.0-52.0)
--- NOTE | 2023-02-12 12:47 | Nephrology Progress Note ---
Date of Service February 12, 2023 Assessment & Plan Admission and Anticipated Discharge Date Admission Date: February 10, 2023 Subjective Assessment & Plan (1) Hyperkalemia: Now normal after lasix and patiromer. (2) CKD (chronic kidney disease) stage 4, GFR 15-29 ml/min: baseline creatinine 2.6-2.7 since August 2022. complicated urologic/urinary retention hx but this has been relative improved since prostate procedure 2021. renal function at baseline daily bmp avoid IV contrast unless life/limb/heart muscle saving no indication for dialysis discussion currently (3) Ischemic cardiomyopathy: per cardiology; complex heart patient w/ multiple comorbidities strict I/O Currently Has Afibb with RVR and also has low BP--He did get some lasix yesterday. Would need some lasix today . Currently on Phenylephrine drip with good BP. recommend lasix 20 iv q12h at least. higher if BP allows. Results & Data Vital Signs (Past 12 Hours) Vital Signs Temp Pulse Resp BP Pulse Ox O2 Del Method O2 Flow Rate 02/12/23 11:45 109 H 25 H 88 L 02/12/23 11:45 109/76 02/12/23 11:30 96/56 L 02/12/23 11:30 105 H 35 H 94 02/12/23 11:15 97 H 26 H 80 L 02/12/23 11:00 99 H 25 H 100 02/12/23 11:00 106/61 02/12/23 10:45 104 H 24 89 L 02/12/23 10:31 105 H 26 H 91 02/12/23 10:31 97/75 L 02/12/23 10:30 104 H 16 84 L 02/12/23 10:15 103 H 23 83 L 02/12/23 10:00 113/64 02/12/23 10:00 108 H 23 89 L 02/12/23 09:45 94 H 16 89 L 02/12/23 09:30 102 H 25 H 91 02/12/23 09:30 105/74 02/12/23 09:15 97 H 13 95 02/12/23 09:00 92 H 23 91 02/12/23 08:45 100/72 02/12/23 08:45 99 H 21 95 02/12/23 08:30 99/64 L 02/12/23 08:30 103 H 20 90 12/16/23 08:15 115 H 32 H 90 02/12/23 08:00 100 H 27 H 82 L 02/12/23 08:00 Oxymask 02/12/23 08:00 Oxymask 10 02/12/23 08:00 36.5 C 02/12/23 07:46 90/58 L 02/12/23 07:46 92 H 27 H 90 02/12/23 07:45 98 H 25 H 89 L 02/12/23 07:30 93 H 25 H 77 L 02/12/23 07:15 93/61 L 02/12/23 07:15 89 19 82 L 02/12/23 07:00 92/59 L 02/12/23 07:00 97 H 23 85 L 02/12/23 06:45 94 H 27 H 100 02/12/23 06:45 102/66 02/12/23 06:31 102 H 25 H 99 02/12/23 06:31 106/69 Oxymask 10 02/12/23 06:30 90 24 99 02/12/23 06:16 106 H 25 H 97 02/12/23 06:16 111/73 02/12/23 06:15 93 H 25 H 97 02/12/23 06:00 86/52 L 02/12/23 06:00 94 H 26 H 92 02/12/23 05:45 95 H 24 84 L 02/12/23 05:45 81/55 L 02/12/23 05:30 98/44 L 02/12/23 05:30 105 H 26 H 84 L 02/12/23 05:16 80/57 L 02/12/23 05:16 105 H 23 81 L 02/12/23 05:15 101 H 23 83 L 02/12/23 05:10 100 H 26 H 82 L 02/12/23 05:10 81/56 L 02/12/23 05:00 111 H 19 95 02/12/23 04:49 82/59 L 02/12/23 04:49 99 H 25 H 87 L 02/12/23 04:45 88 27 H 89 L 02/12/23 04:30 101 H 23 94 Oxymask 10 02/12/23 04:15 100/65 02/12/23 04:15 87 23 99 Oxymask 10 02/12/23 04:00 98/68 L 02/12/23 04:00 112 H 20 95 Oxymask 10 02/12/23 03:46 119/71 02/12/23 03:46 100 H 22 90 02/12/23 03:45 93 H 26 H 92 02/12/23 03:31 99 H 23 92 02/12/23 03:31 107/72 02/12/23 03:30 97 H 20 95 Oxymask 10 02/12/23 03:15 99 H 20 98 Oxymask 10 02/12/23 03:00 128 H 23 96 Oxymask 10 02/12/23 03:00 103/70 02/12/23 02:46 109 H 24 99 02/12/23 02:46 90/69 L 02/12/23 02:45 128 H 25 H 99 02/12/23 02:31 104/78 02/12/23 02:31 174 H 30 H 99 02/12/23 02:30 145 H 25 H 99 02/12/23 02:15 139 H 26 H 100 02/12/23 02:13 165 H 02/12/23 02:08 91/59 L 02/12/23 02:08 118 H 24 99 02/12/23 02:00 131 H 20 98 02/12/23 01:45 130 H 22 93 Oxymask 10 02/12/23 01:31 87/47 L 02/12/23 01:31 129 H 25 H 91 Oxymask 10 02/12/23 01:30 130 H 25 H 93 Oxymask 10 02/12/23 01:15 138 H 26 H 95 Oxymask 10 02/12/23 01:01 110 H 28 H 93 02/12/23 01:01 84/69 L 02/12/23 01:00 109 H 30 H 85 L
[2023-02-12] MEDS ORDERED: FUROSEMIDE INJ 20 MG/2 ML VIAL IV ONE (13:45)
[2023-02-13] MEDS: PHENYLEPHRINE/NSS 25 MG/250 ML BAG IV SCH (01:08)
[2023-02-13] MEDS: AMIODARONE / D5W 360 MG/200 ML BAG IV SCH ×2 (03:49→15:08)
[2023-02-13 04:11] LABS: Basophils # (auto) 0.04 K/uL (0.00-0.20); Basophils % (auto) 0.4 %; Eosinophils # (auto) 0.29 K/uL (0.00-0.50); Eosinophils % (auto) 2.6 %; Hematocrit (blood only) 27.3 % (42.0-52.0); Hemoglobin 9.2 g/dl (14.0-18.0); Immature Granulocytes # (auto) 0.04 K/uL (0.01-0.20); Immature Granulocytes % (auto) 0.4 %; Lymphocytes # (auto) 1.03 K/uL (1.20-3.40); Lymphocytes % (auto) 9.2 %; Mean Corpuscular Hemoglobin 30.3 pg (25.0-34.0); Mean Corpuscular Hgb Conc 33.7 g/dL (32.0-36.0); Mean Corpuscular Volume 89.8 fL (80.0-100.0); Mean Platelet Volume 9.7 fL (9.4-12.4); Monocytes # (auto) 0.76 K/uL (0.11-0.59); Monocytes % (auto) 6.8 %; Neutrophils % (auto) 80.6 %; Platelet Count 182 K/uL (130-400); RDW Standard Deviation 44.4 fL (36.4-46.3); Red Blood Count 3.04 M/uL (4.70-6.10); White Blood Count 11.16 K/ul (4.8-10.8)
[2023-02-13 04:25] LABS: Albumin Level 3.5 gm/dl (3.4-5.0); Bilirubin Direct 0.2 mg/dl (0-0.2); Bilirubin,Total 1.2 mg/dl (0.2-1.0); Magnesium 2.2 mg/dl (1.7-2.4); Phosphorus 3.3 mg/dl (2.5-4.9); Total Protein 6.2 gm/dl (6.0-8.3)
[2023-02-13 04:39] LABS: Partial Thromboplastin Time 28 Seconds (21-31); Prothrombin Time 11.4 Seconds (9.0-12.0)
--- NOTE | 2023-02-13 06:50 | Hospitalist Progress Note ---
"Date of Service February 13, 2023 Assessment & Plan (1) Symptomatic anemia: Plan: Pt is a 82 y/o male with PMH of severe , urinary retention, HLD, HTN, and recent cardiac stent placement 02/[address] [facility] presenting to the hospital 02/10 due to dizziness and hypotension. Hypotension | Acute blood loss anemia Likely hemorrhagic hypovolemia in the setting of recent right femoral groin access for cardiac cath at [place] on 02/08; discharge hemoglobin was 9.1. CTAP with signs of a small hemorrhage - extravasation limited by lack of IV contrast as patient with CKD3-4; patient fluid resuscitated initially with 2L NS and 1u pRBCs. Duplex of groin without signs of pseudoaneurysm. Hemoglobin stabilized. Patient currently maintaining MAP > 65 without phenylephrine support. Monitor BPs closely. Consider de-escalation of care if no longer requiring gtt. 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 Continue to hold metoprolol patient on amio gtt cardiology on board - appreciate recs Elevated Anion Gap Acidosis Patient with anion gap and tachypnea. Likely metabolic acidosis with respiratory compensatory mechanisms. Severe | HFrEF Echo 07/2022 with EF 30-35%. Plan for TAVR in the future. Patient fluid overloaded after 2L NS and 1u pRBCs aggressively diuresed now likely close to euvolemic. closely monitor fluid status, diuresis as indicated Recent cardiac stent placement 02/08 - patient to be on triple therapy for a week with apixaban, ASA, and plavix with plans to continue with apixaban and plavix indefinitely - per cardiology; restart ASA and clopidogrel - continue to hold apixaban Acute on chronic kidney disease - improving Baseline around 2.2; creatinine at 2.79 upon admission - likely pre-renal in the setting of hypovolemia with possible component of contrast induced nephropathy - nephro on board - appreciate recs - continue to monitor Hyperkalemia Started on patiromer per nephro, has since normalized, continue to monitor Elevated troponin - in the setting of recent cardiac intervention, downtrending HTN - pt on metoprolol, lisinopril, and furosemide at home - continue holding antihypertensives in the setting of acute hypotension/hypovolemia Code status: full DVT ppx: on ASA and plavix, holding apixaban FENGI: heart healthy Dispo: ICU while requiring gtt (2) Atrial flutter with rapid ventricular response: (3) Elevated troponin: (4) Acute on chronic renal failure: (5) HTN (hypertension), benign: (6) Severe calcific aortic stenosis: (7) S/P drug eluting coronary stent placement: (8) Lactate blood increase: (9) Hypovolemia: (10) CKD (chronic kidney disease): Admission and Anticipated Discharge Date Admission Date: February 10, 2023 Supervising Physician Co-Signing Physician Notes Attending Physician Supervision Note: I independently interviewed and examined the patient and verified the downey history and physical, reviewed labs and image studies and agree with findings and care plan noted above. comfortable in bed. ate well. breathing better. off oxygen. vitals - noted. breathing comfortably. CTA, abdomen - soft, NT/ND Postprocedural complication with hemorrhagic shock Hypotension with acute blood loss anemia off phenylephrine drip. h/h stable after one pRBC 02/10. Holding antihypertensives ARF hypoxic d/t Acute on chronic systolic heart failure furosemide per cardio - 20mgs IV BID. Off O2. Severe Holding BP lowering agent. CAD with recent stent ASA/Plavix, statin. Metoprolol added 12.5mgs bid. Lisinopril on hold P A fib/flutter with RVR On amiodarone drip. HR 90s - 110. Apixaban on hold. Metoprolol added back. Plan for SATYA with IV heparin drip in am. CKD 4 Hyperkalemia Creat baseline 2.6-2.7. Renal following K improved with lasix and patiromer. UTI with serratia Ceftriaxone 02/13. SCD Subjective Patient seen at bedside this am. Breathing much more comfortably. Wearing oxymask as a blow-by oxygen delivery system. No concerns this morning. No pain, fever, chills, CP, or SOB. Does report having a bit more difficulty taking deep breaths. Review of Systems 2 Review of Systems: As per HPI Physical Exam 2 Physical Exam: Gen: pale appearing male in NAD HEENT: AT NC conjunctiva noninjected no scleral icterus noted, MMM CV: tachycardic with irregular rhythm, loud holosystolic murmur best heard LUSB present, cap refill <2s Resp: breathing much more comfortably, no increased work of breathing, CTAB no wheezing noted Abd: soft, non-distended, non-tender MSK: significant bruising right thigh and groin extending into the scrotum Skin: no rashes noted Neuro: alert and oriented Psych: appropriate mood and affect Results & Data Results & Data Laboratory Results 02/13/23 03:39 02/13/23 03:39 Resident Activity Tracking Resident Involvement: Resident Care Provided Care Provided: Adult Hospital Medicine (4) Acute on chronic renal failure Acute renal failure type: unspecified Chronic kidney disease stage: u nspecified stage Qualified Code(s): N17.9 - Acute kidney failure, unspecified; N18.9 - Chronic kidney disease, unspecified (10) CKD (chronic kidney disease) Chronic kidney disease stage: stage 3 (moderate) Chronic kidney disease stage 3 subtype: unspecified whether 3a or 3b Qualified Code(s): N18.30 - Chronic kidney disease, stage 3 unspecified"
[2023-02-13] MEDS: FUROSEMIDE INJ 20 MG/2 ML VIAL IV SCH ×3 (07:06→21:13)
[2023-02-13] MEDS: MIDODRINE HCL 2.5 MG TAB PO SCH ×3 (08:24→17:13)
[2023-02-13] MEDS: ASPIRIN 81 MG CHEW PO SCH (08:25)
[2023-02-13] MEDS: CLOPIDOGREL BISULFATE 75 MG TAB PO SCH (08:25)
[2023-02-13] MEDS: ATORVASTATIN 40 MG TAB PO SCH (08:25)
[2023-02-13 08:49] LABS: BUN Creatinine Ratio 27.8 (10-20); Calcium 8.8 mg/dl (8.6-10.3); Creatinine Clr Calc Pharmacy 20.4 ml/min; Est GFR (African American) 26.8 ml/min; Est GFR (Non-African American) 23.1 ml/min; Potassium 4.1 mmol/L (3.5-5.1)
--- NOTE | 2023-02-13 09:42 | Critical Care Progress Note ---
Date of Service February 13, 2023 Assessment & Plan (1) Lactate blood increase: Plan: Reason Critically Ill: 82-year-old male with acute blood loss anemia leading to symptomatic anemia PLAN: Neuro: Orthostasis -Acute blood loss anemia improved however patient does experience lightheadedness with exertion while in atrial flutter/fib CV: Coronary artery disease status post PCI Elevated troponins: Recent cardiac stents -On aspirin and Plavix History of aortic stenosis -Avoid afterload reduction Paroxysmal atrial fibrillation -Patient does not appear to clinically tolerate fib flutter, H&H holding steady -Reviewed cardiology note anticipate starting heparin tomorrow -Start 12.5 mg metoprolol by mouth Arterial hypotension -Adding midodrine -Patient may benefit from rhythm control Pulmonary: -Acute hypoxic respiratory failure -Would ideally like to diurese however blood pressures are borderline, aortic stenosis contributing to difficulty to increase cardiac output Fluids/Renal: Acute kidney injury on chronic kidney disease: Creatinine improving -Lasix 20 mg IV x 1 Heme: Acute blood loss anemia: Pelvic hematoma -Received 1 unit packed red blood cells -Venous Doppler reviewed no evidence of pseudoaneurysm DVT prophylaxis: Chemoprophylaxis contraindicated: SCDs Endocrine: ICU hyperglycemia protocol Vascular access: Peripheral IVs Code Status: Full code given acute correctable nature of this event -Discussed with patient and family he would not want long-term life support however agreeable with heroic measures given the current circumstances Disposition: ICU requiring vasoactive medication (2) S/P drug eluting coronary stent placement: (3) Symptomatic anemia: (4) Acute kidney injury superimposed on chronic kidney disease: (5) Cardiomyopathy: (6) Severe calcific aortic stenosis: (7) Acute on chronic renal failure: (8) Elevated troponin: Admission and Anticipated Discharge Date Admission Date: February 10, 2023 Subjective Patient required vasoactive's overnight secondary to hypotension until approximately 715 this morning. Denies chest pain or shortness of breath. Physical Exam Physical Exam: General: Alert. nontoxic. Skin: Warm, dry, Head: Atraumatic Ears, nose, mouth and throat: airway patent Cardiovascular: Normal peripheral perfusion Respiratory: no respiratory distress Gastrointestinal: Non distended Musculoskeletal: No deformity Results & Data Results & Data Vital Signs (Past 12 Hours) Vital Signs Pulse Resp BP Pulse Ox O2 Del Method O2 Flow Rate 02/13/23 04:00 Oxymask 8 02/13/23 01:03 112 H 25 H 99 12/17/23 01:03 83/57 L 02/13/23 01:01 119 H 22 99 02/13/23 01:01 82/51 L 02/13/23 01:00 113 H 24 99 02/13/23 01:00 81/40 L 02/13/23 00:45 128 H 24 100 02/13/23 00:30 92/58 L 02/13/23 00:30 112 H 22 80 L 02/13/23 00:00 110 H 21 95 02/13/23 00:00 93/62 L 02/12/23 23:30 113 H 21 100 Oxymask 8 02/12/23 23:30 99/69 L 02/12/23 23:01 101/64 02/12/23 23:01 109 H 20 99 Oxymask 8 02/12/23 23:00 106 H 22 96 Oxymask 8 02/12/23 22:30 105 H 19 98 02/12/23 22:30 103/66 02/12/23 22:15 107 H 25 H 93 02/12/23 22:00 98/66 L 02/12/23 22:00 90 24 100 02/12/23 21:45 109 H 22 100 Critical Care Results & Data Vital Signs (Past 12 Hours) Vital Signs Pulse Resp BP Pulse Ox O2 Del Method O2 Flow Rate 02/13/23 04:00 Oxymask 8 02/13/23 01:03 112 H 25 H 99 02/13/23 01:03 83/57 L 02/13/23 01:01 119 H 22 99 02/13/23 01:01 82/51 L 02/13/23 01:00 113 H 24 99 02/13/23 01:00 81/40 L 02/13/23 00:45 128 H 24 100 02/13/23 00:30 92/58 L 02/13/23 00:30 112 H 22 80 L 02/13/23 00:00 110 H 21 95 02/13/23 00:00 93/62 L 02/12/23 23:30 113 H 21 100 Oxymask 8 02/12/23 23:30 99/69 L 02/12/23 23:01 101/64 02/12/23 23:01 109 H 20 99 Oxymask 8 02/12/23 23:00 106 H 22 96 Oxymask 8 02/12/23 22:30 105 H 19 98 02/12/23 22:30 103/66 02/12/23 22:15 107 H 25 H 93 02/12/23 22:00 98/66 L 02/12/23 22:00 90 24 100 02/12/23 21:45 109 H 22 100 Lab & Micro Results (Past 24 Hours) RBC 3.04 M/uL (4.70-6.10) L 02/13/23 WBC 11.16 K/ul (4.8-10.8) H 02/13/23 Hgb 9.2 g/dl (14.0-18.0) L 02/13/23 Hct 27.3 % (42.0-52.0) L 02/13/23 MCV 89.8 fL (80.0-100.0) 02/13/23 MCH 30.3 pg (25.0-34.0) 02/13/23 MCHC 33.7 g/dL (32.0-36.0) 02/13/23 RDW Standard Deviation 44.4 fL (36.4-46.3) 02/13/23 RDW Coefficient of Variation 14.0 % (11.5-14.5) 02/13/23 Plt Count 182 K/uL (130-400) 02/13/23 MPV 9.7 fL (9.4-12.4) 02/13/23 Neutrophils (%) (Auto) 80.6 % 02/13/23 Lymphocytes (%) (Auto) 9.2 % 02/13/23 Monocytes # (Auto) 0.76 K/uL (0.11-0.59) H 02/13/23 Eosinophils # (Auto) 0.29 K/uL (0.00-0.50) 02/13/23 Immature Granulocyte % (Auto) 0.4 % 02/13/23 Neutrophils # (Auto) 9.00 K/uL (1.40-6.50) H 02/13/23 Lymphocytes # (Auto) 1.03 K/uL (1.20-3.40) L 02/13/23 Monocytes # (Auto) 0.76 K/uL (0.11-0.59) H 02/13/23 Eosinophils # (Auto) 0.29 K/uL (0.00-0.50) 02/13/23 Basophils # (Auto) 0.04 K/uL (0.00-0.20) 02/13/23 Immature Granulocyte # (Auto) 0.04 K/uL (0.01-0.20) 3 Na 137 mmol/L (136-145) 02/13/23 K 4.1 mmol/L (3.5-5.1) 02/13/23 Cl 104 mmol/L (98-107) 02/13/23 CO2 20 mmol/L (21-32) L 02/13/23 Anion Gap 13 (3-11) H 02/13/23 BUN 69 mg/dl (6-23) H 02/13/23 Creatinine 2.48 mg/dl (0.6-1.4) H 02/13/23 Estimated GFR ( Amer) 26.8 ml/min 02/13/23 Estimated GFR (Non-Af Amer) 23.1 ml/min 02/13/23 BUN/Creatinine Ratio 27.8 (10-20) H 02/13/23 Glu 121 mg/dl (70-99(Fasting)) H 02/13/23 Ca 8.8 mg/dl (8.6-10.3) 02/13/23 Phosphorus Level 3.3 mg/dl (2.5-4.9) 02/13/23 Total Bilirubin 1.2 mg/dl (0.2-1.0) H 02/13/23 Direct Bilirubin 0.2 mg/dl (0-0.2) 02/13/23 AST 33 U/L (13-39) 02/13/23 ALT 20 U/L (7-52) 02/13/23 Alkaline Phosphatase 59 U/L (34-104) 02/13/23 TP 6.2 gm/dl (6.0-8.3) 02/13/23 Albumin 3.5 gm/dl (3.4-5.0) 02/13/23 Mg 2.2 mg/dl (1.7-2.4) 02/13/23 03:39 Calcium Level 8.8 mg/dl (8.6-10.3) 02/13/23 03:39 Prothromb Time International Ratio 1.0 (0.9-1.1) 02/13/23 03:3 9 Microbiology 02/11/23 18:27 Urine Culture - Preliminary Urine,Straight Cath Serratia odorifera 02/10/23 15:09 Aerobic Blood Culture - Preliminary Blood No growth in Aerobic bottle after 48 hours. Anaerobic Blood Culture - Final 02/10/23 15:09 Aerobic Blood Culture - Preliminary Blood No growth in Aerobic bottle after 48 hours. Anaerobic Blood Culture - Final I & O Totals 24 Hours 02/12/23 02/13/23 02/14/23 06:59 06:59 06:59 Intake Total 605.96 / 605.96 985.838 / 985.838 185.627 / 185.627 Output Total 2345 / 2345 1225 / 1225 Balance -1739.04 / -1739.04 -239.162 / -239.162 185.627 / 185.627 Cumulative 02/10/23 13:42 thru 02/13/23 07:09 Intake Total 4637.425 Output Total 3870 Balance 767.425 RT Ventilator Mngmt (Last Documented) Ventilator Ordered Settings Respiratory Rate 25 02/13/23 01:03 Fraction of Inspired Oxygen 6 02/11/23 00:04 Ventilator - PT Measurements Respiratory Rate 25 Coding Level of Care Code 92776 SUB INP/OBS CARE 3/50MIN Diagnoses Lactate blood increase R79.89 S/P drug eluting coronary stent placement Z95.5 Symptomatic anemia D64.9 Acute kidney injury superimposed on chronic kidney disease N17.9; N18.9 Ischemic cardiomyopathy I25.5 Cardiomyopathy type: ischemic Severe calcific aortic stenosis I35.0 Acute on chronic renal failure N17.9; N18.9 Acute renal failure type: unspecified Chronic kidney disease stage: unspecified stage Elevated troponin R77.8 (5) Cardiomyopathy Cardiomyopathy type: ischemic Qualified Code(s): I25.5 - Ischemic cardiomyopathy (7) Acute on chronic renal failure Acute renal failure type: unspecified Chronic kidney disease stage: unspeci fied stage Qualified Code(s): N17.9 - Acute kidney failure, unspecified; N18.9 - Chronic kidney disease, unspecified
--- NOTE | 2023-02-13 10:02 | Nephrology Progress Note ---
Date of Service February 13, 2023 Assessment & Plan Admission and Anticipated Discharge Date Admission Date: February 10, 2023 Subjective Assessment & Plan (1) Hyperkalemia: Now normal after lasix and patiromer. (2) CKD (chronic kidney disease) stage 4, GFR 15-29 ml/min: baseline creatinine 2.6-2.7 since August 2022. complicated urologic/urinary retention hx but this has been relative improved since prostate procedure 2021. renal function at baseline daily bmp avoid IV contrast unless life/limb/heart muscle saving no indication for dialysis discussion currently (3) Ischemic cardiomyopathy: per cardiology; complex heart patient w/ multiple comorbidities strict I/O Currently Has Afibb with RVR and also has low BP--He did get some lasix yesterday. Would need some lasix today if BP allows. S---BP does get low colt during night. Was on Phenylephrine but currently off. 1200 ml urine yesterday Physical Exam Physical Exam: AAOx3; NAD Eyes: PERRL, conjunctivae normal, anicteric sclerae Neck: No JVD. Respiratory: Decreased breath sounds b/l bases. Cardiovascular: Irregularly Irregular; S1+S2; (+) murmur Musculoskeletal: No lower extremity edema Skin: R-groin with large hematoma; stable Results & Data Vital Signs (Past 12 Hours) Vital Signs Pulse Resp BP Pulse Ox O2 Del Method O2 Flow Rate 02/13/23 09:30 95 H 27 H 100 02/13/23 09:30 115/71 02/13/23 09:00 105/75 02/13/23 09:00 91 H 22 100 02/13/23 08:30 108 H 25 H 88 L 02/13/23 08:30 108/67 02/13/23 08:15 112/74 02/13/23 08:15 129 H 26 H 86 L 02/13/23 08:00 135 H 22 93 02/13/23 08:00 105/77 02/13/23 07:45 110/73 02/13/23 07:45 139 H 31 H 86 L 02/13/23 07:31 124 H 33 H 97 02/13/23 07:31 96/76 L 02/13/23 07:30 123 H 23 93 02/13/23 07:00 105 H 23 99 02/13/23 06:30 111/70 02/13/23 06:30 131 H 28 H 97 02/13/23 06:15 128 H 21 100 02/13/23 06:15 109/73 02/13/23 06:00 125 H 16 100 02/13/23 06:00 100/65 02/13/23 05:30 96/78 L 02/13/23 05:30 108 H 21 100 02/13/23 05:15 95/69 L 02/13/23 05:15 107 H 15 97 02/13/23 05:00 120 H 22 100 02/13/23 04:30 93 H 18 92 02/13/23 04:15 106 H 22 97 02/13/23 04:15 106/62 02/13/23 04:00 104 H 22 89 L 02/13/23 04:00 99/67 L 02/13/23 04:00 Oxymask 8 02/13/23 03:45 117 H 22 82 L 02/13/23 03:45 94/71 L 02/13/23 03:30 116 H 21 97 02/13/23 03:30 107/76 02/13/23 03:15 105/69 02/13/23 03:15 115 H 21 94 02/13/23 03:00 92/65 L 02/13/23 03:00 122 H 21 90 02/13/23 02:45 114 H 22 93 02/13/23 02:45 81/65 L 02/13/23 02:30 80/59 L 02/13/23 02:30 102 H 21 87 L 02/13/23 02:16 86 27 H 81 L 02/13/23 02:16 87/51 L 02/13/23 02:00 97 H 22 88 L 02/13/23 02:00 83/59 L 02/13/23 01:30 104 H 21 93 02/13/23 01:03 112 H 25 H 99 02/13/23 01:03 83/57 L 02/13/23 01:01 119 H 22 99 02/13/23 01:01 82/51 L 02/13/23 01:00 113 H 24 99 02/13/23 01:00 81/40 L 02/13/23 00:45 128 H 24 100 02/13/23 00:30 92/58 L 02/13/23 00:30 112 H 22 80 L 02/13/23 00:00 110 H 21 95 02/13/23 00:00 93/62 L 02/12/23 23:30 113 H 21 100 Oxymask 8 02/12/23 23:30 99/69 L 02/12/23 23:01 101/64 02/12/23 23:01 109 H 20 99 Oxymask 8 02/12/23 23:00 106 H 22 96 Oxymask 8 02/12/23 22:30 105 H 19 98 02/12/23 22:30 103/66 02/12/23 22:15 107 H 25 H 93
[2023-02-13] MEDS: cefTRIAXone SODIUM 2,000 MG in DEXTROSE 5 % MINI-B 50 ML IV SCH (10:04)
--- NOTE | 2023-02-13 12:10 | Cardiology Progress Note ---
"Date of Service February 13, 2023 Assessment & Plan (1) Ischemic cardiomyopathy: (2) Multi-vessel coronary artery stenosis: (3) S/P drug eluting coronary stent placement: (4) Elevated troponin: (5) Severe aortic stenosis: (6) Atrial fibrillation with rapid ventricular response: (7) CKD (chronic kidney disease): (8) Acute blood loss anemia: Plan IMPRESSION: Medically complex 82-year-old male with multivessel coronary disease/ischemic cardiomyopathy status post PCI 02/08/2023 at [facility] Known severe aortic stenosis currently in the process of TAVR workup. Presented yesterday due to symptomatic hypotension found to have a small right femoral artery hemorrhage--found to be anemic and 1 unit of PRBCs were transfused. PLAN: Multivessel CAD/Ischemic cardiomyopathy: -Multivessel coronary disease/ischemic cardiomyopathy status post PCI 02/08/2023 at [facility]. Post PCI complicated by acute blood loss anemia secondary to right groin hematoma. -LVEF 46% (per echo 12/09/2022) -Breathing appears improved. Continue gentle diuresis -continue amiodarone gtt. Consider adding toprol 25mg qday for additional rate control -if he can tolerate anticoagulation with heparin gtt tomorrow, we can consider SATYA/DCCV and concomitant oral amiodarone load. Severe Aortic stenosis -Confirmed on cardiac cath, currently in the process of TAVR workup with Dr. Segura Paroxysmal atrial fibrillation/flutter -Persistent AFIB on tele, rates 90-110s. Asymptomatic. -AC on hold due to groin hematoma. -Elevated rates likely due to acute blood loss anemia/illness/and concerns for hypervolemia s/p transfusion. I spent a total of 55 minutes of critical care on the date of service in preparation, delivery, and documentation of the care provided to the patient excluding any time spent in the performance of separately billed services. Admission and Anticipated Discharge Date Admission Date: February 10, 2023 Subjective Breathing has improved Continues to be in Afib with RVR Denies chest pain or N/V/CARVAJAL; afebrile. Review of Systems Review of Systems: A comprehensive review of systems is otherwise negative unless noted above. Physical Exam Physical Exam: AAOx3; NAD HEENT: no JVD CV: Irregularly Irregular; +3/6 systolic murmur; no rubs or gallpos PULM: Decreased breath sounds bases b/l; no wheezes ABD: soft; NTND EXT: no significant edema; R-groin hematoma is stable Results & Data Vital Signs (Past 12 Hours) Vital Signs Temp Pulse Resp BP Pulse Ox O2 Del Method O2 Flow Rate 02/13/23 11:00 122 H 15 92 02/13/23 11:00 108/67 02/13/23 10:30 120 H 20 100 02/13/23 10:30 117/73 02/13/23 10:00 105 H 31 H 100 02/13/23 10:00 99/79 L 02/13/23 09:30 95 H 27 H 100 02/13/23 09:30 115/71 02/13/23 09:00 105/75 02/13/23 09:00 91 H 22 100 02/13/23 08:30 108 H 25 H 88 L 02/13/23 08:30 108/67 02/13/23 08:15 112/74 02/13/23 08:15 129 H 26 H 86 L 02/13/23 08:00 Oxymask 10 02/13/23 08:00 36.5 C 02/13/23 08:00 135 H 22 93 02/13/23 08:00 105/77 02/13/23 07:45 110/73 02/13/23 07:45 139 H 31 H 86 L 02/13/23 07:31 124 H 33 H 97 02/13/23 07:31 96/76 L 02/13/23 07:30 123 H 23 93 02/13/23 07:00 105 H 23 99 02/13/23 06:30 111/70 02/13/23 06:30 131 H 28 H 97 02/13/23 06:15 128 H 21 100 02/13/23 06:15 109/73 02/13/23 06:00 125 H 16 100 02/13/23 06:00 100/65 02/13/23 05:30 96/78 L 02/13/23 05:30 108 H 21 100 02/13/23 05:15 95/69 L 02/13/23 05:15 107 H 15 97 02/13/23 05:00 120 H 22 100 02/13/23 04:30 93 H 18 92 02/13/23 04:15 106 H 22 97 02/13/23 04:15 106/62 02/13/23 04:00 104 H 22 89 L 02/13/23 04:00 99/67 L 02/13/23 04:00 Oxymask 8 02/13/23 03:45 117 H 22 82 L 02/13/23 03:45 94/71 L 02/13/23 03:30 116 H 21 97 02/13/23 03:30 107/76 02/13/23 03:15 105/69 02/13/23 03:15 115 H 21 94 02/13/23 03:00 92/65 L 02/13/23 03:00 122 H 21 90 02/13/23 02:45 114 H 22 93 02/13/23 02:45 81/65 L 02/13/23 02:30 80/59 L 02/13/23 02:30 102 H 21 87 L 02/13/23 02:16 86 27 H 81 L 02/13/23 02:16 87/51 L 02/13/23 02:00 97 H 22 88 L 02/13/23 02:00 83/59 L 02/13/23 01:30 104 H 21 93 02/13/23 01:03 112 H 25 H 99 02/13/23 01:03 83/57 L 02/13/23 01:01 119 H 22 99 02/13/23 01:01 82/51 L 02/13/23 01:00 113 H 24 99 02/13/23 01:00 81/40 L 02/13/23 00:45 128 H 24 100 02/13/23 00:30 92/58 L 02/13/23 00:30 112 H 22 80 L Laboratory Results Na | 137 | | 136-145 mmol/L | K | 4.1 | | 3.5-5.1 mmol/L | Cl | 104 | | 98-107 mmol/L | CO2 | 20 | L | 21-32 mmol/L | Gap | 13 | H | 3-11 | BUN | 69 | H | 6-23 mg/dl | Creat | 2.48 | H | 0.6-1.4 mg/dl | Creat Calc PHA | 20.4 | | ml/min | | Est. Creatinine Clearance (Mod Cockcroft-Gault) for pharmacy | dosing purposes. EGFR AA | 26.8 | | ml/min | | Units: ml/min per 1.73 meters squared | | The estimated GFR (CKD-EPI equation) has not been validated | for inpatient settings and may not be an accurate reflection | of renal function in critically ill patients or those with | rapidly changing renal function (e.g. JOSE ALBERTO). EGFR PREM | 23.1 | | ml/min | | Units: ml/min per 1.73 meters squared | | The estimated GFR (CKD-EPI equation) has not been validated | for inpatient settings and may not be an accurate reflection | of renal function in critically ill patients or those with | rapidly changing renal function (e.g. JOSE ALBERTO). BUN Creat Ratio | 27.8 | H | 10-20 | Glu | 121 | H | 70-99(Fasting) mg/dl | Ca | 8.8 | | 8.6-10.3 mg/dl | Phos | 3.3 | | 2.5-4.9 mg/dl | MG | 2.2 | | 1.7-2.4 mg/dl | Total Bilirubin | 1.2 | H | 0.2-1.0 mg/dl | Direct Bili | 0.2 | | 0-0.2 mg/dl | AST | 33 | | 13-39 U/L | Alt | 20 | | 7-52 U/L | TP | 6.2 | | 6.0-8.3 gm/dl | Alb | 3.5 | | 3.4-5.0 gm/dl | Alk Phos | 59 | | 34-104 U/L | (7) CKD (chronic kidney disease) Chronic kidney disease stage: stage 3 (moderate) Chronic kidney disease stage 3 subtype: unspecified whether 3a or 3b Qualified Code(s): N18.30 - Chronic kidney disease, stage 3 unspecified"
[2023-02-13] MEDS ORDERED: METOPROLOL TARTRATE 25 MG TAB PO STA (14:45)
[2023-02-13] MEDS ORDERED: FUROSEMIDE INJ 20 MG/2 ML VIAL IV ONE (14:47)
[2023-02-13] MEDS: METOPROLOL TARTRATE 25 MG TAB PO SCH (21:13)
[2023-02-14] MEDS: PHENYLEPHRINE/NSS 25 MG/250 ML BAG IV SCH ×2 (01:33→01:34)
[2023-02-14] MEDS: AMIODARONE / D5W 360 MG/200 ML BAG IV SCH ×2 (02:03→14:28)
[2023-02-14 05:43] LABS: Albumin Globulin Ratio 1.3 (0.9-2); Albumin Level 3.3 gm/dl (3.4-5.0); BUN Creatinine Ratio 25.5 (10-20); Bilirubin,Total 0.8 mg/dl (0.2-1.0); Calcium 8.3 mg/dl (8.6-10.3); Creatinine Clr Calc Pharmacy 18.6 ml/min; Est GFR (African American) 24.1 ml/min; Est GFR (Non-African American) 20.8 ml/min; Globulin 2.6 gm/dl (2.5-4.0); Magnesium 2.1 mg/dl (1.7-2.4); Phosphorus 4.1 mg/dl (2.5-4.9); Potassium 4.1 mmol/L (3.5-5.1); Total Protein 5.9 gm/dl (6.0-8.3)
[2023-02-14 05:47] LABS: Basophils # (auto) 0.04 K/uL (0.00-0.20); Basophils % (auto) 0.5 %; Eosinophils # (auto) 0.26 K/uL (0.00-0.50); Hematocrit (blood only) 24.1 % (42.0-52.0); Hemoglobin 8.3 g/dl (14.0-18.0); Immature Granulocytes # (auto) 0.03 K/uL (0.01-0.20); Immature Granulocytes % (auto) 0.3 %; Lymphocytes # (auto) 0.82 K/uL (1.20-3.40); Lymphocytes % (auto) 9.3 %; Mean Corpuscular Hemoglobin 30.9 pg (25.0-34.0); Mean Corpuscular Hgb Conc 34.4 g/dL (32.0-36.0); Mean Corpuscular Volume 89.6 fL (80.0-100.0); Mean Platelet Volume 9.9 fL (9.4-12.4); Monocytes # (auto) 0.68 K/uL (0.11-0.59); Monocytes % (auto) 7.7 %; Neutrophils # (auto) 6.95 K/uL (1.40-6.50); Neutrophils % (auto) 79.2 %; Platelet Count 167 K/uL (130-400); RDW Coefficient of Variation 14.2 % (11.5-14.5); RDW Standard Deviation 44.4 fL (36.4-46.3); Red Blood Count 2.69 M/uL (4.70-6.10); White Blood Count 8.78 K/ul (4.8-10.8)
--- NOTE | 2023-02-14 05:55 | Electrocardiogram Report ---
Test Reason : Blood Pressure : / mmHG Vent. Rate : 104 BPM Atrial Rate : 330 BPM P-R Int : 000 ms QRS Dur : 078 ms QT Int : 354 ms P-R-T Axes : 000 057 241 degrees QTc Int : 465 ms Atrial fibrillation with rapid ventricular response Low voltage QRS Septal infarct (cited on or before 26-AUG-2022) Nonspecific ST and T wave abnormality Abnormal ECG When compared with ECG of 10-FEB-2023 14:00, No significant change Confirmed by Ede Montalvo ([id number]) on 02/14/2023 5:54:29 AM Referred By: REFERRED SELF Confirmed By:Ede Montalvo
--- NOTE | 2023-02-14 07:43 | Hospitalist Progress Note ---
"Date of Service February 14, 2023 Assessment & Plan (1) Symptomatic anemia: Plan: Pt is a 82 y/o male with PMH of severe , urinary retention, HLD, HTN, and recent cardiac stent placement 02/08 at [facility] presenting to the hospital 02/10 due to dizziness and hypotension. Hypotension | Acute blood loss anemia - Hemorrhagic hypovolemia likely 2/2 ABLA in the setting of recent right femoral groin access for cardiac cath at [facility] on 02/08 - Discharge hemoglobin was 9.1 - CTAP with signs of a small hemorrhage - extravasation limited by lack of IV contrast as patient with CKD3-4; Duplex of groin without signs of pseudoa neurysm. - Patient fluid resuscitated initially with 2L NS and 1u pRBCs. Hemoglobin stable. - Patient currently maintaining MAP > 65 without phenylephrine support. Monitor BPs closely. - De-escalation to PCU 02/14 --- Continue close monitoring of Hemoglobin (8.3 02/14) and BP (likely lower in setting of , MAP currently >65) Paroxysmal AFib/Flutter w/ RVR - Likely component of reactive tachycardia in setting of hypovolemia - Amiodarone gtt ongoing, Metoprolol restarted for rate control 02/14 - AC held given grion hematoma, now starting Heparin gtt - Cardiology consulted, appreciate recommendations - Ongoing Midodrine for BP support (per ICU), monitor closely, not idea given /LV dysfunction (per Cardiology) --- Planned SATYA/cardioversion tomorrow. TAVR workup will be performed outpatient. Elevated Anion Gap Acidosis - Patient with anion gap and tachypnea. - Likely metabolic acidosis with respiratory compensatory mechanisms. --- Resolved 02/14 Severe | HFrEF - Echo 07/2022 with EF 30-35%. Plan for TAVR in the future. - Patient fluid overloaded after 2L NS and 1u pRBCs aggressively diuresed now likely close to euvolemic. --- Closely monitor fluid status, diuresis as indicated Recent cardiac stent placement 02/08 - Triple therapy w/ Apixaban, ASA, and Plavix planned following stenting, with indefinite Apixaban and Plavix - Apixaban held given hematoma --- Heparin gtt started 02/14 w/ goal to return to Apixaban once hematoma deemed stable Acute on chronic kidney disease - improving - Baseline around 2.2; creatinine at 2.79 upon admission - Likely pre-renal in the setting of hypovolemia with possible component of contrast induced nephropathy - Nephrology consulted, appreciate recommendations Patient renal function currently at baseline Complicated urologic/urinary retention hx but this has been relative improved since prostate procedure 09/2021 Minimal response to Lasix 20 thus far, noted potential need for higher dosing --- Continue daily BMP and avoidance of IV contrast Hyperkalemia - Started on patiromer per nephro, has since normalized - Continue to monitor Elevated troponin - In the setting of recent cardiac intervention, downtrending HTN - pt on metoprolol, lisinopril, and furosemide at home - continue holding antihypertensives in the setting of acute hypotension/hypovolemia UTI w/ Serratia - Ceftriaxone ongoing as of 02/13 Code status: full DVT ppx: on ASA and plavix, holding apixaban, now on Heparin gtt FENGI: heart healthy Dispo: PCU/tele (2) Atrial flutter with rapid ventricular response: (3) Elevated troponin: (4) Acute on chronic renal failure: (5) HTN (hypertension), benign: (6) Severe calcific aortic stenosis: (7) S/P drug eluting coronary stent placement: (8) Lactate blood increase: (9) Hypovolemia: (10) CKD (chronic kidney disease): Admission and Anticipated Discharge Date Admission Date: February 10, 2023 Supervising Physician Co-Signing Physician Notes I personally examined the patient and verified all downey points of history and exam, discussed case, and agree with decision making with Dr Hammond feeling better overall than before. no appetite. discussed nutrition. Postprocedural complication with hemorrhagic shock Hypotension with acute blood loss anemia off phenylephrine drip. h/h overall stable after one pRBC 02/10. ARF hypoxic d/t Acute on chronic systolic heart failure diuretic per cardio w caution due to vitals Severe Holding BP lowering agent. CAD with recent stent ASA/Plavix, statin. Metoprolol added 12.5mgs bid. Lisinopril on hold P A fib/flutter with RVR On amiodarone drip. HR 90s - 110. Apixaban on hold. Metoprolol added back. Plan for SATYA with IV heparin drip in am. CKD 4 Hyperkalemia Creat baseline 2.6-2.7. Renal following K improved with lasix and patiromer. UTI with serratia Ceftriaxone 02/13. SCD otherwise as above Subjective 02/14: Patient resting comfortably upon arrival, he notes mild anxiety, but states it is improving. He denies any chest pain, dyspnea, headache, lightheadedness, nausea, fevers, chills, or diarrhea. He is looking forward to being well enough to go home. Review of Systems Review of Systems: As per HPI Physical Exam Physical Exam: Gen: Alert, pleasant, NAD, thin HEENT: NCAT, MMM CV: tachycardic, irregularly-irregular, loud holosystolic murmur best heard LUSB present, cap refill <2s Resp: non-labored, lung sounds diminished, otherwise CTAB, no wheezing appreciated Abd: soft, non-distended, non-tender MSK: significant bruising right thigh and groin extending into the scrotum Skin: no rashes noted Neuro: alert and oriented Psych: appropriate mood and affect Results & Data Results & Data Vital Signs (Past 12 Hours) Vital Signs Pulse Resp BP Pulse Ox O2 Del Method O2 Flow Rate 02/14/23 06:00 91 H 24 100 Oxymask 8 02/14/23 06:00 111/69 02/14/23 05:47 92/71 L 02/14/23 05:47 101 H 23 100 02/14/23 05:45 109 H 19 99 02/14/23 05:30 103 H 25 H 95 02/14/23 05:15 110 H 23 100 02/14/23 05:13 93/64 L 02/14/23 05:13 89 27 H 96 02/14/23 05:00 96/64 L 02/14/23 05:00 100 H 22 97 02/14/23 04:55 103 H 18 02/14/23 04:45 94 H 18 02/14/23 04:31 103 H 24 92 02/14/23 04:31 84/62 L 02/14/23 04:30 102 H 25 H 100 02/14/23 04:15 98 H 23 93 02/14/23 04:05 80/66 L 02/14/23 04:05 91 H 26 H 100 02/14/23 04:02 103 H 21 94 02/14/23 04:02 89/67 L 02/14/23 04:00 82 22 86 L 02/14/23 03:45 103 H 21 94 02/14/23 03:31 101 H 22 02/14/23 03:30 108 H 23 95 02/14/23 03:15 97 H 21 99/78 L 02/14/23 03:00 105/68 02/14/23 03:00 102 H 22 100 02/14/23 02:55 105 H 21 02/14/23 02:55 101/80 02/14/23 02:45 98 H 17 02/14/23 02:30 96 H 22 02/14/23 02:15 105 H 23 72 L 02/14/23 02:00 114/74 Oxymask 8 02/14/23 02:00 100 H 21 100 02/14/23 01:45 106 H 22 100 02/14/23 01:30 89/70 L 02/14/23 01:30 98 H 23 100 02/14/23 01:21 102 H 26 H 94 02/14/23 01:21 95/55 L 02/14/23 01:15 88 26 H 92 02/14/23 01:00 90 22 91 02/14/23 00:45 91 H 22 98 Oxymask 8 02/14/23 00:45 101 H 02/14/23 00:30 95 H 27 H 92 Oxymask 8 02/14/23 00:30 98/69 L 02/14/23 00:28 96 H 25 H 95 Oxymask 8 02/14/23 00:26 105 H 18 98/69 L 93 02/14/23 00:16 100 H 19 89/56 L 90 02/14/23 00:15 100 H 22 94 02/14/23 00:00 95 H 22 99 02/13/23 23:45 99 H 24 02/13/23 23:34 85 20 100 02/13/23 23:34 88/54 L 02/13/23 23:30 93 H 20 94 02/13/23 23:15 87 24 02/13/23 23:00 99/71 L 02/13/23 23:00 89 21 99 02/13/23 22:45 78 20 95 02/13/23 22:30 94/71 L 02/13/23 22:30 89 20 98 02/13/23 22:15 88 20 99 02/13/23 22:00 92 H 25 H 95 02/13/23 22:00 102/75 02/13/23 21:45 102 H 24 97 02/13/23 21:30 103 H 20 91 02/13/23 21:30 113/86 02/13/23 21:15 99 H 22 94 02/13/23 21:00 95 H 98 02/13/23 21:00 114/71 02/13/23 20:45 100 H 24 95 02/13/23 20:35 133/79 02/13/23 20:35 121 H 26 H 99 02/13/23 20:30 98 H 28 H 100 02/13/23 20:30 Oxymask 8 02/13/23 20:15 103 H 26 H 100 02/13/23 20:13 105 H 22 100 02/13/23 20:13 118/83 02/13/23 20:00 120 H 27 H 98 02/13/23 19:45 100 H 24 94 Resident Activity Tracking Resident Involvement: Resident Care Provided Care Provided: Adult Hospital Medicine (4) Acute on chronic renal failure Acute renal failure type: unspecified Chronic kidney disease stage: unspecified stage Qualified Code(s): N17.9 - Acute kidney failure, unspecified; N18.9 - Chronic kidney disease, unspecified (10) CKD (chronic kidney disease) Chronic kidney disease stage: stage 3 (moderate) Chronic kidney disease stage 3 subtype: unspecified whether 3a or 3b Qualified Code(s): N18.30 - Chronic kidney disease, stage 3 unspecified"
[2023-02-14] MEDS: MIDODRINE HCL 2.5 MG TAB PO SCH ×3 (07:52→17:30)
[2023-02-14] MEDS ORDERED: Heparin IV Adult Wt-Based Standard *NO* INITIAL Bolus Protocol IV SCH (08:47)
--- NOTE | 2023-02-14 08:55 | Cardiology Progress Note ---
Date of Service February 14, 2023 Assessment & Plan (1) Ischemic cardiomyopathy: (2) Multi-vessel coronary artery stenosis: (3) S/P drug eluting coronary stent placement: (4) Elevated troponin: (5) Severe aortic stenosis: (6) Atrial fibrillation with rapid ventricular response: (7) CKD (chronic kidney disease): (8) Acute blood loss anemia: Plan IMPRESSION: Medically complex 82-year-old male with multivessel coronary disease/ischemic cardiomyopathy status post PCI 02/08/[address] [facility] Known severe aortic stenosis currently in the process of TAVR workup. Presented 02/10/23due to symptomatic hypotension found to have a small post procedure right groin hematoma--found to be anemic and 1 unit of PRBCs were transfused. PLAN: Multivessel CAD/Ischemic cardiomyopathy: -Multivessel coronary disease/ischemic cardiomyopathy status post PCI 02/08/[address] [facility]. Post PCI complicated by acute blood loss anemia secondary to right groin hematoma. -LVEF 46% (per echo 12/09/2022) -Continue ASA and clopidogrel given recent LM/ LAD and proximal RCA coronary stents on 02/20/23. Paroxysmal atrial fibrillation/flutter -Persistent AFIB on tele, rates 90-110s. -AC has been on hold due to groin hematoma. --Start heparin infusion, standard weight based protocol without loading bolus with caution. -Continue amiodarone infusion, low dose metoprolol tartrate adde for rate control. -Is off of phenylephrine since 02/13/23 -On midodrine, which is no ideal given the aortic stenosis and LV systolic dysfunction , however felt to be indicated for BP support. -NPO after midnight for possible SATYA cardioversion 02/15 if tolerates heparin. CKD with hyperkalemia -Potassium improved. -low potassium diet. I removed the potassium and orange juice from his breakfast tray before he had them. Severe Aortic stenosis -Confirmed on cardiac cath, currently in the process of TAVR workup with Dr. Segura I spent a total of 45 minutes of critical care on the date of service in preparation, delivery, and documentation of the care provided to the patient excluding any time spent in the performance of separately billed services. Case discussed with Dr Charlton of critical care for the purpose of coordination of care. Admission and Anticipated Discharge Date Admission Date: February 10, 2023 Subjective Pt seen in cardiology follow up. Mentating well. Oxygen requirement less at present, off oxymask and pulse ox is 90% on room air during trial at my assessment. Telemetry reveals ongoing atrial fibrillation , ventricular rates of 95-108 bpm at rest. Dixon catheter in place draining clear yellow urine. Physical Exam Physical Exam: Temp Pulse Resp BP Pulse Ox O2 Del Method O2 Flow Rate 36.6 C 106 H 22 99/72 L 90 Room Air 2 02/14/23 08:00 02/14/23 08:30 02/14/23 08:30 02/14/23 08:30 02/14/23 08:30 02/14/23 08:30 02/14/23 08:00 FiO2 6 02/11/23 00:04 Constitutional: + ill appearing and + thin; no acute dis tress Neck: normal visual inspection and trachea midline Respiratory: Auscultation: + diminished lung sounds, + rales and + wheezes; no rhonchi Cardiovascular: Rate/Rhythm: + tachycardic and + irregularly irregular Heart Sounds: normal S1, normal S2 (diminished s2 ) and + murmur (+3/6 systolic murmur ) Vessels: dorsalis pedis pulses present; no JVD Extremities: no edema Right groin ecchymosis, R inguinal hernia. Soft, no worseing hematoma Gastrointestinal (Abdomen): normal bowel sounds, soft, nontender, no hepatosplenomegaly Skin: no rashes, warm and dry + ecchymosis (extenisive bruising of right groin extending to scrotum ) Psychiatric: A+Ox3, euthymic affect Results & Data Laboratory Results Cardiac Enzymes 02/14/23 Range/Units 04:06 AST 35 (13-39) U/L CBC 02/14/23 Range/Units 04:06 WBC 8.78 (4.8-10.8) K/ul RBC 2.69 L (4.70-6.10) M/uL Hgb 8.3 L (14.0-18.0) g/dl Hct 24.1 L (42.0-52.0) % Plt Count 167 (130-400) K/uL Neut # (Auto) 6.95 H (1.40-6.50) K/uL Lymph # (Auto) 0.82 L (1.20-3.40) K/uL Rankin # (Auto) 0.68 H (0.11-0.59) K/uL Eos # (Auto) 0.26 (0.00-0.50) K/uL Baso # (Auto) 0.04 (0.00-0.20) K/uL Comprehensive Metabolic Panel 02/13/23 02/14/23 Range/Units 03:39 04:06 Sodium 137 136 (136-145) mmol/L Potassium 4.1 4.1 (3.5-5.1) mmol/L Chloride 104 103 (98-107) mmol/L Carbon Dioxide 20 L 23 (21-32) mmol/L BUN 69 H 69 H (6-23) mg/dl Creatinine 2.48 H 2.71 H (0.6-1.4) mg/dl Glucose 121 H 122 H (70-99(Fasting)) mg/dl Calcium 8.8 8.3 L (8.6-10.3) mg/dl AST 35 (13-39) U/L ALT 34 (7-52) U/L Alkaline Phosphatase 62 (34-104) U/L Total Protein 5.9 L (6.0-8.3) gm/dl Albumin 3.3 L (3.4-5.0) gm/dl Intake and Output 02/13/23 02/14/23 02/14/23 22:59 06:59 14:59 Intake Total 313.322 / 733.417 182.308 / 733.417 85.448 / 85.448 Output Total 475 / 851 Balance 312.322 / -117.583 -292.692 / -117.583 85.448 / 85.448 Intake: IV 133.322 / 553.417 182.308 / 553.417 85.448 / 85.448 Amiodarone / D5w 360 mg In 200 133.322 / 371.297 182.308 / 371.297 85.448 / 85.448 ml @ 0.5 MG/MIN 16.667 mls/hr IV .Q12H [facility] Rx#:[id number] Phenylephrine/Nss 25 mg In 250 0 / 0 ml @ 0.5 MCG/KG/MIN 21.57 mls/ hr IV .[id number] [facility] Rx#:[id number] Oral 180 / 180 Output: Urine Amount (Catheter) 475 / 850 Dixon/Indwelling 475 / 850 # Bowel Movements Other: Weight 70.6 kg Weight Measurement Method Built in [facility] Medications Administered Current Inpatient Medications Aspirin (Aspirin 81 Mg Chew) 81 mg PO QAM [facility] Stop: 03/13/23 09:59 Last Admin: 02/13/23 08:25 Dose: 81 mg Atorvastatin Calcium ([facility] 40 Mg Tab) [facility]: 03/13/23 08:59 Last Admin: 02/13/23 08:25 Dose: 80 mg Clopidogrel Bisulfate (Clopidogrel Bisulfate 75 Mg Tab) [facility] [place]: 03/13/23 09:59 Last Admin: 02/13/23 08:25 Dose: 75 mg Furosemide (Furosemide Inj 20 Mg/2 Ml Vial) 20 mg IV BID [facility] Stop: 03/14/23 20:59 Last Admin: 02/13/23 21:13 Dose: 20 mg Heparin Sodium/Dextrose (Heparin Iv Adult Wt-Based Standard *No* Initial Bolus Protocol) 1 each IV ONE STA; Protocol Stop: 02/14/23 08:42 Phenylephrine HCl (Phenylephrine/Nss) 25 mg in 250 mls @ 21.57 mls/hr IV .[id number] [facility]; Protocol Stop: 03/14/23 01:59 Last Titration: 02/14/23 07:10 Dose: 0 mcg/kg/min, 0 mls/hr Amiodarone HCl/Dextrose (Nexterone / D5w) 360 mg in 200 mls @ 16.667 mls/hr IV .Q12H [facility] Stop: 03/14/23 01:59 Last Infusion: 02/14/23 07:10 Dose: 0.5 mg/min, 16.7 mls/hr Ceftriaxone Sodium 2,000 mg/ (Dextrose) 50 mls @ 100 mls/hr IV Q24H [facility] Stop: 02/18/23 09:59 Last Infusion: 02/13/23 10:38 Dose: Infused Heparin Sodium/Dextrose (Heparin Sodium/Dextrose) 25,000 units in 500 mls @ 0.02 mls/hr IV .Q24H [facility]; Protocol Stop: 03/16/23 08:59 Metoprolol Tartrate (Metoprolol Tartrate 25 Mg Tab) 12.5 mg PO BID [facility] Stop: 03/15/23 20:59 Last Admin: 02/13/23 21:13 Dose: 12.5 mg Midodrine (Midodrine Hcl 2.5 Mg Tab) 5 mg PO TID@0800,1200,1700 [facility] Stop: 03/15/23 07:59 Last Admin: 02/14/23 07:52 Dose: 5 mg (7) CKD (chronic kidney disease) Chronic kidney disease stage: stage 3 (moderate) Chronic kidney disease stage 3 subtype: unspecified whether 3a or 3b Qualified Code(s): N18.30 - Chronic kidney disease, stage 3 unspecified
--- NOTE | 2023-02-14 09:07 | Communication Note ---
Date of Service: February 14, 2023 I spoke to spouse, Oanh, on phone and provided updates and discussed possible SATYA guided CV tomorrow. Questions answered to her satisfaction.
[2023-02-14] MEDS: HEPARIN SODIUM/DEXTROSE 25,000 UNITS/500 ML BAG IV SCH (09:12)
[2023-02-14] MEDS: cefTRIAXone SODIUM 2,000 MG in DEXTROSE 5 % MINI-B 50 ML IV SCH (10:12)
[2023-02-14] MEDS: ASPIRIN 81 MG CHEW PO SCH (10:12)
[2023-02-14] MEDS: METOPROLOL TARTRATE 25 MG TAB PO SCH ×2 (10:13→20:36)
[2023-02-14] MEDS: CLOPIDOGREL BISULFATE 75 MG TAB PO SCH (10:13)
[2023-02-14] MEDS: ATORVASTATIN 40 MG TAB PO SCH (10:13)
[2023-02-14] MEDS: FUROSEMIDE INJ 20 MG/2 ML VIAL IV SCH ×3 (10:14→20:37)
--- NOTE | 2023-02-14 10:34 | Critical Care Progress Note ---
Date of Service February 14, 2023 Assessment & Plan (1) Atrial fibrillation with rapid ventricular response: (2) Severe calcific aortic stenosis: (3) Hypotension: (4) Multi-vessel coronary artery stenosis: (5) Anemia: (6) Complicated UTI (urinary tract infection): Plan Patient's hypotension is improved to the point where he is not requiring continuous infusions of vasoactive medications. Systolic blood pressure expected to be on the lower side given severe aortic stenosis. Will continue with oral midodrine 5 mg 3 times daily. Defer further cardiac medications to cardiology. Patient currently on amiodarone drip. Patient is currently being trialed on heparin infusion. Will monitor ecchymosis and hematoma in the groin closely. He is also on aspirin and Plavix given history of coronary artery disease. Patient to possibly undergo SATYA/cardioversion tomorrow. TAVR workup will be performed outpatient. Patient with slow downtrend in hemoglobin which will need to be closely monitored. Likely related to hematoma. Will add protonix for GI ppx given antiplatelet and anticoagulant therapy. He is also on Rocephin for Serratia noted in the urine from culture on 02/11/2023. Recommend 5 to 7 days of antibiotics. Patient stable for downgrade to PCU status at this point. Admission and Anticipated Discharge Date Admission Date: February 10, 2023 Subjective Patient seen and examined. He is improved today, but still lethargic at times. He has been off phenylephrine for the past 24 hours. He denies any chest pain, fevers, chills or night sweats. Review of Systems Review of Systems: All systems reviewed & are unremarkable except as noted in HPI & below Physical Exam Constitutional: + ill appearing and + thin; no acute dis tress Neck: normal visual inspection and trachea midline Respiratory: Auscultation: + diminished lung sounds, + rales and + wheezes; no rhonchi Cardiovascular: Rate/Rhythm: + tachycardic and + irregularly irregular Heart Sounds: normal S1, normal S2 (diminished s2 ) and + murmur (+3/6 systolic murmur ) Vessels: dorsalis pedis pulses present; no JVD Extremities: no edema Gastrointestinal (Abdomen): normal bowel sounds, soft, nontender, no hepatosplenomegaly Skin: no rashes, warm and dry + ecchymosis Psychiatric: A+Ox3, euthymic affect Results & Data Results & Data Vital Signs (Past 12 Hours) Vital Signs Temp Pulse Resp BP Pulse Ox O2 Del Method O2 Flow Rate 02/14/23 08:30 106 H 22 99/72 L 90 Room Air 02/14/23 08:00 93 H 16 90/61 L 99 Oxymask 2 02/14/23 08:00 36.6 C 02/14/23 07:46 105 H 18 85/63 L 98 Oxymask 2 02/14/23 07:30 94 H 21 81/58 L 96 Oxymask 2 02/14/23 07:00 91 H 16 94/63 L 95 Oxymask 2 02/14/23 06:00 91 H 24 100 Oxymask 8 02/14/23 06:00 111/69 02/14/23 05:47 92/71 L 02/14/23 05:47 101 H 23 100 02/14/23 05:45 109 H 19 99 02/14/23 05:30 103 H 25 H 95 02/14/23 05:15 110 H 23 100 02/14/23 05:13 93/64 L 02/14/23 05:13 89 27 H 96 02/14/23 05:00 96/64 L 02/14/23 05:00 100 H 22 97 02/14/23 04:55 103 H 18 02/14/23 04:45 94 H 18 02/14/23 04:31 103 H 24 92 02/14/23 04:31 84/62 L 02/14/23 04:30 102 H 25 H 100 02/14/23 04:15 98 H 23 93 02/14/23 04:05 80/66 L 02/14/23 04:05 91 H 26 H 100 02/14/23 04:02 103 H 21 94 02/14/23 04:02 89/67 L 02/14/23 04:00 82 22 86 L 02/14/23 03:45 103 H 21 94 02/14/23 03:31 101 H 22 02/14/23 03:30 108 H 23 95 02/14/23 03:15 97 H 21 99/78 L 02/14/23 03:00 105/68 02/14/23 03:00 102 H 22 100 02/14/23 02:55 105 H 21 02/14/23 02:55 101/80 02/14/23 02:45 98 H 17 02/14/23 02:30 96 H 22 02/14/23 02:15 105 H 23 72 L 02/14/23 02:00 114/74 Oxymask 8 02/14/23 02:00 100 H 21 100 02/14/23 01:45 106 H 22 100 02/14/23 01:30 89/70 L 02/14/23 01:30 98 H 23 100 02/14/23 01:21 102 H 26 H 94 02/14/23 01:21 95/55 L 02/14/23 01:15 88 26 H 92 02/14/23 01:00 90 22 91 02/14/23 00:45 91 H 22 98 Oxymask 8 02/14/23 00:45 101 H 02/14/23 00:30 95 H 27 H 92 Oxymask 8 02/14/23 00:30 98/69 L 02/14/23 00:28 96 H 25 H 95 Oxymask 8 02/14/23 00:26 105 H 18 98/69 L 93 02/14/23 00:16 100 H 19 89/56 L 90 02/14/23 00:15 100 H 22 94 02/14/23 00:00 95 H 22 99 02/13/23 23:45 99 H 24 02/13/23 23:34 85 20 100 02/13/23 23:34 88/54 L 02/13/23 23:30 93 H 20 94 02/13/23 23:15 87 24 02/13/23 23:00 99/71 L 02/13/23 23:00 89 21 99 02/13/23 22:45 78 20 95 02/13/23 22:30 94/71 L 02/13/23 22:30 89 20 98 Coding Level of Care Code 64243 SUB INP/OBS CARE 3/50MIN Diagnoses Atrial fibrillation with rapid ventricular response I48.91 Severe calcific aortic stenosis I35.0 Hypotension I95.9 Hypotension type: unspecified hypotension type Multi-vessel coronary artery stenosis I25.10 Anemia D64.9 Anemia type: unspecified type Complicated UTI (urinary tract infection) N39.0 (3) Hypotension Hypotension type: unspecified hypotension type Qualified Code(s): I95.9 - Hypotension, unspecified (5) Anemia Anemia type: unspecified type Qualified Code(s): D64.9 - Anemia, unspecified
--- NOTE | 2023-02-14 11:07 | Nephrology Progress Note ---
Date of Service February 14, 2023 Assessment & Plan Admission and Anticipated Discharge Date Admission Date: February 10, 2023 Subjective Assessment & Plan (1) Hyperkalemia: Now normal after lasix and patiromer. (2) CKD (chronic kidney disease) stage 4, GFR 15-29 ml/min: baseline creatinine 2.6-2.7 since August 2022. complicated urologic/urinary retention hx but this has been relative improved since prostate procedure 2021. Currently renal function at baseline daily bmp avoid IV contrast unless life/limb/heart muscle saving no indication for dialysis discussion currently (3) Ischemic cardiomyopathy: per cardiology; complex heart patient w/ multiple comorbidities strict I/O, Severe in need of TAVR. Currently Has Afibb with RVR and also has low BP--He did get some lasix yesterday. Does not seem to response much with lasix 20 and may need a higher dose for adequate response as allowed by BP. S---BP does get low colt during night. Was on Phenylephrine but currently off. 800 ml urine yesterday with 2 doses of lasix 20 iv. Now downgraded to telemetry Physical Exam Physical Exam: AAOx3; NAD Eyes: PERRL, conjunctivae normal, anicteric sclerae Neck: No JVD. Respiratory: Decreased breath sounds b/l bases. Cardiovascular: Irregularly Irregular; S1+S2; (+) murmur Musculoskeletal: No lower extremity edema Skin: R-groin with large hematoma; stable Results & Data Vital Signs (Past 12 Hours) Vital Signs Temp Pulse Resp BP Pulse Ox O2 Del Method O2 Flow Rate 02/14/23 08:30 106 H 22 99/72 L 90 Room Air 02/14/23 08:00 93 H 16 90/61 L 99 Oxymask 2 02/14/23 08:00 36.6 C 02/14/23 07:46 105 H 18 85/63 L 98 Oxymask 2 02/14/23 07:30 94 H 21 81/58 L 96 Oxymask 2 02/14/23 07:00 91 H 16 94/63 L 95 Oxymask 2 02/14/23 06:00 91 H 24 100 Oxymask 8 02/14/23 06:00 111/69 02/14/23 05:47 92/71 L 02/14/23 05:47 101 H 23 100 02/14/23 05:45 109 H 19 99 02/14/23 05:30 103 H 25 H 95 02/14/23 05:15 110 H 23 100 02/14/23 05:13 93/64 L 02/14/23 05:13 89 27 H 96 02/14/23 05:00 96/64 L 02/14/23 05:00 100 H 22 97 02/14/23 04:55 103 H 18 02/14/23 04:45 94 H 18 02/14/23 04:31 103 H 24 92 02/14/23 04:31 84/62 L 02/14/23 04:30 102 H 25 H 100 02/14/23 04:15 98 H 23 93 02/14/23 04:05 80/66 L 02/14/23 04:05 91 H 26 H 100 02/14/23 04:02 103 H 21 94 02/14/23 04:02 89/67 L 02/14/23 04:00 82 22 86 L 02/14/23 03:45 103 H 21 94 02/14/23 03:31 101 H 22 02/14/23 03:30 108 H 23 95 02/14/23 03:15 97 H 21 99/78 L 02/14/23 03:00 105/68 02/14/23 03:00 102 H 22 100 02/14/23 02:55 105 H 21 02/14/23 02:55 101/80 02/14/23 02:45 98 H 17 02/14/23 02:30 96 H 22 02/14/23 02:15 105 H 23 72 L 02/14/23 02:00 114/74 Oxymask 8 02/14/23 02:00 100 H 21 100 02/14/23 01:45 106 H 22 100 02/14/23 01:30 89/70 L 02/14/23 01:30 98 H 23 100 02/14/23 01:21 102 H 26 H 94 02/14/23 01:21 95/55 L 02/14/23 01:15 88 26 H 92 02/14/23 01:00 90 22 91 02/14/23 00:45 91 H 22 98 Oxymask 8 02/14/23 00:45 101 H 02/14/23 00:30 95 H 27 H 92 Oxymask 8 02/14/23 00:30 98/69 L 02/14/23 00:28 96 H 25 H 95 Oxymask 8 02/14/23 00:26 105 H 18 98/69 L 93 02/14/23 00:16 100 H 19 89/56 L 90 02/14/23 00:15 100 H 22 94 02/14/23 00:00 95 H 22 99 02/13/23 23:45 99 H 24 02/13/23 23:34 85 20 100 02/13/23 23:34 88/54 L 02/13/23 23:30 93 H 20 94 02/13/23 23:15 87 24
[2023-02-14 16:28] LABS: ANTI-Xa, UFH(UnfractionatedHep 0.38 IU/ml (0.3-0.7)
--- NOTE | 2023-02-14 16:53 | Billing Data ---
Date of Service February 14, 2023 Coding Level of Care Code 66172 SUB INP/OBS CARE MIN
[2023-02-14] MEDS: PANTOprazole 40 MG in SYRINGE 0 ML IV SCH (21:52)
[2023-02-15] MEDS: AMIODARONE / D5W 360 MG/200 ML BAG IV SCH ×2 (03:20→15:07)
[2023-02-15 05:56] LABS: Basophils # (auto) 0.04 K/uL (0.00-0.20); Basophils % (auto) 0.5 %; Eosinophils # (auto) 0.43 K/uL (0.00-0.50); Hematocrit (blood only) 26.8 % (42.0-52.0); Immature Granulocytes # (auto) 0.03 K/uL (0.01-0.20); Immature Granulocytes % (auto) 0.3 %; Lymphocytes # (auto) 1.01 K/uL (1.20-3.40); Lymphocytes % (auto) 11.8 %; Mean Corpuscular Hemoglobin 30.2 pg (25.0-34.0); Mean Corpuscular Hgb Conc 33.6 g/dL (32.0-36.0); Mean Corpuscular Volume 89.9 fL (80.0-100.0); Mean Platelet Volume 9.7 fL (9.4-12.4); Monocytes # (auto) 0.77 K/uL (0.11-0.59); Neutrophils # (auto) 6.31 K/uL (1.40-6.50); Neutrophils % (auto) 73.4 %; Platelet Count 175 K/uL (130-400); RDW Coefficient of Variation 14.5 % (11.5-14.5); RDW Standard Deviation 44.9 fL (36.4-46.3); Red Blood Count 2.98 M/uL (4.70-6.10); White Blood Count 8.59 K/ul (4.8-10.8)
[2023-02-15 06:07] LABS: Albumin Globulin Ratio 1.3 (0.9-2); Albumin Level 3.5 gm/dl (3.4-5.0); BUN Creatinine Ratio 22.8 (10-20); Bilirubin,Total 0.9 mg/dl (0.2-1.0); Calcium 8.5 mg/dl (8.6-10.3); Creatinine Clr Calc Pharmacy 16.5 ml/min; Est GFR (African American) 20.7 ml/min; Est GFR (Non-African American) 17.9 ml/min; Globulin 2.6 gm/dl (2.5-4.0); Phosphorus 4.5 mg/dl (2.5-4.9); Potassium 5.1 mmol/L (3.5-5.1); Total Protein 6.1 gm/dl (6.0-8.3)
[2023-02-15 06:08] LABS: ANTI-Xa, UFH(UnfractionatedHep 0.48 IU/ml (0.3-0.7)
[2023-02-15] MEDS: HEPARIN SODIUM/DEXTROSE 25,000 UNITS/500 ML BAG IV SCH (06:19)
--- NOTE | 2023-02-15 06:54 | Hospitalist Progress Note ---
"Date of Service February 15, 2023 Assessment & Plan (1) Symptomatic anemia: Plan: Pt is a 82 y/o male with PMH of severe , urinary retention, HLD, HTN, and recent cardiac stent placement 02/08 at [facility] presenting to the hospital 02/10 due to dizziness and hypotension. Hypotension | Acute blood loss anemia - Hemorrhagic hypovolemia likely 2/2 ABLA in the setting of recent right femoral groin access for cardiac cath at [place] on 02/08 - Discharge hemoglobin was 9.1 - CTAP with signs of a small hemorrhage - extravasation limited by lack of IV contrast as patient with CKD3-4; Duplex of groin without signs of pseudoa neurysm. - Patient fluid resuscitated initially with 2L NS and 1u pRBCs. Hemoglobin stable. - Patient currently maintaining MAP > 65 without phenylephrine support. Monitor BPs closely. - De-escalation to PCU 02/14 --- Continue close monitoring of Hemoglobin (9.0 02/15) and BP (likely lower in setting of , MAP currently >65) Paroxysmal AFib/Flutter w/ RVR - Likely component of reactive tachycardia in setting of hypovolemia - Amiodarone gtt ongoing, Metoprolol restarted for rate control 02/14 - AC held given grion hematoma, now starting Heparin gtt - Cardiology consulted, appreciate recommendations - Ongoing Midodrine for BP support (per ICU), monitor closely, not idea given /LV dysfunction (per Cardiology) --- Planned SATYA/cardioversion, planned tomorrow 02/16. TAVR workup will be performed outpatient. Elevated Anion Gap Acidosis - Patient with anion gap and tachypnea. - Likely metabolic acidosis with respiratory compensatory mechanisms. --- Resolved 02/14 Severe | HFrEF - Echo 07/2022 with EF 30-35%. Plan for TAVR in the future. - Patient fluid overloaded after 2L NS and 1u pRBCs aggressively diuresed now likely close to euvolemic. --- Closely monitor fluid status, diuresis as indicated, euvolemic on exam Recent cardiac stent placement 02/08 - Triple therapy w/ Apixaban, ASA, and Plavix planned following stenting, with indefinite Apixaban and Plavix - Apixaban held given hematoma --- Heparin gtt started 02/14 w/ goal to return to Apixaban once hematoma deemed stable Acute on chronic kidney disease - improving - Baseline around 2.2; creatinine at 2.79 upon admission - Likely pre-renal in the setting of hypovolemia with possible component of contrast induced nephropathy - Nephrology consulted, appreciate recommendations Creatinine rising, noted to be likely a/w arrhythmia requiring cardioversion Complicated urologic/urinary retention hx but this has been relative improved since prostate procedure 09/2021 Minimal response to Lasix 20 thus far, minimal UO w/o Lasix today --- Creatinine rising, anticipate improvement following SATYA/CV planned tomorrow, nephrology following Hyperkalemia - Started on patiromer per nephro, has since normalized - Continue to monitor --- Potassium levels rising, unable to receive Patiromer prior to SATYA/CV, plan dosing following procedure per Cardiology Elevated troponin - In the setting of recent cardiac intervention, downtrending HTN - pt on metoprolol, lisinopril, and furosemide at home - continue holding antihypertensives in the setting of acute hypotension/hypovolemia UTI w/ Serratia - Ceftriaxone ongoing as of 02/13 Code status: full DVT ppx: on ASA and plavix, holding apixaban, now on Heparin gtt FENGI: heart healthy Dispo: PCU/tele (2) Atrial flutter with rapid ventricular response: (3) Elevated troponin: (4) Acute on chronic renal failure: (5) HTN (hypertension), benign: (6) Severe calcific aortic stenosis: (7) S/P drug eluting coronary stent placement: (8) Lactate blood increase: (9) Hypovolemia: (10) CKD (chronic kidney disease): Admission and Anticipated Discharge Date Admission Date: February 10, 2023 Supervising Physician Co-Signing Physician Notes I personally examined the patient and verified all downey points of history and exam, discussed case, and agree with decision making with Dr Hmamond Feels okay. SATYA canceled for today and rescheduled for tomorrow. Vitals noted, in general he is awake and alert pleasant no distress. HEENT normocephalic atraumatic mucous membranes moist. Breathing unlabored no accessory muscle use good effort. Skin shows no rashes no pallor or icterus. Neuro without focal deficits. Postprocedural complication with hemorrhagic shock Hypotension with acute blood loss anemia off phenylephrine drip. h/h overall stable after one PRBC 12/14. ARF hypoxic d/t Acute on chronic systolic heart failure diuretic per cardio w caution due to vitals, breathing room air Severe Holding BP lowering agent. CAD with recent stent ASA/Plavix, statin. Metoprolol added 12.5mgs bid. Lisinopril on hold P A fib/flutter with RVR On amiodarone drip. HR 90s - 110. Apixaban on hold. Metoprolol added back. Plan for SATYA/cardioversion tomorrow CKD 4 Hyperkalemia Creat baseline 2.6-2.7. Renal followingcreatinine slightly higher today K improved with lasix and patiromer. UTI with serratia Ceftriaxone 02/13. SCD otherwise as above Subjective 02/15: Patient was resting in bed upon arrival, notes that his anxiety is improved, and that he is simply awaiting his procedure. He denies any chest pain, dyspnea, headache, lightheadedness, nausea, fevers, chills, or diarrhea. His groin hematoma is w/o pain, he feels that his bruising has not worsened. Review of Systems Review of Systems: As per HPI Physical Exam Physical Exam: Gen: Alert, pleasant, NAD, thin HEENT: NCAT, MMM CV: tachycardic, irregularly-irregular, loud holosystolic murmur best heard LUSB present, cap refill <2s Resp: non-labored, lung sounds diminished, otherwise CTAB, no wheezing appreciated Abd: soft, non-distended, non-tender MSK: significant bruising right thigh, right hip, and groin extending into the scrotum Skin: no rashes noted Neuro: alert and oriented Psych: appropriate mood and affect Results & Data Results & Data Vital Signs (Past 12 Hours) Vital Signs Temp Pulse Pulse Resp BP Pulse Ox O2 Del Method 02/15/23 03:03 36.7 C 78 16 97/63 L 96 Room Air 02/14/23 23:31 109 H 02/14/23 23:07 36.8 C 61 16 104/68 95 Room Air 02/14/23 21:38 Room Air Resident Activity Tracking Resident Involvement: Resident Care Provided Care Provided: Adult Hospital Medicine (4) Acute on chronic renal failure Acute renal failure type: unspecified Chronic kidney disease stage: unspecified stage Qualified Code(s): N17.9 - Acute kidney failure, unspecified; N18.9 - Chronic kidney disease, unspecified (10) CKD (chronic kidney disease) Chronic kidney disease stage: stage 3 (moderate) Chronic kidney disease stage 3 subtype: unspecified whether 3a or 3b Qualified Code(s): N18.30 - Chronic kidney disease, stage 3 unspecified"
[2023-02-15] MEDS: PANTOprazole 40 MG in SYRINGE 0 ML IV SCH ×2 (08:32→21:03)
[2023-02-15] MEDS: CLOPIDOGREL BISULFATE 75 MG TAB PO SCH (08:33)
[2023-02-15] MEDS: ATORVASTATIN 40 MG TAB PO SCH (08:33)
[2023-02-15] MEDS: MIDODRINE HCL 2.5 MG TAB PO SCH ×3 (08:33→16:29)
[2023-02-15] MEDS: METOPROLOL TARTRATE 25 MG TAB PO SCH ×3 (08:34→19:56)
[2023-02-15] MEDS: ASPIRIN 81 MG CHEW PO SCH (08:34)
[2023-02-15] MEDS: cefTRIAXone SODIUM 2,000 MG in DEXTROSE 5 % MINI-B 50 ML IV SCH (09:16)
--- NOTE | 2023-02-15 09:24 | Cardiology Progress Note ---
Date of Service February 15, 2023 Assessment & Plan (1) Ischemic cardiomyopathy: (2) Multi-vessel coronary artery stenosis: (3) S/P drug eluting coronary stent placement: (4) Elevated troponin: (5) Severe aortic stenosis: (6) Atrial fibrillation with rapid ventricular response: (7) CKD (chronic kidney disease): (8) Acute blood loss anemia: Plan IMPRESSION: Medically complex 82-year-old male with multivessel coronary disease/ischemic cardiomyopathy status post PCI 02/08/2023 at [facility] Known severe aortic stenosis currently in the process of TAVR workup. Presented 02/10/23 due to symptomatic hypotension found to have a small post procedure right groin hematoma--found to be anemic and 1 unit of PRBCs were transfused. PLAN: Multivessel CAD/Ischemic cardiomyopathy: -Multivessel coronary disease/ischemic cardiomyopathy status post PCI 02/08/2023 at [facility]. Post PCI complicated by acute blood loss anemia secondary to right groin hematoma. -LVEF 46% (per echo 12/09/2022) -Continue ASA and clopidogrel given recent LM/ LAD and proximal RCA coronary stents on 02/20/23. Paroxysmal atrial fibrillation/flutter -Persistent AFIB on tele, rates 90-110s. -AC had been on hold due to groin hematoma. -heparin started , Hgb stable. -Continue amiodarone infusion, low dose metoprolol tartrate adde for rate control. -Is off of phenylephrine since 02/13/23 -On midodrine, which is no ideal given the aortic stenosis and LV systolic dysfunction , however felt to be indicated for BP support. -NPO for SATYA cardioversion 02/15 . CKD with hyperkalemia -Potassium has trended back up to 5.1 . -creatinine slightly worse 2.71 on 02/14/23 -->3.07 02/15/23 -hold furosemide -Oxygen requirement much improved over last 3 days. -low potassium diet. -will consider a dose of patiromer after SATYA CV. It would be to much liquid intake before procedure. Severe Aortic stenosis -Confirmed on cardiac cath, currently in the process of TAVR workup with Dr. Segura. Would need to delay TAVR to allow 4 weeks of uninterrupted anticoagulation post cardioversion. I spent a total of 45 minutes of critical care on the date of service in preparation, delivery, and documentation of the care provided to the patient excluding any time spent in the performance of separately billed services. Admission and Anticipated Discharge Date Admission Date: February 10, 2023 Subjective Patient seen in cardiology follow-up. Since visit yesterday, he had been downgraded to telemetry status and is now in the PCU, room 230-2. Patient is comfortable at present. Oxygen requirement much improved over the last 3 days with pulse oximetry of 91% on room air at present. He is afebrile. Telemetry reveals ongoing atrial fibrillation with ventricular rates in the 90s during sleep and in a range of 100 to 110 bpm while sitting in bed. Dixon catheter remains in place draining clear yellow urine. Denies chest discomfort or shortness of breath. Mentating well. Physical Exam Physical Exam: Temp Pulse Resp BP Pulse Ox O2 Del Method O2 Flow Rate 36.4 C L 112 H 19 99/65 L 91 Room Air 2 02/15/23 07:07 02/15/23 07:07 02/15/23 07:07 02/15/23 07:07 02/15/23 07:07 02/15/23 07:07 02/14/23 08:00 FiO2 6 02/11/23 00:04 Constitutional: + ill appearing and + thin; no acute dis tress Neck: normal visual inspection and trachea midline Respiratory: Auscultation: + rales and + wheezes; no rhonchi Cardiovascular: Rate/Rhythm: + tachycardic and + irregularly irregular Heart Sounds: normal S1, normal S2 (diminished s2 ) and + murmur (+3/6 systolic murmur ) Vessels: dorsalis pedis pulses present; no JVD Extremities: no edema Gastrointestinal (Abdomen): normal bowel sounds, soft, nontender, no hepatosplenomegaly Skin: no rashes, warm and dry + ecchymosis (extenisive bruising of right groin extending to scrotum ) Psychiatric: A+Ox3, euthymic affect Results & Data Vital Signs (Past 12 Hours) Vital Signs Temp Pulse Pulse Resp BP Pulse Ox O2 Del Method 02/15/23 07:07 36.4 C L 112 H 19 99/65 L 91 Room Air 02/15/23 03:03 36.7 C 78 16 97/63 L 96 Room Air 02/14/23 23:31 109 H 02/14/23 23:07 36.8 C 61 16 104/68 95 Room Air 02/14/23 21:38 Room Air Laboratory Results Cardiac Enzymes 02/15/23 Range/Units 05:27 AST 24 (13-39) U/L CBC 02/15/23 Range/Units 05:27 WBC 8.59 (4.8-10.8) K/ul RBC 2.98 L (4.70-6.10) M/uL Hgb 9.0 L (14.0-18.0) g/dl Hct 26.8 L (42.0-52.0) % Plt Count 175 (130-400) K/uL Neut # (Auto) 6.31 (1.40-6.50) K/uL Lymph # (Auto) 1.01 L (1.20-3.40) K/uL Hemphill # (Auto) 0.77 H (0.11-0.59) K/uL Eos # (Auto) 0.43 (0.00-0.50) K/uL Baso # (Auto) 0.04 (0.00-0.20) K/uL Comprehensive Metabolic Panel 02/15/23 Range/Units 05:27 Sodium 136 (136-145) mmol/L Potassium 5.1 D (3.5-5.1) mmol/L Chloride 102 (98-107) mmol/L Carbon Dioxide 22 (21-32) mmol/L BUN 70 H (6-23) mg/dl Creatinine 3.07 H D (0.6-1.4) mg/dl Glucose 128 H (70-99(Fasting)) mg/dl Calcium 8.5 L (8.6-10.3) mg/dl AST 24 (13-39) U/L ALT 30 (7-52) U/L Alkaline Phosphatase 68 (34-104) U/L Total Protein 6.1 (6.0-8.3) gm/dl Albumin 3.5 (3.4-5.0) gm/dl Intake and Output 02/14/23 02/15/23 02/15/23 22:59 06:59 14:59 Intake Total 340 / 1050.000 460 / 1050.000 Output Total 585 / 1560 350 / 1560 125 / 125 Balance -245 / -510.000 110 / -510.000 -125 / -125 Intake: IV 240 / 950.000 460 / 950.000 Amiodarone / D5w 360 mg In 200 200 / 400.000 ml @ 0.5 MG/MIN 16.667 mls/hr IV .Q12H ON LICENSE OF [facility] Rx#:[id number] Heparin Sodium/Dextrose 25,000 240 / 500 260 / 500 units In 500 ml @ 1,200 UNITS/ HR 24 mls/hr IV .[id number] ON LICENSE OF [facility] Rx #:[id number] Oral 100 / 100 Output: Urine Amount (Catheter) 585 / 1560 350 / 1560 125 / 125 Dixon/Indwelling 585 / 1560 350 / 1560 125 / 125 Other: Other Intake Source Patient is NPO Weight 70.6 kg 70.6 kg Weight Measurement Method Built in [facility] (7) CKD (chronic kidney disease) Chronic kidney disease stage: stage 3 (moderate) Chronic kidney disease stage 3 subtype: unspecified whether 3a or 3b Qualified Code(s): N18.30 - Chronic kidney disease, stage 3 unspecified
--- NOTE | 2023-02-15 11:54 | Communication Note ---
Date of Service: February 15, 2023 Due to scheduling limitations and anesthesia availability, will delay SATYA cardioversion until tomorrow 02/16/2023. Diet order entered. N.p.o. after midnight. Will update patient and spouse.
[2023-02-15] MEDS ORDERED: PATIROMER CALCIUM SORBITEX 8.4 GM PACK PO ONE (11:55)
--- NOTE | 2023-02-15 14:23 | Nephrology Progress Note ---
Date of Service February 15, 2023 Assessment & Plan Admission and Anticipated Discharge Date Admission Date: February 10, 2023 Subjective Assessment & Plan (1) Hyperkalemia: Now normal after lasix and patiromer. (2) CKD (chronic kidney disease) stage 4, GFR 15-29 ml/min: baseline creatinine 2.6-2.7 since August 2022. complicated urologic/urinary retention hx but this has been relative improved since prostate procedure 2021. Currently renal function at baseline daily bmp avoid IV contrast unless life/limb/heart muscle saving no indication for dialysis discussion currently (3) Ischemic cardiomyopathy: per cardiology; complex heart patient w/ multiple comorbidities strict I/O, Severe in need of TAVR. Currently Has Afibb with RVR and also has low BP--He did get some lasix yesterday. Creat will continue to rise regardless of lasix unless we improve his cardiac Situation--Control/regulate HR and hence BP. His more recent baseline creat is more like mid to high 2's. urine output has been low even with lasix 20 and now without lasix quite low urine output. S---BP does get low colt during night. remains in Afibb with RVR and has low BP. Cardioversion scheduled for tomorrow. Did not get lasix this AM. Physical Exam Physical Exam: AAOx3; NAD Eyes: PERRL, conjunctivae normal, anicteric sclerae Neck: No JVD. Respiratory: Decreased breath sounds b/l bases. Cardiovascular: Irregularly Irregular; S1+S2; (+) murmur Musculoskeletal: No lower extremity edema Skin: R-groin with large hematoma; stable Results & Data Vital Signs (Past 12 Hours) Vital Signs Temp Pulse Resp BP Pulse Ox O2 Del Method 02/15/23 11:11 36.5 C 113 H 19 116/87 95 Room Air 02/15/23 07:07 36.4 C L 112 H 19 99/65 L 91 Room Air 02/15/23 03:03 36.7 C 78 16 97/63 L 96 Room Air
--- NOTE | 2023-02-15 14:25 | Anesthesiology Consultation ---
Date of Service February 15, 2023 Assessment & Plan (1) Encounter for pre-operative examination: Chart Review Chart Review: Acceptable Risk for Surgery History Surgery Operation Date: 02/16/23 07:45 Proposed Procedures s Cardioversion - See Rojas DO p Trans-Esophageal Echo - See Rojas DO Height/Weight Height: 5 ft 6 in Weight: 70.6 kg Allergies Allergy/AdvReac Type Severity Reaction Status Date / Time No Known Allergies Allergy Verified 02/10/23 16:03 Medications Home Medications Medication Instructions Recorded Confirmed Last Taken apixaban 2.5 mg tablet (Eliquis) 0 mg PO BID 02/10/23 02/10/23 02/05/23 aspirin 81 mg chewable tablet 81 mg PO QAM 02/10/23 02/10/23 02/10/23 atorvastatin 80 mg tablet 80 mg PO QAM 02/10/23 02/10/23 02/10/23 clopidogrel 75 mg tablet 75 mg PO QAM 02/10/23 02/10/23 02/10/23 furosemide 40 mg tablet 40 mg PO QAM 02/10/23 02/10/23 02/10/23 lisinopril 2.5 mg tablet 2.5 mg PO QAM 02/10/23 02/10/23 02/08/23 metoprolol succinate 50 mg 50 mg PO BID 02/10/23 02/10/23 02/10/23 tablet,extended release 24 hr Active Medications Generic Name Dose Route Start Last Admin Trade Name Freq PRN Reason Stop Dose Admin Aspirin 81 mg 02/11/23 10:00 02/15/23 08:34 Aspirin 81 Mg Chew PO 03/13/23 09:59 81 mg QAM KATYA Administration Atorvastatin Calcium 80 mg 02/11/23 09:00 02/15/23 08:33 Atorvastatin 40 Mg Tab PO 03/13/23 08:59 80 mg QAM KATYA Administration Clopidogrel Bisulfate 75 mg 02/11/23 10:00 02/15/23 08:33 Clopidogrel Bisulfate 75 Mg Tab PO 03/13/23 09:59 75 mg QAM KATYA Administration Furosemide 20 mg 02/12/23 21:00 02/14/23 20:37 Furosemide Inj 20 Mg/2 Ml Vial IV 03/14/23 20:59 20 mg BID KATYA Administration Amiodarone HCl/Dextrose 360 mg in 200 mls @ 16.667 mls/hr 02/12/23 02:00 02/15/23 03:20 Nexterone / D5w IV 03/14/23 01:59 0.5 mg/min .Q12H KATYA 16.7 mls/hr Administration 0.5 MG/MIN Ceftriaxone Sodium 2,000 mg/ 50 mls @ 100 mls/hr 02/13/23 10:00 02/15/23 09:46 Dextrose IV 02/18/23 09:59 Infused Q24H KATYA Infusion Heparin Sodium/Dextrose 25,000 units in 500 mls @ 24 mls/hr 02/14/23 09:00 02/15/23 06:19 Heparin Sodium/Dextrose IV 03/16/23 08:59 1,200 units/hr .[id number] KATYA 24 mls/hr Administration Protocol 1,200 UNITS/HR Pantoprazole Sodium 40 mg/ 10 mls @ 5 mls/min 02/14/23 21:00 02/15/23 08:32 Syringe IV 03/16/23 20:59 5 mls/min BID KATYA Administration Metoprolol Tartrate 12.5 mg 02/13/23 21:00 02/15/23 12:22 Metoprolol Tartrate 25 Mg Tab PO 03/15/23 20:59 12.5 mg BID KATYA Administration Midodrine 5 mg 02/13/23 08:00 02/15/23 12:21 Midodrine Hcl 2.5 Mg Tab PO 03/15/23 07:59 5 mg TID@0800,1200,1700 KATYA Administration Past Medical History Medical History Complicated UTI (urinary tract infection) CKD (chronic kidney disease) stage 4, GFR 15-29 ml/min Multi-vessel coronary artery stenosis Ischemic cardiomyopathy Atrial fibrillation with rapid ventricular response Severe calcific aortic stenosis Elevated troponin Elevated PSA HLD (hyperlipidemia) HTN (hypertension) Epididymitis Past Family History Family History Other Family history non-contributory Past Surgical History Surgical History S/P TURP (transurethral resection of prostate) 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 [facility] [place] Stented coronary artery Social History Smoking Status: Current some day smoker tobacco type: cigars Smoking cigarettes per day: 1 cigar per week Do You Dip or Chew Tobacco: No Hx Alcohol Use: No Alcohol type: hard liquor alcohol intake frequency: 0-2 drinks per day Hx Substance Use: No Physical Exam Vital Signs Last Vital Signs Temp 36.5 C 02/15/23 11:11 Pulse 113 H 02/15/23 11:11 Resp 19 02/15/23 11:11 BP 116/87 02/15/23 11:11 Pulse Ox 95 02/15/23 11:11 O2 Del Method Room Air 02/15/23 11:11 O2 Flow Rate 2 02/14/23 08:00 FiO2 6 02/11/23 00:04 Testing Laboratory Results 02/15/23 05:27 02/15/23 05:27 PT 11.4 Seconds (9.0-12.0) 02/13/23 03:39 INR 1.0 (0.9-1.1) 02/13/23 03:39 APTT 28 Seconds (21-31) 02/13/23 03:39 Urine Color Yellow 02/11/23 18:27 Urine Appearance Clear (Clear) 02/11/23 18:27 Urine pH 5.0 (4.5-7.5) 02/11/23 18:27 Ur Specific [place] 1.010 (1.000-1.030) 02/11/23 18:27 Urine Protein Negative (Negative) 02/11/23 18:27 Urine Glucose (UA) Negative (Negative) 02/11/23 18:27 Urine Ketones Negative (Negative) 02/11/23 18:27 Urine Nitrite Negative (Negative) 02/11/23 18:27 Ur Leukocyte Esterase 2+ (Negative) H 02/11/23 18:27 Urine WBC (Auto) 10-30 /hpf (0-5) H 02/11/23 18:27 Urine RBC (Auto) 0-4 /hpf (0-4) 02/11/23 18:27 U Hyaline Cast (Auto) 1-5 /lpf (0-5) 02/11/23 18:27 U Epithel Cells (Auto) 10-20 /lpf (0-5) H 02/11/23 18:27 Urine Bacteria (Auto) Negative (Negative) 02/11/23 18:27 Blood Type AB Positive 02/10/23 15:09 Antibody Screen NEGATIVE 02/10/23 15:09 02/11/23 18:27 Urine Culture - Final Urine,Straight Cath Serratia odorifera 02/10/23 15:09 Aerobic Blood Culture - Preliminary Blood No growth in Aerobic bottle after 48 hours. Anaerobic Blood Culture - Final 02/10/23 15:09 Aerobic Blood Culture - Preliminary Blood No growth in Aerobic bottle after 48 hours. Anaerobic Blood Culture - Final Electrocardiogram Date: 02/12/23 Findings: + NSST changes, + AFIB @ (104) and + poor R wave progression Echocardiogram Date: 08/27/22 EF: 30-35% per cards echo last week showed EF 45% Valvular Disease: + (severe - bee 0.6cm2)
--- NOTE | 2023-02-15 17:46 | Billing Data ---
Date of Service February 15, 2023 Coding Level of Care Code 90583 SUB INP/OBS CARE
[2023-02-16] MEDS: AMIODARONE / D5W 360 MG/200 ML BAG IV SCH ×2 (04:45→15:46)
[2023-02-16] MEDS: HEPARIN SODIUM/DEXTROSE 25,000 UNITS/500 ML BAG IV SCH (04:47)
--- NOTE | 2023-02-16 06:39 | Hospitalist Progress Note ---
"Date of Service February 16, 2023 Assessment & Plan (1) Symptomatic anemia: Plan: Pt is a 82 y/o male with PMH of severe , urinary retention, HLD, HTN, and recent cardiac stent placement 02/08 at [facility] presenting to the hospital 02/10 due to dizziness and hypotension. Hypotension | Acute blood loss anemia - Hemorrhagic hypovolemia likely 2/2 ABLA in the setting of recent right femoral groin access for cardiac cath at [facility] on 02/08 - Discharge hemoglobin was 9.1 - CTAP with signs of a small hemorrhage - extravasation limited by lack of IV contrast as patient with CKD3-4; Duplex of groin without signs of pseudoa neurysm. - Patient fluid resuscitated initially with 2L NS and 1u pRBCs. Hemoglobin stable. - Patient currently maintaining MAP > 65 without phenylephrine support. Monitor BPs closely. - De-escalation to PCU 02/14 --- Continue close monitoring of Hemoglobin (10.0 02/16) and BP (likely lower in setting of , MAP currently >65) Paroxysmal AFib/Flutter w/ RVR - Likely component of reactive tachycardia in setting of hypovolemia - Amiodarone gtt ongoing, Metoprolol restarted for rate control 02/14 - AC held given grion hematoma, now starting Heparin gtt - Cardiology consulted, appreciate recommendations - Ongoing Midodrine for BP support (per ICU), monitor closely, not idea given /LV dysfunction (per Cardiology) --- Successful SATYA/cardioversion, now in NSR. TAVR workup will be performed outpatient. Elevated Anion Gap Acidosis - Patient with anion gap and tachypnea. - Likely metabolic acidosis with respiratory compensatory mechanisms. --- Resolved 02/14 Severe | HFrEF - Echo 07/2022 with EF 30-35%. Plan for TAVR in the future. - Patient fluid overloaded after 2L NS and 1u pRBCs aggressively diuresed now likely close to euvolemic. --- Closely monitor fluid status, diuresis as indicated, euvolemic on exam Recent cardiac stent placement 02/08 - Triple therapy w/ Apixaban, ASA, and Plavix planned following stenting, with indefinite Apixaban and Plavix - Apixaban held given hematoma --- Heparin gtt started 02/14 w/ goal to return to Apixaban once hematoma deemed stable Acute on chronic kidney disease - improving - Baseline around 2.2; creatinine at 2.79 upon admission - Likely pre-renal in the setting of hypovolemia with possible component of contrast induced nephropathy - Nephrology consulted, appreciate recommendations Creatinine rising, noted to be likely a/w arrhythmia requiring cardioversion Complicated urologic/urinary retention hx but this has been relative improved since prostate procedure 09/2021 Minimal response to Lasix 20 thus far, minimal UO w/o Lasix today --- Creatinine rising, anticipate improvement following successful SATYA/CV, nephrology following Hyperkalemia - Started on patiromer per nephro, has since normalized - Continue to monitor --- Potassium levels trending down today, continue follow closely Elevated troponin - In the setting of recent cardiac intervention, downtrending HTN - pt on metoprolol, lisinopril, and furosemide at home - continue holding antihypertensives in the setting of acute hypotension/hypovolemia UTI w/ Serratia - Ceftriaxone ongoing as of 02/13 Sleep Difficulties - Melatonin added PRN Code status: full DVT ppx: on ASA and plavix, holding apixaban, now on Heparin gtt FENGI: heart healthy Dispo: PCU/tele (2) Atrial flutter with rapid ventricular response: (3) Elevated troponin: (4) Acute on chronic renal failure: (5) HTN (hypertension), benign: (6) Severe calcific aortic stenosis: (7) S/P drug eluting coronary stent placement: (8) Lactate blood increase: (9) Hypovolemia: (10) CKD (chronic kidney disease): Admission and Anticipated Discharge Date Admission Date: February 10, 2023 Supervising Physician Co-Signing Physician Notes I personally examined the patient and verified all downey points of history and exam, discussed case, and agree with decision making with Dr Hammond Seen post cardioversionprocedure appears to have been successful. Patient sleepingappears to still be sedated. Vitals noted. Breathing unlabored. Rates now controlled. No focal neurodeficits at rest. Postprocedural complication with hemorrhagic shock Hypotension with acute blood loss anemia off phenylephrine drip. h/h overall stable after one PRBC 02/10. ARF hypoxic d/t Acute on chronic systolic heart failure Hopefully creatinine will start to improve now that he is in regular rhythmhopefully will have better forward flow to his kidneys. Severe Complicated his CHF picture as far as diastolic CHF while his rates were fast. Probably contributed to poor forward flow leading to his acute renal failure. CAD with recent stent ASA/Plavix, statin. Metoprolol. P A fib/flutter with RVR On amiodarone drip. HR 90s - 110. Apixaban on hold. Metoprolol added back. Now status post cardioversion CKD 4 Hyperkalemia Creat baseline 2.6-2.7. Renal followingcreatinine higher than baselinebut see above, between his RVR and the aortic stenosis, I suspect he was having poor forward flow, hopefully this will improve now that he is in sinus. K improved with lasix and patiromer. UTI with serratia Ceftriaxone 02/13. SCD otherwise as above Subjective 02/16: Patient denies any discomfort and was resting in bed with at bedside upon arrival. He notes that he remains tired following his procedure, but that he has been unable to sleep here. He denies any chest pain, dyspnea, headache, lightheadedness, nausea, fevers, chills, or diarrhea. His groin hematoma is w/o pain, he feels that his bruising has not worsened. Patient notes that his appetite is diminished, but requested chocolate milk. Review of Systems Review of Systems: As per HPI Physical Exam Physical Exam: Gen: Alert, pleasant, NAD, thin HEENT: NCAT, MMM CV: RRR, loud holosystolic murmur best heard LUSB present, cap refill <2s Resp: non-labored, lung sounds diminished, otherwise CTAB, no wheezing appreciated Abd: soft, non-distended, non-tender MSK: significant bruising right thigh, right hip, and groin extending into the scrotum (stable) Skin: no rashes noted Neuro: alert and oriented Psych: appropriate mood and affect Results & Data Results & Data Vital Signs (Past 12 Hours) Vital Signs Temp Pulse Resp BP Pulse Ox O2 Del Method 02/16/23 02:26 36.8 C 113 H 18 98/66 L 92 Room Air 02/15/23 23:15 36.6 C 98 H 20 112/73 97 Room Air 02/15/23 22:19 Room Air 02/15/23 19:13 36.6 C 103 H 16 95/63 L 97 Room Air Resident Activity Tracking Resident Involvement: Resident Care Provided Care Provided: Adult Hospital Medicine (4) Acute on chronic renal failure Acute renal failure type: unspecified Chronic kidney disease stage: unspecified stage Qualified Code(s): N17.9 - Acute kidney failure, unspecified; N18.9 - Chronic kidney disease, unspecified (10) CKD (chronic kidney disease) Chronic kidney disease stage: stage 3 (moderate) Chronic kidney disease stage 3 subtype: unspecified whether 3a or 3b Qualified Code(s): N18.30 - Chronic kidney disease, stage 3 unspecified"
[2023-02-16 06:43] LABS: Basophils # (auto) 0.04 K/uL (0.00-0.20); Basophils % (auto) 0.4 %; Eosinophils # (auto) 0.26 K/uL (0.00-0.50); Eosinophils % (auto) 2.4 %; Hematocrit (blood only) 29.7 % (42.0-52.0); Immature Granulocytes # (auto) 0.07 K/uL (0.01-0.20); Immature Granulocytes % (auto) 0.6 %; Lymphocytes # (auto) 1.08 K/uL (1.20-3.40); Lymphocytes % (auto) 9.9 %; Mean Corpuscular Hemoglobin 30.4 pg (25.0-34.0); Mean Corpuscular Hgb Conc 33.7 g/dL (32.0-36.0); Mean Corpuscular Volume 90.3 fL (80.0-100.0); Mean Platelet Volume 9.4 fL (9.4-12.4); Monocytes # (auto) 0.83 K/uL (0.11-0.59); Monocytes % (auto) 7.6 %; Neutrophils # (auto) 8.62 K/uL (1.40-6.50); Neutrophils % (auto) 79.1 %; Nucleated RBC # (auto) 0.02 K/uL (0.00-0.12); Nucleated RBC % (auto) 0.2 %; Platelet Count 226 K/uL (130-400); RDW Coefficient of Variation 14.9 % (11.5-14.5); RDW Standard Deviation 46.2 fL (36.4-46.3); Red Blood Count 3.29 M/uL (4.70-6.10)
[2023-02-16 07:06] LABS: Albumin Globulin Ratio 1.3 (0.9-2); Albumin Level 3.9 gm/dl (3.4-5.0); BUN Creatinine Ratio 21.2 (10-20); Bilirubin,Total 1.1 mg/dl (0.2-1.0); Calcium 9.3 mg/dl (8.6-10.3); Creatinine Clr Calc Pharmacy 15.1 ml/min; Est GFR (African American) 18.6 ml/min; Est GFR (Non-African American) 16.1 ml/min; Magnesium 2.1 mg/dl (1.7-2.4); Phosphorus 5.4 mg/dl (2.5-4.9); Potassium 4.6 mmol/L (3.5-5.1); Total Protein 6.9 gm/dl (6.0-8.3)
[2023-02-16 07:21] LABS: ANTI-Xa, UFH(UnfractionatedHep 1.03 IU/ml (0.3-0.7)
[2023-02-16] MEDS ORDERED: BENZOCAINE/TETRACAIN/BUTAM 50 APPLN/5 GM CAN EXT ONE (07:26)
[2023-02-16] MEDS ORDERED: PHENYLEPHRINE 100MCG/ML 10ML SYR IV ONE (08:39)
[2023-02-16] MEDS ORDERED: PROPOFOL IV EMULSION 10 MG/ML 20 ML VIAL IV ONE (08:39)
[2023-02-16] MEDS ORDERED: LIDOCAINE 2% 2 ML VIAL/AMP(20MG/ML) INFIL ONE (08:39)
--- NOTE | 2023-02-16 08:40 | Cardioversion ---
Date of Service February 16, 2023 Electrical Cardioversion Rpt Electrical Cardioversion Report Pre & Post Diagnosis Operation Date: 02/16/23 07:45 Procedure Preprocedure diagnosis: Rule out left atrial appendage thrombus, persistent atrial fibrillation with rapid ventricular response Postprocedure diagnosis: No left atrial appendage thrombus, successful conversion to sinus rhythm Transesophageal echocardiogram guided direct-current cardioversion procedure: After informed consent was obtained a timeout was performed the patient was sedated with the assistance of the anesthesia service receiving a total of 80 mg of IV lidocaine, 50 mg of IV propofol, and aliquots of phenylephrine for blood pressure support. A focused transesophageal echocardiogram was performed for risk stratification. No left atrial or left atrial appendage thrombus was visualized. A single image of the aortic valve in short axis was obtained revealing severe aortic valve calcification and severe aortic stenosis. The patient underwent direct-current cardioversion receiving a single dose of 150 J of biphasic energy with successful conversion to sinus rhythm. Field Identification Specialist See Rojas DO Leasing Professional Meggan Head, RCS Estimated Blood Loss 0 Findings Consistent with Post-Op Diagnosis as noted above Anesthesia Type MAC Complications none
--- NOTE | 2023-02-16 08:45 | Cardiology Progress Note ---
Date of Service February 16, 2023 Assessment & Plan (1) Ischemic cardiomyopathy: (2) Multi-vessel coronary artery stenosis: (3) S/P drug eluting coronary stent placement: (4) Elevated troponin: (5) Severe aortic stenosis: (6) Atrial fibrillation with rapid ventricular response: (7) CKD (chronic kidney disease): (8) Acute blood loss anemia: Plan IMPRESSION: Medically complex 82-year-old male with multivessel coronary disease/ischemic cardiomyopathy status post PCI 02/08/2023 at [facility] Known severe aortic stenosis currently in the process of TAVR workup. Presented 02/10/23 due to symptomatic hypotension found to have a small post procedure right groin hematoma--found to be anemic and 1 unit of PRBCs were transfused. PLAN: Multivessel CAD/Ischemic cardiomyopathy: -Multivessel coronary disease/ischemic cardiomyopathy status post PCI 02/08/2023 at [facility]. Post PCI complicated by acute blood loss anemia secondary to right groin hematoma. -LVEF 46% (per echo 12/09/2022) -Discontinue aspirin as of 02/16/2023 and proceed with clopidogrel plus Eliquis. Paroxysmal atrial fibrillation/flutter -Persistent AFIB on tele, rates 90-110s. -AC had been on hold due to groin hematoma. -heparin started , Hgb stable. -Continue amiodarone infusion, low-dose metoprolol tartrate with hold for heart rate less than 60 and systolic blood pressure less than 100 mmHg. -On midodrine, which is no ideal given the aortic stenosis and LV systolic dysfunction , however felt to be indicated for BP support. -Patient underwent focused transesophageal echocardiogram on 02/16/2023 with no left atrial or left atrial appendage thrombus. Direct-current cardioversion performed with successful conversion to sinus rhythm. -Patient to remain admitted on telemetry for further amiodarone loading. CKD with hyperkalemia -Potassium improved today status post administration of Veltassa on 02/15/2023. Creatinine slightly worse. -Maintain Dixon catheter 02/16/2023. Hold furosemide today. Severe Aortic stenosis -Confirmed on cardiac cath, currently in the process of TAVR workup with Dr. Segura. Would need to delay TAVR to allow 4 weeks of uninterrupted a nticoagulation post cardioversion. I spent a total of 45 minutes of critical care on the date of service in preparation, delivery, and documentation of the care provided to the patient excluding any time spent in the performance of separately billed services. Admission and Anticipated Discharge Date Admission Date: February 10, 2023 Subjective Patient seen in cardiology follow-up prior to, during, and post SATYA guided cardioversion. Per description of patient and his nurse from overnight, he had somewhat of a restless night with feelings of anxiety with regards to the upcoming procedure today. He remained in atrial fibrillation with elevated ventricular rate in the range of 100 to 120 bpm. Physical Exam Physical Exam: Temp Pulse Resp BP Pulse Ox O2 Del Method O2 Flow Rate 36.5 C 79 18 93/57 L 98 Oxymask 4 02/16/23 06:58 02/16/23 08:30 02/16/23 08:30 02/16/23 08:30 02/16/23 08:30 02/16/23 08:30 02/16/23 08:30 FiO2 6 02/11/23 00:04 Constitutional: + ill appearing and + thin; no acute dis tress Neck: normal visual inspection and trachea midline Respiratory: Auscultation: + diminished lung sounds (Mildly decreased breath sounds at the bases); no rales, no rhonchi and no wheezes Cardiovascular: Rate/Rhythm: + tachycardic and + irregularly irregular Heart Sounds: normal S1, normal S2 (diminished s2 ) and + murmur (+3/6 systolic murmur ) Vessels: dorsalis pedis pulses present; no JVD Extremities: no edema Gastrointestinal (Abdomen): normal bowel sounds, soft, nontender, no hepatosplenomegaly Skin: no rashes, warm and dry + ecchymosis (extenisive bruising of right groin extending to scrotum ) Psychiatric: A+Ox3, euthymic affect Results & Data Vital Signs (Past 12 Hours) Vital Signs Temp Pulse Resp BP Pulse Ox O2 Del Method O2 Flow Rate 02/16/23 08:30 79 18 93/57 L 98 Oxymask 4 02/16/23 07:45 118 H 16 105/78 92 Oxymask 2 02/16/23 06:58 36.5 C 113 H 19 104/71 95 Room Air 02/16/23 02:26 36.8 C 113 H 18 98/66 L 92 Room Air 02/15/23 23:15 36.6 C 98 H 20 112/73 97 Room Air 02/15/23 22:19 Room Air Laboratory Results Cardiac Enzymes 02/16/23 Range/Units 06:22 AST 22 (13-39) U/L CBC 02/16/23 Range/Units 06:22 WBC 10.90 H (4.8-10.8) K/ul RBC 3.29 L (4.70-6.10) M/uL Hgb 10.0 L (14.0-18.0) g/dl Hct 29.7 L (42.0-52.0) % Plt Count 226 (130-400) K/uL Neut # (Auto) 8.62 H (1.40-6.50) K/uL Lymph # (Auto) 1.08 L (1.20-3.40) K/uL [place] # (Auto) 0.83 H (0.11-0.59) K/uL Eos # (Auto) 0.26 (0.00-0.50) K/uL Baso # (Auto) 0.04 (0.00-0.20) K/uL Comprehensive Metabolic Panel 02/16/23 Range/Units 06:22 Sodium 136 (136-145) mmol/L Potassium 4.6 (3.5-5.1) mmol/L Chloride 101 (98-107) mmol/L Carbon Dioxide 20 L (21-32) mmol/L BUN 71 H (6-23) mg/dl Creatinine 3.35 H (0.6-1.4) mg/dl Glucose 150 H (70-99(Fasting)) mg/dl Calcium 9.3 (8.6-10.3) mg/dl AST 22 (13-39) U/L ALT 28 (7-52) U/L Alkaline Phosphatase 80 (34-104) U/L Total Protein 6.9 (6.0-8.3) gm/dl Albumin 3.9 (3.4-5.0) gm/dl Intake and Output 02/15/23 02/16/23 02/16/23 22:59 06:59 14:59 Intake Total 601.582 / 1766.782 395.2 / 1766.782 Output Total 401 / 926 250 / 926 Balance 200.582 / 840.782 145.2 / 840.782 Intake: IV 501.582 / 946.782 395.2 / 946.782 Amiodarone / D5w 360 mg In 200 196.782 / 396.782 200 / 396.782 ml @ 0.5 MG/MIN 16.667 mls/hr IV .Q12H [facility] Rx#:[id number] Heparin Sodium/Dextrose 25,000 304.8 / 500.0 195.2 / 500.0 units In 500 ml @ 1,200 UNITS/ HR 24 mls/hr IV .[id number] [facility] Rx #:[id number] Oral 100 / 820 Output: Urine Amount (Catheter) 400 / 925 250 / 925 Dixon/Indwelling 400 / 925 250 / 925 # Bowel Movements Other: Other Intake Source Patient is NPO Weight 70.2 kg 70.2 kg Weight Measurement Method Built in [facility] Patient Weight 02/17/23 06:59 Weight 70.2 kg (7) CKD (chronic kidney disease) Chronic kidney disease stage: stage 3 (moderate) Chronic kidney disease stage 3 subtype: unspecified whether 3a or 3b Qualified Code(s): N18.30 - Chronic kidney disease, stage 3 unspecified
--- NOTE | 2023-02-16 09:06 | Anesthesiology Progress Note ---
Date of Service February 16, 2023 Anesthesia Post Procedure Vital Signs Vital Signs: Temp Pulse Resp BP Pulse Ox O2 Del Method O2 Flow Rate 02/16/23 08:45 78 18 92/61 L 98 Oxymask 4 02/16/23 08:30 79 18 93/57 L 98 Oxymask 4 02/16/23 07:45 118 H 16 105/78 92 Oxymask 2 02/16/23 06:58 36.5 C 113 H 19 104/71 95 Room Air 02/16/23 02:26 36.8 C 113 H 18 98/66 L 92 Room Air 02/15/23 23:15 36.6 C 98 H 20 112/73 97 Room Air 02/15/23 22:19 Room Air 02/15/23 19:13 36.6 C 103 H 16 95/63 L 97 Room Air 02/15/23 15:12 36.5 C 114 H 19 99/69 L 97 Room Air 02/15/23 11:11 36.5 C 113 H 19 116/87 95 Room Air Transfer of Care Handoff Completed per policy Notes Mental Status: alert / awake / arousable Patient Amnestic to Procedure: Yes Nausea / Vomiting: adequately controlled Pain: adequately controlled Airway Patency, RR, SpO2: stable & adequate BP & HR: stable & adequate Hydration State: stable & adequate Anesthetic Complications: no major complications apparent
[2023-02-16] MEDS: PANTOprazole 40 MG in SYRINGE 0 ML IV SCH ×2 (10:13→19:32)
[2023-02-16] MEDS: ATORVASTATIN 40 MG TAB PO SCH (10:34)
[2023-02-16] MEDS: MIDODRINE HCL 2.5 MG TAB PO SCH ×3 (10:34→16:43)
[2023-02-16] MEDS: CLOPIDOGREL BISULFATE 75 MG TAB PO SCH (10:34)
[2023-02-16] MEDS: APIXABAN 2.5 MG TAB PO SCH ×2 (10:34→19:32)
[2023-02-16] MEDS: METOPROLOL TARTRATE 25 MG TAB PO SCH ×2 (10:37→19:32)
[2023-02-16] MEDS: cefTRIAXone SODIUM 2,000 MG in DEXTROSE 5 % MINI-B 50 ML IV SCH (10:55)
--- NOTE | 2023-02-16 13:57 | Nephrology Progress Note ---
Date of Service February 16, 2023 Assessment & Plan Admission and Anticipated Discharge Date Admission Date: February 10, 2023 Subjective Assessment & Plan (1) Hyperkalemia: Now normal after lasix and patiromer. (2) CKD (chronic kidney disease) stage 4, GFR 15-29 ml/min: baseline creatinine 2.6-2.7 since August 2022. complicated urologic/urinary retention hx but this has been relative improved since prostate procedure 2021. Currently renal function at baseline daily bmp avoid IV contrast unless life/limb/heart muscle saving no indication for dialysis discussion currently (3) Ischemic cardiomyopathy: per cardiology; complex heart patient w/ multiple comorbidities strict I/O, Severe in need of TAVR. Creat has continued to rise regardless of lasix ( has not got lasix now for 2 days) because of Afibb/RVR/Low BP last few days. Now S/p cardioversion and NSR with Good HR--hopefully renal function will get better now His more recent baseline creat is more like mid to high 2's. urine output has been low even with lasix 20 and now without lasix quite low urine output. S--had SATYA and then Cardioversion earlier today. Now in SR and BP slightly better. No lasix for 2 days now. making urine--low amount. very weak. Physical Exam Physical Exam: AAOx3; NAD Eyes: PERRL, conjunctivae normal, anicteric sclerae Neck: No JVD. Respiratory: Decreased breath sounds b/l bases. Cardiovascular: regular; S1+S2; (+) murmur Musculoskeletal: No lower extremity edema Skin: R-groin with large hematoma; stable Results & Data Vital Signs (Past 12 Hours) Vital Signs Temp Pulse Resp BP BP Pulse Ox O2 Del Method 02/16/23 11:16 36.5 C 86 18 102/70 95 Room Air 02/16/23 09:46 Oxymask 02/16/23 09:41 79 19 104/67 98 Nasal Cannula 02/16/23 09:30 36.4 C L 79 21 95/62 L 99 Oxymask 02/16/23 09:00 79 18 102/62 98 Oxymask 02/16/23 08:45 78 18 92/61 L 98 Oxymask 02/16/23 08:30 79 18 93/57 L 98 Oxymask 02/16/23 07:45 118 H 16 105/78 92 Oxymask 02/16/23 06:58 36.5 C 113 H 19 104/71 95 Room Air 02/16/23 02:26 36.8 C 113 H 18 98/66 L 92 Room Air O2 Flow Rate 02/16/23 11:16 02/16/23 09:46 2 02/16/23 09:41 2 02/16/23 09:30 3 02/16/23 09:00 2 02/16/23 08:45 4 02/16/23 08:30 4 02/16/23 07:45 2 02/16/23 06:58 02/16/23 02:26
--- NOTE | 2023-02-16 14:27 | Billing Data ---
Date of Service February 16, 2023 Coding Level of Care Code 20529 SUB INP/OBS CARE
--- NOTE | 2023-02-16 15:38 | Communication Note ---
Date of Service: February 16, 2023 pt reassessed. Spouse, Oanh , at bedside. He is mentating well. No neuro deficits. Off of oxygen. Laying supine. Remains in SR in the 70s. Add PO amiodarone to infusion. Updates provided to Oanh.
[2023-02-16 16:25] LABS: ANTI-Xa, UFH(UnfractionatedHep 0.79 IU/ml (0.3-0.7)
[2023-02-16] MEDS: AMIODARONE 200 MG TAB PO SCH (16:43)
[2023-02-16] MEDS: MELATONIN 3 MG TAB PO PRN (19:32)
[2023-02-17] MEDS: AMIODARONE / D5W 360 MG/200 ML BAG IV SCH (02:09)
--- NOTE | 2023-02-17 07:09 | Hospitalist Progress Note ---
"Date of Service February 17, 2023 Assessment & Plan (1) Symptomatic anemia: Plan: Pt is a 82 y/o male with PMH of severe , urinary retention, HLD, HTN, and recent cardiac stent placement 02/08 at [facility] presenting to the hospital 02/10 due to dizziness and hypotension. Hypotension | Acute blood loss anemia - Hemorrhagic hypovolemia likely 2/2 ABLA in the setting of recent right femoral groin access for cardiac cath at [facility] on 02/08 - Discharge hemoglobin was 9.1 - CTAP with signs of a small hemorrhage - extravasation limited by lack of IV contrast as patient with CKD3-4; Duplex of groin without signs of pseudoa neurysm. - Patient fluid resuscitated initially with 2L NS and 1u pRBCs. Hemoglobin stable. - Patient currently maintaining MAP > 65 without phenylephrine support. Monitor BPs closely. - De-escalation to PCU 02/14 --- Continue close monitoring of Hemoglobin (9.3 02/16) and BP (likely lower in setting of , MAP currently >65) Paroxysmal AFib/Flutter w/ RVR - Likely component of reactive tachycardia in setting of hypovolemia - Amiodarone gtt ongoing, Metoprolol restarted for rate control 02/14 - AC held given grion hematoma, now starting Heparin gtt - Cardiology consulted, appreciate recommendations - Ongoing Midodrine for BP support (per ICU), monitor closely, not idea given /LV dysfunction (per Cardiology) - Successful SATYA/cardioversion, now in NSR. TAVR workup will be performed outpatient. --- Patient remains in sinus Elevated Anion Gap Acidosis - Patient with anion gap and tachypnea. - Likely metabolic acidosis with respiratory compensatory mechanisms. --- Resolved 02/14 Severe | HFrEF - Echo 07/2022 with EF 30-35%. Plan for TAVR in the future. - Patient fluid overloaded after 2L NS and 1u pRBCs aggressively diuresed now likely close to euvolemic. --- Cardiology/Nephrology opting to hold IVF at this time, encourage PO fluid intake, continue to monitor fluid status, suspect pt. remains dry Recent cardiac stent placement 02/08 - Triple therapy w/ Apixaban, ASA, and Plavix planned following stenting, with indefinite Apixaban and Plavix - Apixaban held given hematoma --- Started on Eliquis, continue to monitor bleeding, patient with self limited epistaxis this AM Acute on chronic kidney disease - improving - Baseline around 2.2; creatinine at 2.79 upon admission - Likely pre-renal in the setting of hypovolemia with possible component of contrast induced nephropathy - Nephrology consulted, appreciate recommendations Creatinine rising, noted to be likely a/w arrhythmia requiring cardioversion Complicated urologic/urinary retention hx but this has been relative improved since prostate procedure 09/2021 Minimal response to Lasix 20 thus far, minimal UO w/o Lasix today - Anticipate acute improvement following successful SATYA/CV --- Creatinine continue to rise, Cardiology/Nephrology opting to hold off IVF at this time, encouraging PO fluids at this time Hyperkalemia | Hyperphosphatemia - Started on patiromer per nephro, K has since normalized - Phosphate levels rising in setting of CKD4, Calcium levels normal, patient asymptomatic - Continue to monitor --- Potassium level stable, Phosphorous levels rising, Calcium levels normal, following closely Elevated troponin - In the setting of recent cardiac intervention, downtrending HTN - pt on metoprolol, lisinopril, and furosemide at home - continue holding antihypertensives in the setting of acute hypotension/hypovolemia UTI w/ Serratia - Ceftriaxone ongoing as of 02/13 Sleep Difficulties - Melatonin added PRN, improvement noted Code status: full DVT ppx: on ASA and plavix, now on Eliquis FENGI: heart healthy Dispo: PCU/tele (2) Atrial flutter with rapid ventricular response: (3) Elevated troponin: (4) Acute on chronic renal failure: (5) HTN (hypertension), benign: (6) Severe calcific aortic stenosis: (7) S/P drug eluting coronary stent placement: (8) Lactate blood increase: (9) Hypovolemia: (10) CKD (chronic kidney disease): Admission and Anticipated Discharge Date Admission Date: February 10, 2023 Supervising Physician Co-Signing Physician Notes I personally examined the patient and verified all downey points of history and exam, discussed case, and agree with decision making with Dr Hammond poor appetite didn't eat much. feeling fairly weak/tired. vitals noted nad heent nc at mmm breathing unlabored no accessory muscles good effort skin no nirali hes no pallor or icterus neuro no focal deficits Postprocedural complication with hemorrhagic shock Hypotension with acute blood loss anemia off phenylephrine drip. h/h overall stable after one PRBC 02/10. ARF hypoxic d/t Acute on chronic systolic heart failure Hopefully creatinine will start to improve now that he is in regular rhythmhopefully will have better forward flow to his kidneys. Severe Complicated his CHF picture as far as diastolic CHF while his rates were fast. Probably contributed to poor forward flow leading to his acute renal failure. CAD with recent stent ASA/Plavix, statin. Metoprolol. P A fib/flutter with RVR On amiodarone drip. HR 90s - 110. Apixaban on hold. Metoprolol added back. Now status post cardioversion CKD 4 Hyperkalemia Creat baseline 2.6-2.7. Renal followingcreatinine higher than baselinebut see above, between his RVR and the aortic stenosis, I suspect he was having poor forward flow, hopefully this will improve now that he is in sinus. K improved with lasix and patiromer. UTI with serratia Ceftriaxone 02/13. suspect dry. cardio/renal opting to hold off on IVF for now; follow closely, encourage pO intake both for hydration and calories SCD otherwise as above Subjective 02/17: Patient denies any chest pain or dyspnea. He notes that he slept better last night following melatonin, but that he is still very tired. He denies any groin pain or enlargement of hematoma, his bruising is stable. Appetite remains diminished, but agreeable to drink more water. Patient endorses epistaxis this morning, but it stopped independently of intervention. Review of Systems Review of Systems: As per HPI Physical Exam Physical Exam: Gen: Alert, pleasant, NAD, thin HEENT: NCAT, MMM - Dried blood around right nare CV: RRR, loud holosystolic murmur best heard LUSB present, cap refill <2s Resp: non-labored, lung sounds diminished, otherwise CTAB, no wheezing appre ciated Abd: soft, non-distended, non-tender MSK: significant bruising right thigh, right hip, and groin extending into the scrotum (stable) Skin: no rashes noted Neuro: alert and oriented Psych: appropriate mood and affect Results & Data Results & Data Vital Signs (Past 12 Hours) Vital Signs Temp Pulse Pulse Pulse Resp BP Pulse Ox 02/17/23 06:50 69 02/17/23 04:34 36.4 C L 68 18 95/61 L 92 02/16/23 23:42 36.5 C 74 18 102/68 92 02/16/23 23:27 67 02/16/23 20:00 02/16/23 19:33 36.3 C L 89 20 115/78 94 O2 Del Method 02/17/23 06:50 02/17/23 04:34 Room Air 02/16/23 23:42 Room Air 02/16/23 23:27 02/16/23 20:00 Room Air 02/16/23 19:33 Room Air Resident Activity Tracking Resident Involvement: Resident Care Provided Care Provided: Adult Hospital Medicine (4) Acute on chronic renal failure Acute renal failure type: unspecified Chronic kidney disease stage: unspecified stage Qualified Code(s): N17.9 - Acute kidney failure, unspecified; N18.9 - Chronic kidney disease, unspecified (10) CKD (chronic kidney disease) Chronic kidney disease stage: stage 3 (moderate) Chronic kidney disease stage 3 subtype: unspecified whether 3a or 3b Qualified Code(s): N18.30 - Chronic kidney disease, stage 3 unspecified"
[2023-02-17] MEDS: AMIODARONE 200 MG TAB PO SCH ×2 (07:18→16:28)
[2023-02-17] MEDS: MIDODRINE HCL 2.5 MG TAB PO SCH ×3 (07:18→16:28)
[2023-02-17 07:32] LABS: Basophils # (auto) 0.03 K/uL (0.00-0.20); Basophils % (auto) 0.3 %; Hematocrit (blood only) 28.2 % (42.0-52.0); Hemoglobin 9.3 g/dl (14.0-18.0); Immature Granulocytes # (auto) 0.07 K/uL (0.01-0.20); Immature Granulocytes % (auto) 0.7 %; Lymphocytes # (auto) 0.79 K/uL (1.20-3.40); Lymphocytes % (auto) 7.7 %; Mean Corpuscular Hemoglobin 30.2 pg (25.0-34.0); Mean Corpuscular Volume 91.6 fL (80.0-100.0); Mean Platelet Volume 9.9 fL (9.4-12.4); Monocytes # (auto) 0.79 K/uL (0.11-0.59); Monocytes % (auto) 7.7 %; Neutrophils # (auto) 8.43 K/uL (1.40-6.50); Neutrophils % (auto) 82.6 %; Nucleated RBC # (auto) 0.02 K/uL (0.00-0.12); Nucleated RBC % (auto) 0.2 %; Platelet Count 218 K/uL (130-400); RDW Coefficient of Variation 15.1 % (11.5-14.5); RDW Standard Deviation 47.1 fL (36.4-46.3); Red Blood Count 3.08 M/uL (4.70-6.10); White Blood Count 10.21 K/ul (4.8-10.8)
[2023-02-17 08:12] LABS: Albumin Level 3.7 gm/dl (3.4-5.0); Bilirubin,Total 1.1 mg/dl (0.2-1.0); Calcium 8.9 mg/dl (8.6-10.3); Magnesium 2.2 mg/dl (1.7-2.4); Potassium 4.5 mmol/L (3.5-5.1)
[2023-02-17] MEDS: PANTOprazole 40 MG in SYRINGE 0 ML IV SCH ×2 (08:15→19:19)
[2023-02-17] MEDS: CLOPIDOGREL BISULFATE 75 MG TAB PO SCH (08:16)
[2023-02-17] MEDS: METOPROLOL TARTRATE 25 MG TAB PO SCH ×2 (08:16→19:18)
[2023-02-17] MEDS: ATORVASTATIN 40 MG TAB PO SCH (08:16)
[2023-02-17] MEDS: APIXABAN 2.5 MG TAB PO SCH ×2 (08:16→19:19)
[2023-02-17 08:18] LABS: Albumin Globulin Ratio 1.4 (0.9-2); BUN Creatinine Ratio 21.3 (10-20); Creatinine Clr Calc Pharmacy 13.6 ml/min; Est GFR (African American) 16.5 ml/min; Est GFR (Non-African American) 14.2 ml/min; Globulin 2.6 gm/dl (2.5-4.0); Phosphorus 6.4 mg/dl (2.5-4.9); Total Protein 6.3 gm/dl (6.0-8.3)
--- NOTE | 2023-02-17 08:29 | Communication Note ---
Date of Service: February 17, 2023 Creatinine has trended up to 3.7 mg/dl. Pt remained in SR in the 60s to 70 since cardioversion am of 02/16/23. -DC IV amiodarone. -Portable CXR ordered-will review prior to consideration of gentle IV fluids. -maintain Dixon catheter pending above.
[2023-02-17] MEDS: cefTRIAXone SODIUM 2,000 MG in DEXTROSE 5 % MINI-B 50 ML IV SCH (09:21)
--- NOTE | 2023-02-17 09:27 | XRay Report ---
XR chest 1V portable HISTORY: Shortness of breath. Follow-up congestive heart failure. COMPARISON: Chest 02/11/2023. FINDINGS: No pneumothorax. The heart remains mildly enlarged. Perihilar interstitial/vascular thicken ing has slightly improved. This is consistent with mild pulmonary edema. No new focal lung consolidat ions identified. There is a trace right pleural effusion. Calcifications within the aortic knob. No a cute fractures. IMPRESSION: Cardiomegaly with mild interstitial pulmonary edema and a trace right pleural effusion. This has slig htly improved. ACT 112: Negative or not required by law. Electronically signed by: Selvin Angel M.D. 02/17/2023 9:24 AM
--- NOTE | 2023-02-17 10:25 | Nephrology Progress Note ---
Date of Service February 17, 2023 Assessment & Plan Admission and Anticipated Discharge Date Admission Date: February 10, 2023 Subjective Assessment & Plan (1) Hyperkalemia: Now normal after lasix and patiromer. (2) CKD (chronic kidney disease) stage 4, GFR 15-29 ml/min: baseline creatinine 2.6-2.7 since August 2022. complicated urologic/urinary retention hx but this has been relative improved since prostate procedure 2021. Currently renal function at baseline daily bmp avoid IV contrast unless life/limb/heart muscle saving no indication for dialysis discussion currently (3) Ischemic cardiomyopathy: per cardiology; complex heart patient w/ multiple comorbidities strict I/O, Severe in need of TAVR. Creat has continued to rise because of Afibb/RVR/Low BP last few days. he has ATN from this and as a result creat still rising. pre existing CKD 4 makes his renal prognosis bad. CXR reviewed--has Pulm congestion Now S/p cardioversion and NSR with Good HR--But no renal recovery yet His more recent baseline creat is more like mid to high 2's. Now up to 3.7 urine output has been low. No lasix and no Fluid today. S--had SATYA and then Cardioversion yesterday. BP still low and feels very weak. No lasix for 3 days now. making urine--low amount. renal labs still worsening. Physical Exam Physical Exam: AAOx3; NAD Eyes: PERRL, conjunctivae normal, anicteric sclerae Neck: No JVD. Respiratory: Decreased breath sounds b/l bases. Cardiovascular: regular; S1+S2; (+) murmur Musculoskeletal: No lower extremity edema Skin: R-groin with large hematoma; stable Results & Data Vital Signs (Past 12 Hours) Vital Signs Temp Pulse Pulse Resp BP Pulse Ox O2 Del Method 02/17/23 08:26 36.4 C L 67 18 86/61 L 91 Room Air 02/17/23 07:28 Room Air 02/17/23 07:16 36.7 C 69 18 100/63 96 Room Air 02/17/23 06:50 69 02/17/23 04:34 36.4 C L 68 18 95/61 L 92 Room Air 02/16/23 23:42 36.5 C 74 18 102/68 92 Room Air 02/16/23 23:27 67
[2023-02-17] MEDS ORDERED: LACTATED RINGER'S 1,000 ML IV SCH (10:45)
--- NOTE | 2023-02-17 12:27 | Cardiology Progress Note ---
Date of Service February 17, 2023 Assessment & Plan (1) Hypotension: (2) Multi-vessel coronary artery stenosis: (3) Severe calcific aortic stenosis: (4) Ischemic cardiomyopathy: (5) Atrial fibrillation with rapid ventricular response: (6) CKD (chronic kidney disease) stage 4, GFR 15-29 ml/min: Plan -Continue clopidogrel plus Eliquis even recent left main/right coronary artery stents and atrial fibrillation with transesophageal echocardiogram guided cardioversion 02/16/2023 -Continue metoprolol tartrate 12.5 mg twice daily with holds for heart rate less than 65 systolic blood pressure less than 100. -Although midodrine not ideal, reasonable at present for blood pressure support. -Patient with subjective dizziness, mild hypotension, but chest x-ray still reveals interstitial edema. Nephrology input noted and appreciated. At present, will hold off on both diuretic therapy and and administering IV fluids. -Dixon catheter to remain in place today. Admission and Anticipated Discharge Date Admission Date: February 10, 2023 Subjective Patient seen in cardiology follow-up. Does not feel any better than 2 days ago. Remains in sinus rhythm having undergone transesophageal echocardiogram guided cardioversion yesterday 02/16/2023. Sinus rhythm present on telemetry. Hypotension still noted with systolic blood pressures in the 90s, and occasional readings lower than that. Notes subjective dizziness. Physical Exam Physical Exam: Constitutional: + ill appearing a nd + thin; no acut e distress Neck: normal visual insp ection and trachea midline Respiratory: Auscultation: + di minished lung soun ds (Mildly decreas ed breath sounds a t the bases); no r ales, no rhonchi a nd no wheezes Cardiovascular: Regular rate and r hythm, 2/6 systoli c murmur with dimi nished second hear t sound, no edema, ongoing ecchymosi s from right groin hematoma which is unchanged Gastrointestinal ( Abdomen): normal bowel sound s, soft, nontender , no hepatosplenom egaly Skin: no rashes, warm an d dry + ecchymosi s (extenisive brui sing of right groi n extending to scr otum ) : Dixon catheter in place draining clear yellow urine Results & Data Vital Signs (Past 12 Hours) Vital Signs Temp Pulse Pulse Resp BP Pulse Ox O2 Del Method 02/17/23 11:44 36.7 C 63 20 92/63 L 92 Room Air 02/17/23 08:26 36.4 C L 67 18 86/61 L 91 Room Air 02/17/23 07:28 Room Air 02/17/23 07:16 36.7 C 69 18 100/63 96 Room Air 02/17/23 06:50 69 02/17/23 04:34 36.4 C L 68 18 95/61 L 92 Room Air Laboratory Results Cardiac Enzymes 02/17/23 Range/Units 06:08 AST 120 H (13-39) U/L CBC 02/17/23 Range/Units 06:08 WBC 10.21 (4.8-10.8) K/ul RBC 3.08 L (4.70-6.10) M/uL Hgb 9.3 L (14.0-18.0) g/dl Hct 28.2 L (42.0-52.0) % Plt Count 218 (130-400) K/uL Neut # (Auto) 8.43 H (1.40-6.50) K/uL Lymph # (Auto) 0.79 L (1.20-3.40) K/uL [place] # (Auto) 0.79 H (0.11-0.59) K/uL Eos # (Auto) 0.10 (0.00-0.50) K/uL Baso # (Auto) 0.03 (0.00-0.20) K/uL Comprehensive Metabolic Panel 02/17/23 Range/Units 06:08 Sodium 135 L (136-145) mmol/L Potassium 4.5 (3.5-5.1) mmol/L Chloride 101 (98-107) mmol/L Carbon Dioxide 16 L (21-32) mmol/L BUN 79 H (6-23) mg/dl Creatinine 3.71 H D (0.6-1.4) mg/dl Glucose 132 H (70-99(Fasting)) mg/dl Calcium 8.9 (8.6-10.3) mg/dl AST 120 H (13-39) U/L ALT 117 H (7-52) U/L Alkaline Phosphatase 76 (34-104) U/L Total Protein 6.3 (6.0-8.3) gm/dl Albumin 3.7 (3.4-5.0) gm/dl (1) Hypotension Hypotension type: unspecified hypotension type Qualified Code(s): I95.9 - Hypotension, unspecified
--- NOTE | 2023-02-17 13:13 | Billing Data ---
Date of Service February 17, 2023 Coding Level of Care Code 78525 SUB INP/OBS CARE
[2023-02-17] MEDS: MELATONIN 3 MG TAB PO PRN (19:19)
--- NOTE | 2023-02-18 07:32 | Hospitalist Progress Note ---
"Date of Service February 18, 2023 Assessment & Plan (1) Symptomatic anemia: Plan: Pt is a 82 y/o male with PMH of severe , urinary retention, HLD, HTN, and recent cardiac stent placement 02/08 at [facility] presenting to the hospital 02/10 due to dizziness and hypotension. Hypotension | Acute blood loss anemia - Hemorrhagic hypovolemia likely 2/2 ABLA in the setting of recent right femoral groin access for cardiac cath at [facility] on 02/08 - Discharge hemoglobin was 9.1 - CTAP with signs of a small hemorrhage - extravasation limited by lack of IV contrast as patient with CKD3-4; Duplex of groin without signs of pseudoa neurysm. - Patient fluid resuscitated initially with 2L NS and 1u pRBCs. Hemoglobin stable. - Patient currently maintaining MAP > 65 without phenylephrine support. Monitor BPs closely. - De-escalation to PCU 02/14 --- Continue close monitoring of Hemoglobin (8.7 02/18) and BP (likely lower in setting of severe , MAP currently >65) Paroxysmal AFib/Flutter w/ RVR - Likely component of reactive tachycardia in setting of hypovolemia - Amiodarone gtt ongoing, Metoprolol restarted for rate control 02/14 - AC held given grion hematoma, now starting Heparin gtt - Cardiology consulted, appreciate recommendations - Ongoing Midodrine for BP support (per ICU), monitor closely, not idea given /LV dysfunction (per Cardiology) - Successful SATYA/cardioversion, now in NSR. TAVR workup will be performed outpatient. --- Patient remains in sinus, HR stable Elevated Anion Gap Acidosis - Patient with anion gap and tachypnea. - Likely metabolic acidosis with respiratory compensatory mechanisms. --- Resolved 02/14 Severe | HFrEF - Echo 07/2022 with EF 30-35%. Plan for TAVR in the future. - Patient fluid overloaded after 2L NS and 1u pRBCs aggressively diuresed now likely close to euvolemic. --- Cardiology/Nephrology agree to proceed w/ light IVF at this time, encourage PO fluid intake, continue to monitor fluid status, suspect pt. remains dry --- Anticipated TAVR procedure limited by worsening renal function and deteriorating clinical picture Recent cardiac stent placement 02/08 - Triple therapy w/ Apixaban, ASA, and Plavix planned following stenting, with indefinite Apixaban and Plavix - Apixaban held given hematoma --- Started on Eliquis, returned to Heparin ggt given worsening renal function Acute on chronic kidney disease - improving - Baseline around 2.2; creatinine at 2.79 upon admission - Likely pre-renal in the setting of hypovolemia with possible component of contrast induced nephropathy - Nephrology consulted, appreciate recommendations Creatinine rising, noted to be likely a/w arrhythmia requiring cardioversion Complicated urologic/urinary retention hx but this has been relative improved since prostate procedure 09/2021 Minimal response to Lasix 20 thus far, minimal UO w/o Lasix today - Anticipate acute improvement following successful SATYA/CV --- Creatinine continue to rise, Cardiology/Nephrology opting to start IVF at this time, poor renal prognosis --- Patient currently declining dialysis, but willing to continue discussing with Hyperkalemia | Hyperphosphatemia - Started on patiromer per nephro, K has since normalized - Phosphate levels rising in setting of CKD4, Calcium levels normal, patient asymptomatic - Continue to monitor --- Potassium level stable, Phosphorous levels rising, Calcium levels normal, following closely Elevated troponin - In the setting of recent cardiac intervention, downtrending HTN - pt on metoprolol, lisinopril, and furosemide at home - continue holding antihypertensives in the setting of acute hypotension/hypovolemia UTI w/ Serratia - Ceftriaxone ongoing as of 02/13 Sleep Difficulties - Melatonin added PRN, improvement noted Code status: full DVT ppx: on ASA and plavix, on Heparin ggt given kidney fxn FENGI: heart healthy Dispo: PCU/tele (2) Atrial flutter with rapid ventricular response: (3) Elevated troponin: (4) Acute on chronic renal failure: (5) HTN (hypertension), benign: (6) Severe calcific aortic stenosis: (7) S/P drug eluting coronary stent placement: (8) Lactate blood increase: (9) Hypovolemia: (10) CKD (chronic kidney disease): Admission and Anticipated Discharge Date Admission Date: February 10, 2023 Supervising Physician Co-Signing Physician Notes I personally examined the patient and verified all downey points of history and exam, discussed case, and agree with decision making with Dr Hammond Extensive discussions with cardiology, nephrology, and then patient/.. vitals noted nad heent nc at mmm breathing unlabored no accessory muscles good effort skin no rashes no pallor or icterus neuro no focal deficits Postprocedural complication with hemorrhagic shock Hypotension with acute blood loss anemia off phenylephrine drip. h/h overall stable after one PRBC 02/10. ARF hypoxic d/t Acute on chronic systolic heart failure Hopefully creatinine will start to improve now that he is in regular rhythmhopefully will have better forward flow to his kidneys. Severe Complicated his CHF picture as far as diastolic CHF while his rates were fast. Probably contributed to poor forward flow leading to his acute renal failure. CAD with recent stent ASA/Plavix, statin. Metoprolol. P A fib/flutter with RVR On amiodarone drip. HR 90s - 110. Apixaban on hold. Metoprolol added back. Now status post cardioversion CKD 4 With current acute renal failure/ATN Hyperkalemia Creat baseline 2.6-2.7. Renal followingcreatinine higher than baselinebut see above, between his RVR and the aortic stenosis, I suspect he was having poor forward flow, hopefully this will improve now that he is in sinus. K improved with lasix and patiromer. UTI with serratia Ceftriaxone 02/13. clinical status very concerning. Discussed with patient and quite frankly overall poor prognosis, discussed that his aortic stenosis is probably central to his decline, but that right now he is likely too brittle/too ill to be able to tolerate a TAVR; with his renal failure, he may require dialysis and would definitely require ongoing aggressive supportive care to try to get him to where he might be able to tolerate a TAVR, and even then it might not be enough to get him to where he could. Because of this, it would be really reasonable for them to also consider hospice; they will discuss further. If he would prefer the aggressive care model, will want to transfer back to [facility] given the ability to do CRRT if he needs dialysis (given his low blood pressures), and given the ability to perform a TAVR they are when/if he should reached the point of stability. At the same time, I would not at all be surprised if he opts to go in a hospice direction. SCD otherwise as above Subjective 02/18: Patient resting in bed upon arrival, after eating small amount of breakfast. Patient notes feeling increasingly lightheaded and fatigued. He denies any chest pain or dyspnea. He denies pain in his groin or expansion of hematoma. Patient denies fevers or chills. He continues to endorse poor appetite for food or desire to drink. Review of Systems Review of Systems: As per HPI Physical Exam Physical Exam: Gen: Alert, NAD, thin, fatigued HEENT: NCAT, dry MM CV: RRR, loud holosystolic murmur best heard LUSB present, cap refill <2s Resp: non-labored, lung sounds diminished, otherwise CTAB, no wheezing appreciated Abd: soft, non-distended, non-tender MSK: significant bruising right thigh, right hip, and groin extending into the scrotum (stable) Skin: no rashes noted Neuro: alert and oriented Psych: appropriate mood and affect Results & Data Results & Data Vital Signs (Past 12 Hours) Vital Signs Temp Pulse Pulse Pulse Resp BP Pulse Ox 02/18/23 02:56 36.6 C 71 22 109/69 96 02/17/23 23:00 68 02/17/23 22:29 37.4 C 65 24 109/74 97 O2 Del Method 02/18/23 02:56 Room Air 02/17/23 23:00 02/17/23 22:29 Room Air Resident Activity Tracking Resident Involvement: Resident Care Provided Care Provided: Adult Hospital Medicine (4) Acute on chronic renal failure Acute renal failure type: unspecified Chronic kidney disease stage: unspecified stage Qualified Code(s): N17.9 - Acute kidney failure, unspecified; N18.9 - Chronic kidney disease, unspecified (10) CKD (chronic kidney disease) Chronic kidney disease stage: stage 3 (moderate) Chronic kidney disease stage 3 subtype: unspecified whether 3a or 3b Qualified Code(s): N18.30 - Chronic kidney disease, stage 3 unspecified"
[2023-02-18 07:52] LABS: Hematocrit (blood only) 27.1 % (42.0-52.0); Hemoglobin 8.7 g/dl (14.0-18.0); Mean Corpuscular Hemoglobin 29.7 pg (25.0-34.0); Mean Corpuscular Hgb Conc 32.1 g/dL (32.0-36.0); Mean Corpuscular Volume 92.5 fL (80.0-100.0); Mean Platelet Volume 10.1 fL (9.4-12.4); Nucleated RBC # (auto) 0.04 K/uL (0.00-0.12); Nucleated RBC % (auto) 0.3 %; Platelet Count 205 K/uL (130-400); RDW Coefficient of Variation 15.5 % (11.5-14.5); Red Blood Count 2.93 M/uL (4.70-6.10); White Blood Count 12.13 K/ul (4.8-10.8)
[2023-02-18 07:58] LABS: BUN Creatinine Ratio 19.4 (10-20); Calcium 8.8 mg/dl (8.6-10.3); Creatinine Clr Calc Pharmacy 10.8 ml/min; Est GFR (African American) 12.4 ml/min; Est GFR (Non-African American) 10.7 ml/min; Potassium 4.7 mmol/L (3.5-5.1)
[2023-02-18] MEDS: ATORVASTATIN 40 MG TAB PO SCH (08:27)
[2023-02-18] MEDS: MIDODRINE HCL 2.5 MG TAB PO SCH ×3 (08:28→16:06)
[2023-02-18] MEDS: APIXABAN 2.5 MG TAB PO SCH (08:28)
[2023-02-18] MEDS: AMIODARONE 200 MG TAB PO SCH ×2 (08:28→16:06)
[2023-02-18] MEDS: METOPROLOL TARTRATE 25 MG TAB PO SCH ×2 (08:29→21:53)
[2023-02-18] MEDS: CLOPIDOGREL BISULFATE 75 MG TAB PO SCH (08:30)
[2023-02-18] MEDS: PANTOprazole 40 MG in SYRINGE 0 ML IV SCH ×2 (08:30→21:54)
[2023-02-18] MEDS: SODIUM CHLORIDE 0.9% 1,000 ML IV SCH (09:31)
--- NOTE | 2023-02-18 10:39 | Nephrology Progress Note ---
Date of Service February 18, 2023 Assessment & Plan Admission and Anticipated Discharge Date Admission Date: February 10, 2023 Subjective Assessment & Plan (1) Hyperkalemia: Now normal after lasix and patiromer. (2) CKD (chronic kidney disease) stage 4, GFR 15-29 ml/min: baseline creatinine 2.6-2.7 since August 2022. complicated urologic/urinary retention hx but this has been relative improved since prostate procedure 2021. Currently renal function at baseline daily bmp (3) Ischemic cardiomyopathy: per cardiology; complex heart patient w/ multiple comorbidities strict I/O, Severe in need of TAVR. Creat has continued to rise because of Afibb/RVR/Low BP last few days. He has ATN on top of worsening cardiorenal picture and as a result creat still rising. Pre existing CKD 4 makes his renal prognosis bad. CXR reviewed--has Pulm congestion Now S/p cardioversion and NSR with Good HR--But no renal recovery yet His more recent baseline creat is more like mid to high 2's. Now up to 4.2. urine output has been low. we had a good discussion with cardiology hospitalist and nephrology and extensively reviewed the case. We also discussed as a group with the patient about the fact that we are in a very tricky situation with bad cardiac status and now worsening kidney function. Patient says he does not want dialysis. He also looks very weak and frail and doing dialysis may not be a good idea. However his is coming around [address] Alejandro cardiology will be talking with his in person. If we decide to do dialysis, patient will need to be transferred for dialysis access which would be problematic as we do not have vascular surgeon coverage nor do we have IR as well as very limited dialysis nurses coverage for this [place] weekend. To do any cardiac intervention which would be very complicated patient would have to agree to do dialysis. for now will give 1000 ml NS over many hours S--had SATYA and then Cardioversion but BP still low and feels very weak. In fact much weaker than before. urine--low amount. renal labs still worsening. Physical Exam Physical Exam: AAOx3; NAD Eyes: PERRL, conjunctivae normal, anicteric sclerae Neck: No JVD. Respiratory: Clear. Cardiovascular: regular; S1+S2; (+) murmur Musculoskeletal: No lower extremity edema Skin: R-groin with large hematoma; stable Results & Data Vital Signs (Past 12 Hours) Vital Signs Temp Pulse Pulse Pulse Resp BP Pulse Ox 02/18/23 08:26 36.7 C 66 18 103/60 95 02/18/23 02:56 36.6 C 71 22 109/69 96 02/17/23 23:00 68 O2 Del Method 02/18/23 08:26 Room Air 02/18/23 02:56 Room Air 02/17/23 23:00
--- NOTE | 2023-02-18 11:54 | Cardiology Progress Note ---
Date of Service February 18, 2023 Assessment & Plan (1) Hypotension: (2) Multi-vessel coronary artery stenosis: (3) Severe calcific aortic stenosis: (4) Ischemic cardiomyopathy: (5) Atrial fibrillation with rapid ventricular response: (6) Acute kidney injury superimposed on chronic kidney disease: Plan -Patient seen and examined with Dr Odell of nephrology and Dr Hammond of the hospitalist service before and after which we had an extended multidisciplinary discussion about the patient's case. -Patient with baseline stage IV chronic kidney disease with baseline creatinine in the mid 2's , and Has continued to trend up with measurement of 3.35 on 02/16/2023, 3.71 on 02/17/2023, and 4.68 today 02/18/2023. -Although the chest x-ray suggests ongoing interstitial edema, and the patient is seen to have shortness of breath with minimal exertion in bed with talking, h is lungs are clear, and his oxygen requirement has improved dramatically. -Patient first admitted with atrial fibrillation with rapid ventricular response in the setting of severe left ventricular systolic dysfunction and severe aortic stenosis in July,. An EKG performed as an outpatient in December, documents sinus rhythm at that time. When he underwent PCI, drug-eluting stents to the left main, proximal LAD, and proximal right coronary artery at [facility] on 02/08/2023 recurrent atrial fibrillation with rapid ventricular response present at that that time and was present when he was admitted to this institution on 02/10/2023 1 day post discharge having presented with symptomatic hypotension and a right groin hematoma. -Patient received transfusion of packed red blood cells x 1 unit with stabilization of hemoglobin, CT of the abdomen and pelvis revealed a small right groin hematoma, and an ultrasound duplex of the right groin revealed no pseudoaneurysm. Aspirin and Plavix were reinitiated with anticoagulation initially on hold and patient underwent cautious diuresis with improvement of his oxygen requirement from 10 L/min via oxime mask down to room air. -Anticoagulation with heparin initiated on 02/14/2023 and patient underwent SATYA guided direct-current cardioversion on 02/16/2023 with cautious attention with regards to the administration of sedation at that time. -Post cardioversion his amiodarone infusion has been weaned. Transition from heparin back to Eliquis. * At this time due to worsening renal function, Eliquis to be discontinued. * Start unfractionated heparin, 02/18/2023 at 8:24 PM which will be 12 hours after last Eliquis. * Patient appears frail and although ultimate goal would be to proceed with transcatheter aortic valve implantation he appears to weak for this at present and I am not optimistic that he would be a candidate for moving forward with such a procedure without willing to accept potential long-term dialysis. * Patient declines dialysis as per our discussion. * I spoke to his spouse, Oanh, by phone and updated her with regards to the developments. She is going to be at hospital this afternoon and she will have a discussion with her . Admission and Anticipated Discharge Date Admission Date: February 10, 2023 Subjective Patient seen in follow up along with Dr Carlos Odell of nephrology, and Dr Hammond of the hospitalist service. He is restless and short of breath with minimal movement in bed. He noted dizziness yesterday, just tired and unable to get comfortable today. Telemetry reveals sinus rhythm in the 60s to 70s. Physical Exam Physical Exam: Vital Signs Temp Pulse Pulse Pulse Resp BP BP 02/18/23 08:26 36.7 C 66 18 103/60 02/18/23 02:56 36.6 C 71 22 109/69 02/17/23 23:00 68 02/17/23 22:29 37.4 C 65 24 109/74 02/17/23 19:11 36.7 C 70 22 103/65 02/17/23 15:00 70 02/17/23 14:00 36.6 C 67 19 104/68 02/17/23 11:44 36.7 C 63 20 92/63 L Pulse Ox O2 Del Method 02/18/23 08:26 95 Room Air 02/18/23 02:56 96 Room Air 02/17/23 23:00 02/17/23 22:29 97 Room Air 02/17/23 19:11 90 Room Air 02/17/23 15:00 02/17/23 14:00 93 Room Air 02/17/23 11:44 92 Room Air Constitutional: + ill appearing and + cachectic Neck: trachea midline, no thyromegaly Respiratory: Auscultation: lungs clear to auscultation bilaterally Cardiovascular: Rate/Rhythm: regular rate Heart Sounds: + murmur (2/6 SM , diminished S2 ) Extremities: no edema Gastrointestinal (Abdomen): normal bowel sounds, soft, nontender, no hepatosplenomegaly Neurologic: PERRL, EOMI, accommodation nl, no face palsy, no dysarthria Genitourinary: Dixon catheter in place, draining clear yellow urine Results & Data Laboratory Results CBC 02/18/23 Range/Units 06:39 WBC 12.13 H (4.8-10.8) K/ul RBC 2.93 L (4.70-6.10) M/uL Hgb 8.7 L (14.0-18.0) g/dl Hct 27.1 L (42.0-52.0) % Plt Count 205 (130-400) K/uL Comprehensive Metabolic Panel 02/18/23 Range/Units 06:39 Sodium 135 L (136-145) mmol/L Potassium 4.7 (3.5-5.1) mmol/L Chloride 100 (98-107) mmol/L Carbon Dioxide 17 L (21-32) mmol/L BUN 91 H (6-23) mg/dl Creatinine 4.68 H* D (0.6-1.4) mg/dl Glucose 130 H (70-99(Fasting)) mg/dl Calcium 8.8 (8.6-10.3) mg/dl Intake and Output 02/17/23 02/18/23 02/18/23 22:59 06:59 14:59 Intake Total 100 / 728.452 50 / 728.452 Output Total 151 / 502 201 / 502 Balance -51 / 226.452 -151 / 226.452 Intake: Oral 100 / 550 50 / 550 Output: Urine Amount (Catheter) 150 / 500 200 / 500 Dixon/Indwelling 150 / 500 200 / 500 # Bowel Movements 1 / 2 1 / 2 Other: Weight 71.21 kg Weight Measurement Method Built in [facility] (1) Hypotension Hypotension type: unspecified hypotension type Qualified Code(s): I95.9 - Hypotension, unspecified
[2023-02-18] MEDS ORDERED: ONDANSETRON INJ 2 MG/ML 2 ML VIAL IV PRN (13:22)
--- NOTE | 2023-02-18 16:53 | Billing Data ---
Date of Service February 18, 2023 Coding Level of Care Code 73688 SUB INP/OBS CARE MIN
--- NOTE | 2023-02-18 17:35 | Communication Note ---
Date of Service: February 18, 2023 Discussed updated again with patient and spouse at bedside. Pt would like to think about things for another day before determining if he would consider dialysis.
--- NOTE | 2023-02-18 18:44 | Electrocardiogram Report ---
Test Reason : Blood Pressure : / mmHG Vent. Rate : 077 BPM Atrial Rate : 077 BPM P-R Int : 234 ms QRS Dur : 078 ms QT Int : 394 ms P-R-T Axes : 070 092 131 degrees QTc Int : 445 ms Sinus rhythm with 1st degree A-V block Rightward axis Low voltage QRS Septal infarct (cited on or before 26-AUG-2022) Nonspecific T wave abnormality Abnormal ECG When compared with ECG of 12-FEB-2023 06:11, Sinus rhythm has replaced Atrial fibrillation Confirmed by Ede Montalvo ([id number]) on 02/18/2023 6:44:12 PM Referred By: REFERRED SELF Confirmed By:Ede Montalvo
[2023-02-18] MEDS ORDERED: Heparin IV Adult Wt-Based Standard *NO* INITIAL Bolus Protocol IV SCH (20:15)
[2023-02-18 20:25] LABS: Basophils # (auto) 0.03 K/uL (0.00-0.20); Basophils % (auto) 0.2 %; Eosinophils # (auto) 0.11 K/uL (0.00-0.50); Eosinophils % (auto) 0.8 %; Hematocrit (blood only) 27.2 % (42.0-52.0); Hemoglobin 8.7 g/dl (14.0-18.0); Immature Granulocytes # (auto) 0.14 K/uL (0.01-0.20); Lymphocytes # (auto) 0.77 K/uL (1.20-3.40); Lymphocytes % (auto) 5.6 %; Mean Corpuscular Volume 93.8 fL (80.0-100.0); Mean Platelet Volume 10.1 fL (9.4-12.4); Monocytes # (auto) 1.31 K/uL (0.11-0.59); Monocytes % (auto) 9.4 %; Neutrophils # (auto) 11.51 K/uL (1.40-6.50); Nucleated RBC # (auto) 0.08 K/uL (0.00-0.12); Nucleated RBC % (auto) 0.6 %; Platelet Count 232 K/uL (130-400); RDW Coefficient of Variation 15.8 % (11.5-14.5); RDW Standard Deviation 48.8 fL (36.4-46.3); White Blood Count 13.87 K/ul (4.8-10.8)
[2023-02-18] MEDS ORDERED: HEPARIN SODIUM/DEXTROSE 25,000 UNITS/500 ML BAG IV SCH (20:30)
[2023-02-18 20:51] LABS: INR 1.3 (0.9-1.1); Prothrombin Time 14.5 Seconds (9.0-12.0)
[2023-02-18 21:05] LABS: ANTI-Xa, UFH(UnfractionatedHep > 1.50 IU/ml (0.3-0.7)
[2023-02-19] MEDS: SODIUM CHLORIDE 0.9% 1,000 ML IV SCH (01:15)
[2023-02-19 04:53] LABS: Hematocrit (blood only) 27.9 % (42.0-52.0); Hemoglobin 8.9 g/dl (14.0-18.0); Mean Corpuscular Hemoglobin 30.2 pg (25.0-34.0); Mean Corpuscular Hgb Conc 31.9 g/dL (32.0-36.0); Mean Corpuscular Volume 94.6 fL (80.0-100.0); Mean Platelet Volume 10.2 fL (9.4-12.4); Nucleated RBC # (auto) 0.16 K/uL (0.00-0.12); Nucleated RBC % (auto) 1.2 %; Platelet Count 225 K/uL (130-400); RDW Coefficient of Variation 16.1 % (11.5-14.5); RDW Standard Deviation 50.1 fL (36.4-46.3); Red Blood Count 2.95 M/uL (4.70-6.10); White Blood Count 13.81 K/ul (4.8-10.8)
[2023-02-19 05:10] LABS: BUN Creatinine Ratio 18.8 (10-20); Calcium 8.1 mg/dl (8.6-10.3); Creatinine Clr Calc Pharmacy 9.3 ml/min; Est GFR (African American) 10.4 ml/min; Est GFR (Non-African American) 8.9 ml/min; Potassium 5.1 mmol/L (3.5-5.1)
[2023-02-19 05:31] LABS: Partial Thromboplastin Ratio 2.9
[2023-02-19 05:36] LABS: Partial Thromboplastin Time 83 Seconds (21-31)
[2023-02-19 06:45] LABS: ANTI-Xa, UFH(UnfractionatedHep > 1.50 IU/ml (0.3-0.7)
--- NOTE | 2023-02-19 07:51 | Hospitalist Progress Note ---
"Date of Service February 19, 2023 Assessment & Plan (1) Symptomatic anemia: Plan: Pt is a 82 y/o male with PMH of severe , urinary retention, HLD, HTN, and recent cardiac stent placement 02/08 at [facility] presenting to the hospital 02/10 due to dizziness and hypotension. Severe | HFrEF - Echo 07/2022 with EF 30-35%. Plan for TAVR in the future. - Patient fluid overloaded after 2L NS and 1u pRBCs aggressively diuresed now likely close to euvolemic. - Cardiology following, appreciate recommendations --- Increasing labored breathing, likely 2/2 overall fatigue rather than fluid overload, remains clinically dry on exam with low urine output --- Ongoing light IVF, encourage PO fluid intake --- Anticipated TAVR procedure limited by worsening renal function and deteriorating clinical picture, patient now agreeable to trial dialysis; Gen Surgery consulted for dialysis line placement but are unable to perform procedure, Nephrology service unable to provide standard CASE MGR given patient's low BP, patient needing CRRT which is not available at [facility]. Patient would benefit from transfer - process initiated. JOSE ALBERTO on CKD4 | Hyperkalemia | Hyperphosphatemia - Baseline around 2.2; creatinine at 2.79 upon admission - Worsening kidney disease likely secondary to poor forward flow 2/2 , thus causing ATN - Nephrology consulted, appreciate recommendations Hopeful for improvement following SATYA/CV, now appearing unlikely Complicated urologic/urinary retention hx but this has been relative improved since prostate procedure 09/2021 UO minimally responsive to Lasix in early admission, now receiving light IVF w/ mild increase in UO Recommending dialysis (CRRT given low BP), patient now agreeable to proceed - Hyperkalemia/Hyperphosphatemia: s/p patiromer w/ improvement in K levels in early admission, now again rising --- Creatinine continue to rise (now 5.4), potassium rising, despite IVF, poor renal prognosis, patient currently willing to trial dialysis Hypotension | Acute blood loss anemia - Hemorrhagic hypovolemia likely 2/2 ABLA in the setting of recent right femoral groin access for cardiac cath at [place] on 02/08 - Discharge hemoglobin was 9.1 - CTAP with signs of a small hemorrhage - extravasation limited by lack of IV contrast as patient with CKD3-4; Duplex of groin without signs of pseudoaneurysm. - Patient fluid resuscitated initially with 2L NS and 1u pRBCs. Hemoglobin stable. - Patient currently maintaining MAP > 65 without phenylephrine support. Monitor BPs closely. - De-escalation to PCU 02/14 --- Continue close monitoring of Hemoglobin (8.9 02/19) and BP (likely lower in setting of severe , MAP currently >65) Paroxysmal AFib/Flutter w/ RVR - Likely component of reactive tachycardia in setting of hypovolemia - Amiodarone gtt ongoing, Metoprolol restarted for rate control 02/14 - AC held given grion hematoma, now starting Heparin gtt - Cardiology consulted, appreciate recommendations - Ongoing Midodrine for BP support (per ICU), monitor closely, not idea given /LV dysfunction (per Cardiology) - Successful SATYA/cardioversion, now in NSR. TAVR workup will be performed outpatient. --- Patient remains in sinus, HR stable Elevated Anion Gap Acidosis - Patient with anion gap and tachypnea. - Likely metabolic acidosis with respiratory compensatory mechanisms. --- Resolved 02/14 Recent cardiac stent placement 02/08 - Triple therapy w/ Apixaban, ASA, and Plavix planned following stenting, with indefinite Apixaban and Plavix - Apixaban held given hematoma --- Started on Eliquis, returned to Heparin ggt given worsening renal function Elevated troponin - In the setting of recent cardiac intervention, downtrending HTN - pt on metoprolol, lisinopril, and furosemide at home - continue holding antihypertensives in the setting of acute hypotension/h ypovolemia UTI w/ Serratia - Ceftriaxone ongoing as of 02/13 Sleep Difficulties - Melatonin added PRN, improvement noted Code status: full DVT ppx: on ASA and plavix, on Heparin ggt given kidney fxn FENGI: heart healthy Dispo: PCU/tele, potential transfer for ongoing care (2) Atrial flutter with rapid ventricular response: (3) Elevated troponin: (4) Acute on chronic renal failure: (5) HTN (hypertension), benign: (6) Severe calcific aortic stenosis: (7) S/P drug eluting coronary stent placement: (8) Lactate blood increase: (9) Hypovolemia: (10) CKD (chronic kidney disease): Admission and Anticipated Discharge Date Admission Date: February 10, 2023 Supervising Physician Co-Signing Physician Notes I personally examined the patient and verified all downey points of history and exam, discussed case, and agree with decision making with Dr Hammond Subjective 02/19: Patient uncomfortable in bed this morning with increasingly labored breathing. He endorses ongoing fatigue and lightheadedness with lack of appetite. He denies any chest pain or groin pain a/w hematoma. He denies fevers or chills. He notes this morning that he would like to proceed with 'doing everything' including dialysis, with a goal of getting strong enough to receive a TAVR procedure for his heart. Patient was agreeable to transfer for ongoing care. Review of Systems Review of Systems: As per HPI Physical Exam Physical Exam: Gen: Alert, NAD, thin, fatigued HEENT: NCAT, dry MM CV: bradycardic, regular rhythm, loud holosystolic murmur best heard LUSB present, cap refill <2s Resp: labored, lung sounds diminished, otherwise CTAB, no wheezing appreciated Abd: soft, non-distended, non-tender MSK: significant bruising right thigh, right hip, and groin extending into the scrotum (stable) Skin: no rashes noted Neuro: alert and oriented Psych: appropriate mood and affect Results & Data Results & Data Vital Signs (Past 12 Hours) Vital Signs Temp Pulse Pulse Resp BP Pulse Ox O2 Del Method 02/19/23 03:00 36.3 C L 73 21 92/58 L 98 Room Air 02/18/23 23:26 66 02/18/23 23:00 36.3 C L 67 22 97/59 L 99 Room Air 02/18/23 21:50 60 110/60 36 L Room Air Resident Activity Tracking Resident Involvement: Resident Care Provided Care Provided: Adult Hospital Medicine (4) Acute on chronic renal failure Acute renal failure type: unspecified Chronic kidney disease stage: unspecified stage Qualified Code(s): N17.9 - Acute kidney failure, unspecified; N18.9 - Chronic kidney disease, unspecified (10) CKD (chronic kidney disease) Chronic kidney disease stage: stage 3 (moderate) Chronic kidney disease stage 3 subtype: unspecified whether 3a or 3b Qualified Code(s): N18.30 - Chronic kidney disease, stage 3 unspecified"
[2023-02-19] MEDS: MIDODRINE HCL 2.5 MG TAB PO SCH ×2 (08:27→13:07)
[2023-02-19] MEDS: AMIODARONE 200 MG TAB PO SCH (08:27)
[2023-02-19] MEDS: METOPROLOL TARTRATE 25 MG TAB PO SCH (08:28)
[2023-02-19] MEDS: ATORVASTATIN 40 MG TAB PO SCH (08:28)
[2023-02-19] MEDS: CLOPIDOGREL BISULFATE 75 MG TAB PO SCH (08:28)
[2023-02-19] MEDS: PANTOprazole 40 MG in SYRINGE 0 ML IV SCH (08:28)
[2023-02-19 09:47] LABS: ANTI-Xa, UFH(UnfractionatedHep 1.38 IU/ml (0.3-0.7)
[2023-02-19 10:51] LABS: ANTI-Xa, UFH(UnfractionatedHep 1.16 IU/ml (0.3-0.7)
[2023-02-19 11:48] LABS: ANTI-Xa, UFH(UnfractionatedHep 1.09 IU/ml (0.3-0.7)
--- NOTE | 2023-02-19 14:18 | Procedure Note ---
Procedure Note Date of Service February 19, 2023 Note Emergency INTUBATION PROCEDURE NOTE during cardiac arrest: Dr. Ezequiel Charlton A time-out was completed verifying correct patient, procedure, site, positioning. Patient was evaluated and required intubation for cardiac arrest. Sedative agent used: None Paralysis agent used: None Emergent consent was implied given patients rapidly declining clinical status and need for airway protection. Number of attempts: 2 Grade view: 2 The patient was prepared in the appropriate fashion. No sedation was utilized. Patient had evidence of massive hemoptysis and large amount of blood was suctioned from the airway. Initially a direct laryngoscope was utilized with a MAC 3 blade. I was able to visualize the epiglottis, but due to the large amount of blood, I was unable to visualize the vocal cords. We then bagged the patient and I switched over to a glide scope. I was able to visualize the vocal cords and pass a 7.5 [place] endotracheal tube through the vocal cords. The stylette was removed and balloon was inflated with 10mL of air. Appropriate Colorimetric change was appreciated. Shortly after intubation and with chest compressions ongoing, the family indicated that they would like resuscitative measures to be discontinued. Patient ultimately and the endotracheal tube was removed. Coding CPT Codes Resuscitation - Resuscitation: 32764 Endotracheal Intubation, emergency ([id number]) [facility] Procedure Codes (Charges) Resuscitation Resuscitation: 15212 Endotracheal Intubation, emergency
--- NOTE | 2023-02-19 14:27 | Death Pronouncement Note ---
Date of Service February 19, 2023 Pronouncement Note Admission Date February 10, 2023 Date and Time of Date of : 02/19/23 Time of : 13:46 Preliminary Cause of (1) Pulmonary hemorrhage: (2) Cardiorenal syndrome: Additional Comments: Acute on Chronic RF in setting of Severe causing poor forward blood flow and ATN. (3) Severe calcific aortic stenosis: (4) S/P drug eluting coronary stent placement: Additional Comments: Coronary Artery Disease S/p post-op complication causing ABLA and hypovolemia Additional Data Confirmation of : no pulse, no respirations and no heart sounds Pronouncement Performed By: Resident Physician (Whitney Hammond) Family: at bedside Attending/PCP notified?: Yes Attending physician: Adilson Araujo, DO Was code activated?: Yes Autopsy requested?: No accident examiner notified?: No Organ bank notified?: Yes Supervising Physician Co-Signing Physician Notes I personally examined the patient and verified all downey points of history and exam, discussed case, and agree with decision making with Dr Hammond Resident Activity Tracking Resident Involvement: Resident Care Provided Care Provided: Adult Hospital Medicine
--- NOTE | 2023-02-19 17:32 | Discharge Summary ---
Date of Service February 19, 2023 Admission HPI Per Admitting Provider 82 y/o male with a PMHx of a flutter/fib, CKD3-4, aortic stenosis, HLD, HTN, and tobacco use presented with symptomatic hypotension. Patient underwent recent cardiac catheterization via a right common femoral artery at [facility] on 02/08 2 MAGGIE placed LM, LAD, RCA. Patient was discharged 02/09. Patient was hypovolemic at that time per report. Patient with significant bruising around the access site. Patient was discharge on ASA and plavix. He was to restart apixaban daily starting Sunday 02/11. Plan was to continue with triple therapy x 7 days. Continue with Plavix and apixaban indefinitely. Planning for TAVR in the future for severe aortic stenosis. Reviewed d/c summary from recent admission to [facility] - labs from 02/08 significant for hemoglobin 13.6 and creatinine 2.4. Patient with known chronic kidney disease. No repeat labs seen. Did ask Dr. Antonio Woodward, [facility], to review case as we will be formally consulting him - hemoglobin stable at 9.1 on discharge Hypovolemic and tachycardic on admission. Patient s/p 2 L NS. Patient is atrial flutter/fib with rapid ventricular response. Was given 5 mg Lopressor x1 as concern that flutter was contributing to hypotension. Patient stable in the 80s/50s at this time. CT A&P for assessment of probable hemorrhage. Ordered 1u PRBCs. Upon my interview with the patient he was asymptomatic - no lightheadedness or dizziness, no feeling cold, no SOB, no chest pain, no abdominal pain, no bleeding from wound site. Feeling about the same as during discharge. Patient did not take his morning lisinopril or apixaban. Principal Diagnosis cardiorenal syndrome due to severe aortic stenosis Discharge Exam the first 2 times I saw him today he was lying in bed asleep and appearing in no distress. Resident physician had called [facility] for transfer. Due to their recommendations that we initiate dialysis here, we had discussed further with nephrology and surgerywere not able to get dialysis access here, and was planning to call [facility] back later in the day to explain that the resources they assumed we had we did not. Third visit was during CODE BL[facility]. He had extensive amounts of blood suctioned endotracheally. otherwise as per code blue documentation and resident physician progress note. Discharge Data Allergies Allergy/AdvReac Type Severity Reaction Status Date / Time No Known Allergies Allergy Verified 02/10/23 16:03 Consultations 02/10/23 15:19 ED Decision to Admit Stat 02/10/23 17:47 Consult Cardiology Routine Consult Copy Machine Operator Routine 02/11/23 15:28 Consult Nephrology Routine 02/14/23 08:57 Consult Anesthesiology Routine 02/19/23 10:33 Consult General Surgery Routine Procedures Performed Operation Date: 02/16/23 07:45 Actual Procedures p Echo Transesophageal - See Rojas DO s Cardioversion - See Rojas DO Ordered Studies 02/10/23 14:43 CT abd pelvis wo con Stat 02/11/23 10:00 US arterial duplex LE RT Urgent Hospital Course (1) Cardiorenal syndrome: Ultimately severe aortic stenosis led to cardiorenal syndrome, and it appears that his rapid decompensation today was due to pulmonary hemorrhage, given the amount of blood suctioned. Certainly could have also been flash pulmonary edema from his renal failure, but either way it was unfortunately an irreparable/terminal event. Offered condolences and support to his , all questions answered to the best my ability. See progress note from resident physician for further details. Total Time Total Time Spent Total Time Spent (In Minutes): >30 Discharge Plan Discharge Items Patient Disposition: Discharge Diagnosis: Pulmonary Hemorrhage Cardiorenal Syndrome Aortic Stenosis Other Date/Time: 02/19/23 13:46 Coding Level of Care Code 95147 INP/OBS DISCH >30 MIN Diagnoses Cardiorenal syndrome I13.10
== END 2023-02-19 16:54 | disposition expired | DRG 919 ==
LOC: ED 13:54 → 1E 16:25 → SUATTDRO 16:25 → 1E 17:14 → 2S 02-14 18:21